=== PATIENT | male | born 1930 | race Asian ===

== ENCOUNTER 2016-10-05 06:51 | Inpatient (IN) | payer MEDICARE, MEDICAID ==
[2016-10-05] VITALS (14 sets, daily range): BP systolic 90–141; BP diastolic 59–75
[~2016-10-05] VITALS: Ht 170.2 cm; Wt 62.9 kg
[~2016-10-05 06:51] MED LIST: ARICEPT5 MG ORAL; DEXILANT60 MG ORAL; DIOVAN160 MG ORAL; FLOMAX0.4 MG ORAL; METFORMIN HCL1000 M1 ORAL; NORVASC5 MG ORAL; VICODIN 5-5001 EACH ORAL; [UNRECOGNIZED DRUG - OTHER]
[2016-10-05] MEDS ORDERED: Piperacillin/Tazobactam 4.5 GM in NS 110 ML IV SCH (07:15)
[2016-10-05] MEDS ORDERED: NS 1000ml 2,200 ML IVLG ONE (07:15)
[2016-10-05] MEDS ORDERED: Vancomycin 1.5gm/D5W 250ml 250 ML IVPB ONE (07:15)
[2016-10-05] MEDS ORDERED: Zosyn 4.5gm inj ONE (07:40)
[2016-10-05] MEDS ORDERED: Acetaminophen 650 MG SUPP RECTAL ONE (08:00)
--- NOTE | 2016-10-05 08:05 | Emergency Room Report ---
History of Present Illness General Chief Complaint: Dyspnea/Respdistress Source: Medical Record Present Illness HPI 85-year-old M bedbound, dementia, BPH, NPH with shunt, hx of pna coming from [facility] for [facility]. Per EMS report patient at baseline is nonverbal however [facility] staff states that patient is more altered and less responsive than normal. EMS arrived and patient was in respiratory distress with satting about 80% on room air up to 90 with BVM. Patient is full code. Patient had recent admission for pneumonia in August at outside hospital. Allergies: Coded Allergies: No Known Allergies (Unverified , 07/19/12) Patient History Past Medical History: see triage record Past Surgical History: unable to obtain Pertinent Family History: unable to obtain Nursing Documentation-[facility] Past Medical History: No History, Except For Hx Cardiac Problems: Yes Hx Hypertension: Yes Hx COPD: Yes Hx Diabetes: Yes Hx Cancer: No Hx Gastrointestinal Problems: No Hx Neurological Problems: Yes - vp software engineering shunt, hydrocecephalus Hx Dizziness: Yes Hx Syncope: Yes Hx Headaches: Yes Hx Numbness: Yes Hx Weakness: Yes Hx Fatigue: Yes Hx Brain Shunt: Yes - vp software engineering 2012 Review of Systems All Other Systems: limited - PT NONVERBAL Physical Exam Vital Signs Date Time Temp Pulse Resp B/P Pulse Ox O2 Delivery O2 Flow Rate FiO2 10/05/16 06:50 97.7 108 30 117/68 91 Ambu-Bag 15.0 10/05/16 07:23 100 Sp02 EP Interpretation: abnormal General Appearance: severe distress, other - Chronically ill-appearing male in respiratory distress agonal breathing, Chronically Ill Head: normocephalic, atraumatic Eyes: bilateral eye EOMI, bilateral eye PERRL, bilateral eye normal inspection ENT: normal ENT inspection, normal pharynx Neck: normal inspection, supple Respiratory: respiratory distress, other - Satting 80 on room air up to 95% with bagging. Tachypneic. Course breath sounds bilaterally. Cardiovascular #1: JVD, normal capillary refill, tachycardia Gastrointestinal: normal inspection, soft, non-distended, no guarding, other - no grimace to deep palpation Musculoskeletal: normal inspection, other - no signs of trauma Neurologic: normal inspection, other - gag reflex intact / moaning incomprehensible sounds, not ff commands Skin: normal color, no rash Procedures Critical Care Time Critical Care Time 45 minutes of CC time 85 YO M with resp distress VS: tachycardia, febrile Sepsis criteria met intubated for hypoxic resp dailure BP improved here with IVF, AL tylenol PLAN: IV access, labs, lactate, Blood/Urine Cx, Abx ICU admission CC time also includes review of labs, review of EMR and paperwork from SNF, d/w hospitalist CC could include dosing of pressors, additional Abx CC time does not include procedures Intubation Intubation : Consent: Emergent Intubation Method: orotracheal Tube Size (cm): 7.5 Medications: Etomidate, Rocuronium Breath Sounds after Intubation: equal Intubation Complications: no complications Post Intubation Xray: Yes Attempts: One Patient Tolerated: Well Complications: None Medical Decision Making Diagnostic Impression: Primary Impression: Acute respiratory failure with hypoxia Additional Impressions: Pneumonia Sepsis ER Course 85 yo M with resp distress, ams, coming from [place] ddx: suspect sepsis 2/2 to PNA/UTI, ACS, dehydration, electrolyte disturbance/ hyponatremia PLAN: came in being bagged by EMS, intubated upon arrival IV access - obtains labs EKG, CXR fluids, abx, tylenol ER course: intubated upon arrival Labs: +leukocytosis, elevated lactate, negative trop, hypercarbic on blood gas vent settings accordingly CXR: +infiltrate b/l EKG: TWI ant leads IV fluids given to patient 30 cc/kg, antibiotics administered Disposition: Patient is to be admitted to ICU sepsis criteria met D/w hospitalist Dr Nolen EKG Diagnostic Results Rate: tachycardiac Rhythm: NSR ST Segments: other - TWI v2 v3 ASA given to the pt in ED: No Rhythm Strip Diag. Results EP Interpretation: yes Rate: 120 Rhythm: NSR Chest X-Ray Diagnostic Results Chest X-Ray Diagnostic Results : # of Views/Limited/Complete: 1 View Indication: Shortness of Breath EP Interpretation: Yes Interpretation: other - b/l infiltrates/suspected pneumonia ETT above nicolás at appropriate position Impression: Other Interpreting ER Provider: Electronically signed by Cici Larson M.D. Last Vital Signs Date Time Temp Pulse Resp B/P Pulse Ox O2 Delivery O2 Flow Rate FiO2 10/05/16 07:23 100 10/05/16 07:00 105 28 Ambu-Bag 15.0 10/05/16 07:00 131/75 95 10/05/16 06:50 97.7 Disposition: ADMITTED INPATIENT Condition: Critical Referrals: NON PHYSICIAN (PCP) Cici Larson M.D. Oct 05, 2016 08:05
[2016-10-05 08:21] LABS: MEAN CORPUSCULAR HEMOGLOBIN 34.6 PG (27.0-31.0); MEAN CORPUSCULAR HGB CONC 34.3 G/DL (32.0-36.0); MEAN CORPUSCULAR VOLUME 101 FL (80-99); MEAN PLATELET VOLUME 6.6 FL (6.5-10.1); PLATELET COUNT 132 K/UL (150-450); RED BLOOD COUNT 3.73 M/UL (4.70-6.10); RED CELL DISTRIBUTION WIDTH 14.4 % (11.6-14.8); WHITE BLOOD COUNT 13.8 K/UL (4.8-10.8)
[2016-10-05 08:38] LABS: APPEARANCE,URINE CLEAR; KETONES,URINE 1+ (NEGATIVE); LEUKOCYTE ESTERASE ,URINE NEGATIVE (NEGATIVE); NITRITE,URINE NEGATIVE (NEGATIVE); PH,URINE 6 (4.5-8.0); PROTEIN,URINE 3+ (NEGATIVE); UROBILINOGEN,URINE NORMAL MG/DL (0.0-1.0)
[2016-10-05 08:42] LABS: ABG ALLEN TEST POSITIVE; ABG BASE EXCESS -9.4; ABG PCO2 62.8 mmHg (35.0-45.0)
[2016-10-05 08:43] LABS: BAND NEUTROPHILS % (MANUAL) 5 % (0-8); BASOPHILS % (MANUAL) 0 % (0-2); EOSINOPHILS % (MANUAL) 0 % (0-3); LYMPHOCYTES % (MANUAL) 14 % (20-45); NEUTROPHILS % (MANUAL) 75 % (45-75); PLATELET ESTIMATE DECREASED; PLATELET MORPHOLOGY NORMAL; TOTAL CELLS COUNTED 100
[2016-10-05 08:44] LABS: ANISOCYTOSIS 1+
[2016-10-05 08:49] LABS: AMORPHOUS SEDIMENT,UR OCCASIONAL /LPF; BACTERIA,URINE FEW /HPF; MUCUS,URINE FEW /LPF (NONE/OCC); SQUAMOUS EPITHELIAL CELL,UR FEW /LPF (NONE/OCC)
[2016-10-05 09:20] LABS: ALANINE AMINOTRANSFERASE 10 U/L (3-41); ALBUMIN/GLOBULIN RATIO 0.8 (1.0-2.7); ANION GAP 15 (5-15); ASPARTATE AMINO TRANSFERASE 16 U/L (5-40); CALCIUM 9.2 mg/dL (8.6-10.2); CARBON DIOXIDE 20 mEQ/L (20-30); CHLORIDE 99 mEQ/L (98-107); HEMOLYSIS 23; POTASSIUM 4.2 mEQ/L (3.4-4.9); SODIUM 134 mEQ/L (135-145); TOTAL PROTEIN 6.4 g/dL (6.6-8.7); TROPONIN I < 0.30 ng/mL (<=0.30)
[2016-10-05 09:25] LABS: REFLEX LACTIC ACID YES OR NO YES
[2016-10-05] MEDS ORDERED: ASPIR 8181 MG ORAL (09:27)
[2016-10-05] MEDS ORDERED: ACETAMINOPHEN325 M1 ORAL (09:27)
[2016-10-05 09:30] LABS: CKMB 2.3 ng/mL (< 6.7)
[2016-10-05] MEDS ORDERED: ATENOLOL25 MG ORAL (09:31)
[2016-10-05] MEDS ORDERED: CALMOSEPTINE O3.5 G1 TP (09:31)
[2016-10-05] MEDS ORDERED: ISOSORBIDE MONO30 M1 PO (09:33)
[2016-10-05] MEDS ORDERED: LOSARTAN POTAS100 MG ORAL (09:33)
[2016-10-05] MEDS ORDERED: OMEPRAZOLE20 M2 ORAL (09:34)
--- NOTE | 2016-10-05 10:16 | Diagnostic Imaging Report ---
Indication: PAIN distress, status post intubation Technique: One view of the chest Comparison: 07/23/2012 Findings: Interim endotracheal intubation, endotracheal tube tip in good position approximately 6 cm above the nicolás. Infiltrates are seen in the right upper lobe, right infrahilar region, left perihilar region left lung base. There is a moderate size left pleural effusion. There may be trace right pleural fluid. Ventriculoperitoneal shunt tubing is again demonstrated Impression: Satisfactory endotracheal intubation Bilateral parenchymal infiltrates versus edema, as described Moderate left, possible trace right pleural effusions
--- NOTE | 2016-10-05 10:27 | Pulmonolgy Critical Care Note ---
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 Respiratory: monitor respiratory rate, adjust FIO2, CXR Cardiac: continue to monitor HR/BP Renal: F/U I&O, keep IV fluid, check electrolytes Infectious Disease: check cultures, continue antibiotics Gastrointestinal: hold feedings, other - nutrition evaluation Endocrine: monitor blood sugar, check HgA1C Hematologic: monitor H/H Neurologic: PRN Ativan, PRN Morphine Affect: PRN ativan Prophylaxis: Protonix, Heparin Disposition: keep in ICU Time Spent (Minutes): 40 Discussed with: nurses, consultants, family member - pt at bed site Critical Care - Objective Last 24 Hour Vital Signs Date Time Temp Pulse Resp B/P Pulse Ox O2 Delivery O2 Flow Rate FiO2 10/05/16 09:24 110 16 100 10/05/16 09:00 98.2 114 16 139/69 100 Mechanical Ventilator 100 10/05/16 08:23 98.2 10/05/16 08:00 119 16 132/75 100 Mechanical Ventilator 100 10/05/16 07:23 100 10/05/16 07:05 137 16 100 10/05/16 07:04 137 16 Mechanical Ventilator 100 10/05/16 07:00 105 28 Ambu-Bag 15.0 10/05/16 07:00 105 28 131/75 95 Ambu-Bag 15.0 10/05/16 06:50 97.7 108 30 117/68 91 Ambu-Bag 15.0 Status: sedated Condition: critical HEENT: atraumatic Neck: full ROM Heart: HR/BP unstable, regular Abdomen: non-tender, active bowel sounds Extremities: no C/C/E, edema Decubiti: stage Critical Care - Subjective ROS Limited/Unobtainable: Yes ICU Day: pt seen inER Intubation Day: 1 EKG Rhythm: Sinus Rhythm FI02: 100 Vent Support Breath Rate: 16 Vent Support Mode: AC Vent Tidal Volume: 400 Sputum Amount: Moderate PEEP: 5.0 PIP: 21 I&O: Intake and Output 10/04/16 10/05/16 19:00 07:00 Intake Total 0 ml Balance 0 ml Intake Oral 0 ml CXR: bilateral infiltrate ET-Tube: 7.5 ET Position: 24 VERITO MONTESINOS Oct 05, 2016 10:27
[2016-10-05] MEDS ORDERED: DuoNeb 0.5-3(2.5)mg/3ml neb HHN PRN (10:30)
[2016-10-05] MEDS ORDERED: Miralax 17gm pkt ORAL PRN (10:30)
[2016-10-05] MEDS ORDERED: LORazepam Inj 2mg/ml 1ml IV PRN (10:30)
--- NOTE | 2016-10-05 14:27 | Wound Care Consultation ---
Wound Assessment Wound Assessment #1: Wound Number: #1 Wound Present on Admission: Yes New Wound: No Status Change of Wound: No Wound Location Body Site Modif: mid Wound Location Body Site: sacral Wound Type: pressure ulcer Sonu Test: Does not Sonu Pressure Ulcer Stage: deep tissue injury Wound Thickness: Full Thickness Wound Length: 6.0 Wound Width: 10.0 - scattered Percent of Wound Purple/Maroon: 100 Wound Drainage Amount: None Wound Drainage Odor: None/Absent Tissue Surrounding Wound: Erythemic Wound General Appearance: Reddened - maroon Wound Assessment #2: Wound Number: #2 Wound Present on Admission: Yes New Wound: No Status Change of Wound: No Wound Location Body Site Modif: right Wound Location Body Site: arm Wound Type: ecchymosis - scattered Sonu Test: Does not Sonu Percent of Wound Yaak/Red: 50 Percent of Wound Purple/Maroon: 50 Wound Drainage Amount: None Wound Drainage Odor: None/Absent Tissue Surrounding Wound: Intact Wound General Appearance: Reddened, Open to air Wound Assessment #3: Wound Number: #3 Wound Present on Admission: Yes New Wound: No Status Change of Wound: No Wound Location Body Site Modif: left Wound Location Body Site: arm Wound Type: ecchymosis - scattered Sonu Test: Does not Sonu Percent of Wound Yaak/Red: 50 Percent of Wound Purple/Maroon: 50 Wound Drainage Amount: None Wound Drainage Odor: None/Absent Tissue Surrounding Wound: Intact Wound General Appearance: Reddened Wound Assessment #4: Wound Number: #4 Wound Present on Admission: Yes New Wound: No Status Change of Wound: No Wound Location Body Site Modif: left, right, upper Wound Location Body Site: arm Wound Type: scab - scattered scabs Sonu Test: Does not Sonu Percent of Wound Yaak/Red: 50 - dry scabs Percent of Wound Black/Brown: 50 - dry scabs Wound Drainage Amount: None Wound Drainage Odor: None/Absent Tissue Surrounding Wound: Erythemic Wound General Appearance: Reddened, Open to air, Clean/Dry Wound Comment #1 Mid Sacral pressure ulcer DEEP TISSUE INJURY. #2 Left upper arm scattered ecchymosis. #3 Right upper arm scattered ecchymosis. #4 Left and Right upper arm scattered scabs. Recommendation. -Local wound care as ordered. -Apply low air loss mattress SPR. -Turn and reposition. -Keep clean and dry. -Optimize nutrition. -Avoid shear and friction. -Apply heel protectors. -Offload pressure sites, offload heels and feet. -Assess and notify MD for any changes of condition noted to skin. KEATON GUZMAN Oct 05, 2016 14:27
[2016-10-05] MEDS ORDERED: Amikacin Rx to dose MISC PRN (15:00)
[2016-10-05 15:19] LABS: ABG ALLEN TEST POSITIVE; ABG BASE EXCESS -6.5
--- NOTE | 2016-10-05 15:34 | Cardiology Report ---
APPROVED REPORT EXAM: Two-dimensional and M-mode echocardiogram with Doppler and color Doppler. INDICATION Left Ventricular Function M-Mode DIMENSIONS IVSd1.3 (0.7-1.1cm)Left Atrium (MM)2.8 (1.6-4.0cm) LVDd3.6 (3.5-5.6cm)Aortic Root3.3 (2.0-3.7cm) PWd1.2 (0.7-1.1cm)Aortic Cusp Exc.1.5 (1.5-2.0cm) LVDs1.9 (2.5-4.0cm) PWs1.8 cm Normal left ventricular chamber size, systolic function and wall motion. Left ventricular ejection fraction estimated to be 55 %. Mild left ventricular hypertrophy. Small pericardial effusion. All other cardiac chamber sizes are within normal limits. Mild focal aortic valve sclerosis with adequate cusp excursion. Mildly thickened mitral valve leaflets with normal excursion. Mild mitral annulus and aortic root calcification. Normal pulmonic valve structure. Normal tricuspid valve structure. IVC dilated at 2.3 cm without physiologic collapse, estimated RAP is 15 mmHg. A color flow and spectral Doppler study was performed and revealed: No aortic regurgitation. Mild mitral regurgitation. Mitral diastolic velocities suggest reduced left ventricular relaxation (Grade I). Moderate tricuspid regurgitation. Tricuspid systolic velocities suggests peak right ventricular systolic pressure of 17 mmHg No pulmonic regurgitation present.
[2016-10-05] MEDS: Amikacin 1,000 MG in NS 110 ML IV SCH (15:47)
[2016-10-05] MEDS ORDERED: Ertapenem 1 GM in NS 55 ML IV SCH (16:00)
[2016-10-05] MEDS ORDERED: Vancomycin 1.5 GM/D5W 250ML IVPB ONE (17:00)
--- NOTE | 2016-10-05 19:28 | Infectious Diseases Prog Note ---
Infectious Disease Consult Infectious Disease Consult Infectious Disease Consult INFECTIOUS DISEASE CONSULTATION DATE OF CONSULTATION: 05Oct2016 CONSULTING PHYSICIAN: Alfonso Mathur M.D., [facility], [facility] Covering for Dr. Aguiar REFERRING PHYSICIAN: Dr. Luis Nolen REASON FOR CONSULTATION: hypoxemic respiratory failure, septic shock HISTORY OF PRESENT ILLNESS: 85-year-old [place] M bedbound, dementia, BPH, NPH with shunt, hx of aspiration pna coming from [facility] for [facility]. Per EMS report patient at baseline is nonverbal however senior care staff states that patient is more altered and less responsive than normal. Per EMS patient was in respiratory distress with satting about 80% on room air up to 90 with BVM. Patient is full code. Patient had recent admission for pneumonia in August 2015 at outside hospital ( [facility] [place] On presentation he was afebrile, briefly required norepinephrine, received dose of IV zosyn and then continued on IV ertapenem, vanc, and amikacin. patient does not have a known h/o ESBL or MDR pathogens. PAST MEDICAL HISTORY: h/o aspiration pneumonia (s/p admission to [facility] [place] ) normal pressure hydrocephalus asthma BPS HTN Dementia, advanced bed-bound senior care resident gastritis Past Surgical History: DITCHING [employer]ACH[employer] shunt 2011 ALLERGIES: No known drug allergies. ANTIBIOTICS: Home and hospitalized medications reviewed. SOCIAL HISTORY: FAMILY HISTORY: Noncontributory REVIEW OF SYSTEMS: 11 point ROS negative except for that mentioned in HPI above. PHYSICAL EXAM: VITAL SIGNS: GEN: intubated on vent full support, currently not on pressors, alert HEENT: Mild pale conjunctiva. oral mucosa dry, pharynx w/o exudate or effusion. No icterus. Head normocephalic, neck supple. NECK: No cervical LAD CHEST: scattered rhonchi, decreased breath sounds on L base. HEART: S1 and S2, no murmurs, no rubs. ABDOMEN: soft, non tender, non distended, normoactive bowel sounds. EXTREMITIES: No cyanosis, no clubbing, no edema. extremities warm with brisk cap refill NEUROLOGIC: Awake, alert, no focal neurologic motor deficits. : enciso in place draining clear yellow urine. LYMPH: no LAD RECTAL: deferred. reviewed wound care report of mid sacral pressure ulcer with deep tissue injury LABORATORY AND DIAGNOSTIC DATA: Labs reviewed, notable for leukocytosis, metabolic lactic acidosis, and initial ABG was hypercarbic. u/a w/o pyuria blood and sputum cx pending LFTs wnl RADIOLOGY: Patient : DACIA THACKER Referring Physician: Cici Larson M.D. ID Number: [id number] Service Date: 10/05/16 : 1930 Report Date: 10/05/16 Gender: M Accession No.: [id number] Location: EMR Procedure: XRAY Chest 1v Indication: PAIN distress, status post intubation Technique: One view of the chest Comparison: 07/23/2012 Findings: Interim endotracheal intubation, endotracheal tube tip in good position approximately 6 cm above the nicolás. Infiltrates are seen in the right upper lobe, right infrahilar region, left perihilar region left lung base. There is a moderate size left pleural effusion. There may be trace right pleural fluid. Ventriculoperitoneal shunt tubing is again demonstrated Impression: Satisfactory endotracheal intubation Bilateral parenchymal infiltrates versus edema, as described Moderate left, possible trace right pleural effusions ASSESSMENT AND PLAN ASSESSMENT: 1) Pneumonia, moderate L effusion 2) septic shock, currently off pressors 3) Hypercarbic Respiratory failure requiring intubation 4) Leukocytosis 5) Afebrile 6) Lactic acidosis 7) hyperglycemia 8) thrombocytopenia, mild 9) Sacral pressure ulcer with deep tissue injury PLAN: --Continue empiric IV vancomycin and amikacin D#1 --d/c IV ertapenem, as he doesn't have h/o ESBL and primary infection appears to be pulmonary in origin, so empiric zosyn preferred --start IV zosyn 4.5gm IV q8hr extended infusion --f/u sputum cx --f/u blood cx --enciso catheter care --sacral wound care --as his CXR does have some component of pulmonary edema, will monitor L pleural effusion for improvement on positive pressure ventilation on daily CXR --f/u MRSA screening Thank you for this consultation. Will continue to follow. Covering for Dr. Aguiar, please call me with questions, Alfonso Mathur M.D. Oct 05, 2016 19:28
[2016-10-05 20:59] LABS: REFLEX LACTIC ACID YES OR NO YES
[2016-10-05] MEDS: Tamsulosin 0.4mg cap ORAL SCH (21:00)
[2016-10-05] MEDS: Heparin 5000 units/ml inj SUBQ SCH (22:00)
[2016-10-05] MEDS: Piperacillin/Tazobactam 4.5 GM in D5W 110 ML IVPB SCH (23:00)
[2016-10-05] MEDS ORDERED: Vancomycin 1 GM in D5W 275 ML IV SCH (23:45)
[2016-10-06] VITALS (34 sets, daily range): BP systolic 74–151; BP diastolic 43–95
[2016-10-06] MEDS ORDERED: Levophed 4mg/4mL Inj IV ONE (00:25)
[2016-10-06 05:51] LABS: MEAN CORPUSCULAR HEMOGLOBIN 34.5 PG (27.0-31.0); MEAN CORPUSCULAR VOLUME 102 FL (80-99); MEAN PLATELET VOLUME 6.4 FL (6.5-10.1); PLATELET COUNT 191 K/UL (150-450); RED BLOOD COUNT 3.12 M/UL (4.70-6.10); RED CELL DISTRIBUTION WIDTH 14.4 % (11.6-14.8)
[2016-10-06] MEDS: Piperacillin/Tazobactam 4.5 GM in D5W 110 ML IVPB SCH ×3 (06:12→21:43)
[2016-10-06 06:28] LABS: ALANINE AMINOTRANSFERASE 11 U/L (3-41); ALBUMIN/GLOBULIN RATIO 0.7 (1.0-2.7); ANION GAP 14 (5-15); ASPARTATE AMINO TRANSFERASE 22 U/L (5-40); CALCIUM 8.1 mg/dL (8.6-10.2); CARBON DIOXIDE 19 mEQ/L (20-30); CHLORIDE 103 mEQ/L (98-107); HEMOLYSIS 75; POTASSIUM 4.4 mEQ/L (3.4-4.9); SODIUM 136 mEQ/L (135-145); TOTAL PROTEIN 6.3 g/dL (6.6-8.7)
[2016-10-06 08:05] LABS: BILIRUBIN,DIRECT 0.2 mg/dL (0.1-0.3)
[2016-10-06 08:12] LABS: ABG ALLEN TEST POSITIVE; ABG BASE EXCESS -4.9; ABG PCO2 28.6 mmHg (35.0-45.0)
[2016-10-06] MEDS: Heparin 5000 units/ml inj SUBQ SCH ×2 (08:32→21:07)
--- NOTE | 2016-10-06 08:49 | Diagnostic Imaging Report ---
Indications: DYSPNEA Technique: Portable AP chest Findings: Comparison: 10/05/16 Patchy airspace opacities in the basal aspect of right upper lobe, both lower lobes unchanged. Background bilateral interstitial prominence unchanged. Blunting of both costophrenic angles persists, perhaps mildly decreased on the left. Lines and tubes remain in place. No new abnormality identified. IMPRESSION: Suggestion of mild decrease in versus shifting of left pleural effusion No other change from one day prior
--- NOTE | 2016-10-06 10:26 | History and Physical ---
History of Present Illness General Date patient seen: Oct 05, 2016 Reason for Hospitalization: Dyspnea/Respdistress Present Illness HPI 85-year-old male with hx of dementia, BPH, NPH, bedbound, care home resident [facility] with CC of fAMS. Apparently patient was more altered and less responsive than normal. EMS arrived and patient was in respiratory distress with saturating about 80% on room. . Patient is full code. Patient had recent admission for pneumonia in August at outside hospital. He was intubated in ER, was started on Levophed and transferring to ICU. Allergies: Coded Allergies: No Known Allergies (Unverified , 07/19/12) Medication History Scheduled Amlodipine Besylate (Norvasc), 5 MG ORAL DAILY, (Reported) Aspirin* (Aspir 81*), 81 MG ORAL DAILY, (Reported) Atenolol* (Tenormin*), 25 MG ORAL DAILY, (Reported) Dexlansoprazole (Dexilant), 60 MG ORAL DAILY, (Reported) Donepezil Hcl* (Aricept*), 10 MG ORAL DAILY, (Reported) Hydrocodone/Acetaminophen 5-500 (Vicodin 5-500), 1 TAB ORAL Q6H, (Reported) Isosorbide Mononitrate (Isosorbide Mononitrate Er), 30 MG PO DAILY, (Reported) Losartan Potassium (Losartan Potassium), 100 MG ORAL DAILY, (Reported) Metformin Hcl* (Metformin Hcl*), 1,000 MG ORAL DAILY, (Reported) Omeprazole (Omeprazole), 20 MG ORAL DAILY, (Reported) Tamsulosin HCl (Flomax), 0.4 MG ORAL BEDTIME, (Reported) Valsartan (Diovan), 160 MG ORAL DAILY, (Reported) Scheduled PRN Acetaminophen* (Acetaminophen 325MG Tablet*), 325 MG ORAL Q4H PRN for For Pain, (Reported) Miscellaneous Medications Menthol/Zinc Oxide (Calmoseptine Ointment), Unknown Dose TP, (Reported) [isorosbide], (Reported) Patient History Healthcare decision maker Resuscitation status Full Code Advanced Directive on File Past Medical/Surgical History Past Medical/Surgical History: (1) Alzheimer's dementia (2) Normal pressure hydrocephalus Review of Systems All Other Systems: negative except mentioned in HPI Physical Exam General Appearance: WD/WN HEENT: normocephalic Neck: non-tender, normal alignment Respiratory/Chest: chest wall non-tender, lungs clear Breasts: no masses Cardiovascular/Chest: normal peripheral pulses, normal rate Abdomen: normal bowel sounds, non tender Genitourinary/Rectal: normal genital exam, normal rectal exam Extremities: normal range of motion, non-tender, non-pitting Skin Exam: cyanotic Last 24 Hour Vital Signs Date Time Temp Pulse Resp B/P Pulse Ox O2 Delivery O2 Flow Rate FiO2 10/06/16 10:00 96 20 120/64 94 Mechanical Ventilator 60 10/06/16 09:38 60 10/06/16 09:20 86 25 50 10/06/16 09:20 100 10/06/16 09:00 101 20 108/70 98 Mechanical Ventilator 80 10/06/16 08:00 105 10/06/16 08:00 98.0 105 19 122/63 98 Mechanical Ventilator 80 10/06/16 07:53 80 10/06/16 07:10 103 25 50 10/06/16 07:00 98.1 80 18 134/70 98 10/06/16 06:15 98 18 110/58 98 Mechanical Ventilator 50 10/06/16 06:00 105/72 10/06/16 06:00 100 19 105/72 98 Mechanical Ventilator 50 10/06/16 05:45 99 19 122/67 97 Mechanical Ventilator 50 10/06/16 05:30 99 20 103/64 95 Mechanical Ventilator 50 10/06/16 05:15 100 21 135/76 96 Mechanical Ventilator 50 10/06/16 05:14 98 20 50 10/06/16 05:00 94 20 135/95 95 Mechanical Ventilator 50 10/06/16 05:00 135/95 10/06/16 04:45 96 20 132/71 95 Mechanical Ventilator 50 10/06/16 04:30 98.3 97 21 125/70 97 Mechanical Ventilator 50 10/06/16 04:15 98 24 136/71 96 Mechanical Ventilator 50 10/06/16 04:00 98 23 131/75 98 Mechanical Ventilator 50 10/06/16 04:00 98 10/06/16 04:00 131/75 10/06/16 03:45 95 22 114/69 99 Mechanical Ventilator 50 10/06/16 03:30 92 20 151/76 97 Mechanical Ventilator 50 10/06/16 03:15 89 18 114/65 96 Mechanical Ventilator 50 10/06/16 03:09 89 19 50 17 03:00 117/69 10/06/16 03:00 98.1 90 18 117/69 89 50 17 02:00 98.1 108/71 10/06/16 02:00 112/52 10/06/16 01:30 141/70 10/06/16 01:15 94/61 10/06/16 01:00 82 16 50 10/06/16 01:00 98.1 84 74/52 10/06/16 01:00 92/58 10/06/16 00:46 88/48 10/06/16 00:00 82 10/06/16 00:00 98.1 86 109/68 10/05/16 23:27 95 16 50 10/05/16 23:00 98.1 88 18 141/70 97 50 10/05/16 22:00 98.1 88 18 99 Mechanical Ventilator 50 10/05/16 21:05 89 17 50 10/05/16 21:00 98.2 84 18 114/62 85 Mechanical Ventilator 50 10/05/16 20:00 98.1 89 18 110/62 99 Mechanical Ventilator 50 16/17 20:00 84 1617 19:01 93 17 50 1617 19:00 89 20 110/62 99 Mechanical Ventilator 50 17 18:01 94 20 90/60 99 Mechanical Ventilator 50 16/17 17:17 91 19 50 16/17 17:00 96 20 90/71 99 Mechanical Ventilator 50 17 16:00 98.1 96 20 123/67 99 Mechanical Ventilator 50 16/17 15:11 93 26 50 16/17 15:00 96 21 124/71 99 Mechanical Ventilator 50 16/17 14:49 50 16/17 14:45 124/71 16/17 14:11 74 16 50 16/17 14:00 98.0 83 18 112/59 100 Mechanical Ventilator 100 16/17 13:30 100 16/17 13:30 95 16/17 13:21 93 19 126/73 100 Mechanical Ventilator 100 16/17 11:36 96 21 118/65 100 Mechanical Ventilator 100 16/17 11:25 101 19 100 10/05/16 10:27 97.5 103 16 131/69 100 Mechanical Ventilator 100 Intake and Output 10/05/16 10/06/16 19:00 07:00 Intake Total 3298 ml 711.32 ml Output Total 750 ml 430 ml Balance 2548 ml 281.32 ml IV Total 3298 ml 711.32 ml Output Urine Total 750 ml 430 ml Laboratory Tests Test 10/05/16 15:04 10/05/16 20:20 10/06/16 04:05 10/06/16 08:02 Arterial Blood pH 7.349 (7.350-7.450) 7.425 (7.350-7.450) Arterial Blood Partial Pressure CO2 34.0 mmHg (35.0-45.0) L 28.6 mmHg (35.0-45.0) L Arterial Blood Partial Pressure O2 71.1 mmHg (75.0-100.0) L 68.8 mmHg (75.0-100.0) L Arterial Blood HCO3 18.3 mmol/L (22.0-26.0) L 18.3 mmol/L (22.0-26.0) L Arterial Blood Oxygen Saturation 93.1 % (92.0-98.0) 99.0 % (92.0-98.0) H Arterial Blood Base Excess -6.5 -4.9 Nicholas Test Positive Positive Lactic Acid Level 2.50 mmol/L (0.66-2.22) H White Blood Count 20.0 K/UL (4.8-10.8) H Red Blood Count 3.12 M/UL (4.70-6.10) L Hemoglobin 10.8 G/DL (14.2-18.0) L Hematocrit 31.6 % (42.0-52.0) L Mean Corpuscular Volume 102 FL (80-99) H Mean Corpuscular Hemoglobin 34.5 PG (27.0-31.0) H Mean Corpuscular Hemoglobin Concent 34.0 G/DL (32.0-36.0) Red Cell Distribution Width 14.4 % (11.6-14.8) Platelet Count 191 K/UL (150-450) Mean Platelet Volume 6.4 FL (6.5-10.1) L Neutrophils (%) (Auto) % (45.0-75.0) Lymphocytes (%) (Auto) % (20.0-45.0) Monocytes (%) (Auto) % (1.0-10.0) Eosinophils (%) (Auto) % (0.0-3.0) Basophils (%) (Auto) % (0.0-2.0) Neutrophils % (Manual) Pending Lymphocytes % (Manual) Pending Platelet Estimate Pending Platelet Morphology Pending Sodium Level 136 mEQ/L (135-145) Potassium Level 4.4 mEQ/L (3.4-4.9) Chloride Level 103 mEQ/L (98-107) Carbon Dioxide Level 19 mEQ/L (20-30) L Anion Gap 14 (5-15) Blood Urea Nitrogen 16 mg/dL (7-23) Creatinine 1.0 mg/dL (0.7-1.2) Estimat Glomerular Filtration Rate mL/min (>60) Glucose Level 136 mg/dL (74-106) H Calcium Level 8.1 mg/dL (8.6-10.2) L Total Bilirubin 0.9 mg/dL (0.0-1.2) Direct Bilirubin 0.2 mg/dL (0.1-0.3) Aspartate Amino Transf (AST/SGOT) 22 U/L (5-40) Alanine Aminotransferase (ALT/SGPT) 11 U/L (3-41) Alkaline Phosphatase 66 U/L (40-129) Total Protein 6.3 g/dL (6.6-8.7) L Albumin 2.7 g/dL (3.5-5.2) L Globulin 3.6 g/dL Albumin/Globulin Ratio 0.7 (1.0-2.7) L Random Amikacin Level 13.4 ug/mL Height (Feet): 5 Height (Inches): 7.00 Weight (Pounds): 160 Medications Current Medications Medications (Trade) Dose Ordered Sig/Bhavna Route PRN Reason Start Time Stop Time Status Last Admin Dose Admin Acetaminophen (Tylenol) 650 mg Q4H PRN ORAL fever 10/05/16 10:30 11/04/16 10:29 Albuterol/ Ipratropium 3 ml 3 ml Q4H PRN HHN Shortness of Breath 10/05/16 10:30 10/10/16 10:29 Amikacin Protocol (Amikacin pharmacy to dose) 1 ea DAILY PRN MISC PER RX PROTOCOL 10/05/16 15:00 11/04/16 14:59 Amikacin Sulfate/ Sodium Chloride (Amikin/Sodium Chloride) 114 ml @ 228 mls/hr Q36H IV 10/05/16 16:00 10/12/16 15:59 10/05/16 15:47 Heparin Sodium (Porcine) (Heparin 5000 units/ml) 5,000 units EVERY 12 HOURS SUBQ 10/05/16 21:00 11/04/16 20:59 10/06/16 08:32 Lorazepam 2 mg 2 mg Q2H PRN IV For Anxiety 10/05/16 10:30 10/12/16 10:29 Morphine Sulfate (Morphine Sulfate) 4 mg Q4H PRN IVP Severe Pain (Pain Scale 7-10) 10/05/16 10:30 10/12/16 10:29 Norepinephrine Bitartrate/ Dextrose (Levophed/D5W) 254 ml @ 0 mls/hr Q24H IV 10/05/16 14:45 11/04/16 14:44 10/06/16 00:46 Ondansetron HCl (Zofran) 4 mg Q6H PRN IVP Nausea & Vomiting 10/05/16 10:30 11/04/16 10:29 Piperacillin Sod/ Tazobactam Sod/ Dextrose (Zosyn/D5W) 110 ml @ 27.5 mls/hr EVERY 8 HOURS IVPB 10/05/16 22:00 10/12/16 21:59 10/06/16 06:12 Sodium Chloride (Sodium Chloride 1000ml bag) 1,000 ml @ 100 mls/hr Q10H IVLG 10/05/16 15:00 11/04/16 14:59 10/06/16 01:28 Tamsulosin HCl 0.4 mg 0.4 mg BEDTIME ORAL 10/05/16 21:00 11/04/16 20:59 Vancomycin HCl 1 ea 1 ea DAILY PRN MISC PER RX PROTOCOL 10/05/16 15:00 11/04/16 14:59 Vancomycin HCl/ Dextrose 250 ml @ 166.667 mls/hr Q24H IVPB 10/06/16 17:00 10/11/16 16:59 Assessment/Plan Problem List: (1) Acute respiratory failure with hypoxia ICD Codes: J96.01 - Acute respiratory failure with hypoxia SNOMED: 72766651, 392074420 (2) Pneumonia ICD Codes: J18.9 - Pneumonia, unspecified organism SNOMED: 700632588, 858945150 (3) Sepsis ICD Codes: A41.9 - Sepsis, unspecified organism SNOMED: 10687979, 854773563 (4) Normal pressure hydrocephalus ICD Codes: G91.2 - (Idiopathic) normal pressure hydrocephalus SNOMED: 40076191 (5) Alzheimer's dementia ICD Codes: G30.9 - Alzheimer's disease, unspecified SNOMED: 19292499 Respiratory: monitor respiratory rate, adjust FIO2, CXR Cardiac: continue pressors, continue to monitor HR/BP Renal: F/U I&O, keep IV fluid, check electrolytes Infectious Disease: check cultures, continue antibiotics, add antibiotics Gastrointestinal: hold feedings Endocrine: monitor blood sugar, check TSH, continue sliding scale insulin Hematologic: monitor H/H, transfuse if hgb<8.5 Neurologic: PRN Ativan, PRN Morphine, keep patient comfortable Notes Reviewed: interactive producer, cardio, renal Discussed with: nurses, consultants, case aide VERITO MONTESINOS Oct 06, 2016 10:26
--- NOTE | 2016-10-06 10:28 | Pulmonolgy Critical Care Note ---
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 Respiratory: monitor respiratory rate, adjust FIO2, CXR, weaning trial Cardiac: continue to monitor HR/BP Renal: F/U I&O, keep IV fluid, check electrolytes Infectious Disease: check cultures Gastrointestinal: continue feedings/current rate Endocrine: monitor blood sugar, check TSH Hematologic: monitor H/H, transfuse if hgb<8.5 Neurologic: PRN Ativan, PRN Morphine, keep patient comfortable Prophylaxis: Heparin Notes Reviewed: cardio, renal Discussed with: nurses, consultants, 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 - Objective Last 24 Hour Vital Signs Date Time Temp Pulse Resp B/P Pulse Ox O2 Delivery O2 Flow Rate FiO2 10/06/16 10:00 96 20 120/64 94 Mechanical Ventilator 60 10/06/16 09:38 60 10/06/16 09:20 86 25 50 10/06/16 09:20 100 10/06/16 09:00 101 20 108/70 98 Mechanical Ventilator 80 10/06/16 08:00 105 10/06/16 08:00 98.0 105 19 122/63 98 Mechanical Ventilator 80 10/06/16 07:53 80 10/06/16 07:10 103 25 50 10/06/16 07:00 98.1 80 18 134/70 98 10/06/16 06:15 98 18 110/58 98 Mechanical Ventilator 50 10/06/16 06:00 105/72 10/06/16 06:00 100 19 105/72 98 Mechanical Ventilator 50 10/06/16 05:45 99 19 122/67 97 Mechanical Ventilator 50 10/06/16 05:30 99 20 103/64 95 Mechanical Ventilator 50 10/06/16 05:15 100 21 135/76 96 Mechanical Ventilator 50 10/06/16 05:14 98 20 50 10/06/16 05:00 94 20 135/95 95 Mechanical Ventilator 50 10/06/16 05:00 135/95 10/06/16 04:45 96 20 132/71 95 Mechanical Ventilator 50 10/06/16 04:30 98.3 97 21 125/70 97 Mechanical Ventilator 50 10/06/16 04:15 98 24 136/71 96 Mechanical Ventilator 50 10/06/16 04:00 98 23 131/75 98 Mechanical Ventilator 50 10/06/16 04:00 98 10/06/16 04:00 131/75 10/06/16 03:45 95 22 114/69 99 Mechanical Ventilator 50 10/06/16 03:30 92 20 151/76 97 Mechanical Ventilator 50 17 03:15 89 18 114/65 96 Mechanical Ventilator 50 10/06/16 03:09 89 19 50 10/06/16 03:00 117/69 10/06/16 03:00 98.1 90 18 117/69 89 50 10/06/16 02:00 98.1 108/71 10/06/16 02:00 112/52 10/06/16 01:30 141/70 10/06/16 01:15 94/61 10/06/16 01:00 82 16 50 10/06/16 01:00 98.1 84 74/52 10/06/16 01:00 92/58 10/06/16 00:46 88/48 10/06/16 00:00 82 10/06/16 00:00 98.1 86 109/68 10/05/16 23:27 95 16 50 17 23:00 98.1 88 18 141/70 97 50 10/05/16 22:00 98.1 88 18 99 Mechanical Ventilator 50 10/05/16 21:05 89 17 50 10/05/16 21:00 98.2 84 18 114/62 85 Mechanical Ventilator 50 10/05/16 20:00 98.1 89 18 110/62 99 Mechanical Ventilator 50 17 20:00 84 17 19:01 93 17 50 17 19:00 89 20 110/62 99 Mechanical Ventilator 50 1617 18:01 94 20 90/60 99 Mechanical Ventilator 50 16/17 17:17 91 19 50 16/17 17:00 96 20 90/71 99 Mechanical Ventilator 50 1617 16:00 98.1 96 20 123/67 99 Mechanical Ventilator 50 16/17 15:11 93 26 50 16/17 15:00 96 21 124/71 99 Mechanical Ventilator 50 16/17 14:49 50 16/17 14:45 124/71 16/17 14:11 74 16 50 16/17 14:00 98.0 83 18 112/59 100 Mechanical Ventilator 100 10/05/16 13:30 100 10/05/16 13:30 95 10/05/16 13:21 93 19 126/73 100 Mechanical Ventilator 100 10/05/16 11:36 96 21 118/65 100 Mechanical Ventilator 100 10/05/16 11:25 101 19 100 Status: sedated Condition: critical HEENT: atraumatic Neck: full ROM Lungs: clear Heart: HR/BP stable, HR/BP unstable Abdomen: soft, non-tender, feeding tube Extremities: edema Decubiti: location, stage Critical Care - Subjective ROS Limited/Unobtainable: Yes ICU Day: 2 Intubation Day: 2 Condition: critical FI02: 60 Vent Support Breath Rate: 10 Vent Support Mode: IMV/SIMV Vent Tidal Volume: 600 Sputum Amount: Small PEEP: 0.0 PIP: 22 Fluids: NS 100 cc.hour Drips: off levophed I&O: Intake and Output 10/05/16 10/06/16 19:00 07:00 Intake Total 3298 ml 711.32 ml Output Total 750 ml 430 ml Balance 2548 ml 281.32 ml IV Total 3298 ml 711.32 ml Output Urine Total 750 ml 430 ml CXR: extensive infiltrate ET-Tube: 7.5 ET Position: 23 Labs: Laboratory Tests Test 10/05/16 15:04 10/05/16 20:20 10/06/16 04:05 10/06/16 08:02 Arterial Blood pH 7.349 (7.350-7.450) 7.425 (7.350-7.450) Arterial Blood Partial Pressure CO2 34.0 mmHg (35.0-45.0) L 28.6 mmHg (35.0-45.0) L Arterial Blood Partial Pressure O2 71.1 mmHg (75.0-100.0) L 68.8 mmHg (75.0-100.0) L Arterial Blood HCO3 18.3 mmol/L (22.0-26.0) L 18.3 mmol/L (22.0-26.0) L Arterial Blood Oxygen Saturation 93.1 % (92.0-98.0) 99.0 % (92.0-98.0) H Arterial Blood Base Excess -6.5 -4.9 Nicholas Test Positive Positive Lactic Acid Level 2.50 mmol/L (0.66-2.22) H White Blood Count 20.0 K/UL (4.8-10.8) H Red Blood Count 3.12 M/UL (4.70-6.10) L Hemoglobin 10.8 G/DL (14.2-18.0) L Hematocrit 31.6 % (42.0-52.0) L Mean Corpuscular Volume 102 FL (80-99) H Mean Corpuscular Hemoglobin 34.5 PG (27.0-31.0) H Mean Corpuscular Hemoglobin Concent 34.0 G/DL (32.0-36.0) Red Cell Distribution Width 14.4 % (11.6-14.8) Platelet Count 191 K/UL (150-450) Mean Platelet Volume 6.4 FL (6.5-10.1) L Neutrophils (%) (Auto) % (45.0-75.0) Lymphocytes (%) (Auto) % (20.0-45.0) Monocytes (%) (Auto) % (1.0-10.0) Eosinophils (%) (Auto) % (0.0-3.0) Basophils (%) (Auto) % (0.0-2.0) Neutrophils % (Manual) Pending Lymphocytes % (Manual) Pending Platelet Estimate Pending Platelet Morphology Pending Sodium Level 136 mEQ/L (135-145) Potassium Level 4.4 mEQ/L (3.4-4.9) Chloride Level 103 mEQ/L (98-107) Carbon Dioxide Level 19 mEQ/L (20-30) L Anion Gap 14 (5-15) Blood Urea Nitrogen 16 mg/dL (7-23) Creatinine 1.0 mg/dL (0.7-1.2) Estimat Glomerular Filtration Rate mL/min (>60) Glucose Level 136 mg/dL (74-106) H Calcium Level 8.1 mg/dL (8.6-10.2) L Total Bilirubin 0.9 mg/dL (0.0-1.2) Direct Bilirubin 0.2 mg/dL (0.1-0.3) Aspartate Amino Transf (AST/SGOT) 22 U/L (5-40) Alanine Aminotransferase (ALT/SGPT) 11 U/L (3-41) Alkaline Phosphatase 66 U/L (40-129) Total Protein 6.3 g/dL (6.6-8.7) L Albumin 2.7 g/dL (3.5-5.2) L Globulin 3.6 g/dL Albumin/Globulin Ratio 0.7 (1.0-2.7) L Random Amikacin Level 13.4 ug/mL VERITO MONTESINOS Oct 06, 2016 10:28
[2016-10-06 11:13] LABS: ANISOCYTOSIS 1+; BAND NEUTROPHILS % (MANUAL) 12 % (0-8); BASOPHILS % (MANUAL) 0 % (0-2); EOSINOPHILS % (MANUAL) 0 % (0-3); LYMPHOCYTES % (MANUAL) 6 % (20-45); NEUTROPHILS % (MANUAL) 79 % (45-75); PLATELET ESTIMATE ADEQUATE; PLATELET MORPHOLOGY NORMAL; TOTAL CELLS COUNTED 100
[2016-10-06] MEDS ORDERED: Zemuron 50mg/5ml Inj IV ONE (12:23)
[2016-10-06] MEDS ORDERED: Etomidate 40mg/20ml Inj IV ONE (12:23)
[2016-10-06] MEDS: Morphine Sulfate 4mg/ml Inj IVP PRN (13:44)
[2016-10-06] MEDS: Metoprolol 5mg/5ml Inj IVP SCH ×2 (14:24→14:39)
--- NOTE | 2016-10-06 16:40 | Cardiology Progress Note ---
Assessment/Plan Assessment/Plan acute afib rvr trachy respiraotory fialur respir acidosis dementia nph s/p shunt s/p 2 iv dose of bb hr improved but still at time up to 130 will statr amio drip wiht 1/2 dose bolus repeat trop adn ekg iv ab vent support [id number] Objective Last 24 Hour Vital Signs Date Time Temp Pulse Resp B/P Pulse Ox O2 Delivery O2 Flow Rate FiO2 10/06/16 16:00 99.0 112 23 102/43 96 Mechanical Ventilator 80 10/06/16 16:00 116 10/06/16 15:23 99.4 10/06/16 15:10 134 22 50 10/06/16 15:00 120 24 124/59 95 Mechanical Ventilator 80 10/06/16 14:39 150 108/60 10/06/16 14:30 80 10/06/16 14:24 160 185/89 10/06/16 14:14 100.0 10/06/16 14:00 135 24 108/60 95 Mechanical Ventilator 80 10/06/16 13:15 99 27 50 10/06/16 13:11 100 27 60 10/06/16 13:00 126 20 138/50 94 Mechanical Ventilator 60 10/06/16 12:00 101 10/06/16 12:00 98.1 101 24 130/59 98 Mechanical Ventilator 60 10/06/16 11:14 60 10/06/16 11:01 98 20 120/50 94 Mechanical Ventilator 60 10/06/16 10:59 102 31 60 10/06/16 10:00 96 20 120/64 94 Mechanical Ventilator 60 10/06/16 09:38 60 10/06/16 09:20 86 25 50 10/06/16 09:20 100 10/06/16 09:00 101 20 108/70 98 Mechanical Ventilator 80 10/06/16 08:00 105 10/06/16 08:00 98.0 105 19 122/63 98 Mechanical Ventilator 80 10/06/16 07:53 80 10/06/16 07:10 103 25 50 10/06/16 07:00 98.1 80 18 134/70 98 10/06/16 06:15 98 18 110/58 98 Mechanical Ventilator 50 10/06/16 06:00 105/72 10/06/16 06:00 100 19 105/72 98 Mechanical Ventilator 50 8/17/17 05:45 99 19 122/67 97 Mechanical Ventilator 50 1717 05:30 99 20 103/64 95 Mechanical Ventilator 50 17 05:15 100 21 135/76 96 Mechanical Ventilator 50 1717 05:14 98 20 50 17 05:00 94 20 135/95 95 Mechanical Ventilator 50 10/06/16 05:00 135/95 10/06/16 04:45 96 20 132/71 95 Mechanical Ventilator 50 10/06/16 04:30 98.3 97 21 125/70 97 Mechanical Ventilator 50 17 04:15 98 24 136/71 96 Mechanical Ventilator 50 10/06/16 04:00 98 23 131/75 98 Mechanical Ventilator 50 10/06/16 04:00 98 10/06/16 04:00 131/75 10/06/16 03:45 95 22 114/69 99 Mechanical Ventilator 50 10/06/16 03:30 92 20 151/76 97 Mechanical Ventilator 50 10/06/16 03:15 89 18 114/65 96 Mechanical Ventilator 50 10/06/16 03:09 89 19 50 17 03:00 117/69 10/06/16 03:00 98.1 90 18 117/69 89 50 17 02:00 98.1 108/71 10/06/16 02:00 112/52 10/06/16 01:30 141/70 10/06/16 01:15 94/61 10/06/16 01:00 82 16 50 10/06/16 01:00 98.1 84 74/52 1717 01:00 92/58 10/06/16 00:46 88/48 1717 00:00 82 10/06/16 00:00 98.1 86 109/68 16/17 23:27 95 16 50 16/17 23:00 98.1 88 18 141/70 97 50 1617 22:00 98.1 88 18 99 Mechanical Ventilator 50 16/17 21:05 89 17 50 16/17 21:00 98.2 84 18 114/62 85 Mechanical Ventilator 50 16/17 20:00 98.1 89 18 110/62 99 Mechanical Ventilator 50 17 20:00 84 8/16/17 19:01 93 17 50 10/05/16 19:00 89 20 110/62 99 Mechanical Ventilator 50 10/05/16 18:01 94 20 90/60 99 Mechanical Ventilator 50 10/05/16 17:17 91 19 50 10/05/16 17:00 96 20 90/71 99 Mechanical Ventilator 50 Intake and Output 10/05/16 10/06/16 19:00 07:00 Intake Total 3298 ml 711.32 ml Output Total 750 ml 430 ml Balance 2548 ml 281.32 ml IV Total 3298 ml 711.32 ml Output Urine Total 750 ml 430 ml Laboratory Tests Test 10/05/16 20:20 10/06/16 04:05 10/06/16 08:02 10/06/16 10:15 Lactic Acid Level 2.50 mmol/L (0.66-2.22) H 1.40 mmol/L (0.66-2.22) White Blood Count 20.0 K/UL (4.8-10.8) H Red Blood Count 3.12 M/UL (4.70-6.10) L Hemoglobin 10.8 G/DL (14.2-18.0) L Hematocrit 31.6 % (42.0-52.0) L Mean Corpuscular Volume 102 FL (80-99) H Mean Corpuscular Hemoglobin 34.5 PG (27.0-31.0) H Mean Corpuscular Hemoglobin Concent 34.0 G/DL (32.0-36.0) Red Cell Distribution Width 14.4 % (11.6-14.8) Platelet Count 191 K/UL (150-450) Mean Platelet Volume 6.4 FL (6.5-10.1) L Neutrophils (%) (Auto) % (45.0-75.0) Lymphocytes (%) (Auto) % (20.0-45.0) Monocytes (%) (Auto) % (1.0-10.0) Eosinophils (%) (Auto) % (0.0-3.0) Basophils (%) (Auto) % (0.0-2.0) Differential Total Cells Counted 100 Neutrophils % (Manual) 79 % (45-75) H Lymphocytes % (Manual) 6 % (20-45) L Monocytes % (Manual) 3 % (1-10) Eosinophils % (Manual) 0 % (0-3) Basophils % (Manual) 0 % (0-2) Band Neutrophils 12 % (0-8) H Platelet Estimate Adequate Platelet Morphology Normal Anisocytosis 1+ Sodium Level 136 mEQ/L (135-145) Potassium Level 4.4 mEQ/L (3.4-4.9) Chloride Level 103 mEQ/L (98-107) Carbon Dioxide Level 19 mEQ/L (20-30) L Anion Gap 14 (5-15) Blood Urea Nitrogen 16 mg/dL (7-23) Creatinine 1.0 mg/dL (0.7-1.2) Estimat Glomerular Filtration Rate mL/min (>60) Glucose Level 136 mg/dL (74-106) H Calcium Level 8.1 mg/dL (8.6-10.2) L Total Bilirubin 0.9 mg/dL (0.0-1.2) Direct Bilirubin 0.2 mg/dL (0.1-0.3) Aspartate Amino Transf (AST/SGOT) 22 U/L (5-40) Alanine Aminotransferase (ALT/SGPT) 11 U/L (3-41) Alkaline Phosphatase 66 U/L (40-129) Total Protein 6.3 g/dL (6.6-8.7) L Albumin 2.7 g/dL (3.5-5.2) L Globulin 3.6 g/dL Albumin/Globulin Ratio 0.7 (1.0-2.7) L Random Amikacin Level 13.4 ug/mL Arterial Blood pH 7.425 (7.350-7.450) Arterial Blood Partial Pressure CO2 28.6 mmHg (35.0-45.0) L Arterial Blood Partial Pressure O2 68.8 mmHg (75.0-100.0) L Arterial Blood HCO3 18.3 mmol/L (22.0-26.0) L Arterial Blood Oxygen Saturation 99.0 % (92.0-98.0) H Arterial Blood Base Excess -4.9 Nicholas Test Positive ISACC GUEVARA Oct 06, 2016 16:40
[2016-10-06] MEDS: Vancomycin 1250mg/D5W 250ml IVPB SCH (16:41)
[2016-10-06] MEDS ORDERED: Amiodarone 900 MG in D5W 500ml 482 ML IV SCH (17:01)
--- NOTE | 2016-10-06 17:03 | Infectious Diseases Prog Note ---
Assessment/Plan Assessment/Plan Assessment: 1) Multifocal Pneumonia, moderate L effusion 2) septic shock, currently off pressors 3) Hypercarbic Respiratory failure requiring intubation; initial chem panel and ABG showed anion gap (lactic acidosis) metabolic acidosis with secondary respiratory acidosis. 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 looks slightly improved today. --f/u MRSA screening Subjective ROS Limited/Unobtainable: Yes Allergies: Coded Allergies: No Known Allergies (Unverified , 07/19/12) Subjective low grade temps overnight. Objective Vital Signs Last 24 Hour Vital Signs Date Time Temp Pulse Resp B/P Pulse Ox O2 Delivery O2 Flow Rate FiO2 10/06/16 16:00 99.0 112 23 102/43 96 Mechanical Ventilator 80 10/06/16 16:00 116 10/06/16 15:23 99.4 10/06/16 15:10 134 22 50 10/06/16 15:00 120 24 124/59 95 Mechanical Ventilator 80 10/06/16 14:39 150 108/60 10/06/16 14:30 80 10/06/16 14:24 160 185/89 10/06/16 14:14 100.0 10/06/16 14:00 135 24 108/60 95 Mechanical Ventilator 80 10/06/16 13:15 99 27 50 10/06/16 13:11 100 27 60 10/06/16 13:00 126 20 138/50 94 Mechanical Ventilator 60 10/06/16 12:00 101 10/06/16 12:00 98.1 101 24 130/59 98 Mechanical Ventilator 60 10/06/16 11:14 60 10/06/16 11:01 98 20 120/50 94 Mechanical Ventilator 60 10/06/16 10:59 102 31 60 10/06/16 10:00 96 20 120/64 94 Mechanical Ventilator 60 10/06/16 09:38 60 10/06/16 09:20 86 25 50 17 09:20 100 10/06/16 09:00 101 20 108/70 98 Mechanical Ventilator 80 10/06/16 08:00 105 10/06/16 08:00 98.0 105 19 122/63 98 Mechanical Ventilator 80 10/06/16 07:53 80 10/06/16 07:10 103 25 50 10/06/16 07:00 98.1 80 18 134/70 98 10/06/16 06:15 98 18 110/58 98 Mechanical Ventilator 50 10/06/16 06:00 105/72 10/06/16 06:00 100 19 105/72 98 Mechanical Ventilator 50 10/06/16 05:45 99 19 122/67 97 Mechanical Ventilator 50 10/06/16 05:30 99 20 103/64 95 Mechanical Ventilator 50 10/06/16 05:15 100 21 135/76 96 Mechanical Ventilator 50 10/06/16 05:14 98 20 50 10/06/16 05:00 94 20 135/95 95 Mechanical Ventilator 50 10/06/16 05:00 135/95 10/06/16 04:45 96 20 132/71 95 Mechanical Ventilator 50 10/06/16 04:30 98.3 97 21 125/70 97 Mechanical Ventilator 50 10/06/16 04:15 98 24 136/71 96 Mechanical Ventilator 50 10/06/16 04:00 98 23 131/75 98 Mechanical Ventilator 50 10/06/16 04:00 98 10/06/16 04:00 131/75 10/06/16 03:45 95 22 114/69 99 Mechanical Ventilator 50 10/06/16 03:30 92 20 151/76 97 Mechanical Ventilator 50 10/06/16 03:15 89 18 114/65 96 Mechanical Ventilator 50 10/06/16 03:09 89 19 50 10/06/16 03:00 117/69 10/06/16 03:00 98.1 90 18 117/69 89 50 10/06/16 02:00 98.1 108/71 10/06/16 02:00 112/52 10/06/16 01:30 141/70 10/06/16 01:15 94/61 10/06/16 01:00 82 16 50 10/06/16 01:00 98.1 84 74/52 10/06/16 01:00 92/58 10/06/16 00:46 88/48 10/06/16 00:00 82 10/06/16 00:00 98.1 86 109/68 10/05/16 23:27 95 16 50 10/05/16 23:00 98.1 88 18 141/70 97 50 10/05/16 22:00 98.1 88 18 99 Mechanical Ventilator 50 10/05/16 21:05 89 17 50 10/05/16 21:00 98.2 84 18 114/62 85 Mechanical Ventilator 50 10/05/16 20:00 98.1 89 18 110/62 99 Mechanical Ventilator 50 10/05/16 20:00 84 10/05/16 19:01 93 17 50 10/05/16 19:00 89 20 110/62 99 Mechanical Ventilator 50 10/05/16 18:01 94 20 90/60 99 Mechanical Ventilator 50 10/05/16 17:17 91 19 50 10/05/16 17:00 96 20 90/71 99 Mechanical Ventilator 50 Height (Feet): 5 Height (Inches): 7.00 Weight (Pounds): 160 Objective GEN: intubated on vent full support, currently not on pressors, alert HEENT: Mild pale conjunctiva. oral mucosa dry, pharynx w/o exudate or effusion. No icterus. Head normocephalic, neck supple. NECK: No cervical LAD CHEST: scattered rhonchi, decreased breath sounds on L base. copious thick secretions. HEART: S1 and S2, no murmurs, no rubs. ABDOMEN: soft, non tender, non distended, normoactive bowel sounds. EXTREMITIES: No cyanosis, no clubbing, no edema. extremities warm with brisk cap refill NEUROLOGIC: Awake, alert, no focal neurologic motor deficits. : enciso in place draining clear yellow urine. LYMPH: no LAD RECTAL: deferred. reviewed wound care report of mid sacral pressure ulcer with deep tissue injury blood cx pending. sputum cx shows uncollected. Radiology Technique: Portable AP chest Findings: Comparison: 10/05/16 Patchy airspace opacities in the basal aspect of right upper lobe, both lower lobes unchanged. Background bilateral interstitial prominence unchanged. Blunting of both costophrenic angles persists, perhaps mildly decreased on the left. Lines and tubes remain in place. No new abnormality identified. IMPRESSION: Suggestion of mild decrease in versus shifting of left pleural effusion No other change from one day prior Laboratory Tests Test 10/05/16 20:20 10/06/16 04:05 10/06/16 08:02 10/06/16 10:15 Lactic Acid Level 2.50 mmol/L (0.66-2.22) H 1.40 mmol/L (0.66-2.22) White Blood Count 20.0 K/UL (4.8-10.8) H Red Blood Count 3.12 M/UL (4.70-6.10) L Hemoglobin 10.8 G/DL (14.2-18.0) L Hematocrit 31.6 % (42.0-52.0) L Mean Corpuscular Volume 102 FL (80-99) H Mean Corpuscular Hemoglobin 34.5 PG (27.0-31.0) H Mean Corpuscular Hemoglobin Concent 34.0 G/DL (32.0-36.0) Red Cell Distribution Width 14.4 % (11.6-14.8) Platelet Count 191 K/UL (150-450) Mean Platelet Volume 6.4 FL (6.5-10.1) L Neutrophils (%) (Auto) % (45.0-75.0) Lymphocytes (%) (Auto) % (20.0-45.0) Monocytes (%) (Auto) % (1.0-10.0) Eosinophils (%) (Auto) % (0.0-3.0) Basophils (%) (Auto) % (0.0-2.0) Differential Total Cells Counted 100 Neutrophils % (Manual) 79 % (45-75) H Lymphocytes % (Manual) 6 % (20-45) L Monocytes % (Manual) 3 % (1-10) Eosinophils % (Manual) 0 % (0-3) Basophils % (Manual) 0 % (0-2) Band Neutrophils 12 % (0-8) H Platelet Estimate Adequate Platelet Morphology Normal Anisocytosis 1+ Sodium Level 136 mEQ/L (135-145) Potassium Level 4.4 mEQ/L (3.4-4.9) Chloride Level 103 mEQ/L (98-107) Carbon Dioxide Level 19 mEQ/L (20-30) L Anion Gap 14 (5-15) Blood Urea Nitrogen 16 mg/dL (7-23) Creatinine 1.0 mg/dL (0.7-1.2) Estimat Glomerular Filtration Rate mL/min (>60) Glucose Level 136 mg/dL (74-106) H Calcium Level 8.1 mg/dL (8.6-10.2) L Total Bilirubin 0.9 mg/dL (0.0-1.2) Direct Bilirubin 0.2 mg/dL (0.1-0.3) Aspartate Amino Transf (AST/SGOT) 22 U/L (5-40) Alanine Aminotransferase (ALT/SGPT) 11 U/L (3-41) Alkaline Phosphatase 66 U/L (40-129) Total Protein 6.3 g/dL (6.6-8.7) L Albumin 2.7 g/dL (3.5-5.2) L Globulin 3.6 g/dL Albumin/Globulin Ratio 0.7 (1.0-2.7) L Random Amikacin Level 13.4 ug/mL Arterial Blood pH 7.425 (7.350-7.450) Arterial Blood Partial Pressure CO2 28.6 mmHg (35.0-45.0) L Arterial Blood Partial Pressure O2 68.8 mmHg (75.0-100.0) L Arterial Blood HCO3 18.3 mmol/L (22.0-26.0) L Arterial Blood Oxygen Saturation 99.0 % (92.0-98.0) H Arterial Blood Base Excess -4.9 Nicholas Test Positive Current Medications Medications (Trade) Dose Ordered Sig/Bhavna Route PRN Reason Start Time Stop Time Status Last Admin Dose Admin Acetaminophen (Tylenol) 650 mg Q4H PRN ORAL fever 10/05/16 10:30 11/04/16 10:29 10/06/16 14:24 Albuterol/ Ipratropium 3 ml 3 ml Q4H PRN HHN Shortness of Breath 10/05/16 10:30 10/10/16 10:29 Amikacin Protocol (Amikacin pharmacy to dose) 1 ea DAILY PRN MISC PER RX PROTOCOL 10/05/16 15:00 11/04/16 14:59 Amikacin Sulfate/ Sodium Chloride (Amikin/Sodium Chloride) 114 ml @ 228 mls/hr Q36H IV 10/05/16 16:00 10/12/16 15:59 10/05/16 15:47 Amiodarone HCl 100 ml @ 200 mls/hr ONCE IV 10/06/16 16:45 10/06/16 17:01 10/06/16 16:41 Amiodarone HCl/ Dextrose (Cordarone/D5W 500ml) 500 ml @ 0 mls/hr Q24H IV 10/06/16 17:01 10/07/16 17:00 Famotidine 20 mg 20 mg Q12HR IVP 10/06/16 21:00 11/05/16 20:59 Heparin Sodium (Porcine) (Heparin 5000 units/ml) 5,000 units EVERY 12 HOURS SUBQ 10/05/16 21:00 11/04/16 20:59 10/06/16 08:32 Lorazepam 2 mg 2 mg Q2H PRN IV For Anxiety 10/05/16 10:30 10/12/16 10:29 Metoprolol Tartrate (Lopressor) 5 mg Q5MIN X 3 IVP 10/06/16 14:30 11/05/16 14:29 10/06/16 14:39 Morphine Sulfate (Morphine Sulfate) 4 mg Q4H PRN IVP Severe Pain (Pain Scale 7-10) 10/05/16 10:30 10/12/16 10:29 10/06/16 13:44 Norepinephrine Bitartrate/ Dextrose (Levophed/D5W) 254 ml @ 0 mls/hr Q24H IV 10/05/16 14:45 11/04/16 14:44 10/06/16 00:46 Ondansetron HCl (Zofran) 4 mg Q6H PRN IVP Nausea & Vomiting 10/05/16 10:30 11/04/16 10:29 Piperacillin Sod/ Tazobactam Sod/ Dextrose (Zosyn/D5W) 110 ml @ 27.5 mls/hr EVERY 8 HOURS IVPB 10/05/16 22:00 10/12/16 21:59 10/06/16 14:39 Sodium Chloride (Sodium Chloride 1000ml bag) 1,000 ml @ 100 mls/hr Q10H IVLG 10/05/16 15:00 11/04/16 14:59 10/06/16 10:33 Tamsulosin HCl 0.4 mg 0.4 mg BEDTIME ORAL 10/05/16 21:00 11/04/16 20:59 Vancomycin HCl 1 ea 1 ea DAILY PRN MISC PER RX PROTOCOL 10/05/16 15:00 11/04/16 14:59 Vancomycin HCl/ Dextrose 250 ml @ 166.667 mls/hr Q24H IVPB 10/06/16 17:00 10/11/16 16:59 10/06/16 16:41 Alfonso Mathur M.D. Oct 06, 2016 17:03
[2016-10-06 18:27] LABS: TROPONIN I < 0.30 ng/mL (<=0.30)
[2016-10-06] MEDS: Famotidine 20 MG/ 2ML VIAL IVP SCH (21:06)
[2016-10-06] MEDS: Tamsulosin 0.4mg cap ORAL SCH (21:06)
[2016-10-06] MEDS: Amiodarone 200mg tab ORAL SCH (21:44)
[2016-10-07] VITALS (24 sets, daily range): BP systolic 119–158; BP diastolic 54–80
--- NOTE | 2016-10-07 00:47 | Consultation ---
DATE OF CONSULTATION: 10/06/2016 CRITICAL CARE CARDIOLOGY CONSULTATION REFERRING PHYSICIAN: 1. Luis Nolen M.D. 2. Dat Hernandez M.D. REASON FOR EVALUATION: Tachycardia. HISTORY OF PRESENT ILLNESS: I was urgently called for this patient's condition who was in the intensive care on a mechanical ventilator with heart rate in excess of 170 to 180. On review of the patient's vital signs status, recommended dose of metoprolol 5 mg to be given the patient's heart rate improved a bit, but still remained tachycardic. The patient was given another dose of metoprolol, heart rate does improve, but now it is about 130s or so and varies in that range. The patient is unable to provide any meaningful history whatsoever so information was obtained from the patient's chart and from my discussion with the patient's family that are at bedside. The studio engineer run sheet indicate they were called because the patient complained of shortness of breath, respiration was shallow, the patient was saturating 75% on nonrebreathing mask, was not able to verbalize any complaints of chest pain or discomfort. Bag valve ventilation was used. Oxygen saturation improved. The patient was brought to the emergency room where he was noted to be in severe respiratory acidosis, was urgently intubated in the emergency room. Initial EKG shows the patient was in sinus rhythm. Subsequently, the patient was admitted to the intensive care unit, had been on pressors the last night because of blood pressure and once that improved the patient subsequently noted to be with heart rate in the 170 as noted above. The patient at this time is on ventilator. 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 The patient's family is at bedside. ALLERGIES: The patient does not have any allergies to medications. SOCIAL HISTORY: He has never smoked and never drank alcoholic beverages. He resides in a convalescent facility. REVIEW OF SYSTEMS: Unable to obtain at present time. PHYSICAL EXAMINATION: GENERAL: The patient is an elderly gentleman, on a mechanical ventilator. VITAL SIGNS: Heart rate is 131 with blood pressure of 102/42 with saturation 98%. NECK: Supple. LUNGS: Breath sounds are noted bilaterally . The patient had crackles on the left side more so anteriorly and posteriorly and these are fine crackles, decreased breath sounds on the right base is noted. CARDIAC: Irregularly irregular. Tachycardic. ABDOMEN: Soft and nontender. Positive bowel sounds. EXTREMITIES: There is no edema. NEUROLOGIC: Not communicating and not responsive. LABORATORY AND DIAGNOSTIC DATA: Chest x-ray performed here in the intensive care unit, white count 20, hemoglobin 10.8, and platelet count 191,000. Blood gas, pH is 7.126, pCO2 of 63, pO2 98% that is on admission yesterday and today pH 7.42, pCO2 28, pO2 of 68. Sodium is 136, potassium 4.4, chloride 103, bicarbonate 19, BUN of 16, creatinine 1.0, and glucose of 176. Lactic acid was elevated at 4.1 and now subsequently 1.4. Calcium is 8.1. Albumin of 2.7. First set of cardiac enzyme was negative and repeat one had not been performed yet. Imaging, chest x-ray was interpreted by the radiologist as showing decrease in shifting of the pleural effusion on the left side, air space patchy opacities, basal aspect of the right upper lobe, both lower lobes are unchanged. The patient's electrocardiogram from today shows atrial fibrillation with rapid ventricular response in the 166 range, Normal QRS and axis. No really significant ST or T-wave abnormalities, but EKG from yesterday shows sinus rhythm, rate of 134 with some nonspecific T-wave changes. ASSESSMENT AND PLAN: 1. Severe tachycardia. 2. Atrial fibrillation, acute in onset with rapid ventricular response. 3. Respiratory failure. 4. Pneumonia. 5. Dementia. 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 7. Hypotension earlier. 8. Leukocytosis. 9. Respiratory acidosis. Dr. Nolen and Dr. Hernandez, this patient was seen in cardiac consultation. The patient was in sinus rhythm at time of admission, subsequently converted to atrial fibrillation with rapid ventricular response. His blood pressures initially were low, but subsequently have been elevated, dose of metoprolol was administered with some improvement, although the patient remains tachycardic. I will start him on some amiodarone in hopes that he will convert to sinus with that since atrial fibrillation was acute and short duration and possibly even controlled his heart rate better. His beta-blockers will be discontinued for the time being in light of the patient's the heart rate. I will not bolus him with full dose of amiodarone, however, half dose will be provided depending on his response to that and further recommendation will be provided. He is already being treated for possibility of infectious process with empiric antibiotics and he was on pressors last night. He is off of them at the present time. An echocardiogram has shown adequate left ventricular systolic function, serial enzymes will be checked, and further recommendations depending on the response to above therapy. Of note, I have discussed with the patient's family members to make sure that they wished the patient to go through everything that he is about to go through including the possible need for anticoagulation and atrial fibrillation period of time. The patient's is wanting to have aggressive level of care. Gama Salinas M.D. DR: ALFONZO JOB#: [id number] CC:
[2016-10-07] MEDS: NovoLOG Insulin Flexpen SUBQ SCH ×5 (00:50→23:42)
[2016-10-07] MEDS: Amikacin 1,000 MG in NS 110 ML IV SCH (03:33)
[2016-10-07 05:35] LABS: MEAN CORPUSCULAR HEMOGLOBIN 35.2 PG (27.0-31.0); MEAN CORPUSCULAR HGB CONC 34.9 G/DL (32.0-36.0); MEAN CORPUSCULAR VOLUME 101 FL (80-99); PLATELET COUNT 115 K/UL (150-450); RED BLOOD COUNT 2.49 M/UL (4.70-6.10); RED CELL DISTRIBUTION WIDTH 14.6 % (11.6-14.8); WHITE BLOOD COUNT 9.9 K/UL (4.8-10.8)
[2016-10-07 05:43] LABS: INR 1.1 (0.9-1.1); PROTHROMBIN TIME 11.4 SEC (9.30-11.50)
[2016-10-07] MEDS: Piperacillin/Tazobactam 4.5 GM in D5W 110 ML IVPB SCH ×3 (05:50→21:32)
[2016-10-07] MEDS: Amiodarone 200mg tab ORAL SCH ×3 (05:56→21:32)
[2016-10-07 06:04] LABS: LACTATE DEHYDROGENASE 155 U/L (135-230)
[2016-10-07 06:06] LABS: HEMOLYSIS 10; IRON 11 ug/dL (59-158); TOTAL IRON BINDING CAPACITY 97 ug/dL (250-400)
[2016-10-07 06:07] LABS: TROPONIN I < 0.30 ng/mL (<=0.30)
[2016-10-07 06:09] LABS: ALANINE AMINOTRANSFERASE 28 U/L (3-41); ALBUMIN/GLOBULIN RATIO 0.5 (1.0-2.7); ANION GAP 13 (5-15); ASPARTATE AMINO TRANSFERASE 33 U/L (5-40); CALCIUM 7.4 mg/dL (8.6-10.2); CARBON DIOXIDE 17 mEQ/L (20-30); CHLORIDE 105 mEQ/L (98-107); CREATININE 0.9 mg/dL (0.7-1.2); HEMOLYSIS 5; MAGNESIUM 1.4 mg/dL (1.7-2.5); PHOSPHORUS 1.7 mg/dL (2.5-4.8); POTASSIUM 3.5 mEQ/L (3.4-4.9); SODIUM 135 mEQ/L (135-145); TOTAL PROTEIN 5.3 g/dL (6.6-8.7)
[2016-10-07 06:34] LABS: PATH BLOOD SMEAR/OMC SENT TO PATHOLOGIST
[2016-10-07 07:30] LABS: ERYTHROCYTE SEDIMENTATION RATE 81 MM/HR (0-30)
[2016-10-07 08:16] LABS: RETICULOCYTE COUNT 0.9 % (0.0-2.0)
[2016-10-07 08:28] LABS: ABG PCO2 30.7 mmHg (35.0-45.0)
[2016-10-07 08:29] LABS: ABG ALLEN TEST POSITIVE; ABG BASE EXCESS -4.5
[2016-10-07] MEDS: Famotidine 20 MG/ 2ML VIAL IVP SCH ×2 (08:55→21:31)
[2016-10-07] MEDS: Heparin 5000 units/ml inj SUBQ SCH ×2 (08:56→21:32)
[2016-10-07 09:23] LABS: BAND NEUTROPHILS % (MANUAL) 7 % (0-8); BASOPHILS % (MANUAL) 0 % (0-2); EOSINOPHILS % (MANUAL) 1 % (0-3); LYMPHOCYTES % (MANUAL) 13 % (20-45); NEUTROPHILS % (MANUAL) 77 % (45-75); PLATELET CLUMPS 1+; PLATELET ESTIMATE ADEQUATE; TOTAL CELLS COUNTED 100
[2016-10-07 09:25] LABS: ANISOCYTOSIS 1+
[2016-10-07 09:26] LABS: ACANTHOCYTES 1+; HYPOCHROMASIA 1+
--- NOTE | 2016-10-07 11:30 | Diagnostic Imaging Report ---
Indication: DYSPNEA Technique: One view of the chest Comparison: 10/06/2016 Findings: There is increasing consolidation in the inferior right upper lobe. Consolidation in the right lower lobe and left lung persists. There is suggestion of increasing pleural fluid bilaterally, particularly on the left the heart size is normal. Interim nasogastric tube placement, tip in good position at the level gastric body. Endotracheal tube, ventriculoperitoneal shunt tubing is again demonstrated. Impression: Increasing right upper lobe infiltrates. Other stable infiltrates as described Suspect increasing bilateral pleural effusion, left greater than right Satisfactory nasogastric intubation Other tube and line positions as described
--- NOTE | 2016-10-07 11:37 | Pulmonolgy Critical Care Note ---
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 Respiratory: monitor respiratory rate, adjust FIO2, ABG Cardiac: continue to monitor HR/BP Renal: F/U I&O, keep IV fluid Infectious Disease: check cultures Gastrointestinal: continue feedings/current rate Endocrine: monitor blood sugar, check TSH, continue sliding scale insulin Hematologic: monitor H/H, transfuse if hgb<8.5 Neurologic: PRN Ativan, keep patient comfortable Prophylaxis: Protonix, Heparin Notes Reviewed: lead carpenter, renal Discussed with: nurses, consultants, 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 - Objective Last 24 Hour Vital Signs Date Time Temp Pulse Resp B/P Pulse Ox O2 Delivery O2 Flow Rate FiO2 10/07/16 11:15 90 20 50 10/07/16 11:00 90 19 146/62 98 Mechanical Ventilator 50 10/07/16 10:00 84 19 144/60 98 Mechanical Ventilator 50 10/07/16 09:00 91 21 50 10/07/16 09:00 90 20 142/59 98 Mechanical Ventilator 50 10/07/16 08:00 98.9 94 19 150/80 100 Mechanical Ventilator 50 10/07/16 08:00 95 10/07/16 08:00 50 10/07/16 07:15 94 21 50 10/07/16 07:00 94 20 145/63 98 Mechanical Ventilator 60 10/07/16 06:00 82 19 131/56 98 Mechanical Ventilator 60 10/07/16 05:00 80 19 140/63 100 Mechanical Ventilator 60 10/07/16 04:50 83 22 60 10/07/16 04:00 77 10/07/16 04:00 98.5 77 16 135/57 100 Mechanical Ventilator 60 10/07/16 04:00 60 10/07/16 03:22 81 19 60 10/07/16 03:00 76 17 121/54 100 Mechanical Ventilator 60 10/07/16 02:00 80 19 127/55 100 Mechanical Ventilator 60 10/07/16 01:00 78 19 119/60 100 Mechanical Ventilator 60 10/07/16 00:57 69 20 60 10/07/16 00:00 98.4 72 16 131/63 100 Mechanical Ventilator 60 10/07/16 00:00 60 10/07/16 00:00 72 10/06/16 23:25 73 16 60 10/06/16 23:00 73 19 107/49 100 Mechanical Ventilator 60 10/06/16 22:00 74 16 106/54 99 Mechanical Ventilator 60 10/06/16 21:00 73 16 120/65 100 Mechanical Ventilator 60 10/06/16 20:58 72 16 65 10/06/16 20:00 73 10/06/16 20:00 98.3 74 16 102/54 100 Mechanical Ventilator 70 10/06/16 20:00 65 10/06/16 19:25 73 16 65 10/06/16 19:00 74 20 91/47 97 Mechanical Ventilator 70 10/06/16 18:00 78 19 114/57 97 Mechanical Ventilator 70 10/06/16 17:09 111 20 70 10/06/16 17:00 113 18 121/63 97 Mechanical Ventilator 70 10/06/16 16:00 99.0 112 23 102/43 96 Mechanical Ventilator 80 10/06/16 16:00 116 10/06/16 16:00 70 10/06/16 15:23 99.4 10/06/16 15:10 134 22 50 10/06/16 15:00 120 24 124/59 95 Mechanical Ventilator 80 10/06/16 14:39 150 108/60 10/06/16 14:30 80 10/06/16 14:24 160 185/89 10/06/16 14:14 100.0 10/06/16 14:00 135 24 108/60 95 Mechanical Ventilator 80 10/06/16 13:15 99 27 50 10/06/16 13:11 100 27 60 10/06/16 13:00 126 20 138/50 94 Mechanical Ventilator 60 10/06/16 12:00 101 10/06/16 12:00 98.1 101 24 130/59 98 Mechanical Ventilator 60 Status: sedated Condition: critical HEENT: atraumatic Neck: full ROM Lungs: clear Heart: HR/BP stable, HR/BP unstable Abdomen: non-tender, feeding tube Extremities: edema Decubiti: stage Micro: Microbiology Date/Time Source Procedure Growth Status 10/05/16 07:30 Blood Blood Culture - Preliminary NO GROWTH AFTER 24 HOURS Resulted 10/05/16 07:15 Blood Blood Culture - Preliminary NO GROWTH AFTER 24 HOURS Resulted 10/06/16 18:00 Sputum Gram Stain - Final Resulted 10/06/16 18:00 Sputum Sputum Culture - Preliminary NO GROWTH AFTER 24 HOURS Resulted 10/05/16 07:50 Nasal Nares MRSA Culture - Final NO METHICILLIN RESISTANT STAPH AUREUS... Complete 10/05/16 07:50 Rectum VRE Culture - Final NO VANCOMYCIN RESISTANT ENTEROCOCCUS ... Complete Accucheck: 115 Critical Care - Subjective ROS Limited/Unobtainable: No ICU Day: 3 Intubation Day: 3 Condition: critical EKG Rhythm: Sinus Rhythm FI02: 50 Vent Support Breath Rate: 16 Vent Support Mode: AC Vent Tidal Volume: 600 Sputum Amount: Small PEEP: 5.0 PIP: 19 Tube Feeding Amount: 30 I&O: Intake and Output 10/06/16 10/07/16 19:00 07:00 Intake Total 1632.5 ml 1871.5 ml Output Total 690 ml 595 ml Balance 942.5 ml 1276.5 ml Free Water 60 ml IV Total 1492.5 ml 1451.5 ml Tube Feeding 140 ml 360 ml Output Urine Total 690 ml 595 ml # Bowel Movements 2 CXR: extensive infiltrate ET-Tube: 7.5 ET Position: 24 Labs: Laboratory Tests Test 10/06/16 17:50 10/07/16 04:35 10/07/16 08:20 Troponin I < 0.30 ng/mL (<=0.30) < 0.30 ng/mL (<=0.30) White Blood Count 9.9 K/UL (4.8-10.8) # Red Blood Count 2.49 M/UL (4.70-6.10) L Hemoglobin 8.8 G/DL (14.2-18.0) L Hematocrit 25.1 % (42.0-52.0) L Mean Corpuscular Volume 101 FL (80-99) H Mean Corpuscular Hemoglobin 35.2 PG (27.0-31.0) H Mean Corpuscular Hemoglobin Concent 34.9 G/DL (32.0-36.0) Red Cell Distribution Width 14.6 % (11.6-14.8) Platelet Count 115 K/UL (150-450) L Mean Platelet Volume 7.0 FL (6.5-10.1) Neutrophils (%) (Auto) % (45.0-75.0) Lymphocytes (%) (Auto) % (20.0-45.0) Monocytes (%) (Auto) % (1.0-10.0) Eosinophils (%) (Auto) % (0.0-3.0) Basophils (%) (Auto) % (0.0-2.0) Differential Total Cells Counted 100 Neutrophils % (Manual) 77 % (45-75) H Lymphocytes % (Manual) 13 % (20-45) L Monocytes % (Manual) 2 % (1-10) Eosinophils % (Manual) 1 % (0-3) Basophils % (Manual) 0 % (0-2) Band Neutrophils 7 % (0-8) Platelet Estimate Adequate Platelet Morphology Clumped Platelets 1+ Hypochromasia 1+ Anisocytosis 1+ Acanthocytes 1+ Erythrocyte Sedimentation Rate 81 MM/HR (0-30) H Reticulocyte Count 0.9 % (0.0-2.0) Prothrombin Time 11.4 SEC (9.30-11.50) Prothromb Time International Ratio 1.1 (0.9-1.1) Activated Partial Thromboplast Time 50 SEC (23-33) H Sodium Level 135 mEQ/L (135-145) Potassium Level 3.5 mEQ/L (3.4-4.9) Chloride Level 105 mEQ/L (98-107) Carbon Dioxide Level 17 mEQ/L (20-30) L Anion Gap 13 (5-15) Blood Urea Nitrogen 17 mg/dL (7-23) Creatinine 0.9 mg/dL (0.7-1.2) Estimat Glomerular Filtration Rate mL/min (>60) Glucose Level 143 mg/dL (74-106) H Calcium Level 7.4 mg/dL (8.6-10.2) L Phosphorus Level 1.7 mg/dL (2.5-4.8) L Magnesium Level 1.4 mg/dL (1.7-2.5) L Iron Level 11 ug/dL (59-158) L Total Iron Binding Capacity 97 ug/dL (250-400) L Percent Iron Saturation 11 % (15-50) L Unsaturated Iron Binding 86 ug/dL (112-346) L Total Bilirubin 0.6 mg/dL (0.0-1.2) Aspartate Amino Transf (AST/SGOT) 33 U/L (5-40) Alanine Aminotransferase (ALT/SGPT) 28 U/L (3-41) Alkaline Phosphatase 77 U/L (40-129) Lactate Dehydrogenase 155 U/L (135-230) Total Protein 5.3 g/dL (6.6-8.7) L Albumin 1.9 g/dL (3.5-5.2) L Globulin 3.4 g/dL Albumin/Globulin Ratio 0.5 (1.0-2.7) L Carcinoembryonic Antigen 3.6 ng/mL H Vitamin B12 Level 810 pg/mL (211-946) Folate Pending Arterial Blood pH 7.416 (7.350-7.450) Arterial Blood Partial Pressure CO2 30.7 mmHg (35.0-45.0) L Arterial Blood Partial Pressure O2 77.1 mmHg (75.0-100.0) Arterial Blood HCO3 19.3 mmol/L (22.0-26.0) L Arterial Blood Oxygen Saturation 95.2 % (92.0-98.0) Arterial Blood Base Excess -4.5 Nicholas Test Positive VERITO MONTESINOS Oct 07, 2016 11:37
--- NOTE | 2016-10-07 13:33 | Infectious Diseases Prog Note ---
Assessment/Plan Assessment/Plan Assessment: Acute respiratory failure, multifocal pneumonia, c/b afib with RVR now on rate control, off pressors for >24hrs with normalization of leukocytosis on D#3 empiric IV vancomycin, amikacin, and zosyn with cultures of blood neg to date. Mildly elevated ferritin c/w acute phase reactant in acute illness. 1) Multifocal Pneumonia, small L effusion 10/05 blood cx ngtd 10/06 sputum cx ngtd (obtained on abx) 2) septic shock, currently off pressors 3) Hypercarbic Respiratory failure requiring intubation; initial chem panel and ABG showed an acute respiratory acidosis with concomitant lactic acidosis metabolic acidosis. TTE with dilated IVC not suggestive of hypovolemic shock. 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 Objective Vital Signs Last 24 Hour Vital Signs Date Time Temp Pulse Resp B/P Pulse Ox O2 Delivery O2 Flow Rate FiO2 10/07/16 13:13 91 22 50 10/07/16 13:00 89 19 157/66 98 Mechanical Ventilator 50 10/07/16 12:00 50 10/07/16 12:00 98.4 94 19 158/69 100 Mechanical Ventilator 50 10/07/16 12:00 88 10/07/16 11:15 90 20 50 10/07/16 11:00 90 19 146/62 98 Mechanical Ventilator 50 10/07/16 10:00 84 19 144/60 98 Mechanical Ventilator 50 18/17 09:00 91 21 50 818/17 09:00 90 20 142/59 98 Mechanical Ventilator 50 18/17 08:00 98.9 94 19 150/80 100 Mechanical Ventilator 50 18/17 08:00 95 18/17 08:00 50 18/17 07:15 94 21 50 18/17 07:00 94 20 145/63 98 Mechanical Ventilator 60 18/17 06:00 82 19 131/56 98 Mechanical Ventilator 60 18/17 05:00 80 19 140/63 100 Mechanical Ventilator 60 18/17 04:50 83 22 60 18/17 04:00 77 18 04:00 98.5 77 16 135/57 100 Mechanical Ventilator 60 18/17 04:00 60 18/17 03:22 81 19 60 18/17 03:00 76 17 121/54 100 Mechanical Ventilator 60 10/07/16 02:00 80 19 127/55 100 Mechanical Ventilator 60 18 01:00 78 19 119/60 100 Mechanical Ventilator 60 18/ 00:57 69 20 60 18/ 00:00 98.4 72 16 131/63 100 Mechanical Ventilator 60 18 00:00 60 10/07/16 00:00 72 10/06/16 23:25 73 16 60 10/06/16 23:00 73 19 107/49 100 Mechanical Ventilator 60 10/06/16 22:00 74 16 106/54 99 Mechanical Ventilator 60 10/06/16 21:00 73 16 120/65 100 Mechanical Ventilator 60 10/06/16 20:58 72 16 65 10/06/16 20:00 73 10/06/16 20:00 98.3 74 16 102/54 100 Mechanical Ventilator 70 10/06/16 20:00 65 10/06/16 19:25 73 16 65 10/06/16 19:00 74 20 91/47 97 Mechanical Ventilator 70 10/06/ 18:00 78 19 114/57 97 Mechanical Ventilator 70 10/06/ 17:09 111 20 70 10/06/16 17:00 113 18 121/63 97 Mechanical Ventilator 70 10/06/16 16:00 99.0 112 23 102/43 96 Mechanical Ventilator 80 10/06/16 16:00 116 10/06/16 16:00 70 10/06/16 15:23 99.4 10/06/16 15:10 134 22 50 10/06/16 15:00 120 24 124/59 95 Mechanical Ventilator 80 10/06/16 14:39 150 108/60 10/06/16 14:30 80 10/06/16 14:24 160 185/89 10/06/16 14:14 100.0 10/06/16 14:00 135 24 108/60 95 Mechanical Ventilator 80 Height (Feet): 5 Height (Inches): 7.00 Weight (Pounds): 141 Objective GEN: intubated on vent full support, currently not on pressors, alert HEENT: Mild pale conjunctiva. oral mucosa dry, pharynx w/o exudate or effusion. No icterus. Head normocephalic, neck supple. NECK: No cervical LAD CHEST: scattered rhonchi, decreased breath sounds on L base. copious thick secretions. HEART: S1 and S2, no murmurs, no rubs. ABDOMEN: soft, non tender, non distended, normoactive bowel sounds. EXTREMITIES: No cyanosis, no clubbing, no edema. extremities warm with brisk cap refill NEUROLOGIC: Awake, alert, no focal neurologic motor deficits. : enciso in place draining clear yellow urine. LYMPH: no LAD RECTAL: deferred. reviewed wound care report of mid sacral pressure ulcer with deep tissue injury Microbiology Date/Time Source Procedure Growth Status 10/05/16 07:30 Blood Blood Culture - Preliminary NO GROWTH AFTER 24 HOURS Resulted 10/05/16 07:15 Blood Blood Culture - Preliminary NO GROWTH AFTER 24 HOURS Resulted 10/06/16 18:00 Sputum Gram Stain - Final Resulted 10/06/16 18:00 Sputum Sputum Culture - Preliminary NO GROWTH AFTER 24 HOURS Resulted 10/05/16 07:50 Nasal Nares MRSA Culture - Final NO METHICILLIN RESISTANT STAPH AUREUS... Complete 10/05/16 07:50 Rectum VRE Culture - Final NO VANCOMYCIN RESISTANT ENTEROCOCCUS ... Complete Laboratory Tests Test 10/06/16 17:50 10/07/16 04:35 10/07/16 08:20 Troponin I < 0.30 ng/mL (<=0.30) < 0.30 ng/mL (<=0.30) White Blood Count 9.9 K/UL (4.8-10.8) # Red Blood Count 2.49 M/UL (4.70-6.10) L Hemoglobin 8.8 G/DL (14.2-18.0) L Hematocrit 25.1 % (42.0-52.0) L Mean Corpuscular Volume 101 FL (80-99) H Mean Corpuscular Hemoglobin 35.2 PG (27.0-31.0) H Mean Corpuscular Hemoglobin Concent 34.9 G/DL (32.0-36.0) Red Cell Distribution Width 14.6 % (11.6-14.8) Platelet Count 115 K/UL (150-450) L Mean Platelet Volume 7.0 FL (6.5-10.1) Neutrophils (%) (Auto) % (45.0-75.0) Lymphocytes (%) (Auto) % (20.0-45.0) Monocytes (%) (Auto) % (1.0-10.0) Eosinophils (%) (Auto) % (0.0-3.0) Basophils (%) (Auto) % (0.0-2.0) Differential Total Cells Counted 100 Neutrophils % (Manual) 77 % (45-75) H Lymphocytes % (Manual) 13 % (20-45) L Monocytes % (Manual) 2 % (1-10) Eosinophils % (Manual) 1 % (0-3) Basophils % (Manual) 0 % (0-2) Band Neutrophils 7 % (0-8) Platelet Estimate Adequate Platelet Morphology Clumped Platelets 1+ Hypochromasia 1+ Anisocytosis 1+ Acanthocytes 1+ Erythrocyte Sedimentation Rate 81 MM/HR (0-30) H Reticulocyte Count 0.9 % (0.0-2.0) Prothrombin Time 11.4 SEC (9.30-11.50) Prothromb Time International Ratio 1.1 (0.9-1.1) Activated Partial Thromboplast Time 50 SEC (23-33) H Sodium Level 135 mEQ/L (135-145) Potassium Level 3.5 mEQ/L (3.4-4.9) Chloride Level 105 mEQ/L (98-107) Carbon Dioxide Level 17 mEQ/L (20-30) L Anion Gap 13 (5-15) Blood Urea Nitrogen 17 mg/dL (7-23) Creatinine 0.9 mg/dL (0.7-1.2) Estimat Glomerular Filtration Rate mL/min (>60) Glucose Level 143 mg/dL (74-106) H Calcium Level 7.4 mg/dL (8.6-10.2) L Phosphorus Level 1.7 mg/dL (2.5-4.8) L Magnesium Level 1.4 mg/dL (1.7-2.5) L Iron Level 11 ug/dL (59-158) L Total Iron Binding Capacity 97 ug/dL (250-400) L Percent Iron Saturation 11 % (15-50) L Unsaturated Iron Binding 86 ug/dL (112-346) L Ferritin 437 ng/mL (10-230) H Total Bilirubin 0.6 mg/dL (0.0-1.2) Aspartate Amino Transf (AST/SGOT) 33 U/L (5-40) Alanine Aminotransferase (ALT/SGPT) 28 U/L (3-41) Alkaline Phosphatase 77 U/L (40-129) Lactate Dehydrogenase 155 U/L (135-230) Total Protein 5.3 g/dL (6.6-8.7) L Albumin 1.9 g/dL (3.5-5.2) L Globulin 3.4 g/dL Albumin/Globulin Ratio 0.5 (1.0-2.7) L Carcinoembryonic Antigen 3.6 ng/mL H Vitamin B12 Level 810 pg/mL (211-946) Folate Pending Arterial Blood pH 7.416 (7.350-7.450) Arterial Blood Partial Pressure CO2 30.7 mmHg (35.0-45.0) L Arterial Blood Partial Pressure O2 77.1 mmHg (75.0-100.0) Arterial Blood HCO3 19.3 mmol/L (22.0-26.0) L Arterial Blood Oxygen Saturation 95.2 % (92.0-98.0) Arterial Blood Base Excess -4.5 Nicholas Test Positive Current Medications Medications (Trade) Dose Ordered Sig/Bhavna Route PRN Reason Start Time Stop Time Status Last Admin Dose Admin Acetaminophen (Tylenol) 650 mg Q4H PRN ORAL fever 10/05/16 10:30 11/04/16 10:29 10/06/16 14:24 Albuterol/ Ipratropium 3 ml 3 ml Q4H PRN HHN Shortness of Breath 10/05/16 10:30 10/10/16 10:29 Amikacin Protocol (Amikacin pharmacy to dose) 1 ea DAILY PRN MISC PER RX PROTOCOL 10/05/16 15:00 11/04/16 14:59 Amikacin Sulfate/ Sodium Chloride (Amikin/Sodium Chloride) 114 ml @ 228 mls/hr Q36H IV 10/05/16 16:00 10/12/16 15:59 10/07/16 03:33 Amiodarone HCl (Cordarone) 400 mg EVERY 8 HOURS ORAL 10/06/16 22:00 11/05/16 21:59 10/07/16 05:56 Dextrose (Dextrose 50%) STAT PRN IV Hypoglycemia 10/06/16 18:30 11/05/16 18:29 Famotidine (Pepcid I.v.) 20 mg Q12HR IVP 10/06/16 21:00 11/05/16 20:59 10/07/16 08:55 Heparin Sodium (Porcine) (Heparin 5000 units/ml) 5,000 units EVERY 12 HOURS SUBQ 10/05/16 21:00 11/04/16 20:59 10/07/16 08:56 Insulin Aspart Q6HR SUBQ 10/07/16 00:00 11/06/16 00:00 10/07/16 12:15 Iron Sucrose/ Sodium Chloride (Venofer/Sodium Chloride) 60 ml @ 240 mls/hr BEDTIME IV 10/07/16 21:00 10/11/16 21:14 Lorazepam 2 mg 2 mg Q2H PRN IV For Anxiety 10/05/16 10:30 10/12/16 10:29 Metoprolol Tartrate (Lopressor) 5 mg Q5MIN X 3 IVP 10/06/16 14:30 11/05/16 14:29 10/06/16 14:39 Morphine Sulfate (Morphine Sulfate) 4 mg Q4H PRN IVP Severe Pain (Pain Scale 7-10) 10/05/16 10:30 10/12/16 10:29 10/06/16 13:44 Norepinephrine Bitartrate/ Dextrose (Levophed/D5W) 254 ml @ 0 mls/hr Q24H IV 10/05/16 14:45 11/04/16 14:44 10/06/16 00:46 Ondansetron HCl (Zofran) 4 mg Q6H PRN IVP Nausea & Vomiting 10/05/16 10:30 11/04/16 10:29 Piperacillin Sod/ Tazobactam Sod/ Dextrose (Zosyn/D5W) 110 ml @ 27.5 mls/hr EVERY 8 HOURS IVPB 10/05/16 22:00 10/12/16 21:59 10/07/16 05:50 Sodium Chloride (Sodium Chloride 1000ml bag) 1,000 ml @ 100 mls/hr Q10H IVLG 10/05/16 15:00 11/04/16 14:59 10/07/16 12:14 Tamsulosin HCl 0.4 mg 0.4 mg BEDTIME ORAL 10/05/16 21:00 11/04/16 20:59 10/06/16 21:06 Vancomycin HCl 1 ea 1 ea DAILY PRN MISC PER RX PROTOCOL 10/05/16 15:00 11/04/16 14:59 Vancomycin HCl/ Dextrose 250 ml @ 166.667 mls/hr Q24H IVPB 10/06/16 17:00 10/11/16 16:59 10/06/16 16:41 Alfonso Mathur M.D. Oct 07, 2016 13:33
[2016-10-07] MEDS ORDERED: D5W 275ml ONE (15:43)
[2016-10-07] MEDS ORDERED: Tubing IV Secondary IV ONE (15:43)
[2016-10-07] MEDS: Vancomycin 1250mg/D5W 250ml IVPB SCH (17:34)
--- NOTE | 2016-10-07 18:33 | Cardiology Progress Note ---
Assessment/Plan Assessment/Plan 1. Severe tachycardia. 2. Atrial fibrillation, acute in onset with rapid ventricular response. 3. Respiratory failure. 4. Pneumonia. 5. Dementia. 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 7. Hypotension earlier. 8. Leukocytosis. 9. Respiratory acidosis. converted with iv amiod now on po or ng amiod bp is fien hr i jon vent support abx pulm rxn Subjective ROS Limited/Unobtainable: Yes Objective Last 24 Hour Vital Signs Date Time Temp Pulse Resp B/P Pulse Ox O2 Delivery O2 Flow Rate FiO2 10/07/16 18:00 86 20 136/58 98 Mechanical Ventilator 50 10/07/16 17:07 83 18 50 10/07/16 17:00 79 20 144/65 98 Mechanical Ventilator 50 10/07/16 16:00 50 10/07/16 16:00 84 10/07/16 16:00 98.1 84 19 133/57 100 Mechanical Ventilator 50 10/07/16 15:00 85 20 143/72 98 Mechanical Ventilator 50 10/07/16 15:00 86 20 50 10/07/16 14:00 87 20 143/78 98 Mechanical Ventilator 50 10/07/16 13:13 91 22 50 10/07/16 13:00 89 19 157/66 98 Mechanical Ventilator 50 10/07/16 12:00 50 10/07/16 12:00 98.4 94 19 158/69 100 Mechanical Ventilator 50 10/07/16 12:00 88 10/07/16 11:15 90 20 50 10/07/16 11:00 90 19 146/62 98 Mechanical Ventilator 50 10/07/16 10:00 84 19 144/60 98 Mechanical Ventilator 50 10/07/16 09:00 91 21 50 10/07/16 09:00 90 20 142/59 98 Mechanical Ventilator 50 10/07/16 08:00 98.9 94 19 150/80 100 Mechanical Ventilator 50 10/07/16 08:00 95 10/07/16 08:00 50 10/07/16 07:15 94 21 50 10/07/16 07:00 94 20 145/63 98 Mechanical Ventilator 60 10/07/16 06:00 82 19 131/56 98 Mechanical Ventilator 60 10/07/16 05:00 80 19 140/63 100 Mechanical Ventilator 60 10/07/16 04:50 83 22 60 10/07/16 04:00 77 10/07/16 04:00 98.5 77 16 135/57 100 Mechanical Ventilator 60 10/07/16 04:00 60 10/07/16 03:22 81 19 60 10/07/16 03:00 76 17 121/54 100 Mechanical Ventilator 60 10/07/16 02:00 80 19 127/55 100 Mechanical Ventilator 60 10/07/16 01:00 78 19 119/60 100 Mechanical Ventilator 60 10/07/16 00:57 69 20 60 10/07/16 00:00 98.4 72 16 131/63 100 Mechanical Ventilator 60 10/07/16 00:00 60 10/07/16 00:00 72 10/06/16 23:25 73 16 60 10/06/16 23:00 73 19 107/49 100 Mechanical Ventilator 60 10/06/16 22:00 74 16 106/54 99 Mechanical Ventilator 60 10/06/16 21:00 73 16 120/65 100 Mechanical Ventilator 60 10/06/16 20:58 72 16 65 10/06/16 20:00 73 10/06/16 20:00 98.3 74 16 102/54 100 Mechanical Ventilator 70 10/06/16 20:00 65 10/06/16 19:25 73 16 65 10/06/16 19:00 74 20 91/47 97 Mechanical Ventilator 70 General Appearance: no apparent distress, on vent Neck: supple Cardiovascular: normal rate Respiratory/Chest: rhonchi - bilaterally Abdomen: normal bowel sounds, non tender, soft Extremities: no swelling Intake and Output 10/06/16 10/07/16 19:00 07:00 Intake Total 1632.5 ml 1871.5 ml Output Total 690 ml 595 ml Balance 942.5 ml 1276.5 ml Free Water 60 ml IV Total 1492.5 ml 1451.5 ml Tube Feeding 140 ml 360 ml Output Urine Total 690 ml 595 ml # Bowel Movements 2 Laboratory Tests Test 10/07/16 04:35 10/07/16 08:20 White Blood Count 9.9 K/UL (4.8-10.8) # Red Blood Count 2.49 M/UL (4.70-6.10) L Hemoglobin 8.8 G/DL (14.2-18.0) L Hematocrit 25.1 % (42.0-52.0) L Mean Corpuscular Volume 101 FL (80-99) H Mean Corpuscular Hemoglobin 35.2 PG (27.0-31.0) H Mean Corpuscular Hemoglobin Concent 34.9 G/DL (32.0-36.0) Red Cell Distribution Width 14.6 % (11.6-14.8) Platelet Count 115 K/UL (150-450) L Mean Platelet Volume 7.0 FL (6.5-10.1) Neutrophils (%) (Auto) % (45.0-75.0) Lymphocytes (%) (Auto) % (20.0-45.0) Monocytes (%) (Auto) % (1.0-10.0) Eosinophils (%) (Auto) % (0.0-3.0) Basophils (%) (Auto) % (0.0-2.0) Differential Total Cells Counted 100 Neutrophils % (Manual) 77 % (45-75) H Lymphocytes % (Manual) 13 % (20-45) L Monocytes % (Manual) 2 % (1-10) Eosinophils % (Manual) 1 % (0-3) Basophils % (Manual) 0 % (0-2) Band Neutrophils 7 % (0-8) Platelet Estimate Adequate Platelet Morphology Clumped Platelets 1+ Hypochromasia 1+ Anisocytosis 1+ Acanthocytes 1+ Erythrocyte Sedimentation Rate 81 MM/HR (0-30) H Reticulocyte Count 0.9 % (0.0-2.0) Prothrombin Time 11.4 SEC (9.30-11.50) Prothromb Time International Ratio 1.1 (0.9-1.1) Activated Partial Thromboplast Time 50 SEC (23-33) H Sodium Level 135 mEQ/L (135-145) Potassium Level 3.5 mEQ/L (3.4-4.9) Chloride Level 105 mEQ/L (98-107) Carbon Dioxide Level 17 mEQ/L (20-30) L Anion Gap 13 (5-15) Blood Urea Nitrogen 17 mg/dL (7-23) Creatinine 0.9 mg/dL (0.7-1.2) Estimat Glomerular Filtration Rate mL/min (>60) Glucose Level 143 mg/dL (74-106) H Calcium Level 7.4 mg/dL (8.6-10.2) L Phosphorus Level 1.7 mg/dL (2.5-4.8) L Magnesium Level 1.4 mg/dL (1.7-2.5) L Iron Level 11 ug/dL (59-158) L Total Iron Binding Capacity 97 ug/dL (250-400) L Percent Iron Saturation 11 % (15-50) L Unsaturated Iron Binding 86 ug/dL (112-346) L Ferritin 437 ng/mL (10-230) H Total Bilirubin 0.6 mg/dL (0.0-1.2) Aspartate Amino Transf (AST/SGOT) 33 U/L (5-40) Alanine Aminotransferase (ALT/SGPT) 28 U/L (3-41) Alkaline Phosphatase 77 U/L (40-129) Lactate Dehydrogenase 155 U/L (135-230) Troponin I < 0.30 ng/mL (<=0.30) Total Protein 5.3 g/dL (6.6-8.7) L Albumin 1.9 g/dL (3.5-5.2) L Globulin 3.4 g/dL Albumin/Globulin Ratio 0.5 (1.0-2.7) L Carcinoembryonic Antigen 3.6 ng/mL H Vitamin B12 Level 810 pg/mL (211-946) Folate Pending Arterial Blood pH 7.416 (7.350-7.450) Arterial Blood Partial Pressure CO2 30.7 mmHg (35.0-45.0) L Arterial Blood Partial Pressure O2 77.1 mmHg (75.0-100.0) Arterial Blood HCO3 19.3 mmol/L (22.0-26.0) L Arterial Blood Oxygen Saturation 95.2 % (92.0-98.0) Arterial Blood Base Excess -4.5 Nicholas Test Positive Microbiology Date/Time Source Procedure Growth Status 10/05/16 07:30 Blood Blood Culture - Preliminary NO GROWTH AFTER 24 HOURS Resulted 10/05/16 07:15 Blood Blood Culture - Preliminary NO GROWTH AFTER 24 HOURS Resulted 10/06/16 18:00 Sputum Gram Stain - Final Resulted 10/06/16 18:00 Sputum Sputum Culture - Preliminary NO GROWTH AFTER 24 HOURS Resulted 10/05/16 07:50 Nasal Nares MRSA Culture - Final NO METHICILLIN RESISTANT STAPH AUREUS... Complete 10/05/16 07:50 Rectum VRE Culture - Final NO VANCOMYCIN RESISTANT ENTEROCOCCUS ... Complete ISACC GUEVARA Oct 07, 2016 18:33
[2016-10-07] MEDS ORDERED: NovoLOG Insulin Flexpen SUBQ SCH (19:30)
[2016-10-07] MEDS: Iron Sucrose 100 MG in NS 55 ML IV SCH (21:30)
[2016-10-07] MEDS: Tamsulosin 0.4mg cap ORAL SCH (21:31)
[2016-10-08] VITALS (24 sets, daily range): BP systolic 70–160; BP diastolic 55–74
[2016-10-08 05:06] LABS: BASOPHILS % (AUTO) 0.4 % (0.0-2.0); EOSINOPHILS % (AUTO) 1.3 % (0.0-3.0); LYMPHOCYTES % (AUTO) 10.4 % (20.0-45.0); MEAN CORPUSCULAR HEMOGLOBIN 36.2 PG (27.0-31.0); MEAN CORPUSCULAR VOLUME 101 FL (80-99); MEAN PLATELET VOLUME 6.8 FL (6.5-10.1); MONOCYTES % (AUTO) 3.9 % (1.0-10.0); PLATELET COUNT 117 K/UL (150-450); RED BLOOD COUNT 2.36 M/UL (4.70-6.10); RED CELL DISTRIBUTION WIDTH 13.8 % (11.6-14.8); WHITE BLOOD COUNT 7.3 K/UL (4.8-10.8)
[2016-10-08 05:24] LABS: ALANINE AMINOTRANSFERASE 39 U/L (3-41); ALBUMIN/GLOBULIN RATIO 0.4 (1.0-2.7); ASPARTATE AMINO TRANSFERASE 38 U/L (5-40); CALCIUM 7.5 mg/dL (8.6-10.2); CARBON DIOXIDE 18 mEQ/L (20-30); CHLORIDE 107 mEQ/L (98-107); CREATININE 0.8 mg/dL (0.7-1.2); HEMOLYSIS 13; MAGNESIUM 1.5 mg/dL (1.7-2.5); PHOSPHORUS 1.6 mg/dL (2.5-4.8); SODIUM 135 mEQ/L (135-145); TOTAL PROTEIN 5.3 g/dL (6.6-8.7)
[2016-10-08] MEDS: Amiodarone 200mg tab ORAL SCH ×3 (05:29→21:48)
[2016-10-08] MEDS: Piperacillin/Tazobactam 4.5 GM in D5W 110 ML IVPB SCH ×3 (05:29→21:48)
[2016-10-08] MEDS: NovoLOG Insulin Flexpen SUBQ SCH ×3 (05:32→17:39)
[2016-10-08 05:52] LABS: ANION GAP 10 (5-15); POTASSIUM 3.3 mEQ/L (3.4-4.9)
--- NOTE | 2016-10-08 08:17 | Pulmonolgy Critical Care Note ---
Critical Care - Asmt/Plan Assessment/Plan: ASSESSMENT Septic shock Acute hypercapnic respiratory failure requiring intubation Sepsis Multifocal PNA COPD lactic acidosis-resolved DM with hyperglycemia-improved AF with RVR-resolved anemia of chronic disease thrombocytopenia NPH , s/p ROCK SPLITTER shunt dementia Sacral ulcer DTI, POA e/lyte imbalance (hypo Mg, hypo P, hypo K) PLAN OF CARE ICU care off pressors off Amiodarone gtt HR controlled BP better- hemodynamically stable Vent support Pulmonary toilet daily CXR and ABG titrate settings as needed weaning protocol Abx ID follows sputum cx negative blood cx preliminary negative Cardio follows Amiodarone via NGT ECHO with pEF 55% and RVSP of 17, moderate TR BS management with SS of insulin, better wound care as per wound nurse recommendations DVT GI prophylaxis monitor HH, anemia w/up c/w anemia of chronic disease Replace lytes today, cehck in am DVT, GI prophayxlis case discussed and evaluated by supervising physician Critical Care - Objective Last 24 Hour Vital Signs Date Time Temp Pulse Resp B/P Pulse Ox O2 Delivery O2 Flow Rate FiO2 10/08/16 07:15 84 21 40 10/08/16 07:00 84 20 154/67 94 Mechanical Ventilator 50 10/08/16 06:00 79 20 147/71 99 Mechanical Ventilator 50 10/08/16 05:15 83 20 50 10/08/16 05:00 91 21 159/74 100 Mechanical Ventilator 50 10/08/16 04:00 70 10/08/16 04:00 50 10/08/16 04:00 98.4 70 16 147/70 100 Mechanical Ventilator 50 10/08/16 03:18 69 16 50 10/08/16 03:00 67 16 135/62 100 Mechanical Ventilator 50 10/08/16 02:00 76 19 141/65 99 Mechanical Ventilator 50 10/08/16 01:12 76 17 50 10/08/16 01:00 75 17 136/55 100 Mechanical Ventilator 50 10/08/16 00:00 99.2 71 16 126/60 100 Mechanical Ventilator 50 10/08/16 00:00 71 10/08/16 00:00 50 10/07/16 23:10 77 19 50 10/07/16 23:00 73 16 123/57 100 Mechanical Ventilator 50 10/07/16 22:00 80 17 142/59 100 Mechanical Ventilator 50 10/07/16 21:08 76 16 50 8/18/17 21:00 80 16 130/57 100 Mechanical Ventilator 50 10/07/16 20:00 50 10/07/16 20:00 80 10/07/16 20:00 99.0 83 18 140/60 100 Mechanical Ventilator 50 10/07/16 19:05 82 22 50 10/07/16 19:00 79 19 131/57 98 Mechanical Ventilator 50 10/07/16 18:00 86 20 136/58 98 Mechanical Ventilator 50 10/07/16 17:07 83 18 50 10/07/16 17:00 79 20 144/65 98 Mechanical Ventilator 50 10/07/16 16:00 50 10/07/16 16:00 84 10/07/16 16:00 98.1 84 19 133/57 100 Mechanical Ventilator 50 10/07/16 15:00 85 20 143/72 98 Mechanical Ventilator 50 10/07/16 15:00 86 20 50 10/07/16 14:00 87 20 143/78 98 Mechanical Ventilator 50 10/07/16 13:13 91 22 50 10/07/16 13:00 89 19 157/66 98 Mechanical Ventilator 50 10/07/16 12:00 50 10/07/16 12:00 98.4 94 19 158/69 100 Mechanical Ventilator 50 10/07/16 12:00 88 10/07/16 11:15 90 20 50 10/07/16 11:00 90 19 146/62 98 Mechanical Ventilator 50 10/07/16 10:00 84 19 144/60 98 Mechanical Ventilator 50 10/07/16 09:00 91 21 50 10/07/16 09:00 90 20 142/59 98 Mechanical Ventilator 50 Status: sedated, other - intubated Condition: critical HEENT: atraumatic, normocephalic, other - OP with ET in place, intact, NGT with TF Heart: HR/BP stable - SR on tele , regular Abdomen: soft, non-tender, active bowel sounds, other - rectal tube, Meza cath Extremities: no C/C/E Micro: Microbiology Date/Time Source Procedure Growth Status 10/06/16 18:00 Sputum Gram Stain - Final Complete 10/06/16 18:00 Sputum Culture - Final Charissa Albicans Complete Accucheck: 152 Critical Care - Subjective ROS Limited/Unobtainable: Yes Interval Events: leukocytosis resolved , low grade fever this am no signs of respiratory distress on current settings ( SIMV) off pressors, hemodynamically stable on weaning protocol Condition: critical IV Access: peripheral EKG Rhythm: Sinus Rhythm FI02: 40 Vent Support Breath Rate: 10 Vent Support Mode: IMV/SIMV Vent Tidal Volume: 600 Sputum Amount: Moderate PEEP: 5.0 PIP: 22 Fluids: NS at 100 Tube Feeding Amount: 30 I&O: Intake and Output 10/07/16 10/08/16 18:59 06:59 Intake Total 1990.0 ml 1817.5 ml Output Total 680 ml 390 ml Balance 1310.0 ml 1427.5 ml Free Water 60 ml IV Total 1570.0 ml 1397.5 ml Tube Feeding 360 ml 360 ml Other 60 ml Output Urine Total 680 ml 390 ml # Bowel Movements 4 8 CXR: Increasing right upper lobe infiltrates. ET-Tube: 7.5 ET Position: 24 Barb Thao NP (Vanchte[facility]) Oct 08, 2016 08:17
[2016-10-08] MEDS: Famotidine 20 MG/ 2ML VIAL IVP SCH ×2 (08:36→20:43)
[2016-10-08] MEDS: Heparin 5000 units/ml inj SUBQ SCH ×2 (08:37→20:46)
[2016-10-08 08:44] LABS: ABG ALLEN TEST POSITIVE; ABG BASE EXCESS -4.5; ABG PCO2 28.4 mmHg (35.0-45.0)
--- NOTE | 2016-10-08 09:10 | Cardiology Progress Note ---
Assessment/Plan Assessment/Plan 1. Severe tachycardia. 2. Atrial fibrillation, acute in onset with rapid ventricular response. 3. Respiratory failure. 4. Pneumonia. 5. Dementia. 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 7. Hypotension earlier. 8. Leukocytosis. 9. Respiratory acidosis. converted with iv amiod now on po or ng amiod bp is fien hr i s ok tele sinus no afib vent support abx pulm rxn Subjective ROS Limited/Unobtainable: Yes Objective Last 24 Hour Vital Signs Date Time Temp Pulse Resp B/P Pulse Ox O2 Delivery O2 Flow Rate FiO2 10/08/16 08:00 85 10/08/16 08:00 40 10/08/16 08:00 99.3 70 25 149/72 100 Mechanical Ventilator 40 10/08/16 07:30 40 10/08/16 07:15 84 21 40 10/08/16 07:00 84 20 154/67 94 Mechanical Ventilator 50 10/08/16 06:00 79 20 147/71 99 Mechanical Ventilator 50 10/08/16 05:15 83 20 50 10/08/16 05:00 91 21 159/74 100 Mechanical Ventilator 50 10/08/16 04:00 70 10/08/16 04:00 50 10/08/16 04:00 98.4 70 16 147/70 100 Mechanical Ventilator 50 10/08/16 03:18 69 16 50 10/08/16 03:00 67 16 135/62 100 Mechanical Ventilator 50 10/08/16 02:00 76 19 141/65 99 Mechanical Ventilator 50 10/08/16 01:12 76 17 50 10/08/16 01:00 75 17 136/55 100 Mechanical Ventilator 50 10/08/16 00:00 99.2 71 16 126/60 100 Mechanical Ventilator 50 10/08/16 00:00 71 10/08/16 00:00 50 10/07/16 23:10 77 19 50 10/07/16 23:00 73 16 123/57 100 Mechanical Ventilator 50 10/07/16 22:00 80 17 142/59 100 Mechanical Ventilator 50 10/07/16 21:08 76 16 50 10/07/16 21:00 80 16 130/57 100 Mechanical Ventilator 50 10/07/16 20:00 50 10/07/16 20:00 80 10/07/16 20:00 99.0 83 18 140/60 100 Mechanical Ventilator 50 10/07/16 19:05 82 22 50 10/07/16 19:00 79 19 131/57 98 Mechanical Ventilator 50 10/07/16 18:00 86 20 136/58 98 Mechanical Ventilator 50 10/07/16 17:07 83 18 50 10/07/16 17:00 79 20 144/65 98 Mechanical Ventilator 50 10/07/16 16:00 50 10/07/16 16:00 84 10/07/16 16:00 98.1 84 19 133/57 100 Mechanical Ventilator 50 10/07/16 15:00 85 20 143/72 98 Mechanical Ventilator 50 10/07/16 15:00 86 20 50 10/07/16 14:00 87 20 143/78 98 Mechanical Ventilator 50 10/07/16 13:13 91 22 50 10/07/16 13:00 89 19 157/66 98 Mechanical Ventilator 50 10/07/16 12:00 50 10/07/16 12:00 98.4 94 19 158/69 100 Mechanical Ventilator 50 10/07/16 12:00 88 10/07/16 11:15 90 20 50 10/07/16 11:00 90 19 146/62 98 Mechanical Ventilator 50 10/07/16 10:00 84 19 144/60 98 Mechanical Ventilator 50 General Appearance: alert, on vent Neck: supple Cardiovascular: normal rate, regular rhythm Respiratory/Chest: lungs clear Abdomen: normal bowel sounds, non tender, soft Extremities: no swelling Intake and Output 10/07/16 10/08/16 19:00 07:00 Intake Total 1962.5 ml 1717.5 ml Output Total 700 ml 340 ml Balance 1262.5 ml 1377.5 ml Free Water 60 ml IV Total 1542.5 ml 1297.5 ml Tube Feeding 360 ml 360 ml Other 60 ml Output Urine Total 700 ml 340 ml # Bowel Movements 4 8 Laboratory Tests Test 10/08/16 04:21 10/08/16 08:36 White Blood Count 7.3 K/UL (4.8-10.8) Red Blood Count 2.36 M/UL (4.70-6.10) L Hemoglobin 8.5 G/DL (14.2-18.0) L Hematocrit 23.7 % (42.0-52.0) L Mean Corpuscular Volume 101 FL (80-99) H Mean Corpuscular Hemoglobin 36.2 PG (27.0-31.0) H Mean Corpuscular Hemoglobin Concent 36.0 G/DL (32.0-36.0) Red Cell Distribution Width 13.8 % (11.6-14.8) Platelet Count 117 K/UL (150-450) L Mean Platelet Volume 6.8 FL (6.5-10.1) Neutrophils (%) (Auto) 84.0 % (45.0-75.0) H Lymphocytes (%) (Auto) 10.4 % (20.0-45.0) L Monocytes (%) (Auto) 3.9 % (1.0-10.0) Eosinophils (%) (Auto) 1.3 % (0.0-3.0) Basophils (%) (Auto) 0.4 % (0.0-2.0) Sodium Level 135 mEQ/L (135-145) Potassium Level 3.3 mEQ/L (3.4-4.9) L Chloride Level 107 mEQ/L (98-107) Carbon Dioxide Level 18 mEQ/L (20-30) L Anion Gap 10 (5-15) Blood Urea Nitrogen 11 mg/dL (7-23) Creatinine 0.8 mg/dL (0.7-1.2) Estimat Glomerular Filtration Rate mL/min (>60) Glucose Level 147 mg/dL (74-106) H Calcium Level 7.5 mg/dL (8.6-10.2) L Phosphorus Level 1.6 mg/dL (2.5-4.8) L Magnesium Level 1.5 mg/dL (1.7-2.5) L Total Bilirubin 0.6 mg/dL (0.0-1.2) Aspartate Amino Transf (AST/SGOT) 38 U/L (5-40) Alanine Aminotransferase (ALT/SGPT) 39 U/L (3-41) Alkaline Phosphatase 119 U/L (40-129) Total Protein 5.3 g/dL (6.6-8.7) L Albumin 1.7 g/dL (3.5-5.2) L Globulin 3.6 g/dL Albumin/Globulin Ratio 0.4 (1.0-2.7) L Arterial Blood pH 7.440 (7.350-7.450) Arterial Blood Partial Pressure CO2 28.4 mmHg (35.0-45.0) L Arterial Blood Partial Pressure O2 77.2 mmHg (75.0-100.0) Arterial Blood HCO3 18.9 mmol/L (22.0-26.0) L Arterial Blood Oxygen Saturation 94.7 % (92.0-98.0) Arterial Blood Base Excess -4.5 Nicholas Test Positive Microbiology Date/Time Source Procedure Growth Status 10/06/16 18:00 Sputum Gram Stain - Final Complete 10/06/16 18:00 Sputum Culture - Final Charissa Albicans Complete ISACC GUEVARA Oct 08, 2016 09:10
[2016-10-08] MEDS ORDERED: Potassium Phosphate 30 MM in NS 275 ML IV ONE (10:00)
[2016-10-08] MEDS ORDERED: Potassium Phosphate 30 MM in Sodium Chloride 550 ML IV ONE (10:00)
--- NOTE | 2016-10-08 13:33 | Infectious Diseases Prog Note ---
Assessment/Plan Assessment/Plan Assessment: Acute respiratory failure, multifocal pneumonia, c/b afib with RVR now on rate control, off pressors for >48hrs with normalization of leukocytosis on D#4 empiric IV vancomycin and zosyn with cultures of blood from 10/05 neg to date. Mildly elevated ferritin c/w acute phase reactant in acute illness. sputum cx obtained on 10/06 after 24 hrs of broad spectum abx growing only scant [place] albicans which should be considered a commensal/colonizer here. 1) Multifocal Pneumonia, small L effusion 10/05 blood cx ngtd 10/06 sputum cx: scant carroll (obtained on abx) 2) septic shock, currently off pressors since 10/06 3) Hypercarbic Respiratory failure requiring intubation; initial chem panel and ABG showed an acute respiratory acidosis with concomitant lactic acidosis metabolic acidosis. TTE with dilated IVC not suggestive of hypovolemic shock. 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 Objective Vital Signs Last 24 Hour Vital Signs Date Time Temp Pulse Resp B/P Pulse Ox O2 Delivery O2 Flow Rate FiO2 10/08/16 13:00 84 24 148/59 99 Mechanical Ventilator 40 10/08/16 12:00 89 10/08/16 12:00 40 10/08/16 12:00 99.0 95 25 153/60 99 Mechanical Ventilator 40 10/08/16 11:00 84 23 154/59 99 Mechanical Ventilator 40 10/08/16 10:00 85 24 148/70 99 Mechanical Ventilator 40 10/08/16 10:00 40 10/08/16 09:15 83 23 40 10/08/16 09:15 99 10/08/16 09:00 92 20 158/72 99 Mechanical Ventilator 40 10/08/16 08:00 85 10/08/16 08:00 40 10/08/16 08:00 99.3 70 25 149/72 100 Mechanical Ventilator 40 10/08/16 07:30 40 10/08/16 07:15 84 21 40 10/08/16 07:00 84 20 154/67 94 Mechanical Ventilator 50 10/08/16 06:00 79 20 147/71 99 Mechanical Ventilator 50 10/08/16 05:15 83 20 50 10/08/16 05:00 91 21 159/74 100 Mechanical Ventilator 50 10/08/16 04:00 70 10/08/16 04:00 50 10/08/16 04:00 98.4 70 16 147/70 100 Mechanical Ventilator 50 10/08/16 03:18 69 16 50 10/08/16 03:00 67 16 135/62 100 Mechanical Ventilator 50 10/08/16 02:00 76 19 141/65 99 Mechanical Ventilator 50 10/08/16 01:12 76 17 50 10/08/16 01:00 75 17 136/55 100 Mechanical Ventilator 50 10/08/16 00:00 99.2 71 16 126/60 100 Mechanical Ventilator 50 10/08/16 00:00 71 10/08/16 00:00 50 10/07/16 23:10 77 19 50 10/07/16 23:00 73 16 123/57 100 Mechanical Ventilator 50 10/07/16 22:00 80 17 142/59 100 Mechanical Ventilator 50 17 21:08 76 16 50 18/17 21:00 80 16 130/57 100 Mechanical Ventilator 50 17 20:00 50 18/17 20:00 80 18/17 20:00 99.0 83 18 140/60 100 Mechanical Ventilator 50 18/17 19:05 82 22 50 18/17 19:00 79 19 131/57 98 Mechanical Ventilator 50 10/07/16 18:00 86 20 136/58 98 Mechanical Ventilator 50 10/07/16 17:07 83 18 50 10/07/16 17:00 79 20 144/65 98 Mechanical Ventilator 50 10/07/16 16:00 50 10/07/16 16:00 84 10/07/16 16:00 98.1 84 19 133/57 100 Mechanical Ventilator 50 10/07/16 15:00 85 20 143/72 98 Mechanical Ventilator 50 10/07/16 15:00 86 20 50 10/07/16 14:00 87 20 143/78 98 Mechanical Ventilator 50 Height (Feet): 5 Height (Inches): 7.00 Weight (Pounds): 144 Objective GEN: intubated on vent full support, currently not on pressors, alert HEENT: Mild pale conjunctiva. oral mucosa dry, pharynx w/o exudate or effusion. No icterus. Head normocephalic, neck supple. NECK: No cervical LAD CHEST: scattered rhonchi, decreased breath sounds on L base. copious thick secretions. HEART: S1 and S2, no murmurs, no rubs. ABDOMEN: soft, non tender, non distended, normoactive bowel sounds. EXTREMITIES: No cyanosis, no clubbing, no edema. extremities warm with brisk cap refill. scattered ecchymosis on hands/arms NEUROLOGIC: intubated. moves all 4 extremities spontaneously : condom cath in place draining clear yellow urine. LYMPH: no LAD RECTAL: deferred. reviewed wound care report of mid sacral pressure ulcer with deep tissue injury rectal tube in place draining liquid brown stool Microbiology Date/Time Source Procedure Growth Status 10/06/16 18:00 Sputum Gram Stain - Final Complete 10/06/16 18:00 Sputum Culture - Final Carroll Albicans Complete Laboratory Tests Test 10/08/16 04:21 10/08/16 08:36 White Blood Count 7.3 K/UL (4.8-10.8) Red Blood Count 2.36 M/UL (4.70-6.10) L Hemoglobin 8.5 G/DL (14.2-18.0) L Hematocrit 23.7 % (42.0-52.0) L Mean Corpuscular Volume 101 FL (80-99) H Mean Corpuscular Hemoglobin 36.2 PG (27.0-31.0) H Mean Corpuscular Hemoglobin Concent 36.0 G/DL (32.0-36.0) Red Cell Distribution Width 13.8 % (11.6-14.8) Platelet Count 117 K/UL (150-450) L Mean Platelet Volume 6.8 FL (6.5-10.1) Neutrophils (%) (Auto) 84.0 % (45.0-75.0) H Lymphocytes (%) (Auto) 10.4 % (20.0-45.0) L Monocytes (%) (Auto) 3.9 % (1.0-10.0) Eosinophils (%) (Auto) 1.3 % (0.0-3.0) Basophils (%) (Auto) 0.4 % (0.0-2.0) Sodium Level 135 mEQ/L (135-145) Potassium Level 3.3 mEQ/L (3.4-4.9) L Chloride Level 107 mEQ/L (98-107) Carbon Dioxide Level 18 mEQ/L (20-30) L Anion Gap 10 (5-15) Blood Urea Nitrogen 11 mg/dL (7-23) Creatinine 0.8 mg/dL (0.7-1.2) Estimat Glomerular Filtration Rate mL/min (>60) Glucose Level 147 mg/dL (74-106) H Calcium Level 7.5 mg/dL (8.6-10.2) L Phosphorus Level 1.6 mg/dL (2.5-4.8) L Magnesium Level 1.5 mg/dL (1.7-2.5) L Total Bilirubin 0.6 mg/dL (0.0-1.2) Aspartate Amino Transf (AST/SGOT) 38 U/L (5-40) Alanine Aminotransferase (ALT/SGPT) 39 U/L (3-41) Alkaline Phosphatase 119 U/L (40-129) Total Protein 5.3 g/dL (6.6-8.7) L Albumin 1.7 g/dL (3.5-5.2) L Globulin 3.6 g/dL Albumin/Globulin Ratio 0.4 (1.0-2.7) L Arterial Blood pH 7.440 (7.350-7.450) Arterial Blood Partial Pressure CO2 28.4 mmHg (35.0-45.0) L Arterial Blood Partial Pressure O2 77.2 mmHg (75.0-100.0) Arterial Blood HCO3 18.9 mmol/L (22.0-26.0) L Arterial Blood Oxygen Saturation 94.7 % (92.0-98.0) Arterial Blood Base Excess -4.5 Nicholas Test Positive Current Medications Medications (Trade) Dose Ordered Sig/Bhavna Route PRN Reason Start Time Stop Time Status Last Admin Dose Admin Acetaminophen (Tylenol) 650 mg Q4H PRN ORAL fever 10/05/16 10:30 11/04/16 10:29 10/06/16 14:24 Albuterol/ Ipratropium (DuoNeb 0.5-3(2.5)mg/3ml) 3 ml Q4H PRN HHN Shortness of Breath 10/05/16 10:30 10/10/16 10:29 Amiodarone HCl (Cordarone) 400 mg EVERY 8 HOURS ORAL 10/06/16 22:00 11/05/16 21:59 10/08/16 05:29 Dextrose (Dextrose 50%) STAT PRN IV Hypoglycemia 10/06/16 18:30 11/05/16 18:29 Famotidine (Pepcid I.v.) 20 mg Q12HR IVP 10/06/16 21:00 11/05/16 20:59 10/08/16 08:36 Heparin Sodium (Porcine) (Heparin 5000 units/ml) 5,000 units EVERY 12 HOURS SUBQ 10/05/16 21:00 11/04/16 20:59 10/08/16 08:37 Insulin Aspart Q6HR SUBQ 10/07/16 00:00 11/06/16 00:00 10/08/16 11:49 Iron Sucrose 100 mg/Sodium Chloride 60 ml @ 240 mls/hr BEDTIME IV 10/07/16 21:00 10/11/16 21:14 10/07/16 21:30 Lorazepam 2 mg 2 mg Q2H PRN IV For Anxiety 10/05/16 10:30 10/12/16 10:29 Metoprolol Tartrate (Lopressor) 5 mg Q5MIN X 3 IVP 10/06/16 14:30 11/05/16 14:29 10/06/16 14:39 Morphine Sulfate (Morphine Sulfate) 4 mg Q4H PRN IVP Severe Pain (Pain Scale 7-10) 10/05/16 10:30 10/12/16 10:29 10/06/16 13:44 Norepinephrine Bitartrate/ Dextrose (Levophed/D5W) 254 ml @ 0 mls/hr Q24H IV 10/05/16 14:45 11/04/16 14:44 10/06/16 00:46 Ondansetron HCl (Zofran) 4 mg Q6H PRN IVP Nausea & Vomiting 10/05/16 10:30 11/04/16 10:29 Piperacillin Sod/ Tazobactam Sod/ Dextrose (Zosyn/D5W) 110 ml @ 27.5 mls/hr EVERY 8 HOURS IVPB 10/05/16 22:00 10/12/16 21:59 10/08/16 05:29 Potassium Phosphate/Sodium Chloride (Potassium Phosphate/NS) 560 ml @ 93.333 mls/ hr ONCE ONCE IV 10/08/16 10:00 10/08/16 15:59 10/08/16 10:13 Sodium Chloride (Sodium Chloride 1000ml bag) 1,000 ml @ 100 mls/hr Q10H IVLG 10/05/16 15:00 11/04/16 14:59 10/08/16 11:49 Tamsulosin HCl 0.4 mg 0.4 mg BEDTIME ORAL 10/05/16 21:00 11/04/16 20:59 10/07/16 21:31 Vancomycin HCl 1 ea 1 ea DAILY PRN MISC PER RX PROTOCOL 10/05/16 15:00 11/04/16 14:59 Vancomycin HCl/ Dextrose 250 ml @ 166.667 mls/hr Q24H IVPB 10/06/16 17:00 10/11/16 16:59 10/07/16 17:34 Alfonso Mathur M.D. Oct 08, 2016 13:33
[2016-10-08] MEDS: Vancomycin 1250mg/D5W 250ml IVPB SCH (17:38)
[2016-10-08] MEDS ORDERED: NS 275ml ONE (17:59)
[2016-10-08] MEDS: Iron Sucrose 100 MG in NS 55 ML IV SCH (20:43)
[2016-10-08] MEDS: Tamsulosin 0.4mg cap ORAL SCH (20:43)
[2016-10-09] VITALS (24 sets, daily range): BP systolic 136–205; BP diastolic 58–78
[2016-10-09] MEDS: NovoLOG Insulin Flexpen SUBQ SCH ×5 (00:21→23:35)
[2016-10-09] MEDS: Amiodarone 200mg tab ORAL SCH ×3 (05:39→22:38)
[2016-10-09] MEDS: Piperacillin/Tazobactam 4.5 GM in D5W 110 ML IVPB SCH ×3 (05:39→22:36)
[2016-10-09 06:09] LABS: MEAN CORPUSCULAR HEMOGLOBIN 34.7 PG (27.0-31.0); MEAN CORPUSCULAR HGB CONC 34.3 G/DL (32.0-36.0); MEAN CORPUSCULAR VOLUME 101 FL (80-99); MEAN PLATELET VOLUME 6.6 FL (6.5-10.1); PLATELET COUNT 99 K/UL (150-450); RED BLOOD COUNT 2.09 M/UL (4.70-6.10); RED CELL DISTRIBUTION WIDTH 14.2 % (11.6-14.8); WHITE BLOOD COUNT 6.2 K/UL (4.8-10.8)
[2016-10-09 06:17] LABS: CALCIUM 6.4 mg/dL (8.6-10.2); CARBON DIOXIDE 17 mEQ/L (20-30); CHLORIDE 113 mEQ/L (98-107); CREATININE 0.6 mg/dL (0.7-1.2); HEMOLYSIS 2; MAGNESIUM 1.5 mg/dL (1.7-2.5); PHOSPHORUS 1.9 mg/dL (2.5-4.8); SODIUM 140 mEQ/L (135-145)
[2016-10-09 06:23] LABS: ANION GAP 10 (5-15); POTASSIUM 2.8 mEQ/L (3.4-4.9)
--- NOTE | 2016-10-09 07:38 | Pulmonolgy Critical Care Note ---
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 dementia Sacral ulcer DTI, POA e/lyte imbalance (hypo Mg, hypo P, hypo K) PLAN OF CARE ICU care off pressors off Amiodarone gtt HR controlled BP stabilized Hydralazine prn Vent support Pulmonary toilet daily CXR and ABG titrate settings as needed weaning protocol Abx ID follows sputum cx negative , blood cx preliminary negative Cardio follows Amiodarone via NGT ECHO with pEF 55% and RVSP of 17, moderate TR BS management with SS of insulin, better wound care as per wound nurse recommendations DVT GI prophylaxis monitor HH, anemia w/up c/w anemia of chronic disease transfuse 1 u PRBC today replace K phosphate and Mg , check lytes in am DVT, GI prophayxlis case discussed and evaluated by supervising physician Critical Care - Objective Last 24 Hour Vital Signs Date Time Temp Pulse Resp B/P Pulse Ox O2 Delivery O2 Flow Rate FiO2 10/09/16 06:41 73 16 40 10/09/16 06:00 93 22 166/64 94 Mechanical Ventilator 40 10/09/16 05:00 101 24 205/64 94 Mechanical Ventilator 40 10/09/16 04:56 78 18 40 10/09/16 04:00 78 10/09/16 04:00 40 10/09/16 04:00 99.2 78 17 136/64 98 Mechanical Ventilator 40 10/09/16 03:34 72 16 40 10/09/16 03:00 73 16 148/61 99 Mechanical Ventilator 40 10/09/16 02:00 85 21 157/64 98 Mechanical Ventilator 40 10/09/16 01:03 75 16 40 10/09/16 01:00 76 16 146/60 97 Mechanical Ventilator 40 10/09/16 00:00 40 10/09/16 00:00 99.5 79 16 141/58 97 Mechanical Ventilator 40 10/09/16 00:00 79 10/08/16 23:15 78 16 40 10/08/16 23:00 79 22 149/67 95 Mechanical Ventilator 40 10/08/16 22:00 79 17 141/64 97 Mechanical Ventilator 40 10/08/16 21:04 80 20 40 10/08/16 21:00 77 18 147/63 99 Mechanical Ventilator 40 10/08/16 20:00 40 10/08/16 20:00 99.0 75 17 155/69 96 Mechanical Ventilator 40 10/08/16 20:00 75 10/08/16 19:21 83 24 40 10/08/16 19:08 90 35 40 10/08/16 19:00 95 29 158/68 99 Mechanical Ventilator 40 10/08/16 18:00 74 26 144/63 99 Mechanical Ventilator 40 10/08/16 17:00 78 27 154/69 99 Mechanical Ventilator 40 10/08/16 17:00 80 25 40 10/08/16 16:00 99.0 84 23 159/73 98 Mechanical Ventilator 40 10/08/16 16:00 40 10/08/16 16:00 84 10/08/16 15:10 84 24 40 10/08/16 15:00 82 25 125/61 99 Mechanical Ventilator 40 10/08/16 14:01 150/66 10/08/16 14:00 85 28 160/59 100 Mechanical Ventilator 40 10/08/16 13:10 87 29 40 10/08/16 13:00 84 24 148/59 99 Mechanical Ventilator 40 10/08/16 12:00 89 10/08/16 12:00 40 10/08/16 12:00 99.0 95 25 153/60 99 Mechanical Ventilator 40 10/08/16 11:15 86 28 40 10/08/16 11:00 84 23 154/59 99 Mechanical Ventilator 40 10/08/16 10:00 85 24 148/70 99 Mechanical Ventilator 40 10/08/16 10:00 40 10/08/16 09:15 83 23 40 10/08/16 09:15 99 10/08/16 09:00 92 20 158/72 99 Mechanical Ventilator 40 10/08/16 08:00 85 10/08/16 08:00 40 10/08/16 08:00 99.3 70 25 149/72 100 Mechanical Ventilator 40 Objective: Status: sedated, intubated on vent AC 600-16-40 Condition: critical HEENT: atraumatic, normocephalic, OP with ET in place, intact, NGT with TF Heart: HR/BP stable, SR on tele , regular Abdomen: soft, non-tender, active bowel sounds, rectal tube, Meza cath Extremities: no C/C/E Micro: Microbiology Date/Time Source Procedure Growth Status 10/06/16 18:00 Sputum Gram Stain - Final Complete 10/06/16 18:00 Sputum Culture - Final Charissa Albicans Complete Accucheck: 124 Critical Care - Subjective ROS Limited/Unobtainable: Yes Interval Events: afebrile, no leukocytosis no signs of respiratory distress HH dropped to 7.3/21.1 BP elevated still low K, P, Mg Condition: critical IV Access: peripheral EKG Rhythm: Sinus Rhythm FI02: 40 Vent Support Breath Rate: 16 Vent Support Mode: AC Vent Tidal Volume: 600 Sputum Amount: Small PEEP: 5.0 PIP: 28 Tube Feeding Amount: 30 I&O: Intake and Output 10/08/16 10/09/16 19:00 07:00 Intake Total 2324.76 ml 1747.5 ml Output Total 700 ml 630 ml Balance 1624.76 ml 1117.5 ml Free Water 120 ml IV Total 1964.76 ml 1297.5 ml Tube Feeding 360 ml 330 ml Output Urine Total 700 ml 430 ml Stool Total 200 ml CXR: Increasing right upper lobe infiltrates. ET-Tube: 7.5 ET Position: 24 [facility] Oct 09, 2016 07:38
[2016-10-09] MEDS: Heparin 5000 units/ml inj SUBQ SCH ×2 (08:27→20:53)
[2016-10-09] MEDS: Famotidine 20 MG/ 2ML VIAL IVP SCH ×2 (08:34→20:53)
[2016-10-09 08:46] LABS: BAND NEUTROPHILS % (MANUAL) 3 % (0-8); EOSINOPHILS % (MANUAL) 2 % (0-3); LYMPHOCYTES % (MANUAL) 9 % (20-45); NEUTROPHILS % (MANUAL) 85 % (45-75); TOTAL CELLS COUNTED 100
[2016-10-09 08:47] LABS: BASOPHILS % (MANUAL) 0 % (0-2); PLATELET ESTIMATE DECREASED; PLATELET MORPHOLOGY NORMAL
[2016-10-09 08:49] LABS: BURR CELLS 1+; SCHISTOCYTES 1+
--- NOTE | 2016-10-09 08:54 | Cardiology Progress Note ---
Assessment/Plan Assessment/Plan 1. Severe tachycardia resolved 2. Atrial fibrillation, acute in onset with rapid ventricular response converted to sinus 3. Respiratory failure. 4. Pneumonia. 5. Dementia. 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 7. Hypotension earlier. 8. Leukocytosis. 9. Respiratory acidosis. converted with iv amiod now on po or ng amiod bp is elevated stop ivf hr i s ok tele sinus no afib vent support abx pulm rxn k and mg and phosp supplement per renal resume norvasc Subjective ROS Limited/Unobtainable: Yes Objective Last 24 Hour Vital Signs Date Time Temp Pulse Resp B/P Pulse Ox O2 Delivery O2 Flow Rate FiO2 10/09/16 08:00 99.0 83 26 183/72 100 Mechanical Ventilator 40 10/09/16 08:00 40 10/09/16 08:00 83 10/09/16 07:00 80 17 164/69 99 Mechanical Ventilator 40 10/09/16 06:41 73 16 40 10/09/16 06:00 93 22 166/64 94 Mechanical Ventilator 40 10/09/16 05:00 101 24 205/64 94 Mechanical Ventilator 40 10/09/16 04:56 78 18 40 10/09/16 04:00 78 10/09/16 04:00 40 10/09/16 04:00 99.2 78 17 136/64 98 Mechanical Ventilator 40 10/09/16 03:34 72 16 40 10/09/16 03:00 73 16 148/61 99 Mechanical Ventilator 40 10/09/16 02:00 85 21 157/64 98 Mechanical Ventilator 40 10/09/16 01:03 75 16 40 10/09/16 01:00 76 16 146/60 97 Mechanical Ventilator 40 10/09/16 00:00 40 10/09/16 00:00 99.5 79 16 141/58 97 Mechanical Ventilator 40 10/09/16 00:00 79 10/08/16 23:15 78 16 40 10/08/16 23:00 79 22 149/67 95 Mechanical Ventilator 40 10/08/16 22:00 79 17 141/64 97 Mechanical Ventilator 40 10/08/16 21:04 80 20 40 10/08/16 21:00 77 18 147/63 99 Mechanical Ventilator 40 10/08/16 20:00 40 10/08/16 20:00 99.0 75 17 155/69 96 Mechanical Ventilator 40 10/08/16 20:00 75 10/08/16 19:21 83 24 40 10/08/16 19:08 90 35 40 10/08/16 19:00 95 29 158/68 99 Mechanical Ventilator 40 10/08/16 18:00 74 26 144/63 99 Mechanical Ventilator 40 10/08/16 17:00 78 27 154/69 99 Mechanical Ventilator 40 10/08/16 17:00 80 25 40 10/08/16 16:00 99.0 84 23 159/73 98 Mechanical Ventilator 40 10/08/16 16:00 40 10/08/16 16:00 84 10/08/16 15:10 84 24 40 10/08/16 15:00 82 25 125/61 99 Mechanical Ventilator 40 10/08/16 14:01 150/66 10/08/16 14:00 85 28 160/59 100 Mechanical Ventilator 40 10/08/16 13:10 87 29 40 10/08/16 13:00 84 24 148/59 99 Mechanical Ventilator 40 10/08/16 12:00 89 10/08/16 12:00 40 10/08/16 12:00 99.0 95 25 153/60 99 Mechanical Ventilator 40 10/08/16 11:15 86 28 40 10/08/16 11:00 84 23 154/59 99 Mechanical Ventilator 40 10/08/16 10:00 85 24 148/70 99 Mechanical Ventilator 40 10/08/16 10:00 40 10/08/16 09:15 83 23 40 10/08/16 09:15 99 10/08/16 09:00 92 20 158/72 99 Mechanical Ventilator 40 General Appearance: on vent Neck: supple Cardiovascular: normal rate Respiratory/Chest: rhonchi - bilaterally Abdomen: normal bowel sounds, non tender, soft Extremities: trace edema Intake and Output 10/08/16 10/09/16 19:00 07:00 Intake Total 2324.76 ml 1905.0 ml Output Total 700 ml 635 ml Balance 1624.76 ml 1270.0 ml Free Water 120 ml IV Total 1964.76 ml 1425.0 ml Tube Feeding 360 ml 360 ml Output Urine Total 700 ml 435 ml Stool Total 200 ml Laboratory Tests Test 10/09/16 03:55 White Blood Count 6.2 K/UL (4.8-10.8) Red Blood Count 2.09 M/UL (4.70-6.10) L Hemoglobin 7.3 G/DL (14.2-18.0) L Hematocrit 21.1 % (42.0-52.0) L Mean Corpuscular Volume 101 FL (80-99) H Mean Corpuscular Hemoglobin 34.7 PG (27.0-31.0) H Mean Corpuscular Hemoglobin Concent 34.3 G/DL (32.0-36.0) Red Cell Distribution Width 14.2 % (11.6-14.8) Platelet Count 99 K/UL (150-450) L Mean Platelet Volume 6.6 FL (6.5-10.1) Neutrophils (%) (Auto) % (45.0-75.0) Lymphocytes (%) (Auto) % (20.0-45.0) Monocytes (%) (Auto) % (1.0-10.0) Eosinophils (%) (Auto) % (0.0-3.0) Basophils (%) (Auto) % (0.0-2.0) Differential Total Cells Counted 100 Neutrophils % (Manual) 85 % (45-75) H Lymphocytes % (Manual) 9 % (20-45) L Monocytes % (Manual) 1 % (1-10) Eosinophils % (Manual) 2 % (0-3) Basophils % (Manual) 0 % (0-2) Band Neutrophils 3 % (0-8) Platelet Estimate Decreased L Platelet Morphology Normal Anisocytosis [place] Cells 1+ Schistocytes 1+ Sodium Level 140 mEQ/L (135-145) Potassium Level 2.8 mEQ/L (3.4-4.9) L Chloride Level 113 mEQ/L (98-107) H Carbon Dioxide Level 17 mEQ/L (20-30) L Anion Gap 10 (5-15) Blood Urea Nitrogen 7 mg/dL (7-23) Creatinine 0.6 mg/dL (0.7-1.2) L Estimat Glomerular Filtration Rate mL/min (>60) Glucose Level 110 mg/dL (74-106) H Calcium Level 6.4 mg/dL (8.6-10.2) L Phosphorus Level 1.9 mg/dL (2.5-4.8) L Magnesium Level 1.5 mg/dL (1.7-2.5) L Microbiology Date/Time Source Procedure Growth Status 8/17/17 18:00 Sputum Gram Stain - Final Complete 10/06/16 18:00 Sputum Culture - Final Charissa Albicans Complete ISACC GUEVARA Oct 09, 2016 08:53
[2016-10-09 09:44] LABS: ABG ALLEN TEST POSITIVE; ABG BASE EXCESS -4.5; ABG PCO2 27.8 mmHg (35.0-45.0)
[2016-10-09] MEDS ORDERED: DuoNeb 0.5-3(2.5)mg/3ml neb HHN PRN (10:00)
[2016-10-09] MEDS ORDERED: Potassium Phosphate 30 MM in Sodium Chloride 550 ML IV ONE (11:00)
[2016-10-09 13:46] LABS: OTHERS PATHOLOGIST COMMENT
--- NOTE | 2016-10-09 14:20 | Infectious Diseases Prog Note ---
Assessment/Plan Assessment/Plan Assessment: Acute respiratory failure, multifocal pneumonia, c/b afib with RVR now on rate control, off pressors for >48hrs with normalization of leukocytosis on D#4 empiric IV vancomycin and zosyn with cultures of blood from 10/05 neg to date. Mildly elevated ferritin c/w acute phase reactant in acute illness. sputum cx obtained on 10/06 after 24 hrs of broad spectum abx growing only scant Carroll albicans which should be considered a commensal/colonizer here. 1) Multifocal Pneumonia, small L effusion 10/05 blood cx ngtd 10/06 sputum cx: scant carroll (obtained on abx) 2) septic shock, currently off pressors since 10/06 3) Hypercarbic Respiratory failure requiring intubation; initial chem panel and ABG showed an acute respiratory acidosis with concomitant lactic acidosis metabolic acidosis. TTE with dilated IVC not suggestive of hypovolemic shock. 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 10) Afib with RVR, rate controlled s/p amio gtt now on oral 11) nl LFTs 12) hypoalbuminemia 13) MRSA and VRE screening negative 14) liquid stools, C diff pcr negative 10/08 15) pulmonary edema PLAN: --Continue empiric IV vancomycin and zosyn D#5 of 7 (10/07 s/p amikacin IV D#3) --f/u blood cx --condom catheter care --sacral wound care --monitor pleural effusion, stable with pos pressure ventilation Subjective ROS Limited/Unobtainable: Yes Allergies: Coded Allergies: No Known Allergies (Unverified , 07/19/12) Subjective low grade temp to 100.0F midday 10/06 but since no fevers, remains intubated, not on pressors for >72 hrs. Objective Vital Signs Last 24 Hour Vital Signs Date Time Temp Pulse Resp B/P Pulse Ox O2 Delivery O2 Flow Rate FiO2 10/09/16 13:00 80 24 160/72 100 Mechanical Ventilator 40 10/09/16 12:51 80 32 40 10/09/16 12:00 82 10/09/16 12:00 97.3 84 22 160/70 100 Mechanical Ventilator 40 10/09/16 12:00 40 10/09/16 11:00 76 25 149/63 100 Mechanical Ventilator 40 10/09/16 10:30 80 27 40 10/09/16 10:00 80 28 164/64 97 Mechanical Ventilator 40 10/09/16 09:31 93 178/71 10/09/16 09:00 91 28 178/71 97 Mechanical Ventilator 40 10/09/16 08:56 99 10/09/16 08:50 89 30 40 10/09/16 08:00 99.0 83 26 183/72 100 Mechanical Ventilator 40 10/09/16 08:00 40 10/09/16 08:00 83 10/09/16 07:00 80 17 164/69 99 Mechanical Ventilator 40 10/09/16 06:41 73 16 40 10/09/16 06:00 93 22 166/64 94 Mechanical Ventilator 40 10/09/16 05:00 101 24 205/64 94 Mechanical Ventilator 40 10/09/16 04:56 78 18 40 10/09/16 04:00 78 10/09/16 04:00 40 10/09/16 04:00 99.2 78 17 136/64 98 Mechanical Ventilator 40 10/09/16 03:34 72 16 40 10/09/16 03:00 73 16 148/61 99 Mechanical Ventilator 40 10/09/16 02:00 85 21 157/64 98 Mechanical Ventilator 40 10/09/16 01:03 75 16 40 10/09/16 01:00 76 16 146/60 97 Mechanical Ventilator 40 10/09/16 00:00 40 10/09/16 00:00 99.5 79 16 141/58 97 Mechanical Ventilator 40 10/09/16 00:00 79 10/08/16 23:15 78 16 40 10/08/16 23:00 79 22 149/67 95 Mechanical Ventilator 40 10/08/16 22:00 79 17 141/64 97 Mechanical Ventilator 40 10/08/16 21:04 80 20 40 10/08/16 21:00 77 18 147/63 99 Mechanical Ventilator 40 10/08/16 20:00 40 10/08/16 20:00 99.0 75 17 155/69 96 Mechanical Ventilator 40 10/08/16 20:00 75 8/19/17 19:21 83 24 40 10/08/16 19:08 90 35 40 10/08/16 19:00 95 29 158/68 99 Mechanical Ventilator 40 10/08/16 18:00 74 26 144/63 99 Mechanical Ventilator 40 10/08/16 17:00 78 27 154/69 99 Mechanical Ventilator 40 10/08/16 17:00 80 25 40 10/08/16 16:00 99.0 84 23 159/73 98 Mechanical Ventilator 40 10/08/16 16:00 40 10/08/16 16:00 84 10/08/16 15:10 84 24 40 10/08/16 15:00 82 25 125/61 99 Mechanical Ventilator 40 Height (Feet): 5 Height (Inches): 7.00 Weight (Pounds): 147 Objective GEN: intubated on vent full support, currently not on pressors, alert HEENT: Mild pale conjunctiva. oral mucosa dry, pharynx w/o exudate or effusion. No icterus. Head normocephalic, neck supple. NECK: No cervical LAD CHEST: scattered rhonchi, decreased breath sounds on L base. copious thick secretions. HEART: S1 and S2, no murmurs, no rubs. ABDOMEN: soft, non tender, non distended, normoactive bowel sounds. EXTREMITIES: No cyanosis, no clubbing, no edema. extremities warm with brisk cap refill. scattered ecchymosis on hands/arms NEUROLOGIC: intubated. moves all 4 extremities spontaneously : condom cath in place draining clear yellow urine. LYMPH: no LAD RECTAL: deferred. reviewed wound care report of mid sacral pressure ulcer with deep tissue injury rectal tube in place draining liquid brown stool Microbiology Date/Time Source Procedure Growth Status 10/06/16 18:00 Sputum Gram Stain - Final Complete 10/06/16 18:00 Sputum Culture - Final Carroll Albicans Complete 10/08/16 05:00 Stool Clostridium difficile Toxin Assay - Final Complete Laboratory Tests Test 10/09/16 03:55 10/09/16 04:00 White Blood Count 6.2 K/UL (4.8-10.8) Red Blood Count 2.09 M/UL (4.70-6.10) L Hemoglobin 7.3 G/DL (14.2-18.0) L Hematocrit 21.1 % (42.0-52.0) L Mean Corpuscular Volume 101 FL (80-99) H Mean Corpuscular Hemoglobin 34.7 PG (27.0-31.0) H Mean Corpuscular Hemoglobin Concent 34.3 G/DL (32.0-36.0) Red Cell Distribution Width 14.2 % (11.6-14.8) Platelet Count 99 K/UL (150-450) L Mean Platelet Volume 6.6 FL (6.5-10.1) Neutrophils (%) (Auto) % (45.0-75.0) Lymphocytes (%) (Auto) % (20.0-45.0) Monocytes (%) (Auto) % (1.0-10.0) Eosinophils (%) (Auto) % (0.0-3.0) Basophils (%) (Auto) % (0.0-2.0) Differential Total Cells Counted 100 Neutrophils % (Manual) 85 % (45-75) H Lymphocytes % (Manual) 9 % (20-45) L Monocytes % (Manual) 1 % (1-10) Eosinophils % (Manual) 2 % (0-3) Basophils % (Manual) 0 % (0-2) Band Neutrophils 3 % (0-8) Platelet Estimate Decreased L Platelet Morphology Normal Anisocytosis True Cells 1+ Schistocytes 1+ Sodium Level 140 mEQ/L (135-145) Potassium Level 2.8 mEQ/L (3.4-4.9) L Chloride Level 113 mEQ/L (98-107) H Carbon Dioxide Level 17 mEQ/L (20-30) L Anion Gap 10 (5-15) Blood Urea Nitrogen 7 mg/dL (7-23) Creatinine 0.6 mg/dL (0.7-1.2) L Estimat Glomerular Filtration Rate mL/min (>60) Glucose Level 110 mg/dL (74-106) H Calcium Level 6.4 mg/dL (8.6-10.2) L Phosphorus Level 1.9 mg/dL (2.5-4.8) L Magnesium Level 1.5 mg/dL (1.7-2.5) L Arterial Blood pH 7.447 (7.350-7.450) Arterial Blood Partial Pressure CO2 27.8 mmHg (35.0-45.0) L Arterial Blood Partial Pressure O2 79.7 mmHg (75.0-100.0) Arterial Blood HCO3 18.8 mmol/L (22.0-26.0) L Arterial Blood Oxygen Saturation 95.1 % (92.0-98.0) Arterial Blood Base Excess -4.5 Nicholas Test Positive Current Medications Medications (Trade) Dose Ordered Sig/Bhavna Route PRN Reason Start Time Stop Time Status Last Admin Dose Admin Acetaminophen (Tylenol) 650 mg Q4H PRN ORAL fever 10/05/16 10:30 11/04/16 10:29 10/06/16 14:24 Albuterol/ Ipratropium (DuoNeb 0.5-3(2.5)mg/3ml) 3 ml Q4H PRN HHN Shortness of Breath 10/09/16 10:00 10/14/16 09:59 Amiodarone HCl (Cordarone) 400 mg EVERY 8 HOURS ORAL 10/06/16 22:00 11/05/16 21:59 10/09/16 14:03 Amlodipine Besylate (Norvasc) 5 mg DAILY ORAL 10/09/16 10:00 11/08/16 09:59 10/09/16 09:31 Dextrose (Dextrose 50%) STAT PRN IV Hypoglycemia 10/06/16 18:30 11/05/16 18:29 Famotidine (Pepcid I.v.) 20 mg Q12HR IVP 10/06/16 21:00 11/05/16 20:59 10/09/16 08:34 Heparin Sodium (Porcine) (Heparin 5000 units/ml) 5,000 units EVERY 12 HOURS SUBQ 10/05/16 21:00 11/04/16 20:59 10/09/16 08:27 Hydralazine HCl 10 mg 10 mg Q6H PRN IV sbp above 160 10/09/16 09:30 11/08/16 09:29 Insulin Aspart Q6HR SUBQ 10/07/16 00:00 11/06/16 00:00 10/09/16 11:31 Iron Sucrose/ Sodium Chloride (Venofer/Sodium Chloride) 60 ml @ 240 mls/hr BEDTIME IV 10/07/16 21:00 10/11/16 21:14 10/08/16 20:43 Lorazepam 2 mg 2 mg Q2H PRN IV For Anxiety 10/05/16 10:30 10/12/16 10:29 Metoprolol Tartrate (Lopressor) 5 mg Q5MIN X 3 IVP 10/06/16 14:30 11/05/16 14:29 10/06/16 14:39 Morphine Sulfate (Morphine Sulfate) 4 mg Q4H PRN IVP Severe Pain (Pain Scale 7-10) 10/05/16 10:30 10/12/16 10:29 10/06/16 13:44 Norepinephrine Bitartrate/ Dextrose (Levophed/D5W) 254 ml @ 0 mls/hr Q24H IV 10/05/16 14:45 11/04/16 14:44 10/06/16 00:46 Ondansetron HCl (Zofran) 4 mg Q6H PRN IVP Nausea & Vomiting 10/05/16 10:30 11/04/16 10:29 Piperacillin Sod/ Tazobactam Sod/ Dextrose (Zosyn/D5W) 110 ml @ 27.5 mls/hr EVERY 8 HOURS IVPB 10/05/16 22:00 10/12/16 21:59 10/09/16 14:03 Potassium Phosphate/Sodium Chloride (Potassium Phosphate/NS) 560 ml @ 93.3 mls/hr ONCE ONCE IV 10/09/16 11:00 10/09/16 17:00 10/09/16 11:18 Tamsulosin HCl (Flomax) 0.4 mg BEDTIME ORAL 10/05/16 21:00 11/04/16 20:59 10/08/16 20:43 Vancomycin HCl 1 ea 1 ea DAILY PRN MISC PER RX PROTOCOL 10/05/16 15:00 11/04/16 14:59 Vancomycin HCl/ Dextrose 250 ml @ 166.667 mls/hr Q24H IVPB 10/06/16 17:00 10/11/16 16:59 10/08/16 17:38 Alfonso Mathur M.D. Oct 09, 2016 14:20
[2016-10-09] MEDS ORDERED: NS 275ml ONE ×2 (15:15→15:41)
[2016-10-09] MEDS ORDERED: Tubing IV Secondary IV ONE (15:41)
--- NOTE | 2016-10-09 17:13 | Cardiology Report ---
APPROVED REPORT EKG Measurement Heart [id number] Normal sinus rhythm Incomplete right bundle branch block Prolonged QT Abnormal ECG
--- NOTE | 2016-10-09 17:20 | Cardiology Report ---
APPROVED REPORT EKG Measurement Heart [id number] Atrial fibrillation with rapid ventricular response Nonspecific ST abnormality Abnormal ECG
[2016-10-09] MEDS: Tamsulosin 0.4mg cap ORAL SCH (20:53)
[2016-10-09] MEDS: Iron Sucrose 100 MG in NS 55 ML IV SCH (22:35)
[2016-10-10] VITALS (24 sets, daily range): BP systolic 139–169; BP diastolic 53–66
[2016-10-10 05:41] LABS: BASOPHILS % (AUTO) 0.3 % (0.0-2.0); EOSINOPHILS % (AUTO) 1.8 % (0.0-3.0); LYMPHOCYTES % (AUTO) 9.1 % (20.0-45.0); MEAN CORPUSCULAR HEMOGLOBIN 34.6 PG (27.0-31.0); MEAN CORPUSCULAR HGB CONC 35.4 G/DL (32.0-36.0); MEAN CORPUSCULAR VOLUME 98 FL (80-99); MONOCYTES % (AUTO) 6.1 % (1.0-10.0); NEUTROPHILS % (AUTO) 82.7 % (45.0-75.0); PLATELET COUNT 104 K/UL (150-450); RED BLOOD COUNT 2.79 M/UL (4.70-6.10); RED CELL DISTRIBUTION WIDTH 14.8 % (11.6-14.8); WHITE BLOOD COUNT 8.8 K/UL (4.8-10.8)
[2016-10-10 06:10] LABS: ANION GAP 11 (5-15); CALCIUM 7.7 mg/dL (8.6-10.2); CARBON DIOXIDE 20 mEQ/L (20-30); CHLORIDE 106 mEQ/L (98-107); CREATININE 0.6 mg/dL (0.7-1.2); HEMOLYSIS 17; POTASSIUM 3.3 mEQ/L (3.4-4.9); SODIUM 137 mEQ/L (135-145)
[2016-10-10 06:12] LABS: MAGNESIUM 1.9 mg/dL (1.7-2.5); PHOSPHORUS 2.4 mg/dL (2.5-4.8)
[2016-10-10] MEDS: Piperacillin/Tazobactam 4.5 GM in D5W 110 ML IVPB SCH ×3 (06:24→22:45)
[2016-10-10] MEDS: Amiodarone 200mg tab ORAL SCH ×3 (06:24→22:45)
[2016-10-10] MEDS: NovoLOG Insulin Flexpen SUBQ SCH ×4 (06:26→23:39)
--- NOTE | 2016-10-10 08:18 | Diagnostic Imaging Report ---
Indication: Shortness of breath Technique: XRAY CHEST 1 V Comparison: 10/08/16 Findings: Endotracheal tube, nasogastric tube and right chest shunt catheter are again noted. The cardiomediastinal silhouette is stable. Bilateral airspace edema/infiltrates are again noted. Small bilateral pleural effusions are suggested. Osseous structures are stable. Impression: No significant change from 10/08/16.
[2016-10-10] MEDS: Famotidine 20 MG/ 2ML VIAL IVP SCH (09:00)
[2016-10-10] MEDS: Heparin 5000 units/ml inj SUBQ SCH ×2 (09:00→21:00)
[2016-10-10] MEDS: Vancomycin 750mg/D5W 275ml IVPB SCH ×2 (09:00)
--- NOTE | 2016-10-10 09:30 | Infectious Diseases Prog Note ---
Assessment/Plan Assessment/Plan A; Sepsis Pneumonia Hypercapnic respiratory failure PAF Dementia P: Continue empiric IV vancomycin and Zosyn D#6 of 7 Subjective ROS Limited/Unobtainable: Yes Allergies: Coded Allergies: No Known Allergies (Unverified , 07/19/12) Objective Vital Signs Last 24 Hour Vital Signs Date Time Temp Pulse Resp B/P Pulse Ox O2 Delivery O2 Flow Rate FiO2 10/10/16 08:59 79 24 40 10/10/16 08:57 99 10/10/16 07:00 76 17 154/57 100 Mechanical Ventilator 40 10/10/16 06:59 80 22 40 10/10/16 06:00 81 18 158/60 100 Mechanical Ventilator 40 10/10/16 05:09 75 17 40 10/10/16 05:00 75 16 146/62 99 Mechanical Ventilator 40 10/10/16 04:00 82 10/10/16 04:00 40 10/10/16 04:00 98.8 84 19 161/60 99 Mechanical Ventilator 40 10/10/16 03:00 75 18 156/57 99 Mechanical Ventilator 40 10/10/16 02:55 79 17 40 10/10/16 02:00 77 18 154/61 98 Mechanical Ventilator 40 10/10/16 01:00 81 24 40 10/10/16 01:00 85 18 157/56 98 Mechanical Ventilator 40 10/10/16 00:00 98.8 81 19 156/53 97 Mechanical Ventilator 40 10/10/16 00:00 80 10/10/16 00:00 40 10/09/16 23:35 175/60 10/09/16 23:25 78 18 40 10/09/16 23:00 81 18 167/72 100 Mechanical Ventilator 40 10/09/16 22:00 73 18 156/67 100 Mechanical Ventilator 40 10/09/16 21:10 78 20 40 10/09/16 21:00 77 18 160/78 100 Mechanical Ventilator 40 10/09/16 20:00 78 10/09/16 20:00 40 10/09/16 20:00 98.9 78 18 160/78 99 Mechanical Ventilator 40 10/09/16 19:15 80 17 40 10/09/16 19:00 76 22 164/75 99 Mechanical Ventilator 40 10/09/16 18:00 75 23 158/69 99 Mechanical Ventilator 40 10/09/16 17:25 40 10/09/16 17:10 90 28 40 10/09/16 17:00 79 35 168/72 99 Mechanical Ventilator 40 10/09/16 16:00 40 10/09/16 16:00 78 10/09/16 16:00 98.0 78 26 165/73 100 Mechanical Ventilator 40 10/09/16 15:02 73 21 40 10/09/16 15:00 80 27 157/65 99 Mechanical Ventilator 40 10/09/16 14:00 84 21 152/66 99 Mechanical Ventilator 40 10/09/16 13:00 80 24 160/72 100 Mechanical Ventilator 40 10/09/16 12:51 80 32 40 10/09/16 12:00 82 10/09/16 12:00 97.3 84 22 160/70 100 Mechanical Ventilator 40 10/09/16 12:00 40 10/09/16 11:00 76 25 149/63 100 Mechanical Ventilator 40 10/09/16 10:30 80 27 40 10/09/16 10:00 80 28 164/64 97 Mechanical Ventilator 40 10/09/16 09:31 93 178/71 Height (Feet): 5 Height (Inches): 7.00 Weight (Pounds): 142 HEENT: other - orally intubated Respiratory/Chest: rhonchi - bilaterally, other - on ventilator Abdomen: soft, non tender, other - NG tube feeding Extremities: no edema Neurologic/Psychiatric: unresponsiveness Microbiology Date/Time Source Procedure Growth Status 10/08/16 05:00 Stool Clostridium difficile Toxin Assay - Final Complete Laboratory Tests Test 10/09/16 16:10 10/10/16 04:30 Vancomycin Level Trough 28.6 ug/mL (5.0-12.0) H White Blood Count 8.8 K/UL (4.8-10.8) Red Blood Count 2.79 M/UL (4.70-6.10) L Hemoglobin 9.6 G/DL (14.2-18.0) #L Hematocrit 27.3 % (42.0-52.0) L Mean Corpuscular Volume 98 FL (80-99) Mean Corpuscular Hemoglobin 34.6 PG (27.0-31.0) H Mean Corpuscular Hemoglobin Concent 35.4 G/DL (32.0-36.0) Red Cell Distribution Width 14.8 % (11.6-14.8) Platelet Count 104 K/UL (150-450) L Mean Platelet Volume 7.0 FL (6.5-10.1) Neutrophils (%) (Auto) 82.7 % (45.0-75.0) H Lymphocytes (%) (Auto) 9.1 % (20.0-45.0) L Monocytes (%) (Auto) 6.1 % (1.0-10.0) Eosinophils (%) (Auto) 1.8 % (0.0-3.0) Basophils (%) (Auto) 0.3 % (0.0-2.0) Sodium Level 137 mEQ/L (135-145) Potassium Level 3.3 mEQ/L (3.4-4.9) L Chloride Level 106 mEQ/L (98-107) Carbon Dioxide Level 20 mEQ/L (20-30) Anion Gap 11 (5-15) Blood Urea Nitrogen 6 mg/dL (7-23) L Creatinine 0.6 mg/dL (0.7-1.2) L Estimat Glomerular Filtration Rate mL/min (>60) Glucose Level 147 mg/dL (74-106) H Calcium Level 7.7 mg/dL (8.6-10.2) #L Phosphorus Level 2.4 mg/dL (2.5-4.8) L Magnesium Level 1.9 mg/dL (1.7-2.5) Random Vancomycin Level 11.5 ug/mL Current Medications Medications (Trade) Dose Ordered Sig/Bhavna Route PRN Reason Start Time Stop Time Status Last Admin Dose Admin Acetaminophen (Tylenol) 650 mg Q4H PRN ORAL fever 10/05/16 10:30 11/04/16 10:29 10/06/16 14:24 Albuterol/ Ipratropium (DuoNeb 0.5-3(2.5)mg/3ml) 3 ml Q4H PRN HHN Shortness of Breath 10/09/16 10:00 10/14/16 09:59 Amiodarone HCl (Cordarone) 400 mg EVERY 8 HOURS ORAL 10/06/16 22:00 11/05/16 21:59 10/10/16 06:24 Amlodipine Besylate (Norvasc) 5 mg DAILY ORAL 10/09/16 10:00 11/08/16 09:59 10/09/16 09:31 Dextrose (Dextrose 50%) STAT PRN IV Hypoglycemia 10/06/16 18:30 11/05/16 18:29 Famotidine (Pepcid I.v.) 20 mg Q12HR IVP 10/06/16 21:00 11/05/16 20:59 10/09/16 20:53 Heparin Sodium (Porcine) (Heparin 5000 units/ml) 5,000 units EVERY 12 HOURS SUBQ 10/05/16 21:00 11/04/16 20:59 10/09/16 08:27 Hydralazine HCl 10 mg 10 mg Q6H PRN IV sbp above 160 10/09/16 09:30 11/08/16 09:29 10/09/16 23:35 Insulin Aspart Q6HR SUBQ 10/07/16 00:00 11/06/16 00:00 10/10/16 06:26 Iron Sucrose/ Sodium Chloride (Venofer/Sodium Chloride) 60 ml @ 240 mls/hr BEDTIME IV 10/07/16 21:00 10/11/16 21:14 10/09/16 22:35 Lorazepam 2 mg 2 mg Q2H PRN IV For Anxiety 10/05/16 10:30 10/12/16 10:29 Metoprolol Tartrate (Lopressor) 5 mg Q5MIN X 3 IVP 10/06/16 14:30 11/05/16 14:29 10/06/16 14:39 Morphine Sulfate (Morphine Sulfate) 4 mg Q4H PRN IVP Severe Pain (Pain Scale 7-10) 10/05/16 10:30 10/12/16 10:29 10/06/16 13:44 Norepinephrine Bitartrate/ Dextrose (Levophed/D5W) 254 ml @ 0 mls/hr Q24H IV 10/05/16 14:45 11/04/16 14:44 10/06/16 00:46 Ondansetron HCl (Zofran) 4 mg Q6H PRN IVP Nausea & Vomiting 10/05/16 10:30 11/04/16 10:29 Piperacillin Sod/ Tazobactam Sod/ Dextrose (Zosyn/D5W) 110 ml @ 27.5 mls/hr EVERY 8 HOURS IVPB 10/05/16 22:00 10/12/16 21:59 10/10/16 06:24 Tamsulosin HCl (Flomax) 0.4 mg BEDTIME ORAL 10/05/16 21:00 11/04/16 20:59 10/09/16 20:53 Vancomycin HCl 1 ea 1 ea DAILY PRN MISC PER RX PROTOCOL 10/05/16 15:00 11/04/16 14:59 Vancomycin HCl/ Dextrose (Vancomycin/D5W) 275 ml @ 183.708 mls/hr Q24H IVPB 10/10/16 09:00 10/15/16 08:59 EDWAR MONTALVO Oct 10, 2016 09:30
[2016-10-10 09:35] LABS: ABG ALLEN TEST POSITIVE; ABG BASE EXCESS -2.5; ABG PCO2 29.2 mmHg (35.0-45.0)
[2016-10-10] MEDS: Morphine Sulfate 4mg/ml Inj IVP PRN (09:54)
[2016-10-10] MEDS ORDERED: Tubing Blood Filter IV ONE (10:13)
[2016-10-10] MEDS ORDERED: NS 275ml ONE (10:13)
--- NOTE | 2016-10-10 11:40 | Pulmonolgy Critical Care Note ---
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 Respiratory: monitor respiratory rate, adjust FIO2 Cardiac: continue to monitor HR/BP Renal: F/U I&O, keep IV fluid Infectious Disease: check cultures Gastrointestinal: continue feedings/current rate, hold feedings Endocrine: check TSH, continue sliding scale insulin Hematologic: monitor H/H, transfuse if hgb<8.5 Neurologic: PRN Morphine, keep patient comfortable Prophylaxis: Protonix, Heparin Notes Reviewed: cardio, renal Discussed with: nurses, consultants, manager of 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 crisis - Objective Last 24 Hour Vital Signs Date Time Temp Pulse Resp B/P Pulse Ox O2 Delivery O2 Flow Rate FiO2 10/10/16 11:11 83 26 40 10/10/16 11:02 76 21 154/57 99 Mechanical Ventilator 40 10/10/16 10:00 74 21 140/61 100 Mechanical Ventilator 40 10/10/16 09:00 76 19 169/66 100 Mechanical Ventilator 40 10/10/16 09:00 79 169/87 10/10/16 08:59 79 24 40 10/10/16 08:57 99 10/10/16 08:00 80 10/10/16 08:00 98.7 79 18 159/60 100 Mechanical Ventilator 40 10/10/16 08:00 40 10/10/16 07:00 76 17 154/57 100 Mechanical Ventilator 40 10/10/16 06:59 80 22 40 10/10/16 06:00 81 18 158/60 100 Mechanical Ventilator 40 10/10/16 05:09 75 17 40 10/10/16 05:00 75 16 146/62 99 Mechanical Ventilator 40 10/10/16 04:00 82 10/10/16 04:00 40 10/10/16 04:00 98.8 84 19 161/60 99 Mechanical Ventilator 40 10/10/16 03:00 75 18 156/57 99 Mechanical Ventilator 40 10/10/16 02:55 79 17 40 10/10/16 02:00 77 18 154/61 98 Mechanical Ventilator 40 10/10/16 01:00 81 24 40 10/10/16 01:00 85 18 157/56 98 Mechanical Ventilator 40 10/10/16 00:00 98.8 81 19 156/53 97 Mechanical Ventilator 40 10/10/16 00:00 80 10/10/16 00:00 40 10/09/16 23:35 175/60 10/09/16 23:25 78 18 40 10/09/16 23:00 81 18 167/72 100 Mechanical Ventilator 40 10/09/16 22:00 73 18 156/67 100 Mechanical Ventilator 40 10/09/16 21:10 78 20 40 10/09/16 21:00 77 18 160/78 100 Mechanical Ventilator 40 10/09/16 20:00 78 10/09/16 20:00 40 10/09/16 20:00 98.9 78 18 160/78 99 Mechanical Ventilator 40 10/09/16 19:15 80 17 40 10/09/16 19:00 76 22 164/75 99 Mechanical Ventilator 40 10/09/16 18:00 75 23 158/69 99 Mechanical Ventilator 40 10/09/16 17:25 40 10/09/16 17:10 90 28 40 10/09/16 17:00 79 35 168/72 99 Mechanical Ventilator 40 10/09/16 16:00 40 10/09/16 16:00 78 10/09/16 16:00 98.0 78 26 165/73 100 Mechanical Ventilator 40 10/09/16 15:02 73 21 40 10/09/16 15:00 80 27 157/65 99 Mechanical Ventilator 40 10/09/16 14:00 84 21 152/66 99 Mechanical Ventilator 40 10/09/16 13:00 80 24 160/72 100 Mechanical Ventilator 40 10/09/16 12:51 80 32 40 10/09/16 12:00 82 10/09/16 12:00 97.3 84 22 160/70 100 Mechanical Ventilator 40 10/09/16 12:00 40 Status: sedated Condition: critical HEENT: atraumatic Lungs: clear, chest wall tender Heart: HR/BP unstable Abdomen: soft, non-tender, feeding tube Extremities: edema Decubiti: location, stage Micro: Microbiology Date/Time Source Procedure Growth Status 10/08/16 05:00 Stool Clostridium difficile Toxin Assay - Final Complete Accucheck: 133 Critical Care - Subjective ROS Limited/Unobtainable: Yes ICU Day: 5 Intubation Day: 5 Condition: critical EKG Rhythm: Sinus Rhythm FI02: 40 Vent Support Breath Rate: 8 Vent Support Mode: IMV/SIMV Vent Tidal Volume: 600 Sputum Amount: Small PEEP: 5.0 PIP: 20 Tube Feeding Amount: 30 I&O: Intake and Output 10/09/16 10/10/16 19:00 07:00 Intake Total 1344.8 ml 944.0 ml Output Total 575 ml 875 ml Balance 769.8 ml 69.0 ml Free Water 100 ml IV Total 914.8 ml 170.0 ml Tube Feeding 330 ml 390 ml Blood Product 284 ml Other 100 ml Output Urine Total 475 ml 875 ml Stool Total 100 ml CXR: ET in good position, bilateral infitlrate ET-Tube: 7.5 ET Position: 24 Labs: Laboratory Tests Test 10/09/16 16:10 10/10/16 04:30 10/10/16 09:10 Vancomycin Level Trough 28.6 ug/mL (5.0-12.0) H White Blood Count 8.8 K/UL (4.8-10.8) Red Blood Count 2.79 M/UL (4.70-6.10) L Hemoglobin 9.6 G/DL (14.2-18.0) #L Hematocrit 27.3 % (42.0-52.0) L Mean Corpuscular Volume 98 FL (80-99) Mean Corpuscular Hemoglobin 34.6 PG (27.0-31.0) H Mean Corpuscular Hemoglobin Concent 35.4 G/DL (32.0-36.0) Red Cell Distribution Width 14.8 % (11.6-14.8) Platelet Count 104 K/UL (150-450) L Mean Platelet Volume 7.0 FL (6.5-10.1) Neutrophils (%) (Auto) 82.7 % (45.0-75.0) H Lymphocytes (%) (Auto) 9.1 % (20.0-45.0) L Monocytes (%) (Auto) 6.1 % (1.0-10.0) Eosinophils (%) (Auto) 1.8 % (0.0-3.0) Basophils (%) (Auto) 0.3 % (0.0-2.0) Sodium Level 137 mEQ/L (135-145) Potassium Level 3.3 mEQ/L (3.4-4.9) L Chloride Level 106 mEQ/L (98-107) Carbon Dioxide Level 20 mEQ/L (20-30) Anion Gap 11 (5-15) Blood Urea Nitrogen 6 mg/dL (7-23) L Creatinine 0.6 mg/dL (0.7-1.2) L Estimat Glomerular Filtration Rate mL/min (>60) Glucose Level 147 mg/dL (74-106) H Calcium Level 7.7 mg/dL (8.6-10.2) #L Phosphorus Level 2.4 mg/dL (2.5-4.8) L Magnesium Level 1.9 mg/dL (1.7-2.5) Random Vancomycin Level 11.5 ug/mL Arterial Blood pH 7.460 (7.350-7.450) Arterial Blood Partial Pressure CO2 29.2 mmHg (35.0-45.0) L Arterial Blood Partial Pressure O2 96.7 mmHg (75.0-100.0) Arterial Blood HCO3 20.3 mmol/L (22.0-26.0) L Arterial Blood Oxygen Saturation 97.2 % (92.0-98.0) Arterial Blood Base Excess -2.5 Nicholas Test Positive VERITO MONTESINOS Oct 10, 2016 11:40
--- NOTE | 2016-10-10 12:22 | Diagnostic Imaging Report ---
Indication: Dyspnea Comparison: 10/09/16 A single view chest radiograph was obtained. Findings: Tubes and lines are stable. Patchy infiltrates present bilaterally. Bilateral pleural effusion suspected. Heart size is stable. Impression: No change of the last day
--- NOTE | 2016-10-10 19:43 | Cardiology Progress Note ---
Assessment/Plan Assessment/Plan 1. Severe tachycardia resolved 2. Atrial fibrillation, acute in onset with rapid ventricular response converted to sinus 3. Respiratory failure. 4. Pneumonia. 5. Dementia. 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 7. Hypotension earlier. 8. Leukocytosis. 9. Respiratory acidosis. on amiod loading bp is elevated add meds hr i s ok tele sinus no afib vent support abx pulm rxn increase norvasc Subjective ROS Limited/Unobtainable: Yes Objective Last 24 Hour Vital Signs Date Time Temp Pulse Resp B/P Pulse Ox O2 Delivery O2 Flow Rate FiO2 10/10/16 18:00 89 20 159/54 97 Mechanical Ventilator 40 10/10/16 17:32 168/69 10/10/16 17:09 76 22 40 10/10/16 17:00 75 21 169/62 97 Mechanical Ventilator 40 10/10/16 16:00 98.4 79 17 160/54 100 Mechanical Ventilator 40 10/10/16 16:00 76 10/10/16 16:00 40 10/10/16 15:28 83 24 40 10/10/16 15:00 77 21 153/57 98 Mechanical Ventilator 40 10/10/16 14:45 156/69 10/10/16 14:00 74 21 151/61 100 Mechanical Ventilator 40 10/10/16 13:00 71 21 139/57 99 Mechanical Ventilator 40 10/10/16 12:52 71 17 40 10/10/16 12:00 40 10/10/16 12:00 85 10/10/16 12:00 98.0 80 21 149/57 99 Mechanical Ventilator 40 10/10/16 11:11 83 26 40 10/10/16 11:02 76 21 154/57 99 Mechanical Ventilator 40 10/10/16 10:00 74 21 140/61 100 Mechanical Ventilator 40 10/10/16 09:00 76 19 169/66 100 Mechanical Ventilator 40 10/10/16 09:00 79 169/87 10/10/16 08:59 79 24 40 10/10/16 08:57 99 10/10/16 08:00 80 10/10/16 08:00 98.7 79 18 159/60 100 Mechanical Ventilator 40 10/10/16 08:00 40 10/10/16 07:00 76 17 154/57 100 Mechanical Ventilator 40 10/10/16 06:59 80 22 40 10/10/16 06:00 81 18 158/60 100 Mechanical Ventilator 40 10/10/16 05:09 75 17 40 10/10/16 05:00 75 16 146/62 99 Mechanical Ventilator 40 10/10/16 04:00 82 10/10/16 04:00 40 10/10/16 04:00 98.8 84 19 161/60 99 Mechanical Ventilator 40 10/10/16 03:00 75 18 156/57 99 Mechanical Ventilator 40 10/10/16 02:55 79 17 40 10/10/16 02:00 77 18 154/61 98 Mechanical Ventilator 40 10/10/16 01:00 81 24 40 10/10/16 01:00 85 18 157/56 98 Mechanical Ventilator 40 10/10/16 00:00 98.8 81 19 156/53 97 Mechanical Ventilator 40 10/10/16 00:00 80 10/10/16 00:00 40 10/09/16 23:35 175/60 10/09/16 23:25 78 18 40 10/09/16 23:00 81 18 167/72 100 Mechanical Ventilator 40 10/09/16 22:00 73 18 156/67 100 Mechanical Ventilator 40 10/09/16 21:10 78 20 40 10/09/16 21:00 77 18 160/78 100 Mechanical Ventilator 40 10/09/16 20:00 78 10/09/16 20:00 40 10/09/16 20:00 98.9 78 18 160/78 99 Mechanical Ventilator 40 General Appearance: on vent Neck: supple Cardiovascular: normal rate Respiratory/Chest: rhonchi - bilaterally Abdomen: normal bowel sounds, non tender, soft Extremities: no swelling Intake and Output 10/09/16 10/10/16 19:00 07:00 Intake Total 1344.8 ml 944.0 ml Output Total 575 ml 875 ml Balance 769.8 ml 69.0 ml Free Water 100 ml IV Total 914.8 ml 170.0 ml Tube Feeding 330 ml 390 ml Blood Product 284 ml Other 100 ml Output Urine Total 475 ml 875 ml Stool Total 100 ml Laboratory Tests Test 10/10/16 04:30 10/10/16 09:10 White Blood Count 8.8 K/UL (4.8-10.8) Red Blood Count 2.79 M/UL (4.70-6.10) L Hemoglobin 9.6 G/DL (14.2-18.0) #L Hematocrit 27.3 % (42.0-52.0) L Mean Corpuscular Volume 98 FL (80-99) Mean Corpuscular Hemoglobin 34.6 PG (27.0-31.0) H Mean Corpuscular Hemoglobin Concent 35.4 G/DL (32.0-36.0) Red Cell Distribution Width 14.8 % (11.6-14.8) Platelet Count 104 K/UL (150-450) L Mean Platelet Volume 7.0 FL (6.5-10.1) Neutrophils (%) (Auto) 82.7 % (45.0-75.0) H Lymphocytes (%) (Auto) 9.1 % (20.0-45.0) L Monocytes (%) (Auto) 6.1 % (1.0-10.0) Eosinophils (%) (Auto) 1.8 % (0.0-3.0) Basophils (%) (Auto) 0.3 % (0.0-2.0) Sodium Level 137 mEQ/L (135-145) Potassium Level 3.3 mEQ/L (3.4-4.9) L Chloride Level 106 mEQ/L (98-107) Carbon Dioxide Level 20 mEQ/L (20-30) Anion Gap 11 (5-15) Blood Urea Nitrogen 6 mg/dL (7-23) L Creatinine 0.6 mg/dL (0.7-1.2) L Estimat Glomerular Filtration Rate mL/min (>60) Glucose Level 147 mg/dL (74-106) H Calcium Level 7.7 mg/dL (8.6-10.2) #L Phosphorus Level 2.4 mg/dL (2.5-4.8) L Magnesium Level 1.9 mg/dL (1.7-2.5) Random Vancomycin Level 11.5 ug/mL Arterial Blood pH 7.460 (7.350-7.450) Arterial Blood Partial Pressure CO2 29.2 mmHg (35.0-45.0) L Arterial Blood Partial Pressure O2 96.7 mmHg (75.0-100.0) Arterial Blood HCO3 20.3 mmol/L (22.0-26.0) L Arterial Blood Oxygen Saturation 97.2 % (92.0-98.0) Arterial Blood Base Excess -2.5 Nicholas Test Positive Microbiology Date/Time Source Procedure Growth Status 10/08/16 05:00 Stool Clostridium difficile Toxin Assay - Final Complete ISACC GUEVARA Oct 10, 2016 19:43
[2016-10-10] MEDS: Tamsulosin 0.4mg cap ORAL SCH (21:00)
[2016-10-10] MEDS: Iron Sucrose 100 MG in NS 55 ML IV SCH (21:00)
[2016-10-11] VITALS (24 sets, daily range): BP systolic 112–169; BP diastolic 35–89
[2016-10-11 05:34] LABS: BASOPHILS % (AUTO) 0.5 % (0.0-2.0); EOSINOPHILS % (AUTO) 3.3 % (0.0-3.0); LYMPHOCYTES % (AUTO) 8.4 % (20.0-45.0); MEAN CORPUSCULAR HEMOGLOBIN 34.2 PG (27.0-31.0); MEAN CORPUSCULAR HGB CONC 34.5 G/DL (32.0-36.0); MEAN CORPUSCULAR VOLUME 99 FL (80-99); MONOCYTES % (AUTO) 4.4 % (1.0-10.0); NEUTROPHILS % (AUTO) 83.4 % (45.0-75.0); PLATELET COUNT 116 K/UL (150-450); RED CELL DISTRIBUTION WIDTH 15.1 % (11.6-14.8)
[2016-10-11] MEDS: Amiodarone 200mg tab ORAL SCH ×3 (05:40→21:46)
[2016-10-11] MEDS: Piperacillin/Tazobactam 4.5 GM in D5W 110 ML IVPB SCH ×3 (05:40→21:46)
[2016-10-11] MEDS: NovoLOG Insulin Flexpen SUBQ SCH ×4 (05:40→23:37)
[2016-10-11 05:54] LABS: ALANINE AMINOTRANSFERASE 23 U/L (3-41); ALBUMIN/GLOBULIN RATIO 0.6 (1.0-2.7); ANION GAP 10 (5-15); ASPARTATE AMINO TRANSFERASE 10 U/L (5-40); CALCIUM 7.8 mg/dL (8.6-10.2); CARBON DIOXIDE 22 mEQ/L (20-30); CHLORIDE 103 mEQ/L (98-107); CREATININE 0.8 mg/dL (0.7-1.2); HEMOLYSIS 5; PHOSPHORUS 2.5 mg/dL (2.5-4.8); POTASSIUM 3.2 mEQ/L (3.4-4.9); SODIUM 135 mEQ/L (135-145); TOTAL PROTEIN 5.5 g/dL (6.6-8.7)
[2016-10-11] MEDS: Heparin 5000 units/ml inj SUBQ SCH ×2 (08:26→21:00)
[2016-10-11] MEDS: Vancomycin 750mg/D5W 275ml IVPB SCH ×2 (09:18)
--- NOTE | 2016-10-11 09:18 | Infectious Diseases Prog Note ---
Assessment/Plan Assessment/Plan A; Sepsis Pneumonia Hypercapnic respiratory failure PAF Dementia P: Continue empiric IV vancomycin and Zosyn D#7 of 7 will stop antibiotics in am Subjective ROS Limited/Unobtainable: Yes Allergies: Coded Allergies: No Known Allergies (Unverified , 07/19/12) Objective Vital Signs Last 24 Hour Vital Signs Date Time Temp Pulse Resp B/P Pulse Ox O2 Delivery O2 Flow Rate FiO2 10/11/16 09:00 98.2 82 18 146/79 99 Mechanical Ventilator 40 10/11/16 08:54 83 24 40 10/11/16 08:53 99 10/11/16 08:24 80 159/56 10/11/16 08:00 74 10/11/16 08:00 40 10/11/16 08:00 98.2 73 17 159/86 99 Mechanical Ventilator 40 10/11/16 07:00 81 18 169/55 99 Mechanical Ventilator 40 10/11/16 07:00 40 10/11/16 06:55 91 27 40 10/11/16 06:31 170/58 10/11/16 06:00 77 18 168/58 99 Mechanical Ventilator 40 10/11/16 05:00 75 18 165/56 100 Mechanical Ventilator 40 10/11/16 04:57 79 16 40 10/11/16 04:00 40 10/11/16 04:00 70 10/11/16 04:00 98.3 73 17 150/59 99 Mechanical Ventilator 40 10/11/16 03:30 80 19 40 10/11/16 03:00 71 18 149/61 100 Mechanical Ventilator 40 10/11/16 02:00 80 17 140/54 100 Mechanical Ventilator 40 10/11/16 01:30 70 20 40 10/11/16 01:00 71 17 141/54 98 Mechanical Ventilator 40 10/11/16 00:00 40 10/11/16 00:00 98.6 80 17 157/69 100 Mechanical Ventilator 40 10/11/16 00:00 80 10/10/16 23:30 78 17 40 10/10/16 23:00 80 17 145/53 99 Mechanical Ventilator 40 10/10/16 22:00 72 18 150/56 99 Mechanical Ventilator 40 10/10/16 21:01 77 146/53 10/10/16 21:00 77 18 155/54 99 Mechanical Ventilator 40 10/10/16 20:55 81 17 40 10/10/16 20:00 40 10/10/16 20:00 80 10/10/16 20:00 98.7 80 17 158/55 96 Mechanical Ventilator 40 10/10/16 19:30 76 17 40 10/10/16 19:00 85 18 158/55 97 Mechanical Ventilator 40 10/10/16 18:00 89 20 159/54 97 Mechanical Ventilator 40 10/10/16 17:32 168/69 10/10/16 17:09 76 22 40 10/10/16 17:00 75 21 169/62 97 Mechanical Ventilator 40 10/10/16 16:00 98.4 79 17 160/54 100 Mechanical Ventilator 40 10/10/16 16:00 76 10/10/16 16:00 40 10/10/16 15:28 83 24 40 10/10/16 15:00 77 21 153/57 98 Mechanical Ventilator 40 10/10/16 14:45 156/69 10/10/16 14:00 74 21 151/61 100 Mechanical Ventilator 40 10/10/16 13:00 71 21 139/57 99 Mechanical Ventilator 40 10/10/16 12:52 71 17 40 10/10/16 12:00 40 10/10/16 12:00 85 10/10/16 12:00 98.0 80 21 149/57 99 Mechanical Ventilator 40 10/10/16 11:11 83 26 40 10/10/16 11:02 76 21 154/57 99 Mechanical Ventilator 40 10/10/16 10:00 74 21 140/61 100 Mechanical Ventilator 40 Height (Feet): 5 Height (Inches): 7.00 Weight (Pounds): 140 HEENT: other - orally intubated Respiratory/Chest: rhonchi - bilaterally, other - on ventilator Cardiovascular: normal rate Abdomen: soft, non tender, other - NG tube, rectal tube Extremities: no edema Neurologic/Psychiatric: other - opens eyes Laboratory Tests Test 10/11/16 05:05 White Blood Count 9.0 K/UL (4.8-10.8) Red Blood Count 2.90 M/UL (4.70-6.10) L Hemoglobin 9.9 G/DL (14.2-18.0) L Hematocrit 28.8 % (42.0-52.0) L Mean Corpuscular Volume 99 FL (80-99) Mean Corpuscular Hemoglobin 34.2 PG (27.0-31.0) H Mean Corpuscular Hemoglobin Concent 34.5 G/DL (32.0-36.0) Red Cell Distribution Width 15.1 % (11.6-14.8) H Platelet Count 116 K/UL (150-450) L Mean Platelet Volume 8.0 FL (6.5-10.1) Neutrophils (%) (Auto) 83.4 % (45.0-75.0) H Lymphocytes (%) (Auto) 8.4 % (20.0-45.0) L Monocytes (%) (Auto) 4.4 % (1.0-10.0) Eosinophils (%) (Auto) 3.3 % (0.0-3.0) H Basophils (%) (Auto) 0.5 % (0.0-2.0) Sodium Level 135 mEQ/L (135-145) Potassium Level 3.2 mEQ/L (3.4-4.9) L Chloride Level 103 mEQ/L (98-107) Carbon Dioxide Level 22 mEQ/L (20-30) Anion Gap 10 (5-15) Blood Urea Nitrogen 6 mg/dL (7-23) L Creatinine 0.8 mg/dL (0.7-1.2) Estimat Glomerular Filtration Rate mL/min (>60) Glucose Level 133 mg/dL (74-106) H Calcium Level 7.8 mg/dL (8.6-10.2) L Phosphorus Level 2.5 mg/dL (2.5-4.8) Magnesium Level 2.0 mg/dL (1.7-2.5) Total Bilirubin 0.6 mg/dL (0.0-1.2) Aspartate Amino Transf (AST/SGOT) 10 U/L (5-40) Alanine Aminotransferase (ALT/SGPT) 23 U/L (3-41) Alkaline Phosphatase 95 U/L (40-129) Total Protein 5.5 g/dL (6.6-8.7) L Albumin 2.1 g/dL (3.5-5.2) L Globulin 3.4 g/dL Albumin/Globulin Ratio 0.6 (1.0-2.7) L Current Medications Medications (Trade) Dose Ordered Sig/Bhavna Route PRN Reason Start Time Stop Time Status Last Admin Dose Admin Acetaminophen (Tylenol) 650 mg Q4H PRN ORAL fever 10/05/16 10:30 11/04/16 10:29 10/06/16 14:24 Albuterol/ Ipratropium (DuoNeb 0.5-3(2.5)mg/3ml) 3 ml Q4H PRN HHN Shortness of Breath 10/09/16 10:00 10/14/16 09:59 Amiodarone HCl (Cordarone) 400 mg EVERY 8 HOURS ORAL 10/06/16 22:00 11/05/16 21:59 10/11/16 05:40 Amlodipine Besylate (Norvasc) 5 mg BID ORAL 10/10/16 21:00 11/09/16 20:59 10/11/16 08:24 Dextrose (Dextrose 50%) STAT PRN IV Hypoglycemia 10/06/16 18:30 11/05/16 18:29 Heparin Sodium (Porcine) (Heparin 5000 units/ml) 5,000 units EVERY 12 HOURS SUBQ 10/05/16 21:00 11/04/16 20:59 10/11/16 08:26 Hydralazine HCl 10 mg 10 mg Q6H PRN IV sbp above 160 10/09/16 09:30 11/08/16 09:29 10/11/16 06:31 Insulin Aspart Q6HR SUBQ 10/07/16 00:00 11/06/16 00:00 10/11/16 05:40 Iron Sucrose/ Sodium Chloride (Venofer/Sodium Chloride) 60 ml @ 240 mls/hr BEDTIME IV 10/07/16 21:00 10/11/16 21:14 10/10/16 21:00 Lorazepam 2 mg 2 mg Q2H PRN IV For Anxiety 10/05/16 10:30 10/12/16 10:29 Metoprolol Tartrate (Lopressor) 5 mg Q5MIN X 3 IVP 10/06/16 14:30 11/05/16 14:29 10/06/16 14:39 Morphine Sulfate (Morphine Sulfate) 4 mg Q4H PRN IVP Severe Pain (Pain Scale 7-10) 10/05/16 10:30 10/12/16 10:29 10/10/16 09:54 Norepinephrine Bitartrate/ Dextrose (Levophed/D5W) 254 ml @ 0 mls/hr Q24H IV 10/05/16 14:45 11/04/16 14:44 10/06/16 00:46 Ondansetron HCl (Zofran) 4 mg Q6H PRN IVP Nausea & Vomiting 10/05/16 10:30 11/04/16 10:29 10/10/16 09:54 Piperacillin Sod/ Tazobactam Sod/ Dextrose (Zosyn/D5W) 110 ml @ 27.5 mls/hr EVERY 8 HOURS IVPB 10/05/16 22:00 10/12/16 21:59 10/11/16 05:40 Potassium Chloride (K-Dur) 40 meq Q4H ORAL 10/11/16 07:30 10/11/16 11:31 10/11/16 07:37 Ranitidine HCl (Zantac) 150 mg Q12HR NG 10/10/16 21:00 11/09/16 20:59 10/11/16 08:28 Tamsulosin HCl (Flomax) 0.4 mg BEDTIME ORAL 10/05/16 21:00 11/04/16 20:59 10/10/16 21:00 Vancomycin HCl 1 ea 1 ea DAILY PRN MISC PER RX PROTOCOL 10/05/16 15:00 11/04/16 14:59 Vancomycin HCl/ Dextrose (Vancomycin/D5W) 275 ml @ 183.708 mls/hr Q24H IVPB 10/10/16 09:00 10/15/16 08:59 10/10/16 09:00 EDWAR MONTALVO Oct 11, 2016 09:18
[2016-10-11 09:24] LABS: ABG ALLEN TEST POSITIVE; ABG BASE EXCESS 1.6; ABG PCO2 37.2 mmHg (35.0-45.0)
--- NOTE | 2016-10-11 09:35 | Pulmonolgy Critical Care Note ---
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 Respiratory: monitor respiratory rate, adjust FIO2, CXR Cardiac: continue to monitor HR/BP Renal: F/U I&O, keep IV fluid, check electrolytes Infectious Disease: check cultures, continue antibiotics Gastrointestinal: continue feedings/current rate Endocrine: monitor blood sugar, continue sliding scale insulin Hematologic: monitor H/H, transfuse if hgb<8.5 Neurologic: PRN Ativan, keep patient comfortable Affect: PRN ativan Prophylaxis: Protonix Time Spent (Minutes): 40 Notes Reviewed: product development chemist, cardio Discussed with: nurses, consultants, case operatorstudio manager - Objective Last 24 Hour Vital Signs Date Time Temp Pulse Resp B/P Pulse Ox O2 Delivery O2 Flow Rate FiO2 10/11/16 09:00 98.2 82 18 146/79 99 Mechanical Ventilator 40 10/11/16 08:54 83 24 40 10/11/16 08:53 99 10/11/16 08:24 80 159/56 10/11/16 08:00 74 10/11/16 08:00 40 10/11/16 08:00 98.2 73 17 159/86 99 Mechanical Ventilator 40 10/11/16 07:00 81 18 169/55 99 Mechanical Ventilator 40 10/11/16 07:00 40 10/11/16 06:55 91 27 40 10/11/16 06:31 170/58 10/11/16 06:00 77 18 168/58 99 Mechanical Ventilator 40 10/11/16 05:00 75 18 165/56 100 Mechanical Ventilator 40 10/11/16 04:57 79 16 40 10/11/16 04:00 40 10/11/16 04:00 70 10/11/16 04:00 98.3 73 17 150/59 99 Mechanical Ventilator 40 10/11/16 03:30 80 19 40 10/11/16 03:00 71 18 149/61 100 Mechanical Ventilator 40 10/11/16 02:00 80 17 140/54 100 Mechanical Ventilator 40 10/11/16 01:30 70 20 40 10/11/16 01:00 71 17 141/54 98 Mechanical Ventilator 40 10/11/16 00:00 40 10/11/16 00:00 98.6 80 17 157/69 100 Mechanical Ventilator 40 10/11/16 00:00 80 10/10/16 23:30 78 17 40 10/10/16 23:00 80 17 145/53 99 Mechanical Ventilator 40 10/10/16 22:00 72 18 150/56 99 Mechanical Ventilator 40 10/10/16 21:01 77 146/53 10/10/16 21:00 77 18 155/54 99 Mechanical Ventilator 40 10/10/16 20:55 81 17 40 10/10/16 20:00 40 10/10/16 20:00 80 10/10/16 20:00 98.7 80 17 158/55 96 Mechanical Ventilator 40 10/10/16 19:30 76 17 40 10/10/16 19:00 85 18 158/55 97 Mechanical Ventilator 40 10/10/16 18:00 89 20 159/54 97 Mechanical Ventilator 40 10/10/16 17:32 168/69 10/10/16 17:09 76 22 40 10/10/16 17:00 75 21 169/62 97 Mechanical Ventilator 40 10/10/16 16:00 98.4 79 17 160/54 100 Mechanical Ventilator 40 10/10/16 16:00 76 10/10/16 16:00 40 10/10/16 15:28 83 24 40 10/10/16 15:00 77 21 153/57 98 Mechanical Ventilator 40 10/10/16 14:45 156/69 10/10/16 14:00 74 21 151/61 100 Mechanical Ventilator 40 10/10/16 13:00 71 21 139/57 99 Mechanical Ventilator 40 10/10/16 12:52 71 17 40 10/10/16 12:00 40 10/10/16 12:00 85 10/10/16 12:00 98.0 80 21 149/57 99 Mechanical Ventilator 40 10/10/16 11:11 83 26 40 10/10/16 11:02 76 21 154/57 99 Mechanical Ventilator 40 10/10/16 10:00 74 21 140/61 100 Mechanical Ventilator 40 Status: sedated Condition: critical HEENT: atraumatic Neck: full ROM Heart: HR/BP stable, HR/BP unstable, regular Abdomen: non-tender, feeding tube Extremities: no C/C/E Decubiti: location, stage Accucheck: 127 Critical Care - Subjective ROS Limited/Unobtainable: No ICU Day: 6 Intubation Day: 6 Condition: critical EKG Rhythm: Sinus Rhythm FI02: 40 Vent Support Breath Rate: 8 Vent Support Mode: IMV/SIMV Vent Tidal Volume: 600 Sputum Amount: Moderate PEEP: 5.0 PIP: 30 Secretions: small Drips: none Tube Feeding Amount: 30 I&O: Intake and Output 10/10/16 10/11/16 19:00 07:00 Intake Total 1067.500 ml 705.0 ml Output Total 705 ml 485 ml Balance 362.500 ml 220.0 ml Free Water 240 ml IV Total 467.500 ml 225.0 ml Tube Feeding 360 ml 360 ml Other 120 ml Output Urine Total 705 ml 485 ml CXR: no change ET-Tube: 7.5 ET Position: 24 Labs: Laboratory Tests Test 10/11/16 05:05 10/11/16 09:00 White Blood Count 9.0 K/UL (4.8-10.8) Red Blood Count 2.90 M/UL (4.70-6.10) L Hemoglobin 9.9 G/DL (14.2-18.0) L Hematocrit 28.8 % (42.0-52.0) L Mean Corpuscular Volume 99 FL (80-99) Mean Corpuscular Hemoglobin 34.2 PG (27.0-31.0) H Mean Corpuscular Hemoglobin Concent 34.5 G/DL (32.0-36.0) Red Cell Distribution Width 15.1 % (11.6-14.8) H Platelet Count 116 K/UL (150-450) L Mean Platelet Volume 8.0 FL (6.5-10.1) Neutrophils (%) (Auto) 83.4 % (45.0-75.0) H Lymphocytes (%) (Auto) 8.4 % (20.0-45.0) L Monocytes (%) (Auto) 4.4 % (1.0-10.0) Eosinophils (%) (Auto) 3.3 % (0.0-3.0) H Basophils (%) (Auto) 0.5 % (0.0-2.0) Sodium Level 135 mEQ/L (135-145) Potassium Level 3.2 mEQ/L (3.4-4.9) L Chloride Level 103 mEQ/L (98-107) Carbon Dioxide Level 22 mEQ/L (20-30) Anion Gap 10 (5-15) Blood Urea Nitrogen 6 mg/dL (7-23) L Creatinine 0.8 mg/dL (0.7-1.2) Estimat Glomerular Filtration Rate mL/min (>60) Glucose Level 133 mg/dL (74-106) H Calcium Level 7.8 mg/dL (8.6-10.2) L Phosphorus Level 2.5 mg/dL (2.5-4.8) Magnesium Level 2.0 mg/dL (1.7-2.5) Total Bilirubin 0.6 mg/dL (0.0-1.2) Aspartate Amino Transf (AST/SGOT) 10 U/L (5-40) Alanine Aminotransferase (ALT/SGPT) 23 U/L (3-41) Alkaline Phosphatase 95 U/L (40-129) Total Protein 5.5 g/dL (6.6-8.7) L Albumin 2.1 g/dL (3.5-5.2) L Globulin 3.4 g/dL Albumin/Globulin Ratio 0.6 (1.0-2.7) L Arterial Blood pH 7.453 (7.350-7.450) Arterial Blood Partial Pressure CO2 37.2 mmHg (35.0-45.0) Arterial Blood Partial Pressure O2 84.7 mmHg (75.0-100.0) Arterial Blood HCO3 25.4 mmol/L (22.0-26.0) Arterial Blood Oxygen Saturation 95.8 % (92.0-98.0) Arterial Blood Base Excess 1.6 Nicholas Test Positive VERITO MONTESINOS Oct 11, 2016 09:35
--- NOTE | 2016-10-11 09:59 | Cardiology Progress Note ---
Assessment/Plan Assessment/Plan 1. Severe tachycardia resolved 2. Atrial fibrillation, acute in onset with rapid ventricular response converted to sinus 3. Respiratory failure. 4. Pneumonia. 5. Dementia. 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 7. Hypotension earlier. 8. Leukocytosis. 9. Respiratory acidosis. on amiod loading bp is elevated add meds hr i s ok tele sinus no afib vent support abx pulm rxn increase norvasc add acei /arb Subjective ROS Limited/Unobtainable: Yes Objective Last 24 Hour Vital Signs Date Time Temp Pulse Resp B/P Pulse Ox O2 Delivery O2 Flow Rate FiO2 10/11/16 09:41 40 10/11/16 09:00 98.2 82 18 146/79 99 Mechanical Ventilator 40 10/11/16 08:54 83 24 40 10/11/16 08:53 99 10/11/16 08:24 80 159/56 10/11/16 08:00 74 10/11/16 08:00 40 10/11/16 08:00 98.2 73 17 159/86 99 Mechanical Ventilator 40 10/11/16 07:00 81 18 169/55 99 Mechanical Ventilator 40 10/11/16 07:00 40 10/11/16 06:55 91 27 40 10/11/16 06:31 170/58 10/11/16 06:00 77 18 168/58 99 Mechanical Ventilator 40 10/11/16 05:00 75 18 165/56 100 Mechanical Ventilator 40 10/11/16 04:57 79 16 40 10/11/16 04:00 40 10/11/16 04:00 70 10/11/16 04:00 98.3 73 17 150/59 99 Mechanical Ventilator 40 10/11/16 03:30 80 19 40 10/11/16 03:00 71 18 149/61 100 Mechanical Ventilator 40 10/11/16 02:00 80 17 140/54 100 Mechanical Ventilator 40 10/11/16 01:30 70 20 40 10/11/16 01:00 71 17 141/54 98 Mechanical Ventilator 40 10/11/16 00:00 40 10/11/16 00:00 98.6 80 17 157/69 100 Mechanical Ventilator 40 10/11/16 00:00 80 10/10/16 23:30 78 17 40 10/10/16 23:00 80 17 145/53 99 Mechanical Ventilator 40 10/10/16 22:00 72 18 150/56 99 Mechanical Ventilator 40 10/10/16 21:01 77 146/53 10/10/16 21:00 77 18 155/54 99 Mechanical Ventilator 40 10/10/16 20:55 81 17 40 10/10/16 20:00 40 10/10/16 20:00 80 10/10/16 20:00 98.7 80 17 158/55 96 Mechanical Ventilator 40 10/10/16 19:30 76 17 40 10/10/16 19:00 85 18 158/55 97 Mechanical Ventilator 40 10/10/16 18:00 89 20 159/54 97 Mechanical Ventilator 40 10/10/16 17:32 168/69 10/10/16 17:09 76 22 40 10/10/16 17:00 75 21 169/62 97 Mechanical Ventilator 40 10/10/16 16:00 98.4 79 17 160/54 100 Mechanical Ventilator 40 10/10/16 16:00 76 10/10/16 16:00 40 10/10/16 15:28 83 24 40 10/10/16 15:00 77 21 153/57 98 Mechanical Ventilator 40 10/10/16 14:45 156/69 10/10/16 14:00 74 21 151/61 100 Mechanical Ventilator 40 10/10/16 13:00 71 21 139/57 99 Mechanical Ventilator 40 10/10/16 12:52 71 17 40 10/10/16 12:00 40 10/10/16 12:00 85 10/10/16 12:00 98.0 80 21 149/57 99 Mechanical Ventilator 40 10/10/16 11:11 83 26 40 10/10/16 11:02 76 21 154/57 99 Mechanical Ventilator 40 10/10/16 10:00 74 21 140/61 100 Mechanical Ventilator 40 General Appearance: on vent Neck: no JVD Cardiovascular: regular rhythm Respiratory/Chest: rhonchi - bilaterally Abdomen: normal bowel sounds, non tender, soft Extremities: no swelling Intake and Output 10/10/16 10/11/16 19:00 07:00 Intake Total 1067.500 ml 705.0 ml Output Total 705 ml 485 ml Balance 362.500 ml 220.0 ml Free Water 240 ml IV Total 467.500 ml 225.0 ml Tube Feeding 360 ml 360 ml Other 120 ml Output Urine Total 705 ml 485 ml Laboratory Tests Test 8/22/17 05:05 10/11/16 09:00 White Blood Count 9.0 K/UL (4.8-10.8) Red Blood Count 2.90 M/UL (4.70-6.10) L Hemoglobin 9.9 G/DL (14.2-18.0) L Hematocrit 28.8 % (42.0-52.0) L Mean Corpuscular Volume 99 FL (80-99) Mean Corpuscular Hemoglobin 34.2 PG (27.0-31.0) H Mean Corpuscular Hemoglobin Concent 34.5 G/DL (32.0-36.0) Red Cell Distribution Width 15.1 % (11.6-14.8) H Platelet Count 116 K/UL (150-450) L Mean Platelet Volume 8.0 FL (6.5-10.1) Neutrophils (%) (Auto) 83.4 % (45.0-75.0) H Lymphocytes (%) (Auto) 8.4 % (20.0-45.0) L Monocytes (%) (Auto) 4.4 % (1.0-10.0) Eosinophils (%) (Auto) 3.3 % (0.0-3.0) H Basophils (%) (Auto) 0.5 % (0.0-2.0) Sodium Level 135 mEQ/L (135-145) Potassium Level 3.2 mEQ/L (3.4-4.9) L Chloride Level 103 mEQ/L (98-107) Carbon Dioxide Level 22 mEQ/L (20-30) Anion Gap 10 (5-15) Blood Urea Nitrogen 6 mg/dL (7-23) L Creatinine 0.8 mg/dL (0.7-1.2) Estimat Glomerular Filtration Rate mL/min (>60) Glucose Level 133 mg/dL (74-106) H Calcium Level 7.8 mg/dL (8.6-10.2) L Phosphorus Level 2.5 mg/dL (2.5-4.8) Magnesium Level 2.0 mg/dL (1.7-2.5) Total Bilirubin 0.6 mg/dL (0.0-1.2) Aspartate Amino Transf (AST/SGOT) 10 U/L (5-40) Alanine Aminotransferase (ALT/SGPT) 23 U/L (3-41) Alkaline Phosphatase 95 U/L (40-129) Total Protein 5.5 g/dL (6.6-8.7) L Albumin 2.1 g/dL (3.5-5.2) L Globulin 3.4 g/dL Albumin/Globulin Ratio 0.6 (1.0-2.7) L Arterial Blood pH 7.453 (7.350-7.450) Arterial Blood Partial Pressure CO2 37.2 mmHg (35.0-45.0) Arterial Blood Partial Pressure O2 84.7 mmHg (75.0-100.0) Arterial Blood HCO3 25.4 mmol/L (22.0-26.0) Arterial Blood Oxygen Saturation 95.8 % (92.0-98.0) Arterial Blood Base Excess 1.6 Nicholas Test Positive ISACC GUEVARA Oct 11, 2016 09:59
[2016-10-11] MEDS ORDERED: 1/2 NS 1000ml IV ONE (10:25)
[2016-10-11] MEDS ORDERED: Tubing IV Secondary IV ONE (10:25)
[2016-10-11] MEDS ORDERED: NS 275ml ONE (10:25)
[2016-10-11] MEDS: Lisinopril 10mg tab ORAL SCH ×2 (11:25→17:48)
--- NOTE | 2016-10-11 11:45 | Diagnostic Imaging Report ---
Indications: DYSPNEA Technique: Portable AP chest Findings: Comparison: 10/10/16 Diffuse bilateral mixed interstitial and alveolar lung opacities, bibasal pleural effusions persist, unchanged. Cardiac silhouette remains partially obscured. Unobscured portions of cardiac mediastinal silhouette stable. Lines and tubes remain in place. IMPRESSION: Stable bilateral pulmonary infiltrates, pleural effusions
--- NOTE | 2016-10-11 14:48 | Diagnostic Imaging Report ---
Indications: Dyspnea, suggestion of bilateral pleural effusions on chest radiograph Technique: Transthoracic real-time grayscale imaging bilateral pleural spaces Findings: Comparison: Chest radiograph performed earlier today Moderate amount of fluid is present in the basal aspect of the right pleural space. Underlying right lower lobe is collapsed and consolidated. Only a trace amount of fluid is demonstrated within the basal aspect of the left pleural space. IMPRESSION: Moderate right pleural effusion Trace left pleural effusion
[2016-10-11] MEDS: Tamsulosin 0.4mg cap ORAL SCH (21:13)
[2016-10-11] MEDS: Iron Sucrose 100 MG in NS 55 ML IV SCH (21:13)
[2016-10-12] VITALS (24 sets, daily range): BP systolic 133–177; BP diastolic 44–74
[2016-10-12] MEDS: Amiodarone 200mg tab ORAL SCH ×3 (05:41→21:46)
[2016-10-12] MEDS: NovoLOG Insulin Flexpen SUBQ SCH ×4 (05:41→23:57)
[2016-10-12 06:00] LABS: BASOPHILS % (AUTO) 0.5 % (0.0-2.0); EOSINOPHILS % (AUTO) 2.7 % (0.0-3.0); LYMPHOCYTES % (AUTO) 8.8 % (20.0-45.0); MEAN CORPUSCULAR HEMOGLOBIN 33.3 PG (27.0-31.0); MEAN CORPUSCULAR HGB CONC 33.4 G/DL (32.0-36.0); MEAN CORPUSCULAR VOLUME 100 FL (80-99); MEAN PLATELET VOLUME 8.2 FL (6.5-10.1); PLATELET COUNT 102 K/UL (150-450); RED CELL DISTRIBUTION WIDTH 14.6 % (11.6-14.8); WHITE BLOOD COUNT 8.1 K/UL (4.8-10.8)
[2016-10-12 06:16] LABS: ALANINE AMINOTRANSFERASE 17 U/L (3-41); ALBUMIN/GLOBULIN RATIO 0.6 (1.0-2.7); ANION GAP 9 (5-15); ASPARTATE AMINO TRANSFERASE 12 U/L (5-40); CALCIUM 7.8 mg/dL (8.6-10.2); CARBON DIOXIDE 23 mEQ/L (20-30); CHLORIDE 104 mEQ/L (98-107); CREATININE 0.8 mg/dL (0.7-1.2); HEMOLYSIS 22; MAGNESIUM 1.8 mg/dL (1.7-2.5); PHOSPHORUS 2.2 mg/dL (2.5-4.8); POTASSIUM 3.7 mEQ/L (3.4-4.9); SODIUM 136 mEQ/L (135-145); TOTAL PROTEIN 5.2 g/dL (6.6-8.7)
[2016-10-12 08:13] LABS: ABG ALLEN TEST POSITIVE; ABG BASE EXCESS 3.1; ABG PCO2 33.2 mmHg (35.0-45.0)
[2016-10-12] MEDS: Lisinopril 10mg tab ORAL SCH ×2 (08:32→17:36)
[2016-10-12] MEDS: Heparin 5000 units/ml inj SUBQ SCH ×2 (08:32→20:55)
[2016-10-12] MEDS: Vancomycin 750mg/D5W 275ml IVPB SCH ×2 (08:33)
[2016-10-12] MEDS ORDERED: Tubing IV Secondary IV ONE (08:49)
[2016-10-12] MEDS ORDERED: NS 275ml ONE (08:49)
--- NOTE | 2016-10-12 10:04 | Diagnostic Imaging Report ---
Indications: DYSPNEA Technique: Portable AP chest Findings: Comparison: 10/11/16 Diffuse bilateral mixed interstitial and alveolar lung opacities, bibasal pleural effusions unchanged. Unobscured portions of cardio mediastinal silhouette stable. Lines and tubes remain in place. No new abnormality identified. IMPRESSION: No change from one day prior
--- NOTE | 2016-10-12 10:12 | Pulmonolgy Critical Care Note ---
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 Respiratory: monitor respiratory rate, adjust FIO2, CXR, ABG, other - not able to wean, will need trach or comfort care Cardiac: continue to monitor HR/BP Renal: F/U I&O, keep IV fluid Infectious Disease: check cultures, continue antibiotics Gastrointestinal: continue feedings/current rate, hold feedings Endocrine: monitor blood sugar, check HgA1C, continue sliding scale insulin Hematologic: monitor H/H, transfuse if hgb<8.5 Neurologic: PRN Ativan, PRN Morphine, keep patient comfortable Affect: PRN ativan Prophylaxis: Protonix, Heparin Disposition: transfer to Notes Reviewed: surgical oncologist, cardio, renal Discussed with: nurses, consultants, case investigatormanager of clinical - Objective Last 24 Hour Vital Signs Date Time Temp Pulse Resp B/P (MAP) Pulse Ox O2 Delivery O2 Flow Rate FiO2 10/12/16 10:00 86 20 162/56 97 Mechanical Ventilator 40 10/12/16 09:00 79 19 155/51 97 Mechanical Ventilator 40 10/12/16 08:48 87 19 40 10/12/16 08:32 153/49 10/12/16 08:32 99 153/49 10/12/16 08:00 85 10/12/16 08:00 40 10/12/16 08:00 98.0 86 17 156/49 96 Mechanical Ventilator 40 10/12/16 07:02 91 22 40 10/12/16 07:00 90 19 155/54 97 Mechanical Ventilator 40 10/12/16 06:00 91 19 157/52 97 Mechanical Ventilator 40 10/12/16 05:20 181/64 10/12/16 05:00 92 22 177/58 95 Mechanical Ventilator 40 10/12/16 04:53 78 24 40 10/12/16 04:00 77 10/12/16 04:00 40 10/12/16 04:00 98.2 77 16 160/55 96 Mechanical Ventilator 40 10/12/16 03:00 73 16 155/57 96 Mechanical Ventilator 40 10/12/16 02:33 73 21 40 10/12/16 02:00 69 21 156/60 96 Mechanical Ventilator 40 10/12/16 01:30 79 18 40 10/12/16 01:00 72 18 137/49 96 Mechanical Ventilator 40 10/12/16 00:00 40 10/12/16 00:00 80 10/12/16 00:00 98.3 75 17 160/55 97 Mechanical Ventilator 40 10/11/16 23:30 85 24 40 10/11/16 23:00 74 18 122/68 98 Mechanical Ventilator 40 10/11/16 22:00 83 18 112/35 99 Mechanical Ventilator 40 10/11/16 21:30 72 18 40 10/11/16 21:00 71 18 126/53 97 Mechanical Ventilator 40 10/11/16 20:00 40 10/11/16 20:00 73 10/11/16 20:00 98.5 77 18 116/59 95 Mechanical Ventilator 40 10/11/16 19:30 69 16 40 10/11/16 19:00 68 18 116/59 97 Mechanical Ventilator 40 10/11/16 18:00 76 17 144/67 97 Mechanical Ventilator 40 10/11/16 17:48 146/59 10/11/16 17:48 74 146/59 10/11/16 17:12 88 25 40 10/11/16 17:00 74 16 146/59 97 Mechanical Ventilator 40 10/11/16 16:00 40 10/11/16 16:00 98.2 72 18 143/53 99 Mechanical Ventilator 40 10/11/16 16:00 89 10/11/16 15:29 79 16 40 10/11/16 15:00 69 17 148/53 98 Mechanical Ventilator 40 10/11/16 14:00 72 16 160/60 98 Mechanical Ventilator 40 10/11/16 13:00 71 17 124/45 100 Mechanical Ventilator 40 10/11/16 12:43 90 27 40 10/11/16 12:00 76 10/11/16 12:00 98.0 74 18 156/89 99 Mechanical Ventilator 40 10/11/16 11:25 152/57 10/11/16 11:09 80 19 40 10/11/16 11:00 72 16 152/57 100 Mechanical Ventilator 40 10/11/16 10:30 40 Status: sedated Condition: critical, grave Lungs: clear Heart: HR/BP unstable Abdomen: soft, non-tender, active bowel sounds Extremities: no C/C/E Decubiti: stage Accucheck: 150 Critical Care - Subjective ROS Limited/Unobtainable: Yes ICU Day: 7 Intubation Day: 7 Condition: critical EKG Rhythm: Sinus Rhythm FI02: 40 Vent Support Breath Rate: 16 Vent Support Mode: AC Vent Tidal Volume: 600 Sputum Amount: Small PEEP: 5.0 PIP: 34 Tube Feeding Amount: 30 I&O: Intake and Output 10/12/16 10/13/16 19:00 07:00 Intake Total 323.708 ml Balance 323.708 ml IV Total 183.708 ml Tube Feeding 90 ml Other 50 ml CXR: no chagne ET-Tube: 7.5 ET Position: 24 Labs: Laboratory Tests Test 10/11/16 16:30 10/12/16 04:25 10/12/16 08:00 Haptoglobin 205 mg/dL (30-200) H PTT Mixing Study Pending APTT Patient/Control Mix Pending Mix PTT Incubation Time Pending Mix PTT Normal/Saline 1:1 Immediate Pending Thrombin Time Normal Plasma Pending Fibrinogen 411 mg/dL (200-400) H Hepatitis A IgM Antibody Pending Hepatitis B Surface Antigen Pending Hepatitis B Core IgM Antibody Pending Hepatitis C Antibody Pending HIV (1&2) Antibody Rapid Negative (NEGATIVE) White Blood Count 8.1 K/UL (4.8-10.8) Red Blood Count 2.70 M/UL (4.70-6.10) L Hemoglobin 9.0 G/DL (14.2-18.0) L Hematocrit 26.9 % (42.0-52.0) L Mean Corpuscular Volume 100 FL (80-99) H Mean Corpuscular Hemoglobin 33.3 PG (27.0-31.0) H Mean Corpuscular Hemoglobin Concent 33.4 G/DL (32.0-36.0) Red Cell Distribution Width 14.6 % (11.6-14.8) Platelet Count 102 K/UL (150-450) L Mean Platelet Volume 8.2 FL (6.5-10.1) Neutrophils (%) (Auto) 83.0 % (45.0-75.0) H Lymphocytes (%) (Auto) 8.8 % (20.0-45.0) L Monocytes (%) (Auto) 5.0 % (1.0-10.0) Eosinophils (%) (Auto) 2.7 % (0.0-3.0) Basophils (%) (Auto) 0.5 % (0.0-2.0) Sodium Level 136 mEQ/L (135-145) Potassium Level 3.7 mEQ/L (3.4-4.9) Chloride Level 104 mEQ/L (98-107) Carbon Dioxide Level 23 mEQ/L (20-30) Anion Gap 9 (5-15) Blood Urea Nitrogen 6 mg/dL (7-23) L Creatinine 0.8 mg/dL (0.7-1.2) Estimat Glomerular Filtration Rate mL/min (>60) Glucose Level 130 mg/dL (74-106) H Calcium Level 7.8 mg/dL (8.6-10.2) L Phosphorus Level 2.2 mg/dL (2.5-4.8) L Magnesium Level 1.8 mg/dL (1.7-2.5) Total Bilirubin 0.5 mg/dL (0.0-1.2) Aspartate Amino Transf (AST/SGOT) 12 U/L (5-40) Alanine Aminotransferase (ALT/SGPT) 17 U/L (3-41) Alkaline Phosphatase 79 U/L (40-129) Total Protein 5.2 g/dL (6.6-8.7) L Albumin 2.0 g/dL (3.5-5.2) L Globulin 3.2 g/dL Albumin/Globulin Ratio 0.6 (1.0-2.7) L Arterial Blood pH 7.511 (7.350-7.450) Arterial Blood Partial Pressure CO2 33.2 mmHg (35.0-45.0) L Arterial Blood Partial Pressure O2 69.1 mmHg (75.0-100.0) L Arterial Blood HCO3 26.0 mmol/L (22.0-26.0) Arterial Blood Oxygen Saturation 93.5 % (92.0-98.0) Arterial Blood Base Excess 3.1 Nicholas Test Positive VERITO MONTESINOS Oct 12, 2016 10:12
--- NOTE | 2016-10-12 10:45 | Wound Care Consultation ---
Wound Assessment Wound Assessment #1: Wound Number: 1 Wound Present on Admission: Yes New Wound: No Status Change of Wound: No Wound Location Body Site Modif: left, right, upper Wound Location Body Site: arm Wound Type: scab - scattered scabs Sonu Test: Does not Sonu Percent of Wound Beemer/Red: 50 - dry scabs Percent of Wound Black/Brown: 50 - dry scabs Wound Drainage Amount: None Wound Drainage Odor: None/Absent Tissue Surrounding Wound: Intact Wound General Appearance: Reddened, Open to air, Clean/Dry Wound Assessment #2: Wound Number: 2 Wound Present on Admission: Yes New Wound: No Status Change of Wound: No Wound Location Body Site Modif: mid Wound Location Body Site: sacral Wound Type: pressure ulcer Sonu Test: Does not Sonu Pressure Ulcer Stage: deep tissue injury Wound Thickness: Full Thickness Wound Length: 5.0 Wound Width: 5.0 Wound Depth: utd Percent of Wound Purple/Maroon: 100 - noted sole edge inker machine in color. Wound Drainage Amount: None Wound Drainage Odor: None/Absent Tissue Surrounding Wound: Erythemic - skin remains intact. Wound General Appearance: Reddened Wound Comment #1 Mid Sacral pressure ulcer DEEP TISSUE INJURY.- upon reassessment noted good progress skin remains intact, no further deterioration present noted decrease in size. current wound care is effective. #2 Left upper arm scattered ecchymosis.- no change #3 Right upper arm scattered ecchymosis.- no change #4 Left and Right upper arm scattered scabs.- no change remains dry. Recommendation. -Local wound care as ordered. -Apply low air loss mattress SPR. -Turn and reposition. -Keep clean and dry. -Optimize nutrition. -Avoid shear and friction. -Apply heel protectors. -Offload pressure sites, offload heels and feet. -Assess and notify MD for any changes of condition noted to skin. KEATON GUZMAN Oct 12, 2016 10:45
--- NOTE | 2016-10-12 12:16 | Consultation ---
DATE OF CONSULTATION: 10/11/2016 HEMATOLOGY/ONCOLOGY CONSULTATION CONSULTING PHYSICIAN: Bret Dunham M.D. REQUESTING PHYSICIAN: Lusi Nolen M.D. REASON FOR CONSULTATION: Evaluation of anemia and thrombocytopenia. IDENTIFICATION DATA: Dear Dr. Nolen, The patient is a pleasant 85-year-old male. He has a past medical history, which is significant for dementia, BPH, NPH, bed bound, [place] [facility] resident, was brought in by ambulance with altered mental status. The patient is apparently more altered and less responsive. He notes cough and respiratory distress with saturating 80% on room air. The patient had been admitted for pneumonia in August of this year to outside facility. He was intubated in the ER. He is on pressors. Today, he has been seen by Infectious Diseases, Cardiology, and Pulmonary team. The tachycardia has resolved. He is on amiodarone and ventilator dependant respiratory distress and he was noted to have leukocytosis as well as anemia and thrombocytopenia. Therefore, Hematology service was consulted. PAST MEDICAL HISTORY: BPH, NPH, bed bound status, [place] [facility] resident, and altered mental status. MEDICATIONS: Aspirin, atenolol, donepezil, Warba, Imdur, losartan, metformin, and omeprazole. ALLERGIES: No known drug allergies. REVIEW OF SYSTEMS: Difficult to obtain given the patient is intubated. PHYSICAL EXAMINATION: VITAL SIGNS: Reviewed. GENERAL: The patient is in no acute distress. PULMONARY: Decreased breath sounds. Some crackles noted and intubated. ETT was in place. ABDOMEN: Soft, nontender, and nondistended. EXTREMITIES: No cyanosis, clubbing, or edema. LABORATORY DATA: WBC of 20,000, hemoglobin 10.8, hematocrit 32, and platelet count 191,000. ASSESSMENT AND PLAN: 1. Anemia secondary to chronic disease. Anemia workup has been reviewed. within normal limits as his B12. TSH is within normal limits. Ferritin is 137, sufficient. No known iron deficiency. Transfuse if hemoglobin is less than 7. 2. Coagulopathy. PTT is 50. We will order a PTT and mixing study at this time. If the PTT corrects, the patient has likely . 3. Thrombocytopenia in a patient secondary to underlying sepsis. 4. History of hypercapnic respiratory failure, is intubated. 5. Paroxysmal atrial fibrillation. Being seen by Cardiology service. He is on amiodarone. 6. Pneumonia and sepsis. I appreciate the consultation. Bret Dunham M.D. DR: TENNILLE JOB#: [id number] CC:
--- NOTE | 2016-10-12 14:19 | Infectious Diseases Prog Note ---
Assessment/Plan Assessment/Plan Assessment: Acute respiratory failure, multifocal pneumonia, c/b afib with RVR now on rate control, off pressors for >48hrs with normalization of leukocytosis on D#4 empiric IV vancomycin and zosyn with cultures of blood from 10/05 neg to date. Mildly elevated ferritin c/w acute phase reactant in acute illness. sputum cx obtained on 10/06 after 24 hrs of broad spectum abx growing only scant Carroll albicans which should be considered a commensal/colonizer here. 1) Multifocal Pneumonia, L effusion 10/05 blood cx ngtd 10/06 sputum cx: scant carroll (obtained on abx) 2) septic shock, currently off pressors since 10/06 3) Hypercarbic Respiratory failure requiring intubation; initial chem panel and ABG showed an acute respiratory acidosis with concomitant lactic acidosis metabolic acidosis. TTE with dilated IVC not suggestive of hypovolemic shock. 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 10) Afib with RVR, rate controlled s/p amio gtt now on oral 11) nl LFTs 12) hypoalbuminemia 13) MRSA and VRE screening negative 14) liquid stools, C diff pcr negative 10/08 15) pulmonary edema PLAN: --Monitor off abx, completed earlier today. (10/12 s/pIV vancomycin and zosyn D#7) (10/07 s/p amikacin IV D#3) --condom catheter care --sacral wound care --monitor pleural effusion, stable with pos pressure ventilation Subjective ROS Limited/Unobtainable: Yes Allergies: Coded Allergies: No Known Allergies (Unverified , 07/19/12) Objective Vital Signs Last 24 Hour Vital Signs Date Time Temp Pulse Resp B/P (MAP) Pulse Ox O2 Delivery O2 Flow Rate FiO2 10/12/16 14:00 78 21 155/55 100 Mechanical Ventilator 40 10/12/16 13:00 85 21 154/50 97 Mechanical Ventilator 40 10/12/16 12:41 85 22 40 10/12/16 12:00 94 10/12/16 12:00 40 10/12/16 12:00 98.1 93 17 136/49 96 Mechanical Ventilator 40 10/12/16 11:26 165/57 10/12/16 11:00 86 21 165/57 97 Mechanical Ventilator 40 10/12/16 10:46 86 16 40 10/12/16 10:00 86 20 162/56 97 Mechanical Ventilator 40 10/12/16 09:00 79 19 155/51 97 Mechanical Ventilator 40 10/12/16 08:48 87 19 40 10/12/16 08:32 153/49 10/12/16 08:32 99 153/49 10/12/16 08:00 85 10/12/16 08:00 40 10/12/16 08:00 98.0 86 17 156/49 96 Mechanical Ventilator 40 10/12/16 07:02 91 22 40 10/12/16 07:00 90 19 155/54 97 Mechanical Ventilator 40 10/12/16 06:00 91 19 157/52 97 Mechanical Ventilator 40 10/12/16 05:20 181/64 10/12/16 05:00 92 22 177/58 95 Mechanical Ventilator 40 10/12/16 04:53 78 24 40 10/12/16 04:00 77 10/12/16 04:00 40 10/12/16 04:00 98.2 77 16 160/55 96 Mechanical Ventilator 40 10/12/16 03:00 73 16 155/57 96 Mechanical Ventilator 40 10/12/16 02:33 73 21 40 10/12/16 02:00 69 21 156/60 96 Mechanical Ventilator 40 10/12/16 01:30 79 18 40 10/12/16 01:00 72 18 137/49 96 Mechanical Ventilator 40 10/12/16 00:00 40 10/12/16 00:00 80 10/12/16 00:00 98.3 75 17 160/55 97 Mechanical Ventilator 40 10/11/16 23:30 85 24 40 10/11/16 23:00 74 18 122/68 98 Mechanical Ventilator 40 10/11/16 22:00 83 18 112/35 99 Mechanical Ventilator 40 10/11/16 21:30 72 18 40 10/11/16 21:00 71 18 126/53 97 Mechanical Ventilator 40 10/11/16 20:00 40 10/11/16 20:00 73 10/11/16 20:00 98.5 77 18 116/59 95 Mechanical Ventilator 40 10/11/16 19:30 69 16 40 10/11/16 19:00 68 18 116/59 97 Mechanical Ventilator 40 10/11/16 18:00 76 17 144/67 97 Mechanical Ventilator 40 10/11/16 17:48 146/59 10/11/16 17:48 74 146/59 10/11/16 17:12 88 25 40 10/11/16 17:00 74 16 146/59 97 Mechanical Ventilator 40 10/11/16 16:00 40 10/11/16 16:00 98.2 72 18 143/53 99 Mechanical Ventilator 40 10/11/16 16:00 89 10/11/16 15:29 79 16 40 10/11/16 15:00 69 17 148/53 98 Mechanical Ventilator 40 Height (Feet): 5 Height (Inches): 7.00 Weight (Pounds): 142 Objective GEN: intubated on vent full support, not on pressors, alert HEENT: Mild pale conjunctiva. oral mucosa dry, pharynx w/o exudate or effusion. No icterus. Head normocephalic, neck supple. NECK: No cervical LAD CHEST: scattered rhonchi, coarse breath sounds throughout, decreased breath sounds on L base. copious thick secretions. HEART: S1 and S2, no murmurs, no rubs. ABDOMEN: soft, non tender, non distended, normoactive bowel sounds. EXTREMITIES: No cyanosis, no clubbing, no edema. extremities warm with brisk cap refill. scattered ecchymosis on hands/arms. no CVC. NEUROLOGIC: intubated. moves all 4 extremities spontaneously : condom cath in place draining clear yellow urine. LYMPH: no LAD RECTAL: deferred. reviewed wound care report of mid sacral pressure ulcer with deep tissue injury rectal tube in place draining liquid brown stool Laboratory Tests Test 10/11/16 16:30 10/12/16 04:25 10/12/16 08:00 Haptoglobin 205 mg/dL (30-200) H PTT Mixing Study Pending APTT Patient/Control Mix Pending Mix PTT Incubation Time Pending Mix PTT Normal/Saline 1:1 Immediate Pending Thrombin Time Normal Plasma Pending Fibrinogen 411 mg/dL (200-400) H Hepatitis A IgM Antibody Negative (Negative) Hepatitis B Surface Antigen Negative (Negative) Hepatitis B Core IgM Antibody Negative (Negative) Hepatitis C Antibody 0.1 s/co ratio (0.0-0.9) HIV (1&2) Antibody Rapid Negative (NEGATIVE) White Blood Count 8.1 K/UL (4.8-10.8) Red Blood Count 2.70 M/UL (4.70-6.10) L Hemoglobin 9.0 G/DL (14.2-18.0) L Hematocrit 26.9 % (42.0-52.0) L Mean Corpuscular Volume 100 FL (80-99) H Mean Corpuscular Hemoglobin 33.3 PG (27.0-31.0) H Mean Corpuscular Hemoglobin Concent 33.4 G/DL (32.0-36.0) Red Cell Distribution Width 14.6 % (11.6-14.8) Platelet Count 102 K/UL (150-450) L Mean Platelet Volume 8.2 FL (6.5-10.1) Neutrophils (%) (Auto) 83.0 % (45.0-75.0) H Lymphocytes (%) (Auto) 8.8 % (20.0-45.0) L Monocytes (%) (Auto) 5.0 % (1.0-10.0) Eosinophils (%) (Auto) 2.7 % (0.0-3.0) Basophils (%) (Auto) 0.5 % (0.0-2.0) Sodium Level 136 mEQ/L (135-145) Potassium Level 3.7 mEQ/L (3.4-4.9) Chloride Level 104 mEQ/L (98-107) Carbon Dioxide Level 23 mEQ/L (20-30) Anion Gap 9 (5-15) Blood Urea Nitrogen 6 mg/dL (7-23) L Creatinine 0.8 mg/dL (0.7-1.2) Estimat Glomerular Filtration Rate mL/min (>60) Glucose Level 130 mg/dL (74-106) H Calcium Level 7.8 mg/dL (8.6-10.2) L Phosphorus Level 2.2 mg/dL (2.5-4.8) L Magnesium Level 1.8 mg/dL (1.7-2.5) Total Bilirubin 0.5 mg/dL (0.0-1.2) Aspartate Amino Transf (AST/SGOT) 12 U/L (5-40) Alanine Aminotransferase (ALT/SGPT) 17 U/L (3-41) Alkaline Phosphatase 79 U/L (40-129) Total Protein 5.2 g/dL (6.6-8.7) L Albumin 2.0 g/dL (3.5-5.2) L Globulin 3.2 g/dL Albumin/Globulin Ratio 0.6 (1.0-2.7) L Arterial Blood pH 7.511 (7.350-7.450) Arterial Blood Partial Pressure CO2 33.2 mmHg (35.0-45.0) L Arterial Blood Partial Pressure O2 69.1 mmHg (75.0-100.0) L Arterial Blood HCO3 26.0 mmol/L (22.0-26.0) Arterial Blood Oxygen Saturation 93.5 % (92.0-98.0) Arterial Blood Base Excess 3.1 Nicholas Test Positive Current Medications Medications (Trade) Dose Ordered Sig/Bhavna Route PRN Reason Start Time Stop Time Status Last Admin Dose Admin Acetaminophen (Tylenol) 650 mg Q4H PRN ORAL fever 10/05/16 10:30 11/04/16 10:29 10/06/16 14:24 Albuterol/ Ipratropium (DuoNeb 0.5-3(2.5)mg/3ml) 3 ml Q4H PRN HHN Shortness of Breath 10/09/16 10:00 10/14/16 09:59 Amiodarone HCl (Cordarone) 400 mg EVERY 8 HOURS ORAL 10/06/16 22:00 11/05/16 21:59 10/12/16 05:41 Amlodipine Besylate (Norvasc) 5 mg BID ORAL 10/10/16 21:00 11/09/16 20:59 10/12/16 08:32 Dextrose (Dextrose 50%) STAT PRN IV Hypoglycemia 10/06/16 18:30 11/05/16 18:29 Heparin Sodium (Porcine) (Heparin 5000 units/ml) 5,000 units EVERY 12 HOURS SUBQ 10/05/16 21:00 11/04/16 20:59 10/11/16 08:26 Hydralazine HCl (Apresoline) 10 mg Q6H PRN IV sbp above 160 10/09/16 09:30 11/08/16 09:29 10/12/16 11:26 Insulin Aspart (NovoLOG) Q6HR SUBQ 10/07/16 00:00 11/06/16 00:00 10/12/16 11:28 Lisinopril (Zestril) 10 mg BID ORAL 10/11/16 11:00 11/10/16 10:59 10/12/16 08:32 Metoprolol Tartrate (Lopressor) 5 mg Q5MIN X 3 IVP 10/06/16 14:30 11/05/16 14:29 10/06/16 14:39 Norepinephrine Bitartrate 4 mg/ Dextrose 254 ml @ 0 mls/hr Q24H IV 10/05/16 14:45 11/04/16 14:44 10/06/16 00:46 Ondansetron HCl (Zofran) 4 mg Q6H PRN IVP Nausea & Vomiting 10/05/16 10:30 11/04/16 10:29 10/10/16 09:54 Ranitidine HCl (Zantac) 150 mg Q12HR NG 10/10/16 21:00 11/09/16 20:59 10/12/16 08:32 Tamsulosin HCl (Flomax) 0.4 mg BEDTIME ORAL 10/05/16 21:00 11/04/16 20:59 10/11/16 21:13 Alfonso Mathur M.D. Oct 12, 2016 14:19
--- NOTE | 2016-10-12 18:23 | General Progress Note ---
Assessment/Plan Assessment/Plan 1. Anemia secondary to chronic disease. Anemia workup has been reviewed. Folate within normal limits as his B12. TSH is within normal limits. Ferritin is 137, sufficient. No evidence of iron deficiency --> Transfuse if hemoglobin is less than 7. 2. Coagulopathy. PTT is 50. We will order a PTT and mixing study at this time. --> pending 3. Thrombocytopenia in a patient secondary to underlying sepsis. 4. History of hypercapnic respiratory failure, is intubated. 5. Paroxysmal atrial fibrillation. Being seen by Cardiology service. He is on amiodarone. 6. Pneumonia and sepsis. --> s/p abx per id service Subjective Constitutional: Reports: no symptoms HEENT: Reports: no symptoms Cardiovascular: Reports: no symptoms Respiratory: Reports: no symptoms Gastrointestinal/Abdominal: Reports: no symptoms Genitourinary: Reports: no symptoms Neurologic/Psychiatric: Reports: no symptoms Endocrine: Reports: no symptoms Hematologic/Lymphatic: Reports: anemia Allergies: Coded Allergies: No Known Allergies (Unverified , 07/19/12) Subjective intubated, nad Objective Last 24 Hour Vital Signs Date Time Temp Pulse Resp B/P (MAP) Pulse Ox O2 Delivery O2 Flow Rate FiO2 10/12/16 17:36 153/62 10/12/16 17:36 77 153/62 10/12/16 17:00 82 19 153/62 100 Mechanical Ventilator 40 10/12/16 16:56 87 18 40 10/12/16 16:00 98.0 77 17 145/74 96 Mechanical Ventilator 40 10/12/16 16:00 40 10/12/16 16:00 80 10/12/16 15:00 87 20 159/55 100 Mechanical Ventilator 40 10/12/16 14:45 85 17 40 10/12/16 14:00 78 21 155/55 100 Mechanical Ventilator 40 10/12/16 13:00 85 21 154/50 97 Mechanical Ventilator 40 10/12/16 12:41 85 22 40 10/12/16 12:00 94 10/12/16 12:00 40 10/12/16 12:00 98.1 93 17 136/49 96 Mechanical Ventilator 40 10/12/16 11:26 165/57 10/12/16 11:00 86 21 165/57 97 Mechanical Ventilator 40 10/12/16 10:46 86 16 40 10/12/16 10:00 86 20 162/56 97 Mechanical Ventilator 40 10/12/16 09:00 79 19 155/51 97 Mechanical Ventilator 40 10/12/16 08:48 87 19 40 10/12/16 08:32 153/49 10/12/16 08:32 99 153/49 10/12/16 08:00 85 10/12/16 08:00 40 10/12/16 08:00 98.0 86 17 156/49 96 Mechanical Ventilator 40 10/12/16 07:02 91 22 40 10/12/16 07:00 90 19 155/54 97 Mechanical Ventilator 40 10/12/16 06:00 91 19 157/52 97 Mechanical Ventilator 40 10/12/16 05:20 181/64 10/12/16 05:00 92 22 177/58 95 Mechanical Ventilator 40 10/12/16 04:53 78 24 40 10/12/16 04:00 77 10/12/16 04:00 40 10/12/16 04:00 98.2 77 16 160/55 96 Mechanical Ventilator 40 10/12/16 03:00 73 16 155/57 96 Mechanical Ventilator 40 10/12/16 02:33 73 21 40 10/12/16 02:00 69 21 156/60 96 Mechanical Ventilator 40 10/12/16 01:30 79 18 40 10/12/16 01:00 72 18 137/49 96 Mechanical Ventilator 40 10/12/16 00:00 40 10/12/16 00:00 80 10/12/16 00:00 98.3 75 17 160/55 97 Mechanical Ventilator 40 10/11/16 23:30 85 24 40 10/11/16 23:00 74 18 122/68 98 Mechanical Ventilator 40 10/11/16 22:00 83 18 112/35 99 Mechanical Ventilator 40 10/11/16 21:30 72 18 40 10/11/16 21:00 71 18 126/53 97 Mechanical Ventilator 40 10/11/16 20:00 40 10/11/16 20:00 73 10/11/16 20:00 98.5 77 18 116/59 95 Mechanical Ventilator 40 10/11/16 19:30 69 16 40 10/11/16 19:00 68 18 116/59 97 Mechanical Ventilator 40 Intake and Output 10/12/16 10/13/16 19:00 07:00 Intake Total 633.708 ml Output Total 180 ml Balance 453.708 ml IV Total 183.708 ml Tube Feeding 300 ml Other 150 ml Output Urine Total 180 ml Laboratory Tests 10/12/16 04:25: White Blood Count 8.1, Red Blood Count 2.70L, Hemoglobin 9.0L, Hematocrit 26.9L , Mean Corpuscular Volume 100H, Mean Corpuscular Hemoglobin 33.3H, Mean Corpuscular Hemoglobin Concent 33.4, Red Cell Distribution Width 14.6, Platelet Count 102L, Mean Platelet Volume 8.2, Neutrophils (%) (Auto) 83.0H, Lymphocytes (%) (Auto) 8.8L, Monocytes (%) (Auto) 5.0, Eosinophils (%) (Auto) 2.7, Basophils (%) (Auto) 0.5, Sodium Level 136, Potassium Level 3.7, Chloride Level 104, Carbon Dioxide Level 23, Anion Gap 9, Blood Urea Nitrogen 6L, Creatinine 0.8, Estimat Glomerular Filtration Rate , Glucose Level 130H, Calcium Level 7.8L , Phosphorus Level 2.2L, Magnesium Level 1.8, Total Bilirubin 0.5, Aspartate Amino Transf (AST/SGOT) 12, Alanine Aminotransferase (ALT/SGPT) 17, Alkaline Phosphatase 79, Total Protein 5.2L, Albumin 2.0L, Globulin 3.2, Albumin/ Globulin Ratio 0.6L 10/12/16 08:00: Arterial Blood pH 7.511H, Arterial Blood Partial Pressure CO2 33.2L, Arterial Blood Partial Pressure O2 69.1L, Arterial Blood HCO3 26.0, Arterial Blood Oxygen Saturation 93.5, Arterial Blood Base Excess 3.1, Nicholas Test Positive Height (Feet): 5 Height (Inches): 7.00 Weight (Pounds): 142 General Appearance: no apparent distress Abdomen: no organomegaly Extremities: non-tender 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
[2016-10-12] MEDS: Tamsulosin 0.4mg cap ORAL SCH (20:54)
[2016-10-13] VITALS (25 sets, daily range): BP systolic 125–195; BP diastolic 40–63
[2016-10-13 05:30] LABS: BASOPHILS % (AUTO) 0.5 % (0.0-2.0); EOSINOPHILS % (AUTO) 2.7 % (0.0-3.0); MEAN CORPUSCULAR HGB CONC 33.8 G/DL (32.0-36.0); MEAN CORPUSCULAR VOLUME 98 FL (80-99); MEAN PLATELET VOLUME 7.7 FL (6.5-10.1); MONOCYTES % (AUTO) 6.5 % (1.0-10.0); NEUTROPHILS % (AUTO) 77.3 % (45.0-75.0); PLATELET COUNT 132 K/UL (150-450); RED BLOOD COUNT 2.87 M/UL (4.70-6.10); RED CELL DISTRIBUTION WIDTH 15.4 % (11.6-14.8); WHITE BLOOD COUNT 7.7 K/UL (4.8-10.8)
[2016-10-13] MEDS: Amiodarone 200mg tab ORAL SCH ×3 (05:43→22:23)
[2016-10-13] MEDS: NovoLOG Insulin Flexpen SUBQ SCH ×4 (05:44→23:38)
[2016-10-13 05:59] LABS: ALANINE AMINOTRANSFERASE 13 U/L (3-41); ALBUMIN/GLOBULIN RATIO 0.4 (1.0-2.7); ANION GAP 10 (5-15); ASPARTATE AMINO TRANSFERASE 9 U/L (5-40); CALCIUM 8.2 mg/dL (8.6-10.2); CARBON DIOXIDE 24 mEQ/L (20-30); CHLORIDE 103 mEQ/L (98-107); CREATININE 0.7 mg/dL (0.7-1.2); HEMOLYSIS 3; MAGNESIUM 1.7 mg/dL (1.7-2.5); PHOSPHORUS 2.3 mg/dL (2.5-4.8); POTASSIUM 3.6 mEQ/L (3.4-4.9); SODIUM 137 mEQ/L (135-145); TOTAL PROTEIN 5.7 g/dL (6.6-8.7)
[2016-10-13 07:47] LABS: ABG ALLEN TEST POSITIVE; ABG BASE EXCESS 3.2
[2016-10-13] MEDS: Lisinopril 10mg tab ORAL SCH ×2 (09:23→18:02)
[2016-10-13] MEDS: Heparin 5000 units/ml inj SUBQ SCH ×2 (09:25→20:51)
--- NOTE | 2016-10-13 11:24 | Pulmonolgy Critical Care Note ---
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 Respiratory: monitor respiratory rate, adjust FIO2, CXR Cardiac: d/c cafeteria monitor Renal: F/U I&O, keep IV fluid, check electrolytes Infectious Disease: check cultures, continue antibiotics Gastrointestinal: continue feedings/current rate Endocrine: monitor blood sugar, continue sliding scale insulin Hematologic: monitor H/H, transfuse if hgb<8.5 Neurologic: PRN Ativan, keep patient comfortable Affect: PRN ativan Time Spent (Minutes): 40 Notes Reviewed: cardio, renal Discussed with: nurses, consultants, casey saw operatormanager apple - Objective Last 24 Hour Vital Signs Date Time Temp Pulse Resp B/P (MAP) Pulse Ox O2 Delivery O2 Flow Rate FiO2 10/13/16 10:00 77 16 135/46 97 Mechanical Ventilator 40 10/13/16 09:25 74 15 40 10/13/16 09:23 152/52 10/13/16 09:23 88 153/56 10/13/16 09:00 80 16 142/47 97 Mechanical Ventilator 40 10/13/16 08:00 99.2 80 16 132/45 98 Mechanical Ventilator 40 10/13/16 08:00 40 10/13/16 08:00 77 10/13/16 07:11 88 16 40 10/13/16 07:00 91 17 162/51 98 Mechanical Ventilator 40 10/13/16 06:00 91 16 153/56 97 Mechanical Ventilator 40 10/13/16 05:47 171/52 10/13/16 05:22 96 26 40 10/13/16 05:00 89 18 171/52 96 Mechanical Ventilator 40 10/13/16 04:00 97.4 82 16 145/46 98 Mechanical Ventilator 40 10/13/16 04:00 40 10/13/16 04:00 80 10/13/16 03:12 67 16 40 10/13/16 03:00 66 16 136/46 99 Mechanical Ventilator 40 10/13/16 02:00 73 18 127/45 99 Mechanical Ventilator 40 10/13/16 01:00 78 16 125/40 99 Mechanical Ventilator 40 10/13/16 00:42 74 16 40 10/13/16 00:00 86 10/13/16 00:00 98.5 86 16 136/45 98 Mechanical Ventilator 40 10/13/16 00:00 40 10/12/16 23:06 84 16 40 10/12/16 23:00 84 16 133/44 99 Mechanical Ventilator 40 10/12/16 22:00 85 17 152/47 98 Mechanical Ventilator 40 10/12/16 21:52 162/66 10/12/16 21:10 78 16 40 10/12/16 21:00 86 16 162/66 98 Mechanical Ventilator 40 10/12/16 20:00 40 10/12/16 20:00 98.0 77 16 161/58 97 Mechanical Ventilator 40 10/12/16 20:00 76 10/12/16 19:24 75 16 40 10/12/16 19:00 81 19 140/56 97 Mechanical Ventilator 40 10/12/16 18:00 97.8 77 18 147/53 96 Mechanical Ventilator 40 10/12/16 17:36 153/62 10/12/16 17:36 77 153/62 10/12/16 17:00 82 19 153/62 100 Mechanical Ventilator 40 10/12/16 16:56 87 18 40 10/12/16 16:00 98.0 77 17 145/74 96 Mechanical Ventilator 40 10/12/16 16:00 40 10/12/16 16:00 80 10/12/16 15:00 87 20 159/55 100 Mechanical Ventilator 40 10/12/16 14:45 85 17 40 10/12/16 14:00 78 21 155/55 100 Mechanical Ventilator 40 10/12/16 13:00 85 21 154/50 97 Mechanical Ventilator 40 10/12/16 12:41 85 22 40 10/12/16 12:00 94 10/12/16 12:00 40 10/12/16 12:00 98.1 93 17 136/49 96 Mechanical Ventilator 40 10/12/16 11:26 165/57 Status: awake Condition: critical HEENT: atraumatic Neck: full ROM Lungs: rales, rhonchi Heart: HR/BP stable Abdomen: soft, non-tender, active bowel sounds, feeding tube Extremities: edema Decubiti: location, stage Accucheck: 134 Critical Care - Subjective ROS Limited/Unobtainable: Yes ICU Day: 8 Intubation Day: 8 Condition: critical FI02: 40 Vent Support Breath Rate: 10 Vent Support Mode: IMV/SIMV Vent Tidal Volume: 600 Sputum Amount: Scant PEEP: 5.0 PIP: 41 Tube Feeding Amount: 30 I&O: Intake and Output 10/13/16 10/14/16 19:00 07:00 Intake Total 140 ml Output Total 170 ml Balance -30 ml Tube Feeding 90 ml Other 50 ml Output Urine Total 170 ml Stool Total 0 ml CXR: pulmonary edema, ET in right position ET-Tube: 7.5 ET Position: 24 Labs: Laboratory Tests Test 10/13/16 04:30 10/13/16 07:36 White Blood Count 7.7 K/UL (4.8-10.8) Red Blood Count 2.87 M/UL (4.70-6.10) L Hemoglobin 9.5 G/DL (14.2-18.0) L Hematocrit 28.1 % (42.0-52.0) L Mean Corpuscular Volume 98 FL (80-99) Mean Corpuscular Hemoglobin 33.0 PG (27.0-31.0) H Mean Corpuscular Hemoglobin Concent 33.8 G/DL (32.0-36.0) Red Cell Distribution Width 15.4 % (11.6-14.8) H Platelet Count 132 K/UL (150-450) L Mean Platelet Volume 7.7 FL (6.5-10.1) Neutrophils (%) (Auto) 77.3 % (45.0-75.0) H Lymphocytes (%) (Auto) 13.0 % (20.0-45.0) L Monocytes (%) (Auto) 6.5 % (1.0-10.0) Eosinophils (%) (Auto) 2.7 % (0.0-3.0) Basophils (%) (Auto) 0.5 % (0.0-2.0) Sodium Level 137 mEQ/L (135-145) Potassium Level 3.6 mEQ/L (3.4-4.9) Chloride Level 103 mEQ/L (98-107) Carbon Dioxide Level 24 mEQ/L (20-30) Anion Gap 10 (5-15) Blood Urea Nitrogen 6 mg/dL (7-23) L Creatinine 0.7 mg/dL (0.7-1.2) Estimat Glomerular Filtration Rate mL/min (>60) Glucose Level 122 mg/dL (74-106) H Calcium Level 8.2 mg/dL (8.6-10.2) L Phosphorus Level 2.3 mg/dL (2.5-4.8) L Magnesium Level 1.7 mg/dL (1.7-2.5) Total Bilirubin 0.6 mg/dL (0.0-1.2) Aspartate Amino Transf (AST/SGOT) 9 U/L (5-40) Alanine Aminotransferase (ALT/SGPT) 13 U/L (3-41) Alkaline Phosphatase 79 U/L (40-129) Total Protein 5.7 g/dL (6.6-8.7) L Albumin 1.8 g/dL (3.5-5.2) L Globulin 3.9 g/dL Albumin/Globulin Ratio 0.4 (1.0-2.7) L Arterial Blood pH 7.500 (7.350-7.450) Arterial Blood Partial Pressure CO2 34.0 mmHg (35.0-45.0) L Arterial Blood Partial Pressure O2 67.7 mmHg (75.0-100.0) L Arterial Blood HCO3 26.3 mmol/L (22.0-26.0) H Arterial Blood Oxygen Saturation 94.0 % (92.0-98.0) Arterial Blood Base Excess 3.2 Nicholas Test Positive VERITO MONTESINOS Oct 13, 2016 11:24
--- NOTE | 2016-10-13 12:18 | Diagnostic Imaging Report ---
Indication: Dyspnea Comparison: None A single view chest radiograph was obtained. Findings: Patchy airspace opacities again demonstrated throughout the lungs bilaterally. Findings are relatively unchanged. Bilateral pleural effusions are suspected. Heart size is stable. Tubes and lines are stable. Impression: No significant change coordinator the last day
[2016-10-13] MEDS ORDERED: KCl 10% 40mEq/30ml liquid NG ONE (12:30)
[2016-10-13] MEDS ORDERED: Tubing IV Secondary IV ONE (13:48)
--- NOTE | 2016-10-13 16:00 | Infectious Diseases Prog Note ---
Assessment/Plan Assessment/Plan Assessment: Acute respiratory failure, multifocal pneumonia, c/b afib with RVR now on rate control, off pressors for >72hrs with normalization of leukocytosis now s/p course of IV vancomycin and zosyn with cultures of blood from 10/05 neg to date. Mildly elevated ferritin c/w acute phase reactant in acute illness. sputum cx obtained on 10/06 after 24 hrs of broad spectum abx growing only scant Carroll albicans which should be considered a commensal/ colonizer here. 1) Multifocal Pneumonia, L effusion, s/p treatment completed 10/12/1610/05 blood cx ngtd 10/06 sputum cx: scant carroll (obtained on abx) 2) septic shock, currently off pressors since 10/06 3) Hypercarbic Respiratory failure requiring intubation; initial chem panel and ABG showed an acute respiratory acidosis with concomitant lactic acidosis metabolic acidosis. TTE with dilated IVC not suggestive of hypovolemic shock. 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 10) Afib with RVR, rate controlled s/p amio gtt now on oral 11) nl LFTs 12) hypoalbuminemia 13) MRSA and VRE screening negative 14) liquid stools, C diff pcr negative 10/08 15) pulmonary edema 16) perianal tinea PLAN: --Monitor off abx (10/12 s/p IV vancomycin and zosyn D#7) (10/07 s/p amikacin IV D#3) --condom catheter care --sacral wound care --monitor pleural effusion, stable with pos pressure ventilation --continue topical clotrimazole to perineal area Subjective ROS Limited/Unobtainable: Yes Allergies: Coded Allergies: No Known Allergies (Unverified , 07/19/12) Objective Vital Signs Last 24 Hour Vital Signs Date Time Temp Pulse Resp B/P (MAP) Pulse Ox O2 Delivery O2 Flow Rate FiO2 10/13/16 15:05 103 30 40 10/13/16 15:00 101 29 139/47 97 Mechanical Ventilator 40 10/13/16 14:45 146/50 10/13/16 14:30 108 33 151/47 95 Mechanical Ventilator 40 10/13/16 14:00 110 33 195/43 95 Mechanical Ventilator 40 10/13/16 13:09 85 16 40 10/13/16 13:00 96 29 167/52 97 Mechanical Ventilator 40 10/13/16 12:55 172/56 10/13/16 12:00 99.4 87 26 168/52 97 Mechanical Ventilator 40 10/13/16 12:00 40 10/13/16 12:00 88 10/13/16 11:21 98 10/13/16 11:15 70 18 40 10/13/16 11:00 85 24 135/50 97 Mechanical Ventilator 40 10/13/16 10:00 77 16 135/46 97 Mechanical Ventilator 40 10/13/16 09:25 74 15 40 10/13/16 09:23 152/52 10/13/16 09:23 88 153/56 10/13/16 09:00 80 16 142/47 97 Mechanical Ventilator 40 10/13/16 08:00 99.2 80 16 132/45 98 Mechanical Ventilator 40 10/13/16 08:00 40 10/13/16 08:00 77 10/13/16 07:11 88 16 40 10/13/16 07:00 91 17 162/51 98 Mechanical Ventilator 40 10/13/16 06:00 91 16 153/56 97 Mechanical Ventilator 40 10/13/16 05:47 171/52 10/13/16 05:22 96 26 40 10/13/16 05:00 89 18 171/52 96 Mechanical Ventilator 40 10/13/16 04:00 97.4 82 16 145/46 98 Mechanical Ventilator 40 10/13/16 04:00 40 10/13/16 04:00 80 10/13/16 03:12 67 16 40 10/13/16 03:00 66 16 136/46 99 Mechanical Ventilator 40 10/13/16 02:00 73 18 127/45 99 Mechanical Ventilator 40 10/13/16 01:00 78 16 125/40 99 Mechanical Ventilator 40 10/13/16 00:42 74 16 40 10/13/16 00:00 86 10/13/16 00:00 98.5 86 16 136/45 98 Mechanical Ventilator 40 10/13/16 00:00 40 10/12/16 23:06 84 16 40 10/12/16 23:00 84 16 133/44 99 Mechanical Ventilator 40 10/12/16 22:00 85 17 152/47 98 Mechanical Ventilator 40 10/12/16 21:52 162/66 10/12/16 21:10 78 16 40 10/12/16 21:00 86 16 162/66 98 Mechanical Ventilator 40 10/12/16 20:00 40 10/12/16 20:00 98.0 77 16 161/58 97 Mechanical Ventilator 40 10/12/16 20:00 76 10/12/16 19:24 75 16 40 10/12/16 19:00 81 19 140/56 97 Mechanical Ventilator 40 10/12/16 18:00 97.8 77 18 147/53 96 Mechanical Ventilator 40 10/12/16 17:36 153/62 10/12/16 17:36 77 153/62 10/12/16 17:00 82 19 153/62 100 Mechanical Ventilator 40 10/12/16 16:56 87 18 40 10/12/16 16:00 98.0 77 17 145/74 96 Mechanical Ventilator 40 10/12/16 16:00 40 10/12/16 16:00 80 Height (Feet): 5 Height (Inches): 7.00 Weight (Pounds): 144 Objective GEN: intubated on vent full support, not on pressors, alert HEENT: Mild pale conjunctiva. oral mucosa dry, pharynx w/o exudate or effusion. No icterus. Head normocephalic, neck supple. NECK: No cervical LAD CHEST: scattered rhonchi, coarse breath sounds throughout, decreased breath sounds on L base. copious thick secretions. HEART: S1 and S2, no murmurs, no rubs. ABDOMEN: soft, non tender, non distended, normoactive bowel sounds. EXTREMITIES: No cyanosis, no clubbing, no edema. extremities warm with brisk cap refill. scattered ecchymosis on hands/arms. no CVC. NEUROLOGIC: intubated. moves all 4 extremities spontaneously : condom cath in place draining clear yellow urine. mild scrotal edema w/o erythema. mild perianal erythema c/w tinea cruris. LYMPH: no LAD RECTAL: deferred. reviewed wound care report of mid sacral pressure ulcer with deep tissue injury rectal tube in place draining liquid brown stool Laboratory Tests Test 10/13/16 04:30 10/13/16 07:36 White Blood Count 7.7 K/UL (4.8-10.8) Red Blood Count 2.87 M/UL (4.70-6.10) L Hemoglobin 9.5 G/DL (14.2-18.0) L Hematocrit 28.1 % (42.0-52.0) L Mean Corpuscular Volume 98 FL (80-99) Mean Corpuscular Hemoglobin 33.0 PG (27.0-31.0) H Mean Corpuscular Hemoglobin Concent 33.8 G/DL (32.0-36.0) Red Cell Distribution Width 15.4 % (11.6-14.8) H Platelet Count 132 K/UL (150-450) L Mean Platelet Volume 7.7 FL (6.5-10.1) Neutrophils (%) (Auto) 77.3 % (45.0-75.0) H Lymphocytes (%) (Auto) 13.0 % (20.0-45.0) L Monocytes (%) (Auto) 6.5 % (1.0-10.0) Eosinophils (%) (Auto) 2.7 % (0.0-3.0) Basophils (%) (Auto) 0.5 % (0.0-2.0) Sodium Level 137 mEQ/L (135-145) Potassium Level 3.6 mEQ/L (3.4-4.9) Chloride Level 103 mEQ/L (98-107) Carbon Dioxide Level 24 mEQ/L (20-30) Anion Gap 10 (5-15) Blood Urea Nitrogen 6 mg/dL (7-23) L Creatinine 0.7 mg/dL (0.7-1.2) Estimat Glomerular Filtration Rate mL/min (>60) Glucose Level 122 mg/dL (74-106) H Calcium Level 8.2 mg/dL (8.6-10.2) L Phosphorus Level 2.3 mg/dL (2.5-4.8) L Magnesium Level 1.7 mg/dL (1.7-2.5) Total Bilirubin 0.6 mg/dL (0.0-1.2) Aspartate Amino Transf (AST/SGOT) 9 U/L (5-40) Alanine Aminotransferase (ALT/SGPT) 13 U/L (3-41) Alkaline Phosphatase 79 U/L (40-129) Total Protein 5.7 g/dL (6.6-8.7) L Albumin 1.8 g/dL (3.5-5.2) L Globulin 3.9 g/dL Albumin/Globulin Ratio 0.4 (1.0-2.7) L Arterial Blood pH 7.500 (7.350-7.450) Arterial Blood Partial Pressure CO2 34.0 mmHg (35.0-45.0) L Arterial Blood Partial Pressure O2 67.7 mmHg (75.0-100.0) L Arterial Blood HCO3 26.3 mmol/L (22.0-26.0) H Arterial Blood Oxygen Saturation 94.0 % (92.0-98.0) Arterial Blood Base Excess 3.2 Nicholas Test Positive Current Medications Medications (Trade) Dose Ordered Sig/Bhavna Route PRN Reason Start Time Stop Time Status Last Admin Dose Admin Acetaminophen (Tylenol) 650 mg Q4H PRN ORAL fever 10/05/16 10:30 11/04/16 10:29 10/06/16 14:24 Albuterol/ Ipratropium (DuoNeb 0.5-3(2.5)mg/3ml) 3 ml Q4H PRN HHN Shortness of Breath 10/09/16 10:00 10/14/16 09:59 Amiodarone HCl (Cordarone) 400 mg EVERY 8 HOURS ORAL 10/06/16 22:00 11/05/16 21:59 10/13/16 14:19 Amlodipine Besylate (Norvasc) 5 mg BID ORAL 10/10/16 21:00 11/09/16 20:59 10/13/16 09:23 Clotrimazole (Lotrimin) 1 applic THREE TIMES A DAY TOPIC 10/13/16 13:00 11/12/16 12:59 10/13/16 12:56 Dextrose (Dextrose 50%) STAT PRN IV Hypoglycemia 10/06/16 18:30 11/05/16 18:29 Furosemide (Lasix) 20 mg EVERY 12 HOURS IV 10/13/16 12:00 11/12/16 11:59 10/13/16 12:39 Heparin Sodium (Porcine) (Heparin 5000 units/ml) 5,000 units EVERY 12 HOURS SUBQ 10/05/16 21:00 11/04/16 20:59 10/13/16 09:25 Hydralazine HCl (Apresoline) 10 mg Q6H PRN IV sbp above 160 10/09/16 09:30 11/08/16 09:29 10/13/16 12:55 Insulin Aspart (NovoLOG) Q6HR SUBQ 10/07/16 00:00 11/06/16 00:00 10/13/16 12:40 Lisinopril (Zestril) 10 mg BID ORAL 10/11/16 11:00 11/10/16 10:59 10/13/16 09:23 Metoprolol Tartrate (Lopressor) 5 mg Q5MIN X 3 IVP 10/06/16 14:30 11/05/16 14:29 10/06/16 14:39 Norepinephrine Bitartrate 4 mg/ Dextrose 254 ml @ 0 mls/hr Q24H IV 10/05/16 14:45 11/04/16 14:44 10/06/16 00:46 Ondansetron HCl (Zofran) 4 mg Q6H PRN IVP Nausea & Vomiting 10/05/16 10:30 11/04/16 10:29 10/10/16 09:54 Ranitidine HCl (Zantac) 150 mg Q12HR NG 10/10/16 21:00 11/09/16 20:59 10/13/16 09:24 Tamsulosin HCl (Flomax) 0.4 mg BEDTIME ORAL 10/05/16 21:00 11/04/16 20:59 10/12/16 20:54 Alfonso Mathur M.D. Oct 13, 2016 16:00
--- NOTE | 2016-10-13 16:52 | General Progress Note ---
Assessment/Plan Assessment/Plan 1. Anemia secondary to chronic disease. Anemia workup has been reviewed. Folate within normal limits as his B12. TSH is within normal limits. Ferritin is 137, sufficient. No evidence of iron deficiency --> Transfuse if hemoglobin is less than 7. 2. Coagulopathy. PTT is 50. We will order a PTT and mixing study at this time. --> pending 3. Thrombocytopenia in a patient secondary to underlying sepsis. --> plt count improving 4. History of hypercapnic respiratory failure, is intubated. 5. Paroxysmal atrial fibrillation. Being seen by Cardiology service. He is on amiodarone. 6. Pneumonia and sepsis. --> s/p abx per id service Subjective Hematologic/Lymphatic: Reports: anemia Allergies: Coded Allergies: No Known Allergies (Unverified , 07/19/12) All Systems: reviewed and negative except above Subjective no major changes Objective Last 24 Hour Vital Signs Date Time Temp Pulse Resp B/P (MAP) Pulse Ox O2 Delivery O2 Flow Rate FiO2 10/13/16 15:05 103 30 40 10/13/16 15:00 101 29 139/47 97 Mechanical Ventilator 40 10/13/16 14:45 146/50 10/13/16 14:30 108 33 151/47 95 Mechanical Ventilator 40 10/13/16 14:00 110 33 195/43 95 Mechanical Ventilator 40 10/13/16 13:09 85 16 40 10/13/16 13:00 96 29 167/52 97 Mechanical Ventilator 40 10/13/16 12:55 172/56 10/13/16 12:00 99.4 87 26 168/52 97 Mechanical Ventilator 40 10/13/16 12:00 40 10/13/16 12:00 88 10/13/16 11:21 98 10/13/16 11:15 70 18 40 10/13/16 11:00 85 24 135/50 97 Mechanical Ventilator 40 10/13/16 10:00 77 16 135/46 97 Mechanical Ventilator 40 10/13/16 09:25 74 15 40 10/13/16 09:23 152/52 10/13/16 09:23 88 153/56 10/13/16 09:00 80 16 142/47 97 Mechanical Ventilator 40 10/13/16 08:00 99.2 80 16 132/45 98 Mechanical Ventilator 40 10/13/16 08:00 40 10/13/16 08:00 77 8/24/17 07:11 88 16 40 10/13/16 07:00 91 17 162/51 98 Mechanical Ventilator 40 10/13/16 06:00 91 16 153/56 97 Mechanical Ventilator 40 10/13/16 05:47 171/52 10/13/16 05:22 96 26 40 10/13/16 05:00 89 18 171/52 96 Mechanical Ventilator 40 10/13/16 04:00 97.4 82 16 145/46 98 Mechanical Ventilator 40 10/13/16 04:00 40 10/13/16 04:00 80 10/13/16 03:12 67 16 40 10/13/16 03:00 66 16 136/46 99 Mechanical Ventilator 40 10/13/16 02:00 73 18 127/45 99 Mechanical Ventilator 40 10/13/16 01:00 78 16 125/40 99 Mechanical Ventilator 40 10/13/16 00:42 74 16 40 10/13/16 00:00 86 10/13/16 00:00 98.5 86 16 136/45 98 Mechanical Ventilator 40 10/13/16 00:00 40 10/12/16 23:06 84 16 40 10/12/16 23:00 84 16 133/44 99 Mechanical Ventilator 40 10/12/16 22:00 85 17 152/47 98 Mechanical Ventilator 40 10/12/16 21:52 162/66 10/12/16 21:10 78 16 40 10/12/16 21:00 86 16 162/66 98 Mechanical Ventilator 40 10/12/16 20:00 40 10/12/16 20:00 98.0 77 16 161/58 97 Mechanical Ventilator 40 10/12/16 20:00 76 10/12/16 19:24 75 16 40 10/12/16 19:00 81 19 140/56 97 Mechanical Ventilator 40 10/12/16 18:00 97.8 77 18 147/53 96 Mechanical Ventilator 40 10/12/16 17:36 153/62 10/12/16 17:36 77 153/62 10/12/16 17:00 82 19 153/62 100 Mechanical Ventilator 40 10/12/16 16:56 87 18 40 Intake and Output 10/13/16 10/14/16 19:00 07:00 Intake Total 290 ml Output Total 1000 ml Balance -710 ml Tube Feeding 240 ml Other 50 ml Output Urine Total 1000 ml Stool Total 0 ml Laboratory Tests 10/13/16 04:30: White Blood Count 7.7, Red Blood Count 2.87L, Hemoglobin 9.5L, Hematocrit 28.1L , Mean Corpuscular Volume 98, Mean Corpuscular Hemoglobin 33.0H, Mean Corpuscular Hemoglobin Concent 33.8, Red Cell Distribution Width 15.4H, Platelet Count 132L, Mean Platelet Volume 7.7, Neutrophils (%) (Auto) 77.3H, Lymphocytes (%) (Auto) 13.0L, Monocytes (%) (Auto) 6.5, Eosinophils (%) (Auto) 2.7, Basophils (%) (Auto) 0.5, Sodium Level 137, Potassium Level 3.6, Chloride Level 103, Carbon Dioxide Level 24, Anion Gap 10, Blood Urea Nitrogen 6L, Creatinine 0.7, Estimat Glomerular Filtration Rate , Glucose Level 122H, Calcium Level 8.2L, Phosphorus Level 2.3L, Magnesium Level 1.7, Total Bilirubin 0.6, Aspartate Amino Transf (AST/SGOT) 9, Alanine Aminotransferase (ALT/SGPT) 13 , Alkaline Phosphatase 79, Total Protein 5.7L, Albumin 1.8L, Globulin 3.9, Albumin/Globulin Ratio 0.4L 10/13/16 07:36: Arterial Blood pH 7.500H, Arterial Blood Partial Pressure CO2 34.0L, Arterial Blood Partial Pressure O2 67.7L, Arterial Blood HCO3 26.3H, Arterial Blood Oxygen Saturation 94.0, Arterial Blood Base Excess 3.2, Nicholas Test Positive Height (Feet): 5 Height (Inches): 7.00 Weight (Pounds): 144 General Appearance: no apparent distress EENT: normal ENT inspection Cardiovascular: normal peripheral pulses Extremities: normal range of motion Neurologic: no motor/sensory deficits Skin: warm/dry Bret Dunham Oct 13, 2016 16:52
--- NOTE | 2016-10-13 19:30 | Cardiology Progress Note ---
Assessment/Plan Assessment/Plan 1. Severe tachycardia resolved 2. Atrial fibrillation, acute in onset with rapid ventricular response converted to sinus 3. Respiratory failure. 4. Pneumonia. 5. Dementia. 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 7. Hypotension earlier. 8. Leukocytosis. 9. Respiratory acidosis. on amiod loading bp is elevated add meds hr i s ok tele sinus no afib vent support abx pulm rxn bp seem ok Subjective ROS Limited/Unobtainable: Yes Objective Last 24 Hour Vital Signs Date Time Temp Pulse Resp B/P (MAP) Pulse Ox O2 Delivery O2 Flow Rate FiO2 10/13/16 19:01 87 18 40 10/13/16 19:00 82 16 138/63 98 Mechanical Ventilator 40 10/13/16 18:02 144/47 10/13/16 18:02 92 144/47 10/13/16 18:00 80 18 145/48 98 Mechanical Ventilator 40 10/13/16 17:00 95 18 143/45 100 Mechanical Ventilator 40 10/13/16 17:00 95 24 40 10/13/16 16:00 98.0 98 29 142/47 94 Mechanical Ventilator 40 10/13/16 16:00 101 10/13/16 16:00 40 10/13/16 15:05 103 30 40 10/13/16 15:00 101 29 139/47 97 Mechanical Ventilator 40 10/13/16 14:45 146/50 10/13/16 14:30 108 33 151/47 95 Mechanical Ventilator 40 10/13/16 14:00 110 33 195/43 95 Mechanical Ventilator 40 10/13/16 13:09 85 16 40 10/13/16 13:00 96 29 167/52 97 Mechanical Ventilator 40 10/13/16 12:55 172/56 10/13/16 12:00 99.4 87 26 168/52 97 Mechanical Ventilator 40 10/13/16 12:00 40 10/13/16 12:00 88 10/13/16 11:21 98 10/13/16 11:15 70 18 40 10/13/16 11:00 85 24 135/50 97 Mechanical Ventilator 40 10/13/16 10:00 77 16 135/46 97 Mechanical Ventilator 40 10/13/16 09:25 74 15 40 10/13/16 09:23 152/52 10/13/16 09:23 88 153/56 10/13/16 09:00 80 16 142/47 97 Mechanical Ventilator 40 10/13/16 08:00 99.2 80 16 132/45 98 Mechanical Ventilator 40 10/13/16 08:00 40 10/13/16 08:00 77 10/13/16 07:11 88 16 40 10/13/16 07:00 91 17 162/51 98 Mechanical Ventilator 40 10/13/16 06:00 91 16 153/56 97 Mechanical Ventilator 40 10/13/16 05:47 171/52 10/13/16 05:22 96 26 40 10/13/16 05:00 89 18 171/52 96 Mechanical Ventilator 40 10/13/16 04:00 97.4 82 16 145/46 98 Mechanical Ventilator 40 10/13/16 04:00 40 10/13/16 04:00 80 10/13/16 03:12 67 16 40 10/13/16 03:00 66 16 136/46 99 Mechanical Ventilator 40 10/13/16 02:00 73 18 127/45 99 Mechanical Ventilator 40 10/13/16 01:00 78 16 125/40 99 Mechanical Ventilator 40 10/13/16 00:42 74 16 40 10/13/16 00:00 86 10/13/16 00:00 98.5 86 16 136/45 98 Mechanical Ventilator 40 10/13/16 00:00 40 10/12/16 23:06 84 16 40 10/12/16 23:00 84 16 133/44 99 Mechanical Ventilator 40 10/12/16 22:00 85 17 152/47 98 Mechanical Ventilator 40 10/12/16 21:52 162/66 10/12/16 21:10 78 16 40 10/12/16 21:00 86 16 162/66 98 Mechanical Ventilator 40 10/12/16 20:00 40 10/12/16 20:00 98.0 77 16 161/58 97 Mechanical Ventilator 40 10/12/16 20:00 76 General Appearance: on vent Neck: supple Cardiovascular: normal rate, regular rhythm Respiratory/Chest: rhonchi - bilaterally Abdomen: normal bowel sounds, non tender, soft Extremities: no swelling Intake and Output 10/13/16 10/14/16 19:00 07:00 Intake Total 410 ml Output Total 1565 ml Balance -1155 ml Tube Feeding 360 ml Other 50 ml Output Urine Total 1465 ml Stool Total 100 ml Laboratory Tests Test 10/13/16 04:30 10/13/16 07:36 White Blood Count 7.7 K/UL (4.8-10.8) Red Blood Count 2.87 M/UL (4.70-6.10) L Hemoglobin 9.5 G/DL (14.2-18.0) L Hematocrit 28.1 % (42.0-52.0) L Mean Corpuscular Volume 98 FL (80-99) Mean Corpuscular Hemoglobin 33.0 PG (27.0-31.0) H Mean Corpuscular Hemoglobin Concent 33.8 G/DL (32.0-36.0) Red Cell Distribution Width 15.4 % (11.6-14.8) H Platelet Count 132 K/UL (150-450) L Mean Platelet Volume 7.7 FL (6.5-10.1) Neutrophils (%) (Auto) 77.3 % (45.0-75.0) H Lymphocytes (%) (Auto) 13.0 % (20.0-45.0) L Monocytes (%) (Auto) 6.5 % (1.0-10.0) Eosinophils (%) (Auto) 2.7 % (0.0-3.0) Basophils (%) (Auto) 0.5 % (0.0-2.0) Sodium Level 137 mEQ/L (135-145) Potassium Level 3.6 mEQ/L (3.4-4.9) Chloride Level 103 mEQ/L (98-107) Carbon Dioxide Level 24 mEQ/L (20-30) Anion Gap 10 (5-15) Blood Urea Nitrogen 6 mg/dL (7-23) L Creatinine 0.7 mg/dL (0.7-1.2) Estimat Glomerular Filtration Rate mL/min (>60) Glucose Level 122 mg/dL (74-106) H Calcium Level 8.2 mg/dL (8.6-10.2) L Phosphorus Level 2.3 mg/dL (2.5-4.8) L Magnesium Level 1.7 mg/dL (1.7-2.5) Total Bilirubin 0.6 mg/dL (0.0-1.2) Aspartate Amino Transf (AST/SGOT) 9 U/L (5-40) Alanine Aminotransferase (ALT/SGPT) 13 U/L (3-41) Alkaline Phosphatase 79 U/L (40-129) Total Protein 5.7 g/dL (6.6-8.7) L Albumin 1.8 g/dL (3.5-5.2) L Globulin 3.9 g/dL Albumin/Globulin Ratio 0.4 (1.0-2.7) L Arterial Blood pH 7.500 (7.350-7.450) Arterial Blood Partial Pressure CO2 34.0 mmHg (35.0-45.0) L Arterial Blood Partial Pressure O2 67.7 mmHg (75.0-100.0) L Arterial Blood HCO3 26.3 mmol/L (22.0-26.0) H Arterial Blood Oxygen Saturation 94.0 % (92.0-98.0) Arterial Blood Base Excess 3.2 Nicholas Test Positive ISACC GUEVARA Oct 13, 2016 19:30
[2016-10-13] MEDS: Tamsulosin 0.4mg cap ORAL SCH (20:49)
[2016-10-14] VITALS (25 sets, daily range): BP systolic 131–184; BP diastolic 41–62
[2016-10-14 05:39] LABS: BASOPHILS % (AUTO) 0.2 % (0.0-2.0); EOSINOPHILS % (AUTO) 0.7 % (0.0-3.0); LYMPHOCYTES % (AUTO) 9.4 % (20.0-45.0); MEAN CORPUSCULAR HEMOGLOBIN 33.9 PG (27.0-31.0); MEAN CORPUSCULAR HGB CONC 33.8 G/DL (32.0-36.0); MEAN CORPUSCULAR VOLUME 100 FL (80-99); MEAN PLATELET VOLUME 7.4 FL (6.5-10.1); MONOCYTES % (AUTO) 5.1 % (1.0-10.0); NEUTROPHILS % (AUTO) 84.6 % (45.0-75.0); PLATELET COUNT 152 K/UL (150-450); RED BLOOD COUNT 2.81 M/UL (4.70-6.10); WHITE BLOOD COUNT 11.1 K/UL (4.8-10.8)
[2016-10-14] MEDS: Amiodarone 200mg tab ORAL SCH ×2 (05:58→13:52)
[2016-10-14] MEDS: NovoLOG Insulin Flexpen SUBQ SCH ×4 (05:59→23:33)
[2016-10-14 06:23] LABS: ALANINE AMINOTRANSFERASE 12 U/L (3-41); ALBUMIN/GLOBULIN RATIO 0.5 (1.0-2.7); ANION GAP 9 (5-15); ASPARTATE AMINO TRANSFERASE 10 U/L (5-40); CALCIUM 8.2 mg/dL (8.6-10.2); CARBON DIOXIDE 27 mEQ/L (20-30); CHLORIDE 102 mEQ/L (98-107); CREATININE 0.9 mg/dL (0.7-1.2); HEMOLYSIS 5; PHOSPHORUS 2.9 mg/dL (2.5-4.8); POTASSIUM 3.8 mEQ/L (3.4-4.9); SODIUM 138 mEQ/L (135-145); TOTAL PROTEIN 6.1 g/dL (6.6-8.7)
[2016-10-14 08:07] LABS: ABG PCO2 40.2 mmHg (35.0-45.0)
[2016-10-14 08:08] LABS: ABG ALLEN TEST POSITIVE; ABG BASE EXCESS 5.1
[2016-10-14] MEDS: Heparin 5000 units/ml inj SUBQ SCH ×2 (09:38→21:09)
[2016-10-14] MEDS: Lisinopril 10mg tab ORAL SCH ×2 (09:39→18:46)
--- NOTE | 2016-10-14 10:25 | Pulmonolgy Critical Care Note ---
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 Respiratory: monitor respiratory rate, adjust FIO2, CXR Cardiac: continue to monitor HR/BP Renal: F/U I&O, keep IV fluid Infectious Disease: check cultures Gastrointestinal: continue feedings/current rate, hold feedings Endocrine: check TSH, continue sliding scale insulin Hematologic: monitor H/H, transfuse if hgb<8.5 Neurologic: PRN Morphine, keep patient comfortable Affect: PRN ativan Prophylaxis: Heparin Notes Reviewed: [place], cardio, renal Discussed with: nurses, clinical case managermanager analysis - Objective Last 24 Hour Vital Signs Date Time Temp Pulse Resp B/P (MAP) Pulse Ox O2 Delivery O2 Flow Rate FiO2 10/14/16 09:39 161/50 10/14/16 09:38 101 161/50 10/14/16 08:50 94 Venturi Mask 8.0 40 10/14/16 08:50 Venturi Mask 8.0 40 10/14/16 08:19 195/55 10/14/16 07:00 98 15 40 10/14/16 06:00 74 20 161/45 100 Mechanical Ventilator 40 10/14/16 05:00 98.7 66 16 147/43 100 Mechanical Ventilator 40 10/14/16 05:00 66 16 40 10/14/16 04:00 71 16 133/44 100 Mechanical Ventilator 40 10/14/16 04:00 71 10/14/16 04:00 40 10/14/16 03:28 76 23 40 10/14/16 03:00 84 19 155/54 99 Mechanical Ventilator 40 10/14/16 02:00 80 16 155/55 98 Mechanical Ventilator 40 10/14/16 01:25 81 16 40 10/14/16 01:00 87 17 131/45 97 Mechanical Ventilator 40 10/14/16 00:00 40 10/14/16 00:00 98.8 80 16 145/51 98 Mechanical Ventilator 40 10/14/16 00:00 80 10/13/16 23:28 76 16 40 10/13/16 23:00 74 16 133/49 98 Mechanical Ventilator 40 10/13/16 22:00 73 16 132/45 98 Mechanical Ventilator 40 10/13/16 21:21 70 16 40 10/13/16 21:00 75 16 147/47 99 Mechanical Ventilator 40 10/13/16 20:00 40 10/13/16 20:00 75 10/13/16 20:00 99.2 75 16 140/47 98 Mechanical Ventilator 40 10/13/16 19:01 87 18 40 10/13/16 19:00 82 16 138/63 98 Mechanical Ventilator 40 10/13/16 18:02 144/47 10/13/16 18:02 92 144/47 10/13/16 18:00 80 18 145/48 98 Mechanical Ventilator 40 10/13/16 17:00 95 18 143/45 100 Mechanical Ventilator 40 10/13/16 17:00 95 24 40 10/13/16 16:00 98.0 98 29 142/47 94 Mechanical Ventilator 40 10/13/16 16:00 101 10/13/16 16:00 40 10/13/16 15:05 103 30 40 10/13/16 15:00 101 29 139/47 97 Mechanical Ventilator 40 10/13/16 14:45 146/50 10/13/16 14:30 108 33 151/47 95 Mechanical Ventilator 40 10/13/16 14:00 110 33 195/43 95 Mechanical Ventilator 40 10/13/16 13:09 85 16 40 10/13/16 13:00 96 29 167/52 97 Mechanical Ventilator 40 10/13/16 12:55 172/56 10/13/16 12:00 99.4 87 26 168/52 97 Mechanical Ventilator 40 10/13/16 12:00 40 10/13/16 12:00 88 10/13/16 11:21 98 10/13/16 11:15 70 18 40 10/13/16 11:00 85 24 135/50 97 Mechanical Ventilator 40 Status: awake Condition: critical Neck: full ROM Lungs: clear Heart: HR/BP stable, HR/BP unstable Abdomen: soft, non-tender Extremities: no C/C/E Decubiti: location, stage Accucheck: 118 Critical Care - Subjective ICU Day: 9 Intubation Day: 9 Interval Events: ET tube balloon was ruptured, Et was removed. so far pt is tolerating face mask well FI02: 40 Vent Support Breath Rate: 16 Vent Support Mode: CPAP Vent Tidal Volume: 600 Sputum Amount: Moderate PEEP: 5.0 PIP: 25 Tube Feeding Amount: 30 CXR: pulmonary edema/ infiltrate unchanged. ET-Tube: 7.5 ET Position: 24 VERITO MONTESINOS Oct 14, 2016 10:25
--- NOTE | 2016-10-14 12:00 | Diagnostic Imaging Report ---
Indication: Dyspnea Comparison: 10/13/16 A single view chest radiograph was obtained. Findings: Jean Pierre consolidative opacities demonstrated at the lungs bilaterally unchanged. Heart size is stable. Tubes and lines are stable. Impression: No change control specialist the last day
--- NOTE | 2016-10-14 15:31 | Infectious Diseases Prog Note ---
Assessment/Plan Assessment/Plan Assessment: Acute respiratory failure, multifocal pneumonia, c/b afib with RVR now on rate control, off pressors for >72hrs with normalization of leukocytosis now s/p course of IV vancomycin and zosyn with cultures of blood from 10/05 neg to date. Mildly elevated ferritin c/w acute phase reactant in acute illness. sputum cx obtained on 10/06 after 24 hrs of broad spectum abx growing only scant Carroll albicans which should be considered a commensal/ colonizer here. 1) Multifocal Pneumonia, L effusion, s/p treatment completed 10/12/1610/05 blood cx ngtd 10/06 sputum cx: scant carroll (obtained on abx) 2) septic shock, currently off pressors since 10/06 3) Hypercarbic Respiratory failure requiring intubation; initial chem panel and ABG showed an acute respiratory acidosis with concomitant lactic acidosis metabolic acidosis. TTE with dilated IVC not suggestive of hypovolemic shock. 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 10) Afib with RVR, rate controlled s/p amio gtt now on oral 11) nl LFTs 12) hypoalbuminemia 13) MRSA and VRE screening negative 14) liquid stools, C diff pcr negative 10/08 15) pulmonary edema 16) perianal tinea PLAN: --Monitor off abx (10/12 s/p IV vancomycin and zosyn D#7) (10/07 s/p amikacin IV D#3) --condom catheter care --monitor CBC --sacral wound care --monitor pleural effusion, stable with pos pressure ventilation --continue topical clotrimazole to perineal area Subjective ROS Limited/Unobtainable: Yes Allergies: Coded Allergies: No Known Allergies (Unverified , 07/19/12) Objective Vital Signs Last 24 Hour Vital Signs Date Time Temp Pulse Resp B/P (MAP) Pulse Ox O2 Delivery O2 Flow Rate FiO2 10/14/16 14:00 96 30 142/41 100 Non-Rebreather 15.0 10/14/16 13:52 171/59 10/14/16 13:00 101 30 155/51 92 Venturi Mask 10.0 10/14/16 12:00 102 10/14/16 12:00 98.1 102 29 171/59 90 Venturi Mask 8.0 10/14/16 11:00 101 27 165/50 96 Venturi Mask 8.0 10/14/16 10:00 101 27 169/46 91 Venturi Mask 40 10/14/16 09:39 161/50 10/14/16 09:38 101 161/50 10/14/16 09:00 40 10/14/16 09:00 99 26 161/50 93 Venturi Mask 40 10/14/16 08:50 94 Venturi Mask 8.0 40 10/14/16 08:50 Venturi Mask 8.0 40 10/14/16 08:19 195/55 10/14/16 08:00 92 10/14/16 08:00 40 10/14/16 08:00 98.7 91 21 184/55 97 Mechanical Ventilator 40 10/14/16 07:00 90 21 179/51 96 Mechanical Ventilator 40 10/14/16 07:00 98 15 40 10/14/16 06:00 74 20 161/45 100 Mechanical Ventilator 40 10/14/16 05:00 98.7 66 16 147/43 100 Mechanical Ventilator 40 10/14/16 05:00 66 16 40 10/14/16 04:00 71 16 133/44 100 Mechanical Ventilator 40 10/14/16 04:00 71 10/14/16 04:00 40 10/14/16 03:28 76 23 40 10/14/16 03:00 84 19 155/54 99 Mechanical Ventilator 40 10/14/16 02:00 80 16 155/55 98 Mechanical Ventilator 40 10/14/16 01:25 81 16 40 10/14/16 01:00 87 17 131/45 97 Mechanical Ventilator 40 10/14/16 00:00 40 10/14/16 00:00 98.8 80 16 145/51 98 Mechanical Ventilator 40 10/14/16 00:00 80 10/13/16 23:28 76 16 40 10/13/16 23:00 74 16 133/49 98 Mechanical Ventilator 40 10/13/16 22:00 73 16 132/45 98 Mechanical Ventilator 40 10/13/16 21:21 70 16 40 10/13/16 21:00 75 16 147/47 99 Mechanical Ventilator 40 10/13/16 20:00 40 10/13/16 20:00 75 10/13/16 20:00 99.2 75 16 140/47 98 Mechanical Ventilator 40 10/13/16 19:01 87 18 40 10/13/16 19:00 82 16 138/63 98 Mechanical Ventilator 40 10/13/16 18:02 144/47 10/13/16 18:02 92 144/47 10/13/16 18:00 80 18 145/48 98 Mechanical Ventilator 40 10/13/16 17:00 95 18 143/45 100 Mechanical Ventilator 40 10/13/16 17:00 95 24 40 10/13/16 16:00 98.0 98 29 142/47 94 Mechanical Ventilator 40 10/13/16 16:00 101 10/13/16 16:00 40 Height (Feet): 5 Height (Inches): 7.00 Weight (Pounds): 143 Objective GEN: intubated on vent full support, not on pressors, opens eyes to voice HEENT: Mild pale conjunctiva. oral mucosa dry, pharynx w/o exudate or effusion. No icterus. Head normocephalic, neck supple. NECK: No cervical LAD CHEST: scattered rhonchi, coarse breath sounds throughout, decreased breath sounds on L base. copious thick secretions. HEART: S1 and S2, no murmurs, no rubs. ABDOMEN: soft, non tender, non distended, normoactive bowel sounds. EXTREMITIES: No cyanosis, no clubbing, no edema. extremities warm with brisk cap refill. scattered ecchymosis on hands/arms. no CVC. NEUROLOGIC: intubated. moves all 4 extremities spontaneously : condom cath in place draining clear yellow urine. mild scrotal edema w/o erythema. mild perianal erythema c/w tinea cruris. LYMPH: no LAD RECTAL: deferred. reviewed wound care report of mid sacral pressure ulcer with deep tissue injury rectal tube in place draining liquid brown stool Laboratory Tests Test 10/14/16 05:00 10/14/16 08:00 White Blood Count 11.1 K/UL (4.8-10.8) H Red Blood Count 2.81 M/UL (4.70-6.10) L Hemoglobin 9.5 G/DL (14.2-18.0) L Hematocrit 28.2 % (42.0-52.0) L Mean Corpuscular Volume 100 FL (80-99) H Mean Corpuscular Hemoglobin 33.9 PG (27.0-31.0) H Mean Corpuscular Hemoglobin Concent 33.8 G/DL (32.0-36.0) Red Cell Distribution Width 15.0 % (11.6-14.8) H Platelet Count 152 K/UL (150-450) Mean Platelet Volume 7.4 FL (6.5-10.1) Neutrophils (%) (Auto) 84.6 % (45.0-75.0) H Lymphocytes (%) (Auto) 9.4 % (20.0-45.0) L Monocytes (%) (Auto) 5.1 % (1.0-10.0) Eosinophils (%) (Auto) 0.7 % (0.0-3.0) Basophils (%) (Auto) 0.2 % (0.0-2.0) Sodium Level 138 mEQ/L (135-145) Potassium Level 3.8 mEQ/L (3.4-4.9) Chloride Level 102 mEQ/L (98-107) Carbon Dioxide Level 27 mEQ/L (20-30) Anion Gap 9 (5-15) Blood Urea Nitrogen 8 mg/dL (7-23) Creatinine 0.9 mg/dL (0.7-1.2) Estimat Glomerular Filtration Rate mL/min (>60) Glucose Level 121 mg/dL (74-106) H Calcium Level 8.2 mg/dL (8.6-10.2) L Phosphorus Level 2.9 mg/dL (2.5-4.8) Magnesium Level 2.0 mg/dL (1.7-2.5) Total Bilirubin 0.6 mg/dL (0.0-1.2) Aspartate Amino Transf (AST/SGOT) 10 U/L (5-40) Alanine Aminotransferase (ALT/SGPT) 12 U/L (3-41) Alkaline Phosphatase 70 U/L (40-129) Total Protein 6.1 g/dL (6.6-8.7) L Albumin 2.1 g/dL (3.5-5.2) L Globulin 4.0 g/dL Albumin/Globulin Ratio 0.5 (1.0-2.7) L Arterial Blood pH 7.477 (7.350-7.450) Arterial Blood Partial Pressure CO2 40.2 mmHg (35.0-45.0) Arterial Blood Partial Pressure O2 69.7 mmHg (75.0-100.0) L Arterial Blood HCO3 29.1 mmol/L (22.0-26.0) H Arterial Blood Oxygen Saturation 93.8 % (92.0-98.0) Arterial Blood Base Excess 5.1 Nicholas Test Positive Current Medications Medications (Trade) Dose Ordered Sig/Bhavna Route PRN Reason Start Time Stop Time Status Last Admin Dose Admin Acetaminophen (Tylenol) 650 mg Q4H PRN ORAL fever 10/05/16 10:30 11/04/16 10:29 10/06/16 14:24 Amiodarone HCl (Cordarone) 400 mg EVERY 8 HOURS ORAL 10/06/16 22:00 11/05/16 21:59 10/14/16 13:52 Amlodipine Besylate (Norvasc) 5 mg BID ORAL 10/10/16 21:00 11/09/16 20:59 10/14/16 09:38 Clotrimazole (Lotrimin) 1 applic THREE TIMES A DAY TOPIC 10/13/16 13:00 11/12/16 12:59 10/14/16 12:42 Dextrose (Dextrose 50%) STAT PRN IV Hypoglycemia 10/06/16 18:30 11/05/16 18:29 Furosemide (Lasix) 20 mg EVERY 12 HOURS IV 10/13/16 12:00 11/12/16 11:59 10/14/16 09:37 Heparin Sodium (Porcine) (Heparin 5000 units/ml) 5,000 units EVERY 12 HOURS SUBQ 10/05/16 21:00 11/04/16 20:59 10/14/16 09:38 Hydralazine HCl (Apresoline) 10 mg Q6H PRN IV sbp above 160 10/09/16 09:30 11/08/16 09:29 10/14/16 13:52 Insulin Aspart (NovoLOG) Q6HR SUBQ 10/07/16 00:00 11/06/16 00:00 10/14/16 12:43 Lisinopril (Zestril) 10 mg BID ORAL 10/11/16 11:00 11/10/16 10:59 10/14/16 09:39 Metoprolol Tartrate (Lopressor) 5 mg Q5MIN X 3 IVP 10/06/16 14:30 11/05/16 14:29 10/06/16 14:39 Norepinephrine Bitartrate 4 mg/ Dextrose 254 ml @ 0 mls/hr Q24H IV 10/05/16 14:45 11/04/16 14:44 10/06/16 00:46 Ondansetron HCl (Zofran) 4 mg Q6H PRN IVP Nausea & Vomiting 10/05/16 10:30 11/04/16 10:29 10/10/16 09:54 Ranitidine HCl (Zantac) 150 mg Q12HR NG 10/10/16 21:00 11/09/16 20:59 10/14/16 09:39 Tamsulosin HCl (Flomax) 0.4 mg BEDTIME ORAL 10/05/16 21:00 11/04/16 20:59 10/13/16 20:49 Alfonso Mathur M.D. Oct 14, 2016 15:31
[2016-10-14] MEDS: Metoprolol 5mg/5ml Inj IVP SCH (16:41)
--- NOTE | 2016-10-14 16:43 | General Progress Note ---
Assessment/Plan Assessment/Plan 1. Anemia secondary to chronic disease. Anemia workup has been reviewed. Folate within normal limits as his B12. TSH is within normal limits. Ferritin is 137, sufficient. No evidence of iron deficiency --> Transfuse if hemoglobin is less than 7. --> monitor HH 2. Coagulopathy. PTT is 50. We will order a PTT and mixing study at this time. --> PTT corrects, likely factor deficiency due to malnutrition 3. Thrombocytopenia in a patient secondary to underlying sepsis. --> plt count improving 4. Respiratory failure, is intubated. 5. Paroxysmal atrial fibrillation. Being seen by Cardiology service. He is on amiodarone. 6. Pneumonia and sepsis. --> abx per id service Subjective Allergies: Coded Allergies: No Known Allergies (Unverified , 07/19/12) Subjective no major changes Objective Last 24 Hour Vital Signs Date Time Temp Pulse Resp B/P (MAP) Pulse Ox O2 Delivery O2 Flow Rate FiO2 10/14/16 15:00 92 25 163/47 100 Non-Rebreather 15.0 10/14/16 14:45 169/47 10/14/16 14:00 96 30 142/41 100 Non-Rebreather 15.0 10/14/16 13:52 171/59 10/14/16 13:00 101 30 155/51 92 Venturi Mask 10.0 10/14/16 12:00 102 10/14/16 12:00 98.1 102 29 171/59 90 Venturi Mask 8.0 10/14/16 11:00 101 27 165/50 96 Venturi Mask 8.0 10/14/16 10:00 101 27 169/46 91 Venturi Mask 40 10/14/16 09:39 161/50 10/14/16 09:38 101 161/50 10/14/16 09:00 40 10/14/16 09:00 99 26 161/50 93 Venturi Mask 40 10/14/16 08:50 94 Venturi Mask 8.0 40 10/14/16 08:50 Venturi Mask 8.0 40 10/14/16 08:19 195/55 10/14/16 08:00 92 10/14/16 08:00 40 10/14/16 08:00 98.7 91 21 184/55 97 Mechanical Ventilator 40 10/14/16 07:00 90 21 179/51 96 Mechanical Ventilator 40 10/14/16 07:00 98 15 40 10/14/16 06:00 74 20 161/45 100 Mechanical Ventilator 40 10/14/16 05:00 98.7 66 16 147/43 100 Mechanical Ventilator 40 10/14/16 05:00 66 16 40 10/14/16 04:00 71 16 133/44 100 Mechanical Ventilator 40 10/14/16 04:00 71 10/14/16 04:00 40 10/14/16 03:28 76 23 40 10/14/16 03:00 84 19 155/54 99 Mechanical Ventilator 40 10/14/16 02:00 80 16 155/55 98 Mechanical Ventilator 40 10/14/16 01:25 81 16 40 10/14/16 01:00 87 17 131/45 97 Mechanical Ventilator 40 10/14/16 00:00 40 10/14/16 00:00 98.8 80 16 145/51 98 Mechanical Ventilator 40 10/14/16 00:00 80 10/13/16 23:28 76 16 40 10/13/16 23:00 74 16 133/49 98 Mechanical Ventilator 40 10/13/16 22:00 73 16 132/45 98 Mechanical Ventilator 40 10/13/16 21:21 70 16 40 10/13/16 21:00 75 16 147/47 99 Mechanical Ventilator 40 10/13/16 20:00 40 10/13/16 20:00 75 10/13/16 20:00 99.2 75 16 140/47 98 Mechanical Ventilator 40 10/13/16 19:01 87 18 40 10/13/16 19:00 82 16 138/63 98 Mechanical Ventilator 40 10/13/16 18:02 144/47 10/13/16 18:02 92 144/47 10/13/16 18:00 80 18 145/48 98 Mechanical Ventilator 40 10/13/16 17:00 95 18 143/45 100 Mechanical Ventilator 40 10/13/16 17:00 95 24 40 Intake and Output 10/14/16 10/15/16 19:00 07:00 Intake Total 180 ml Output Total 620 ml Balance -440 ml Tube Feeding 180 ml Output Urine Total 620 ml Laboratory Tests 10/14/16 05:00: White Blood Count 11.1H, Red Blood Count 2.81L, Hemoglobin 9.5L, Hematocrit 28.2L, Mean Corpuscular Volume 100H, Mean Corpuscular Hemoglobin 33.9H, Mean Corpuscular Hemoglobin Concent 33.8, Red Cell Distribution Width 15.0H, Platelet Count 152, Mean Platelet Volume 7.4, Neutrophils (%) (Auto) 84.6H, Lymphocytes (%) (Auto) 9.4L, Monocytes (%) (Auto) 5.1, Eosinophils (%) (Auto) 0.7, Basophils (%) (Auto) 0.2, Sodium Level 138, Potassium Level 3.8, Chloride Level 102, Carbon Dioxide Level 27, Anion Gap 9, Blood Urea Nitrogen 8, Creatinine 0.9, Estimat Glomerular Filtration Rate , Glucose Level 121H, Calcium Level 8.2L, Phosphorus Level 2.9, Magnesium Level 2.0, Total Bilirubin 0.6, Aspartate Amino Transf (AST/SGOT) 10, Alanine Aminotransferase (ALT/SGPT) 12, Alkaline Phosphatase 70, Total Protein 6.1L, Albumin 2.1L, Globulin 4.0, Albumin/Globulin Ratio 0.5L 10/14/16 08:00: Arterial Blood pH 7.477H, Arterial Blood Partial Pressure CO2 40.2, Arterial Blood Partial Pressure O2 69.7L, Arterial Blood HCO3 29.1H, Arterial Blood Oxygen Saturation 93.8, Arterial Blood Base Excess 5.1, Nicholas Test Positive Height (Feet): 5 Height (Inches): 7.00 Weight (Pounds): 143 General Appearance: no apparent distress EENT: TMs normal Neck: normal inspection Cardiovascular: tachycardia Respiratory/Chest: no accessory muscle use Skin: normal pigmentation, warm/dry Bret Dunham Oct 14, 2016 16:43
[2016-10-14] MEDS ORDERED: Sterile Water Irrig 1000ml IRRIG ONE (17:19)
--- NOTE | 2016-10-14 19:08 | Cardiology Progress Note ---
Assessment/Plan Assessment/Plan 1. Severe tachycardia resolved 2. Atrial fibrillation, acute in onset with rapid ventricular response converted to sinus 3. Respiratory failure. 4. Pneumonia. 5. Dementia. 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 7. Hypotension earlier. 8. Leukocytosis. 9. Respiratory acidosis. on amiod loading bp is elevated add meds hr i s ok tele sinus no afib vent support abx pulm rxn bp seem ok decrease amiod to 200 mg dialy is on lasix will increase acei Subjective ROS Limited/Unobtainable: Yes Objective Last 24 Hour Vital Signs Date Time Temp Pulse Resp B/P (MAP) Pulse Ox O2 Delivery O2 Flow Rate FiO2 10/14/16 18:46 150/62 10/14/16 18:46 81 150/62 10/14/16 17:00 80 28 151/55 100 Non-Rebreather 15.0 10/14/16 16:41 94 169/47 10/14/16 16:00 95 10/14/16 16:00 98.6 93 28 149/56 99 Non-Rebreather 15.0 10/14/16 15:00 92 25 163/47 100 Non-Rebreather 15.0 10/14/16 14:45 169/47 10/14/16 14:00 96 30 142/41 100 Non-Rebreather 15.0 10/14/16 13:52 171/59 10/14/16 13:00 101 30 155/51 92 Venturi Mask 10.0 10/14/16 12:00 102 10/14/16 12:00 98.1 102 29 171/59 90 Venturi Mask 8.0 10/14/16 11:00 101 27 165/50 96 Venturi Mask 8.0 10/14/16 10:00 101 27 169/46 91 Venturi Mask 40 10/14/16 09:39 161/50 10/14/16 09:38 101 161/50 10/14/16 09:00 40 10/14/16 09:00 99 26 161/50 93 Venturi Mask 40 10/14/16 08:50 94 Venturi Mask 8.0 40 10/14/16 08:50 Venturi Mask 8.0 40 10/14/16 08:19 195/55 10/14/16 08:00 92 10/14/16 08:00 40 10/14/16 08:00 98.7 91 21 184/55 97 Mechanical Ventilator 40 10/14/16 07:00 90 21 179/51 96 Mechanical Ventilator 40 10/14/16 07:00 98 15 40 10/14/16 06:00 74 20 161/45 100 Mechanical Ventilator 40 10/14/16 05:00 98.7 66 16 147/43 100 Mechanical Ventilator 40 10/14/16 05:00 66 16 40 10/14/16 04:00 71 16 133/44 100 Mechanical Ventilator 40 10/14/16 04:00 71 10/14/16 04:00 40 10/14/16 03:28 76 23 40 10/14/16 03:00 84 19 155/54 99 Mechanical Ventilator 40 10/14/16 02:00 80 16 155/55 98 Mechanical Ventilator 40 10/14/16 01:25 81 16 40 10/14/16 01:00 87 17 131/45 97 Mechanical Ventilator 40 10/14/16 00:00 40 10/14/16 00:00 98.8 80 16 145/51 98 Mechanical Ventilator 40 10/14/16 00:00 80 10/13/16 23:28 76 16 40 10/13/16 23:00 74 16 133/49 98 Mechanical Ventilator 40 10/13/16 22:00 73 16 132/45 98 Mechanical Ventilator 40 10/13/16 21:21 70 16 40 10/13/16 21:00 75 16 147/47 99 Mechanical Ventilator 40 10/13/16 20:00 40 10/13/16 20:00 75 10/13/16 20:00 99.2 75 16 140/47 98 Mechanical Ventilator 40 General Appearance: other - responsive off rick vent Neck: no JVD Cardiovascular: normal rate Respiratory/Chest: rhonchi - bilaterally Abdomen: normal bowel sounds, non tender, soft Extremities: no swelling Intake and Output 10/14/16 10/15/16 19:00 07:00 Intake Total 270 ml Output Total 620 ml Balance -350 ml Tube Feeding 270 ml Output Urine Total 620 ml Laboratory Tests Test 10/14/16 05:00 10/14/16 08:00 White Blood Count 11.1 K/UL (4.8-10.8) H Red Blood Count 2.81 M/UL (4.70-6.10) L Hemoglobin 9.5 G/DL (14.2-18.0) L Hematocrit 28.2 % (42.0-52.0) L Mean Corpuscular Volume 100 FL (80-99) H Mean Corpuscular Hemoglobin 33.9 PG (27.0-31.0) H Mean Corpuscular Hemoglobin Concent 33.8 G/DL (32.0-36.0) Red Cell Distribution Width 15.0 % (11.6-14.8) H Platelet Count 152 K/UL (150-450) Mean Platelet Volume 7.4 FL (6.5-10.1) Neutrophils (%) (Auto) 84.6 % (45.0-75.0) H Lymphocytes (%) (Auto) 9.4 % (20.0-45.0) L Monocytes (%) (Auto) 5.1 % (1.0-10.0) Eosinophils (%) (Auto) 0.7 % (0.0-3.0) Basophils (%) (Auto) 0.2 % (0.0-2.0) Sodium Level 138 mEQ/L (135-145) Potassium Level 3.8 mEQ/L (3.4-4.9) Chloride Level 102 mEQ/L (98-107) Carbon Dioxide Level 27 mEQ/L (20-30) Anion Gap 9 (5-15) Blood Urea Nitrogen 8 mg/dL (7-23) Creatinine 0.9 mg/dL (0.7-1.2) Estimat Glomerular Filtration Rate mL/min (>60) Glucose Level 121 mg/dL (74-106) H Calcium Level 8.2 mg/dL (8.6-10.2) L Phosphorus Level 2.9 mg/dL (2.5-4.8) Magnesium Level 2.0 mg/dL (1.7-2.5) Total Bilirubin 0.6 mg/dL (0.0-1.2) Aspartate Amino Transf (AST/SGOT) 10 U/L (5-40) Alanine Aminotransferase (ALT/SGPT) 12 U/L (3-41) Alkaline Phosphatase 70 U/L (40-129) Total Protein 6.1 g/dL (6.6-8.7) L Albumin 2.1 g/dL (3.5-5.2) L Globulin 4.0 g/dL Albumin/Globulin Ratio 0.5 (1.0-2.7) L Arterial Blood pH 7.477 (7.350-7.450) Arterial Blood Partial Pressure CO2 40.2 mmHg (35.0-45.0) Arterial Blood Partial Pressure O2 69.7 mmHg (75.0-100.0) L Arterial Blood HCO3 29.1 mmol/L (22.0-26.0) H Arterial Blood Oxygen Saturation 93.8 % (92.0-98.0) Arterial Blood Base Excess 5.1 Nicholas Test Positive ISACC GUEVARA Oct 14, 2016 19:08
[2016-10-14] MEDS: Tamsulosin 0.4mg cap ORAL SCH (21:07)
[2016-10-15] VITALS (24 sets, daily range): BP systolic 121–183; BP diastolic 43–67
[2016-10-15 05:44] LABS: MEAN CORPUSCULAR HEMOGLOBIN 34.3 PG (27.0-31.0); MEAN CORPUSCULAR HGB CONC 34.1 G/DL (32.0-36.0); MEAN CORPUSCULAR VOLUME 101 FL (80-99); MEAN PLATELET VOLUME 7.1 FL (6.5-10.1); PLATELET COUNT 203 K/UL (150-450); RED BLOOD COUNT 3.17 M/UL (4.70-6.10); RED CELL DISTRIBUTION WIDTH 15.8 % (11.6-14.8); WHITE BLOOD COUNT 16.3 K/UL (4.8-10.8)
[2016-10-15 06:11] LABS: ALANINE AMINOTRANSFERASE 12 U/L (3-41); ALBUMIN/GLOBULIN RATIO 0.5 (1.0-2.7); ANION GAP 10 (5-15); ASPARTATE AMINO TRANSFERASE 14 U/L (5-40); CALCIUM 8.8 mg/dL (8.6-10.2); CARBON DIOXIDE 31 mEQ/L (20-30); CHLORIDE 99 mEQ/L (98-107); CREATININE 0.7 mg/dL (0.7-1.2); HEMOLYSIS 6; MAGNESIUM 1.8 mg/dL (1.7-2.5); PHOSPHORUS 2.9 mg/dL (2.5-4.8); POTASSIUM 3.6 mEQ/L (3.4-4.9); SODIUM 140 mEQ/L (135-145); TOTAL PROTEIN 6.9 g/dL (6.6-8.7)
[2016-10-15] MEDS: NovoLOG Insulin Flexpen SUBQ SCH ×3 (06:46→17:32)
[2016-10-15 08:36] LABS: ABG PCO2 40.4 mmHg (35.0-45.0)
[2016-10-15 08:37] LABS: ABG BASE EXCESS 8.4
--- NOTE | 2016-10-15 08:56 | Diagnostic Imaging Report ---
Indication: Dyspnea Comparison: 10/14/2016 A single view chest radiograph was obtained. Findings: Patchy airspace consolidation again demonstrated bilaterally at without change. Heart size is stable. Patient has been extubated. Impression: Post extubation. No change otherwise
[2016-10-15 09:19] LABS: ANISOCYTOSIS 1+; BAND NEUTROPHILS % (MANUAL) 0 % (0-8); BASOPHILS % (MANUAL) 0 % (0-2); EOSINOPHILS % (MANUAL) 0 % (0-3); HYPOCHROMASIA 1+; LYMPHOCYTES % (MANUAL) 3 % (20-45); NEUTROPHILS % (MANUAL) 93 % (45-75); PLATELET ESTIMATE ADEQUATE; PLATELET MORPHOLOGY NORMAL; TOTAL CELLS COUNTED 100
[2016-10-15 09:20] LABS: MACROCYTES 1+
[2016-10-15] MEDS: Lisinopril 10mg tab ORAL SCH ×2 (09:25→20:31)
[2016-10-15] MEDS: Amiodarone 200mg tab ORAL SCH (09:26)
[2016-10-15] MEDS: Heparin 5000 units/ml inj SUBQ SCH ×2 (09:28→20:18)
--- NOTE | 2016-10-15 13:23 | Infectious Diseases Prog Note ---
Assessment/Plan Assessment/Plan Assessment: Acute respiratory failure, multifocal pneumonia, c/b afib with RVR now on rate control, off pressors for >96hrs s/p course of IV vancomycin and zosyn with cultures of blood from 10/05 neg to date. Mildly elevated ferritin c/w acute phase reactant in acute illness. sputum cx obtained on 10/06 after 24 hrs of broad spectum abx growing only scant Carroll albicans which should be considered a commensal/colonizer here. on topical therapy for tinea cruris. has been off abx since 10/12, now with leukocytosis w/o localizing signs , is hemodynamically stable, has no indwelling CVC, PIV sites look healthy, and overall condition improved as he's been able to be extubated. source of leukocytosis w/o fevers could be C diff (10/08 negative) or sacral wound for which he's received wound care. 1) Multifocal Pneumonia, L effusion, s/p treatment completed 10/12/1610/05 blood cx ngtd 10/06 sputum cx: scant carroll (obtained on abx) 2) septic shock, currently off pressors since 10/06 3) Hypercarbic Respiratory failure requiring intubation; initial chem panel and ABG showed an acute respiratory acidosis with concomitant lactic acidosis metabolic acidosis. TTE with dilated IVC not suggestive of hypovolemic shock. 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 Aguiar. ph [phone] Subjective ROS Limited/Unobtainable: Yes Allergies: Coded Allergies: No Known Allergies (Unverified , 07/19/12) Objective Vital Signs Last 24 Hour Vital Signs Date Time Temp Pulse Resp B/P (MAP) Pulse Ox O2 Delivery O2 Flow Rate FiO2 10/15/16 12:00 98.3 93 28 131/58 100 Non-Rebreather 15.0 10/15/16 12:00 87 10/15/16 11:00 15.0 10/15/16 11:00 93 29 121/54 94 Non-Rebreather 15.0 10/15/16 10:00 10/15/16 10:00 93 31 127/61 100 Non-Rebreather 15.0 10/15/16 09:25 130/58 10/15/16 09:25 94 130/58 10/15/16 09:00 10/15/16 09:00 94 29 125/55 98 Non-Rebreather 15.0 10/15/16 08:00 10/15/16 08:00 96 10/15/16 08:00 98.2 107 34 131/53 98 Non-Rebreather 15.0 10/15/16 07:00 99 28 133/56 99 Non-Rebreather 15.0 10/15/16 07:00 10/15/16 07:00 99 Non-Rebreather 15.0 100 10/15/16 07:00 Non-Rebreather 15.0 100 10/15/16 06:00 102 26 131/56 99 Non-Rebreather 15.0 10/15/16 05:00 103 26 131/51 99 Non-Rebreather 15.0 10/15/16 04:00 106 10/15/16 04:00 98.9 10 27 138/50 97 Non-Rebreather 15.0 10/15/16 03:00 96 27 179/43 98 Non-Rebreather 15.0 10/15/16 02:24 191/54 10/15/16 02:00 88 25 183/53 100 Non-Rebreather 15.0 10/15/16 01:00 85 25 183/52 100 Non-Rebreather 15.0 10/15/16 00:00 89 10/15/16 00:00 98.8 86 27 164/45 100 Non-Rebreather 15.0 10/14/16 23:00 85 29 181/50 100 Non-Rebreather 15.0 10/14/16 22:00 89 30 181/44 99 Non-Rebreather 15.0 10/14/16 21:00 98.7 82 26 167/47 99 Non-Rebreather 15.0 10/14/16 20:00 81 26 155/47 99 Non-Rebreather 15.0 10/14/16 20:00 81 10/14/16 19:38 Venturi Mask 10.0 60 10/14/16 19:00 83 20 158/45 98 Non-Rebreather 15.0 10/14/16 18:46 150/62 10/14/16 18:46 81 150/62 10/14/16 18:00 82 28 150/62 100 Non-Rebreather 15.0 10/14/16 17:00 80 28 151/55 100 Non-Rebreather 15.0 10/14/16 16:41 94 169/47 10/14/16 16:00 95 10/14/16 16:00 98.6 93 28 149/56 99 Non-Rebreather 15.0 10/14/16 15:00 92 25 163/47 100 Non-Rebreather 15.0 10/14/16 14:45 169/47 10/14/16 14:00 96 30 142/41 100 Non-Rebreather 15.0 10/14/16 13:52 171/59 Height (Feet): 5 Height (Inches): 7.00 Weight (Pounds): 144 Objective GEN: extubated, on face mask, a bit hypertensive, not on pressors, opens eyes to voice HEENT: Mild pale conjunctiva. oral mucosa dry, pharynx w/o exudate or effusion. No icterus. Head normocephalic, neck supple. NECK: No cervical LAD CHEST: scattered rhonchi, coarse breath sounds throughout, decreased breath sounds on L base. HEART: S1 and S2, no murmurs, no rubs. ABDOMEN: soft, non tender, non distended, normoactive bowel sounds. EXTREMITIES: No cyanosis, no clubbing, no edema. extremities warm with brisk cap refill. scattered ecchymosis on hands/arms. no CVC. NEUROLOGIC: intubated. moves all 4 extremities spontaneously : condom cath in place draining clear yellow urine. mild scrotal edema w/o erythema. mild perianal and b/l inguinal erythema c/w tinea cruris. LYMPH: no LAD RECTAL: deferred. reviewed wound care report of mid sacral pressure ulcer with deep tissue injury rectal tube in place draining liquid brown stool CXR reviewed, stable from yesterday, scattered airspace disease including superior segment of RLL Laboratory Tests Test 10/15/16 05:00 10/15/16 08:17 White Blood Count 16.3 K/UL (4.8-10.8) H Red Blood Count 3.17 M/UL (4.70-6.10) L Hemoglobin 10.9 G/DL (14.2-18.0) L Hematocrit 31.9 % (42.0-52.0) L Mean Corpuscular Volume 101 FL (80-99) H Mean Corpuscular Hemoglobin 34.3 PG (27.0-31.0) H Mean Corpuscular Hemoglobin Concent 34.1 G/DL (32.0-36.0) Red Cell Distribution Width 15.8 % (11.6-14.8) H Platelet Count 203 K/UL (150-450) Mean Platelet Volume 7.1 FL (6.5-10.1) Neutrophils (%) (Auto) % (45.0-75.0) Lymphocytes (%) (Auto) % (20.0-45.0) Monocytes (%) (Auto) % (1.0-10.0) Eosinophils (%) (Auto) % (0.0-3.0) Basophils (%) (Auto) % (0.0-2.0) Differential Total Cells Counted 100 Neutrophils % (Manual) 93 % (45-75) H Lymphocytes % (Manual) 3 % (20-45) L Monocytes % (Manual) 4 % (1-10) Eosinophils % (Manual) 0 % (0-3) Basophils % (Manual) 0 % (0-2) Band Neutrophils 0 % (0-8) Platelet Estimate Adequate Platelet Morphology Normal Hypochromasia 1+ Anisocytosis 1+ Macrocytosis 1+ Sodium Level 140 mEQ/L (135-145) Potassium Level 3.6 mEQ/L (3.4-4.9) Chloride Level 99 mEQ/L (98-107) Carbon Dioxide Level 31 mEQ/L (20-30) H Anion Gap 10 (5-15) Blood Urea Nitrogen 9 mg/dL (7-23) Creatinine 0.7 mg/dL (0.7-1.2) Estimat Glomerular Filtration Rate mL/min (>60) Glucose Level 126 mg/dL (74-106) H Calcium Level 8.8 mg/dL (8.6-10.2) Phosphorus Level 2.9 mg/dL (2.5-4.8) Magnesium Level 1.8 mg/dL (1.7-2.5) Total Bilirubin 0.7 mg/dL (0.0-1.2) Aspartate Amino Transf (AST/SGOT) 14 U/L (5-40) Alanine Aminotransferase (ALT/SGPT) 12 U/L (3-41) Alkaline Phosphatase 80 U/L (40-129) Total Protein 6.9 g/dL (6.6-8.7) Albumin 2.3 g/dL (3.5-5.2) L Globulin 4.6 g/dL Albumin/Globulin Ratio 0.5 (1.0-2.7) L Arterial Blood pH 7.517 (7.350-7.450) Arterial Blood Partial Pressure CO2 40.4 mmHg (35.0-45.0) Arterial Blood Partial Pressure O2 76.3 mmHg (75.0-100.0) Arterial Blood HCO3 32.0 mmol/L (22.0-26.0) H Arterial Blood Oxygen Saturation 94.6 % (92.0-98.0) Arterial Blood Base Excess 8.4 Nicholas Test N/a Current Medications Medications (Trade) Dose Ordered Sig/Bhavna Route PRN Reason Start Time Stop Time Status Last Admin Dose Admin Acetaminophen (Tylenol) 650 mg Q4H PRN ORAL fever 10/05/16 10:30 11/04/16 10:29 10/06/16 14:24 Amiodarone HCl (Cordarone) 200 mg DAILY ORAL 10/15/16 09:00 11/05/16 21:59 10/15/16 09:26 Amlodipine Besylate (Norvasc) 5 mg BID ORAL 10/10/16 21:00 11/09/16 20:59 10/15/16 09:25 Clotrimazole (Lotrimin) 1 applic THREE TIMES A DAY TOPIC 10/13/16 13:00 11/12/16 12:59 10/15/16 12:24 Dextrose (Dextrose 50%) STAT PRN IV Hypoglycemia 10/06/16 18:30 11/05/16 18:29 Furosemide (Lasix) 20 mg EVERY 12 HOURS IV 10/13/16 12:00 11/12/16 11:59 10/15/16 09:26 Heparin Sodium (Porcine) (Heparin 5000 units/ml) 5,000 units EVERY 12 HOURS SUBQ 10/05/16 21:00 11/04/16 20:59 10/15/16 09:28 Hydralazine HCl (Apresoline) 10 mg Q6H PRN IV sbp above 160 10/09/16 09:30 11/08/16 09:29 10/15/16 02:24 Insulin Aspart (NovoLOG) Q6HR SUBQ 10/07/16 00:00 11/06/16 00:00 10/15/16 12:23 Lisinopril (Zestril) 20 mg Q12HR ORAL 10/15/16 09:00 11/14/16 08:59 10/15/16 09:25 Norepinephrine Bitartrate 4 mg/ Dextrose 254 ml @ 0 mls/hr Q24H IV 10/05/16 14:45 11/04/16 14:44 10/06/16 00:46 Ondansetron HCl (Zofran) 4 mg Q6H PRN IVP Nausea & Vomiting 10/05/16 10:30 11/04/16 10:29 10/10/16 09:54 Ranitidine HCl (Zantac) 150 mg Q12HR NG 10/10/16 21:00 11/09/16 20:59 10/15/16 09:25 Tamsulosin HCl (Flomax) 0.4 mg BEDTIME ORAL 10/05/16 21:00 11/04/16 20:59 10/14/16 21:07 Alfonso Mathur M.D. Oct 15, 2016 13:23
--- NOTE | 2016-10-15 15:04 | Pulmonolgy Critical Care Note ---
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 restart -per ID discretion sputum cx negative , blood cx preliminary negative Cardio follows Amiodarone via NGT ECHO with pEF 55% and RVSP of 17, moderate TR BS management with SS of insulin, better wound care as per wound nurse recommendations DVT GI prophylaxis monitor HH, anemia w/up c/w anemia of chronic disease s/p blood transfusion, HH at baseline, monitor counts replace e/lytes as needed DVT, GI prophayxlis case discussed and evaluated by supervising physician Critical Care - Objective Last 24 Hour Vital Signs Date Time Temp Pulse Resp B/P (MAP) Pulse Ox O2 Delivery O2 Flow Rate FiO2 10/15/16 14:00 87 27 125/64 100 Non-Rebreather 15.0 10/15/16 13:00 90 29 127/55 100 Non-Rebreather 15.0 10/15/16 12:00 98.3 93 28 131/58 100 Non-Rebreather 15.0 10/15/16 12:00 87 10/15/16 11:00 15.0 10/15/16 11:00 93 29 121/54 94 Non-Rebreather 15.0 10/15/16 10:00 10/15/16 10:00 93 31 127/61 100 Non-Rebreather 15.0 10/15/16 09:25 130/58 10/15/16 09:25 94 130/58 10/15/16 09:00 10/15/16 09:00 94 29 125/55 98 Non-Rebreather 15.0 10/15/16 08:00 10/15/16 08:00 96 10/15/16 08:00 98.2 107 34 131/53 98 Non-Rebreather 15.0 10/15/16 07:00 99 28 133/56 99 Non-Rebreather 15.0 10/15/16 07:00 10/15/16 07:00 99 Non-Rebreather 15.0 100 10/15/16 07:00 Non-Rebreather 15.0 100 10/15/16 06:00 102 26 131/56 99 Non-Rebreather 15.0 10/15/16 05:00 103 26 131/51 99 Non-Rebreather 15.0 10/15/16 04:00 106 10/15/16 04:00 98.9 10 27 138/50 97 Non-Rebreather 15.0 10/15/16 03:00 96 27 179/43 98 Non-Rebreather 15.0 10/15/16 02:24 191/54 10/15/16 02:00 88 25 183/53 100 Non-Rebreather 15.0 10/15/16 01:00 85 25 183/52 100 Non-Rebreather 15.0 10/15/16 00:00 89 10/15/16 00:00 98.8 86 27 164/45 100 Non-Rebreather 15.0 10/14/16 23:00 85 29 181/50 100 Non-Rebreather 15.0 10/14/16 22:00 89 30 181/44 99 Non-Rebreather 15.0 10/14/16 21:00 98.7 82 26 167/47 99 Non-Rebreather 15.0 10/14/16 20:00 81 26 155/47 99 Non-Rebreather 15.0 10/14/16 20:00 81 10/14/16 19:38 Venturi Mask 10.0 60 10/14/16 19:00 83 20 158/45 98 Non-Rebreather 15.0 10/14/16 18:46 150/62 10/14/16 18:46 81 150/62 10/14/16 18:00 82 28 150/62 100 Non-Rebreather 15.0 10/14/16 17:00 80 28 151/55 100 Non-Rebreather 15.0 10/14/16 16:41 94 169/47 10/14/16 16:00 95 10/14/16 16:00 98.6 93 28 149/56 99 Non-Rebreather 15.0 10/14/16 15:00 92 25 163/47 100 Non-Rebreather 15.0 Objective: Status: NAD, bedridden, chronically ill looking male HEENT: atraumatic, normocephalic, NGT with TF, 100% NRM Pulmonary: scattered rhonchi bilaterally Heart: HR/BP stable, SR on tele , regular Abdomen: soft, non-tender, active bowel sounds, rectal tube, condom cath Extremities: no C/C/E Accucheck: 149 Critical Care - Subjective ROS Limited/Unobtainable: Yes Interval Events: s/p extubation remains guarded and critical on 100% NRM, unable to down titrate CXR no change leukocytosis this am-16, afebrile ABG stable on 100%NRM Condition: critical IV Access: peripheral EKG Rhythm: Sinus Rhythm FI02: 100 Sputum Amount: Moderate Tube Feeding Amount: 30 I&O: Intake and Output 10/15/16 10/16/16 19:00 07:00 Intake Total 270 ml Output Total 995 ml Balance -725 ml Free Water 50 ml Tube Feeding 180 ml Other 40 ml Output Urine Total 995 ml CXR: 10/15 Patchy airspace consolidation again demonstrated bilaterally at without change. Heart size is stable. Patient has been extubated. Barb Thao NP ([facility]) Oct 15, 2016 15:04
--- NOTE | 2016-10-15 15:17 | Cardiology Progress Note ---
Assessment/Plan Problem List: (1) Pneumonia (2) Sepsis (3) Acute respiratory failure with hypoxia (4) Normal pressure hydrocephalus (5) Alzheimer's dementia (6) Tachyarrhythmia Status: stable, progressing Status Narrative Respiratory failure - extubated, but remains w/ tenuous resp status. Hemodynamically stable. PAF - now in SR. HTN Assessment/Plan Continue bronchodilators, o2, frequent suctioning. Continue low dose amiodarone for maintenance of SR. Lisinopril for BP control Subjective ROS Limited/Unobtainable: Yes Subjective Events noted. Pt extubated yesterday. + congested cough Objective Last 24 Hour Vital Signs Date Time Temp Pulse Resp B/P (MAP) Pulse Ox O2 Delivery O2 Flow Rate FiO2 10/15/16 14:00 87 27 125/64 100 Non-Rebreather 15.0 10/15/16 13:00 90 29 127/55 100 Non-Rebreather 15.0 10/15/16 12:00 98.3 93 28 131/58 100 Non-Rebreather 15.0 10/15/16 12:00 87 10/15/16 11:00 15.0 10/15/16 11:00 93 29 121/54 94 Non-Rebreather 15.0 10/15/16 10:00 10/15/16 10:00 93 31 127/61 100 Non-Rebreather 15.0 10/15/16 09:25 130/58 10/15/16 09:25 94 130/58 10/15/16 09:00 10/15/16 09:00 94 29 125/55 98 Non-Rebreather 15.0 10/15/16 08:00 10/15/16 08:00 96 10/15/16 08:00 98.2 107 34 131/53 98 Non-Rebreather 15.0 10/15/16 07:00 99 28 133/56 99 Non-Rebreather 15.0 10/15/16 07:00 10/15/16 07:00 99 Non-Rebreather 15.0 100 10/15/16 07:00 Non-Rebreather 15.0 100 10/15/16 06:00 102 26 131/56 99 Non-Rebreather 15.0 10/15/16 05:00 103 26 131/51 99 Non-Rebreather 15.0 10/15/16 04:00 106 10/15/16 04:00 98.9 10 27 138/50 97 Non-Rebreather 15.0 10/15/16 03:00 96 27 179/43 98 Non-Rebreather 15.0 10/15/16 02:24 191/54 10/15/16 02:00 88 25 183/53 100 Non-Rebreather 15.0 10/15/16 01:00 85 25 183/52 100 Non-Rebreather 15.0 10/15/16 00:00 89 10/15/16 00:00 98.8 86 27 164/45 100 Non-Rebreather 15.0 10/14/16 23:00 85 29 181/50 100 Non-Rebreather 15.0 10/14/16 22:00 89 30 181/44 99 Non-Rebreather 15.0 10/14/16 21:00 98.7 82 26 167/47 99 Non-Rebreather 15.0 10/14/16 20:00 81 26 155/47 99 Non-Rebreather 15.0 10/14/16 20:00 81 10/14/16 19:38 Venturi Mask 10.0 60 10/14/16 19:00 83 20 158/45 98 Non-Rebreather 15.0 10/14/16 18:46 150/62 10/14/16 18:46 81 150/62 10/14/16 18:00 82 28 150/62 100 Non-Rebreather 15.0 10/14/16 17:00 80 28 151/55 100 Non-Rebreather 15.0 10/14/16 16:41 94 169/47 10/14/16 16:00 95 10/14/16 16:00 98.6 93 28 149/56 99 Non-Rebreather 15.0 General Appearance: WD/WN, mild distress EENT: PERRL/EOMI Neck: supple, no JVD Rhythm: NSR Cardiovascular: normal rate, regular rhythm, no gallop/murmur Respiratory/Chest: rhonchi - bilaterally Abdomen: non tender, soft Extremities: no swelling, other - bilat SCDs Intake and Output 10/15/16 10/16/16 19:00 07:00 Intake Total 270 ml Output Total 995 ml Balance -725 ml Free Water 50 ml Tube Feeding 180 ml Other 40 ml Output Urine Total 995 ml Laboratory Tests Test 10/15/16 05:00 10/15/16 08:17 White Blood Count 16.3 K/UL (4.8-10.8) H Red Blood Count 3.17 M/UL (4.70-6.10) L Hemoglobin 10.9 G/DL (14.2-18.0) L Hematocrit 31.9 % (42.0-52.0) L Mean Corpuscular Volume 101 FL (80-99) H Mean Corpuscular Hemoglobin 34.3 PG (27.0-31.0) H Mean Corpuscular Hemoglobin Concent 34.1 G/DL (32.0-36.0) Red Cell Distribution Width 15.8 % (11.6-14.8) H Platelet Count 203 K/UL (150-450) Mean Platelet Volume 7.1 FL (6.5-10.1) Neutrophils (%) (Auto) % (45.0-75.0) Lymphocytes (%) (Auto) % (20.0-45.0) Monocytes (%) (Auto) % (1.0-10.0) Eosinophils (%) (Auto) % (0.0-3.0) Basophils (%) (Auto) % (0.0-2.0) Differential Total Cells Counted 100 Neutrophils % (Manual) 93 % (45-75) H Lymphocytes % (Manual) 3 % (20-45) L Monocytes % (Manual) 4 % (1-10) Eosinophils % (Manual) 0 % (0-3) Basophils % (Manual) 0 % (0-2) Band Neutrophils 0 % (0-8) Platelet Estimate Adequate Platelet Morphology Normal Hypochromasia 1+ Anisocytosis 1+ Macrocytosis 1+ Sodium Level 140 mEQ/L (135-145) Potassium Level 3.6 mEQ/L (3.4-4.9) Chloride Level 99 mEQ/L (98-107) Carbon Dioxide Level 31 mEQ/L (20-30) H Anion Gap 10 (5-15) Blood Urea Nitrogen 9 mg/dL (7-23) Creatinine 0.7 mg/dL (0.7-1.2) Estimat Glomerular Filtration Rate mL/min (>60) Glucose Level 126 mg/dL (74-106) H Calcium Level 8.8 mg/dL (8.6-10.2) Phosphorus Level 2.9 mg/dL (2.5-4.8) Magnesium Level 1.8 mg/dL (1.7-2.5) Total Bilirubin 0.7 mg/dL (0.0-1.2) Aspartate Amino Transf (AST/SGOT) 14 U/L (5-40) Alanine Aminotransferase (ALT/SGPT) 12 U/L (3-41) Alkaline Phosphatase 80 U/L (40-129) Total Protein 6.9 g/dL (6.6-8.7) Albumin 2.3 g/dL (3.5-5.2) L Globulin 4.6 g/dL Albumin/Globulin Ratio 0.5 (1.0-2.7) L Arterial Blood pH 7.517 (7.350-7.450) Arterial Blood Partial Pressure CO2 40.4 mmHg (35.0-45.0) Arterial Blood Partial Pressure O2 76.3 mmHg (75.0-100.0) Arterial Blood HCO3 32.0 mmol/L (22.0-26.0) H Arterial Blood Oxygen Saturation 94.6 % (92.0-98.0) Arterial Blood Base Excess 8.4 Nicholas Test N/a POWER GÓMEZ Oct 15, 2016 15:17
[2016-10-15] MEDS ORDERED: Sterile Water Irrig 1000ml IRRIG ONE (15:27)
[2016-10-15] MEDS ORDERED: NS 275ml ONE (15:27)
[2016-10-15] MEDS ORDERED: DuoNeb 0.5-3(2.5)mg/3ml neb HHN PRN (16:00)
[2016-10-15] MEDS: Tamsulosin 0.4mg cap ORAL SCH (20:31)
[2016-10-16] VITALS (20 sets, daily range): BP systolic 102–162; BP diastolic 55–80
[2016-10-16] MEDS: NovoLOG Insulin Flexpen SUBQ SCH ×5 (00:16→23:34)
[2016-10-16 05:07] LABS: MEAN CORPUSCULAR HEMOGLOBIN 33.8 PG (27.0-31.0); MEAN CORPUSCULAR HGB CONC 33.5 G/DL (32.0-36.0); MEAN CORPUSCULAR VOLUME 101 FL (80-99); MEAN PLATELET VOLUME 7.2 FL (6.5-10.1); PLATELET COUNT 224 K/UL (150-450); RED BLOOD COUNT 3.06 M/UL (4.70-6.10); RED CELL DISTRIBUTION WIDTH 15.4 % (11.6-14.8); WHITE BLOOD COUNT 21.7 K/UL (4.8-10.8)
[2016-10-16 05:40] LABS: ANION GAP 9 (5-15); CALCIUM 8.7 mg/dL (8.6-10.2); CARBON DIOXIDE 33 mEQ/L (20-30); CHLORIDE 100 mEQ/L (98-107); CREATININE 0.8 mg/dL (0.7-1.2); HEMOLYSIS 3; POTASSIUM 3.6 mEQ/L (3.4-4.9); SODIUM 142 mEQ/L (135-145)
--- NOTE | 2016-10-16 08:07 | Pulmonolgy Critical Care Note ---
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 restart -per ID discretion sputum cx negative , blood cx preliminary negative, stool C dif negative Cardio follows Amiodarone via NGT PEACE for BP management ECHO with pEF 55% and RVSP of 17, moderate TR BS management with SS of insulin, better wound care as per wound nurse recommendations DVT GI prophylaxis monitor HH, anemia w/up c/w anemia of chronic disease s/p blood transfusion, HH at baseline, monitor counts replace e/lytes as needed DVT, GI prophayxlis case discussed and evaluated by supervising physician Critical Care - Objective Last 24 Hour Vital Signs Date Time Temp Pulse Resp B/P (MAP) Pulse Ox O2 Delivery O2 Flow Rate FiO2 10/16/16 07:05 98 20 Non-Rebreather 15.0 100 10/16/16 07:03 100 Non-Rebreather 15.0 100 10/16/16 07:03 Non-Rebreather 15.0 100 10/16/16 07:00 100 34 140/75 100 Non-Rebreather 15.0 10/16/16 06:00 100 34 152/67 100 Non-Rebreather 15.0 10/16/16 05:00 99 34 144/77 100 Non-Rebreather 15.0 10/16/16 04:00 99 10/16/16 04:00 98.2 103 31 144/66 99 Non-Rebreather 15.0 10/16/16 03:00 99 34 149/70 100 Non-Rebreather 15.0 10/16/16 02:00 99 34 157/78 100 Non-Rebreather 15.0 10/16/16 01:00 100 34 146/70 100 Non-Rebreather 15.0 10/16/16 00:00 98.0 93 26 139/68 99 Non-Rebreather 15.0 10/16/16 00:00 100 10/15/16 23:00 103 34 139/62 97 Non-Rebreather 15.0 10/15/16 22:00 100 34 134/63 98 Non-Rebreather 15.0 10/15/16 21:00 88 29 140/67 99 Non-Rebreather 15.0 10/15/16 20:31 127/59 10/15/16 20:09 95 10/15/16 20:00 88 29 127/59 99 Non-Rebreather 15.0 10/15/16 19:15 Non-Rebreather 15.0 100 10/15/16 19:00 98.6 93 30 135/61 99 Non-Rebreather 15.0 10/15/16 18:08 88 30 129/46 99 Non-Rebreather 15.0 10/15/16 17:34 93 131/58 10/15/16 17:00 88 28 131/58 100 Non-Rebreather 15.0 10/15/16 16:00 94 10/15/16 16:00 98.3 88 27 124/56 99 Non-Rebreather 15.0 10/15/16 15:00 95 30 134/54 96 Non-Rebreather 15.0 10/15/16 14:45 134/54 10/15/16 14:00 87 27 125/64 100 Non-Rebreather 15.0 10/15/16 13:00 90 29 127/55 100 Non-Rebreather 15.0 10/15/16 12:00 98.3 93 28 131/58 100 Non-Rebreather 15.0 10/15/16 12:00 87 10/15/16 11:00 15.0 10/15/16 11:00 93 29 121/54 94 Non-Rebreather 15.0 10/15/16 10:00 10/15/16 10:00 93 31 127/61 100 Non-Rebreather 15.0 10/15/16 09:25 130/58 10/15/16 09:25 94 130/58 10/15/16 09:00 10/15/16 09:00 94 29 125/55 98 Non-Rebreather 15.0 10/15/16 08:00 10/15/16 08:00 96 10/15/16 08:00 98.2 107 34 131/53 98 Non-Rebreather 15.0 Objective: Status: NAD, bedridden, chronically ill looking male HEENT: atraumatic, normocephalic, NGT with TF, 100% NRM Pulmonary: scattered rhonchi bilaterally Heart: HR/BP stable, SR on tele , regular Abdomen: soft, non-tender, active bowel sounds, rectal tube, condom cath Extremities: no C/C/E Accucheck: 144 Critical Care - Subjective ROS Limited/Unobtainable: Yes Interval Events: leukocytosis with trend up tachycardic tachypneic afebrile remains on 100% NRM Condition: critical IV Access: peripheral EKG Rhythm: Sinus Rhythm FI02: 100 Sputum Amount: Large Tube Feeding Amount: 30 CXR: 10/15 Patchy airspace consolidation again demonstrated bilaterally at without change. Heart size is stable. Barb Thao NP ([facility]) Oct 16, 2016 08:07
[2016-10-16 08:34] LABS: LYMPHOCYTES % (MANUAL) 4 % (20-45); NEUTROPHILS % (MANUAL) 93 % (45-75); TOTAL CELLS COUNTED 100
[2016-10-16 08:35] LABS: ANISOCYTOSIS 1+; BAND NEUTROPHILS % (MANUAL) 0 % (0-8); BASOPHILS % (MANUAL) 0 % (0-2); EOSINOPHILS % (MANUAL) 0 % (0-3); PLATELET ESTIMATE ADEQUATE; PLATELET MORPHOLOGY NORMAL
[2016-10-16 08:36] LABS: MACROCYTES 1+
[2016-10-16] MEDS: Heparin 5000 units/ml inj SUBQ SCH ×2 (09:00→20:29)
[2016-10-16] MEDS: Lisinopril 10mg tab ORAL SCH ×2 (09:14→20:28)
[2016-10-16] MEDS: Amiodarone 200mg tab ORAL SCH (09:14)
[2016-10-16 10:28] LABS: ABG ALLEN TEST POSITIVE; ABG BASE EXCESS 9.2; ABG PCO2 45.9 mmHg (35.0-45.0)
--- NOTE | 2016-10-16 11:20 | Diagnostic Imaging Report ---
Indication: Dyspnea Comparison: 10/15/2016 A single view chest radiograph was obtained. Findings: Tubes and lines are stable. Patchy consolidative opacities noted bilaterally unchanged. Heart size is stable. Impression: No change from the prior day
--- NOTE | 2016-10-16 13:15 | Cardiology Progress Note ---
Assessment/Plan Problem List: (1) Pneumonia (2) Sepsis (3) Acute respiratory failure with hypoxia (4) Normal pressure hydrocephalus (5) Alzheimer's dementia (6) Tachyarrhythmia Status: stable, unchanged Status Narrative Respiratory failure - extubated, but remains w/ tenuous resp status. CXR w/ bilat infiltrates and WBC increasing Maintaining o2 sats on FM oxygen BP stable, maintaining SR on telemetry. Assessment/Plan Continue bronchodilators, o2, frequent suctioning. ? restart antibiotics in view of increasing WBC - ID ,Dr Mathur , following. Continue low dose amiodarone for maintenance of SR. Lisinopril for BP control ECHO this adm w/ preserved LV systolic function. Subjective ROS Limited/Unobtainable: Yes Subjective Events noted. Pt sedated, on face-mask o2 Objective Last 24 Hour Vital Signs Date Time Temp Pulse Resp B/P (MAP) Pulse Ox O2 Delivery O2 Flow Rate FiO2 10/16/16 12:00 99 10/16/16 12:00 92 27 134/64 100 Non-Rebreather 15.0 10/16/16 11:00 97.5 98 27 138/68 100 Non-Rebreather 15.0 10/16/16 10:00 95 28 138/76 99 Non-Rebreather 15.0 10/16/16 09:15 97 154/68 10/16/16 09:14 154/68 10/16/16 09:00 97 27 141/71 97 Non-Rebreather 15.0 10/16/16 08:00 98.6 97 24 154/68 99 Non-Rebreather 15.0 10/16/16 08:00 95 10/16/16 07:05 98 20 Non-Rebreather 15.0 100 10/16/16 07:03 100 Non-Rebreather 15.0 100 10/16/16 07:03 Non-Rebreather 15.0 100 10/16/16 07:00 100 34 140/75 100 Non-Rebreather 15.0 10/16/16 06:00 100 34 152/67 100 Non-Rebreather 15.0 10/16/16 05:00 99 34 144/77 100 Non-Rebreather 15.0 10/16/16 04:00 99 10/16/16 04:00 98.2 103 31 144/66 99 Non-Rebreather 15.0 10/16/16 03:00 99 34 149/70 100 Non-Rebreather 15.0 10/16/16 02:00 99 34 157/78 100 Non-Rebreather 15.0 10/16/16 01:00 100 34 146/70 100 Non-Rebreather 15.0 10/16/16 00:00 98.0 93 26 139/68 99 Non-Rebreather 15.0 10/16/16 00:00 100 10/15/16 23:00 103 34 139/62 97 Non-Rebreather 15.0 10/15/16 22:00 100 34 134/63 98 Non-Rebreather 15.0 10/15/16 21:00 88 29 140/67 99 Non-Rebreather 15.0 10/15/16 20:31 127/59 10/15/16 20:09 95 10/15/16 20:00 88 29 127/59 99 Non-Rebreather 15.0 10/15/16 19:15 Non-Rebreather 15.0 100 10/15/16 19:00 98.6 93 30 135/61 99 Non-Rebreather 15.0 10/15/16 18:08 88 30 129/46 99 Non-Rebreather 15.0 10/15/16 17:34 93 131/58 10/15/16 17:00 88 28 131/58 100 Non-Rebreather 15.0 10/15/16 16:00 94 10/15/16 16:00 98.3 88 27 124/56 99 Non-Rebreather 15.0 10/15/16 15:00 95 30 134/54 96 Non-Rebreather 15.0 10/15/16 14:45 134/54 10/15/16 14:00 87 27 125/64 100 Non-Rebreather 15.0 General Appearance: WD/WN, other - on FM 02 Neck: non-tender, no JVD Rhythm: NSR Cardiovascular: normal rate, regular rhythm, no gallop/murmur Respiratory/Chest: other - occ rhonchi Abdomen: normal bowel sounds, non tender, soft Extremities: no swelling Intake and Output 10/16/16 10/17/16 19:00 07:00 Intake Total 230 ml Output Total 140 ml Balance 90 ml Free Water 50 ml Tube Feeding 180 ml Output Urine Total 140 ml Laboratory Tests Test 10/16/16 04:30 10/16/16 09:20 White Blood Count 21.7 K/UL (4.8-10.8) H Red Blood Count 3.06 M/UL (4.70-6.10) L Hemoglobin 10.4 G/DL (14.2-18.0) L Hematocrit 30.9 % (42.0-52.0) L Mean Corpuscular Volume 101 FL (80-99) H Mean Corpuscular Hemoglobin 33.8 PG (27.0-31.0) H Mean Corpuscular Hemoglobin Concent 33.5 G/DL (32.0-36.0) Red Cell Distribution Width 15.4 % (11.6-14.8) H Platelet Count 224 K/UL (150-450) Mean Platelet Volume 7.2 FL (6.5-10.1) Neutrophils (%) (Auto) % (45.0-75.0) Lymphocytes (%) (Auto) % (20.0-45.0) Monocytes (%) (Auto) % (1.0-10.0) Eosinophils (%) (Auto) % (0.0-3.0) Basophils (%) (Auto) % (0.0-2.0) Differential Total Cells Counted 100 Neutrophils % (Manual) 93 % (45-75) H Lymphocytes % (Manual) 4 % (20-45) L Monocytes % (Manual) 3 % (1-10) Eosinophils % (Manual) 0 % (0-3) Basophils % (Manual) 0 % (0-2) Band Neutrophils 0 % (0-8) Platelet Estimate Adequate Platelet Morphology Normal Anisocytosis 1+ Macrocytosis 1+ Sodium Level 142 mEQ/L (135-145) Potassium Level 3.6 mEQ/L (3.4-4.9) Chloride Level 100 mEQ/L (98-107) Carbon Dioxide Level 33 mEQ/L (20-30) H Anion Gap 9 (5-15) Blood Urea Nitrogen 12 mg/dL (7-23) Creatinine 0.8 mg/dL (0.7-1.2) Estimat Glomerular Filtration Rate mL/min (>60) Glucose Level 152 mg/dL (74-106) H Calcium Level 8.7 mg/dL (8.6-10.2) Arterial Blood pH 7.483 (7.350-7.450) Arterial Blood Partial Pressure CO2 45.9 mmHg (35.0-45.0) H Arterial Blood Partial Pressure O2 88.7 mmHg (75.0-100.0) Arterial Blood HCO3 33.7 mmol/L (22.0-26.0) H Arterial Blood Oxygen Saturation 96.1 % (92.0-98.0) Arterial Blood Base Excess 9.2 Nicholas Test Positive Microbiology Date/Time Source Procedure Growth Status 10/15/16 20:00 Stool Clostridium difficile Toxin Assay - Final Complete POWER GÓMEZ Oct 16, 2016 13:15
[2016-10-16] MEDS: Tamsulosin 0.4mg cap ORAL SCH (20:26)
[2016-10-16] MEDS ORDERED: DuoNeb 0.5-3(2.5)mg/3ml neb HHN PRN (23:00)
--- NOTE | 2016-10-16 23:25 | General Progress Note ---
Assessment/Plan Status: stable Assessment/Plan 1. Anemia secondary to chronic disease. Anemia workup has been reviewed. Folate within normal limits as his B12. TSH is within normal limits. Ferritin is 137, sufficient. No evidence of iron deficiency --> Transfuse if hemoglobin is less than 7. --> monitor HH --> has been stable > 7 2. Coagulopathy. PTT is 50. We will order a PTT and mixing study at this time. --> PTT corrects, likely factor deficiency due to malnutrition 3. Thrombocytopenia in a patient secondary to underlying sepsis. --> plt count improving 4. Respiratory failure, is intubated. 5. Paroxysmal atrial fibrillation. Being seen by Cardiology service. He is on amiodarone. 6. Pneumonia and sepsis. --> abx per id service Subjective Date patient seen: Oct 15, 2016 Constitutional: Reports: no symptoms HEENT: Reports: no symptoms Cardiovascular: Reports: no symptoms Respiratory: Reports: no symptoms Gastrointestinal/Abdominal: Reports: no symptoms Genitourinary: Reports: no symptoms Neurologic/Psychiatric: Reports: no symptoms Endocrine: Reports: no symptoms Allergies: Coded Allergies: No Known Allergies (Unverified , 07/19/12) Subjective No acute distress, afebrile, no active bleeding. Objective Last 24 Hour Vital Signs Date Time Temp Pulse Resp B/P (MAP) Pulse Ox O2 Delivery O2 Flow Rate FiO2 10/16/16 20:28 177/82 10/16/16 20:06 98 20 Non-Rebreather 15.0 100 10/16/16 20:06 95 Non-Rebreather 15.0 100 10/16/16 20:06 Non-Rebreather 15.0 100 10/16/16 20:00 98.5 92 30 134/64 100 Non-Rebreather 15.0 10/16/16 20:00 106 10/16/16 20:00 98.5 92 30 134/64 100 Non-Rebreather 10/16/16 19:33 105 10/16/16 18:00 104 28 102/55 97 Non-Rebreather 15.0 10/16/16 17:35 106 119/58 10/16/16 17:00 114 30 114/61 97 Non-Rebreather 15.0 10/16/16 16:00 98.2 117 31 119/58 95 Non-Rebreather 15.0 10/16/16 16:00 106 10/16/16 15:48 162/80 10/16/16 15:00 115 31 162/80 95 Non-Rebreather 15.0 10/16/16 14:45 148/64 10/16/16 14:00 95 28 148/64 99 Non-Rebreather 15.0 10/16/16 13:00 91 27 136/63 100 Non-Rebreather 15.0 10/16/16 12:00 99 10/16/16 12:00 98.6 92 27 134/64 100 Non-Rebreather 15.0 10/16/16 11:00 97.5 98 27 138/68 100 Non-Rebreather 15.0 10/16/16 10:00 95 28 138/76 99 Non-Rebreather 15.0 10/16/16 09:15 97 154/68 10/16/16 09:14 154/68 10/16/16 09:00 97 27 141/71 97 Non-Rebreather 15.0 10/16/16 08:00 98.6 97 24 154/68 99 Non-Rebreather 15.0 10/16/16 08:00 95 10/16/16 07:05 98 20 Non-Rebreather 15.0 100 10/16/16 07:03 100 Non-Rebreather 15.0 100 10/16/16 07:03 Non-Rebreather 15.0 100 10/16/16 07:00 100 34 140/75 100 Non-Rebreather 15.0 10/16/16 06:00 100 34 152/67 100 Non-Rebreather 15.0 10/16/16 05:00 99 34 144/77 100 Non-Rebreather 15.0 10/16/16 04:00 99 10/16/16 04:00 98.2 103 31 144/66 99 Non-Rebreather 15.0 10/16/16 03:00 99 34 149/70 100 Non-Rebreather 15.0 10/16/16 02:00 99 34 157/78 100 Non-Rebreather 15.0 10/16/16 01:00 100 34 146/70 100 Non-Rebreather 15.0 10/16/16 00:00 98.0 93 26 139/68 99 Non-Rebreather 15.0 10/16/16 00:00 100 10/15/16 23:00 103 34 139/62 97 Non-Rebreather 15.0 10/15/16 22:00 100 34 134/63 98 Non-Rebreather 15.0 10/15/16 21:00 88 29 140/67 99 Non-Rebreather 15.0 10/15/16 20:31 127/59 10/15/16 20:09 95 10/15/16 20:00 88 29 127/59 99 Non-Rebreather 15.0 10/15/16 19:15 Non-Rebreather 15.0 100 10/15/16 19:00 98.6 93 30 135/61 99 Non-Rebreather 15.0 10/15/16 18:08 88 30 129/46 99 Non-Rebreather 15.0 10/15/16 17:34 93 131/58 10/15/16 17:00 88 28 131/58 100 Non-Rebreather 15.0 10/15/16 16:00 94 10/15/16 16:00 98.3 88 27 124/56 99 Non-Rebreather 15.0 10/15/16 15:00 95 30 134/54 96 Non-Rebreather 15.0 10/15/16 14:45 134/54 10/15/16 14:00 87 27 125/64 100 Non-Rebreather 15.0 10/15/16 13:00 90 29 127/55 100 Non-Rebreather 15.0 10/15/16 12:00 98.3 93 28 131/58 100 Non-Rebreather 15.0 10/15/16 12:00 87 10/15/16 11:00 15.0 10/15/16 11:00 93 29 121/54 94 Non-Rebreather 15.0 10/15/16 10:00 10/15/16 10:00 93 31 127/61 100 Non-Rebreather 15.0 10/15/16 09:25 130/58 10/15/16 09:25 94 130/58 10/15/16 09:00 10/15/16 09:00 94 29 125/55 98 Non-Rebreather 15.0 10/15/16 08:00 10/15/16 08:00 96 10/15/16 08:00 98.2 107 34 131/53 98 Non-Rebreather 15.0 10/15/16 07:00 99 28 133/56 99 Non-Rebreather 15.0 10/15/16 07:00 10/15/16 07:00 99 Non-Rebreather 15.0 100 10/15/16 07:00 Non-Rebreather 15.0 100 10/15/16 06:00 102 26 131/56 99 Non-Rebreather 15.0 10/15/16 05:00 103 26 131/51 99 Non-Rebreather 15.0 10/15/16 04:00 106 10/15/16 04:00 98.9 10 27 138/50 97 Non-Rebreather 15.0 10/15/16 03:00 96 27 179/43 98 Non-Rebreather 15.0 10/15/16 02:24 191/54 10/15/16 02:00 88 25 183/53 100 Non-Rebreather 15.0 10/15/16 01:00 85 25 183/52 100 Non-Rebreather 15.0 10/15/16 00:00 89 10/15/16 00:00 98.8 86 27 164/45 100 Non-Rebreather 15.0 Last 24 Hour Vital Signs Date Time Temp Pulse Resp B/P (MAP) Pulse Ox O2 Delivery O2 Flow Rate FiO2 10/16/16 20:28 177/82 10/16/16 20:06 98 20 Non-Rebreather 15.0 100 10/16/16 20:06 95 Non-Rebreather 15.0 100 10/16/16 20:06 Non-Rebreather 15.0 100 10/16/16 20:00 98.5 92 30 134/64 100 Non-Rebreather 15.0 10/16/16 20:00 106 10/16/16 20:00 98.5 92 30 134/64 100 Non-Rebreather 10/16/16 19:33 105 10/16/16 18:00 104 28 102/55 97 Non-Rebreather 15.0 10/16/16 17:35 106 119/58 10/16/16 17:00 114 30 114/61 97 Non-Rebreather 15.0 10/16/16 16:00 98.2 117 31 119/58 95 Non-Rebreather 15.0 10/16/16 16:00 106 10/16/16 15:48 162/80 10/16/16 15:00 115 31 162/80 95 Non-Rebreather 15.0 10/16/16 14:45 148/64 10/16/16 14:00 95 28 148/64 99 Non-Rebreather 15.0 10/16/16 13:00 91 27 136/63 100 Non-Rebreather 15.0 10/16/16 12:00 99 10/16/16 12:00 98.6 92 27 134/64 100 Non-Rebreather 15.0 10/16/16 11:00 97.5 98 27 138/68 100 Non-Rebreather 15.0 10/16/16 10:00 95 28 138/76 99 Non-Rebreather 15.0 10/16/16 09:15 97 154/68 10/16/16 09:14 154/68 10/16/16 09:00 97 27 141/71 97 Non-Rebreather 15.0 10/16/16 08:00 98.6 97 24 154/68 99 Non-Rebreather 15.0 10/16/16 08:00 95 10/16/16 07:05 98 20 Non-Rebreather 15.0 100 10/16/16 07:03 100 Non-Rebreather 15.0 100 10/16/16 07:03 Non-Rebreather 15.0 100 10/16/16 07:00 100 34 140/75 100 Non-Rebreather 15.0 10/16/16 06:00 100 34 152/67 100 Non-Rebreather 15.0 10/16/16 05:00 99 34 144/77 100 Non-Rebreather 15.0 10/16/16 04:00 99 10/16/16 04:00 98.2 103 31 144/66 99 Non-Rebreather 15.0 10/16/16 03:00 99 34 149/70 100 Non-Rebreather 15.0 10/16/16 02:00 99 34 157/78 100 Non-Rebreather 15.0 10/16/16 01:00 100 34 146/70 100 Non-Rebreather 15.0 10/16/16 00:00 98.0 93 26 139/68 99 Non-Rebreather 15.0 10/16/16 00:00 100 Intake and Output 10/16/16 10/17/16 19:00 07:00 Intake Total 380 ml Output Total 230 ml Balance 150 ml Free Water 50 ml Tube Feeding 330 ml Output Urine Total 230 ml Labs Test 10/15/16 05:00 10/15/16 08:17 10/16/16 04:30 10/16/16 09:20 White Blood Count 16.3 K/UL (4.8-10.8) 21.7 K/UL (4.8-10.8) Red Blood Count 3.17 M/UL (4.70-6.10) 3.06 M/UL (4.70-6.10) Hemoglobin 10.9 G/DL (14.2-18.0) 10.4 G/DL (14.2-18.0) Hematocrit 31.9 % (42.0-52.0) 30.9 % (42.0-52.0) Mean Corpuscular Volume 101 FL (80-99) 101 FL (80-99) Mean Corpuscular Hemoglobin 34.3 PG (27.0-31.0) 33.8 PG (27.0-31.0) Mean Corpuscular Hemoglobin Concent 34.1 G/DL (32.0-36.0) 33.5 G/DL (32.0-36.0) Red Cell Distribution Width 15.8 % (11.6-14.8) 15.4 % (11.6-14.8) Platelet Count 203 K/UL (150-450) 224 K/UL (150-450) Mean Platelet Volume 7.1 FL (6.5-10.1) 7.2 FL (6.5-10.1) Neutrophils (%) (Auto) % (45.0-75.0) % (45.0-75.0) Lymphocytes (%) (Auto) % (20.0-45.0) % (20.0-45.0) Monocytes (%) (Auto) % (1.0-10.0) % (1.0-10.0) Eosinophils (%) (Auto) % (0.0-3.0) % (0.0-3.0) Basophils (%) (Auto) % (0.0-2.0) % (0.0-2.0) Differential Total Cells Counted 100 100 Neutrophils % (Manual) 93 % (45-75) 93 % (45-75) Lymphocytes % (Manual) 3 % (20-45) 4 % (20-45) Monocytes % (Manual) 4 % (1-10) 3 % (1-10) Eosinophils % (Manual) 0 % (0-3) 0 % (0-3) Basophils % (Manual) 0 % (0-2) 0 % (0-2) Band Neutrophils 0 % (0-8) 0 % (0-8) Platelet Estimate Adequate Adequate Platelet Morphology Normal Normal Hypochromasia 1+ Anisocytosis 1+ 1+ Macrocytosis 1+ 1+ Sodium Level 140 mEQ/L (135-145) 142 mEQ/L (135-145) Potassium Level 3.6 mEQ/L (3.4-4.9) 3.6 mEQ/L (3.4-4.9) Chloride Level 99 mEQ/L (98-107) 100 mEQ/L (98-107) Carbon Dioxide Level 31 mEQ/L (20-30) 33 mEQ/L (20-30) Anion Gap 10 (5-15) 9 (5-15) Blood Urea Nitrogen 9 mg/dL (7-23) 12 mg/dL (7-23) Creatinine 0.7 mg/dL (0.7-1.2) 0.8 mg/dL (0.7-1.2) Estimat Glomerular Filtration Rate mL/min (>60) mL/min (>60) Glucose Level 126 mg/dL (74-106) 152 mg/dL (74-106) Calcium Level 8.8 mg/dL (8.6-10.2) 8.7 mg/dL (8.6-10.2) Phosphorus Level 2.9 mg/dL (2.5-4.8) Magnesium Level 1.8 mg/dL (1.7-2.5) Total Bilirubin 0.7 mg/dL (0.0-1.2) Aspartate Amino Transf (AST/SGOT) 14 U/L (5-40) Alanine Aminotransferase (ALT/SGPT) 12 U/L (3-41) Alkaline Phosphatase 80 U/L (40-129) Total Protein 6.9 g/dL (6.6-8.7) Albumin 2.3 g/dL (3.5-5.2) Globulin 4.6 g/dL Albumin/Globulin Ratio 0.5 (1.0-2.7) Arterial Blood pH 7.517 (7.350-7.450) 7.483 (7.350-7.450) Arterial Blood Partial Pressure CO2 40.4 mmHg (35.0-45.0) 45.9 mmHg (35.0-45.0) Arterial Blood Partial Pressure O2 76.3 mmHg (75.0-100.0) 88.7 mmHg (75.0-100.0) Arterial Blood HCO3 32.0 mmol/L (22.0-26.0) 33.7 mmol/L (22.0-26.0) Arterial Blood Oxygen Saturation 94.6 % (92.0-98.0) 96.1 % (92.0-98.0) Arterial Blood Base Excess 8.4 9.2 Nicholas Test N/a Positive Laboratory Tests 10/16/16 04:30: White Blood Count 21.7H, Red Blood Count 3.06L, Hemoglobin 10.4L, Hematocrit 30.9L, Mean Corpuscular Volume 101H, Mean Corpuscular Hemoglobin 33.8H, Mean Corpuscular Hemoglobin Concent 33.5, Red Cell Distribution Width 15.4H, Platelet Count 224, Mean Platelet Volume 7.2, Neutrophils (%) (Auto) , Lymphocytes (%) (Auto) , Monocytes (%) (Auto) , Eosinophils (%) (Auto) , Basophils (%) (Auto) , Differential Total Cells Counted 100, Neutrophils % ( Manual) 93H, Lymphocytes % (Manual) 4L, Monocytes % (Manual) 3, Eosinophils % ( Manual) 0, Basophils % (Manual) 0, Band Neutrophils 0, Platelet Estimate Adequate, Platelet Morphology Normal, Anisocytosis 1+, Macrocytosis 1+, Sodium Level 142, Potassium Level 3.6, Chloride Level 100, Carbon Dioxide Level 33H, Anion Gap 9, Blood Urea Nitrogen 12, Creatinine 0.8, Estimat Glomerular Filtration Rate , Glucose Level 152H, Calcium Level 8.7 10/16/16 09:20: Arterial Blood pH 7.483H, Arterial Blood Partial Pressure CO2 45.9H, Arterial Blood Partial Pressure O2 88.7, Arterial Blood HCO3 33.7H, Arterial Blood Oxygen Saturation 96.1, Arterial Blood Base Excess 9.2, Nicholas Test Positive Height (Feet): 5 Height (Inches): 7.00 Weight (Pounds): 145 General Appearance: no apparent distress EENT: TMs normal Cardiovascular: tachycardia Respiratory/Chest: no accessory muscle use Skin: normal pigmentation, warm/dry GIRISH DENNY Oct 16, 2016 23:25
--- NOTE | 2016-10-16 23:26 | General Progress Note ---
Assessment/Plan Status: stable Assessment/Plan 1. Anemia secondary to chronic disease. Anemia workup has been reviewed. Folate within normal limits as his B12. TSH is within normal limits. Ferritin is 137, sufficient. No evidence of iron deficiency --> Transfuse if hemoglobin is less than 7. --> monitor HH --> has been stable > 7 2. Coagulopathy. PTT is 50. We will order a PTT and mixing study at this time. --> PTT corrects, likely factor deficiency due to malnutrition 3. Thrombocytopenia in a patient secondary to underlying sepsis. --> plt count improving 4. Respiratory failure, is intubated. 5. Paroxysmal atrial fibrillation. Being seen by Cardiology service. He is on amiodarone. 6. Pneumonia and sepsis. --> abx per id service Subjective Date patient seen: Oct 16, 2016 ROS Limited/Unobtainable: No Constitutional: Denies: no symptoms, chills, diaphoresis, fever, malaise, weakness, other HEENT: Denies: no symptoms, eye pain, blurred vision, tearing, double vision, ear pain, ear discharge, nose pain, nose congestion, throat pain, throat swelling, mouth pain, mouth swelling, other Cardiovascular: Denies: no symptoms, chest pain, edema, irregular heart rate, lightheadedness, palpitations, syncope, other Respiratory: Denies: no symptoms, cough, orthopnea, shortness of breath, SOB with excertion, SOB at rest, sputum, stridor, wheezing, other Gastrointestinal/Abdominal: Denies: no symptoms, abdomen distended, abdominal pain, black stools, tarry stools, blood in stool, constipated, diarrhea, difficulty swallowing, nausea, poor appetite, poor fluid intake, rectal bleeding , vomiting, other Genitourinary: Denies: no symptoms, burning, discharge, frequency, flank pain, hematuria, incontinence, pain, urgency, other Neurologic/Psychiatric: Denies: no symptoms, anxiety, depressed, emotional problems, headache, numbness, paresthesia, pre-existing deficit, seizure, tingling, tremors, weakness, other Endocrine: Denies: no symptoms, excessive sweating, flushing, intolerance to cold, intolerance to heat, increased hunger, increased thirst, increased urine, unexplained weight gain, unexplained weight loss, other Hematologic/Lymphatic: Denies: no symptoms, anemia, easy bleeding, easy bruising, other Allergies: Coded Allergies: No Known Allergies (Unverified , 07/19/12) Subjective No acute distress, afebrile, no active bleeding. Objective Last 24 Hour Vital Signs Date Time Temp Pulse Resp B/P (MAP) Pulse Ox O2 Delivery O2 Flow Rate FiO2 10/16/16 20:28 177/82 10/16/16 20:06 98 20 Non-Rebreather 15.0 100 10/16/16 20:06 95 Non-Rebreather 15.0 100 10/16/16 20:06 Non-Rebreather 15.0 100 10/16/16 20:00 98.5 92 30 134/64 100 Non-Rebreather 15.0 10/16/16 20:00 106 10/16/16 20:00 98.5 92 30 134/64 100 Non-Rebreather 10/16/16 19:33 105 10/16/16 18:00 104 28 102/55 97 Non-Rebreather 15.0 10/16/16 17:35 106 119/58 10/16/16 17:00 114 30 114/61 97 Non-Rebreather 15.0 10/16/16 16:00 98.2 117 31 119/58 95 Non-Rebreather 15.0 10/16/16 16:00 106 10/16/16 15:48 162/80 10/16/16 15:00 115 31 162/80 95 Non-Rebreather 15.0 10/16/16 14:45 148/64 10/16/16 14:00 95 28 148/64 99 Non-Rebreather 15.0 10/16/16 13:00 91 27 136/63 100 Non-Rebreather 15.0 10/16/16 12:00 99 10/16/16 12:00 98.6 92 27 134/64 100 Non-Rebreather 15.0 10/16/16 11:00 97.5 98 27 138/68 100 Non-Rebreather 15.0 10/16/16 10:00 95 28 138/76 99 Non-Rebreather 15.0 10/16/16 09:15 97 154/68 10/16/16 09:14 154/68 10/16/16 09:00 97 27 141/71 97 Non-Rebreather 15.0 10/16/16 08:00 98.6 97 24 154/68 99 Non-Rebreather 15.0 10/16/16 08:00 95 10/16/16 07:05 98 20 Non-Rebreather 15.0 100 10/16/16 07:03 100 Non-Rebreather 15.0 100 10/16/16 07:03 Non-Rebreather 15.0 100 10/16/16 07:00 100 34 140/75 100 Non-Rebreather 15.0 10/16/16 06:00 100 34 152/67 100 Non-Rebreather 15.0 10/16/16 05:00 99 34 144/77 100 Non-Rebreather 15.0 10/16/16 04:00 99 10/16/16 04:00 98.2 103 31 144/66 99 Non-Rebreather 15.0 10/16/16 03:00 99 34 149/70 100 Non-Rebreather 15.0 10/16/16 02:00 99 34 157/78 100 Non-Rebreather 15.0 10/16/16 01:00 100 34 146/70 100 Non-Rebreather 15.0 10/16/16 00:00 98.0 93 26 139/68 99 Non-Rebreather 15.0 10/16/16 00:00 100 Intake and Output 10/16/16 10/17/16 19:00 07:00 Intake Total 380 ml Output Total 230 ml Balance 150 ml Free Water 50 ml Tube Feeding 330 ml Output Urine Total 230 ml Laboratory Tests 10/16/16 04:30: White Blood Count 21.7H, Red Blood Count 3.06L, Hemoglobin 10.4L, Hematocrit 30.9L, Mean Corpuscular Volume 101H, Mean Corpuscular Hemoglobin 33.8H, Mean Corpuscular Hemoglobin Concent 33.5, Red Cell Distribution Width 15.4H, Platelet Count 224, Mean Platelet Volume 7.2, Neutrophils (%) (Auto) , Lymphocytes (%) (Auto) , Monocytes (%) (Auto) , Eosinophils (%) (Auto) , Basophils (%) (Auto) , Differential Total Cells Counted 100, Neutrophils % ( Manual) 93H, Lymphocytes % (Manual) 4L, Monocytes % (Manual) 3, Eosinophils % ( Manual) 0, Basophils % (Manual) 0, Band Neutrophils 0, Platelet Estimate Adequate, Platelet Morphology Normal, Anisocytosis 1+, Macrocytosis 1+, Sodium Level 142, Potassium Level 3.6, Chloride Level 100, Carbon Dioxide Level 33H, Anion Gap 9, Blood Urea Nitrogen 12, Creatinine 0.8, Estimat Glomerular Filtration Rate , Glucose Level 152H, Calcium Level 8.7 10/16/16 09:20: Arterial Blood pH 7.483H, Arterial Blood Partial Pressure CO2 45.9H, Arterial Blood Partial Pressure O2 88.7, Arterial Blood HCO3 33.7H, Arterial Blood Oxygen Saturation 96.1, Arterial Blood Base Excess 9.2, Nicholas Test Positive Height (Feet): 5 Height (Inches): 7.00 Weight (Pounds): 145 General Appearance: no apparent distress EENT: TMs normal Cardiovascular: normal rate Abdomen: non tender, soft 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
[2016-10-17] VITALS (7 sets, daily range): BP systolic 120–157; BP diastolic 57–78
[2016-10-17 05:05] LABS: MEAN CORPUSCULAR HEMOGLOBIN 34.1 PG (27.0-31.0); MEAN CORPUSCULAR HGB CONC 33.6 G/DL (32.0-36.0); MEAN CORPUSCULAR VOLUME 102 FL (80-99); MEAN PLATELET VOLUME 7.2 FL (6.5-10.1); PLATELET COUNT 224 K/UL (150-450); RED BLOOD COUNT 2.71 M/UL (4.70-6.10); RED CELL DISTRIBUTION WIDTH 15.4 % (11.6-14.8); WHITE BLOOD COUNT 19.7 K/UL (4.8-10.8)
[2016-10-17 05:28] LABS: ANION GAP 10 (5-15); CALCIUM 8.7 mg/dL (8.6-10.2); CARBON DIOXIDE 34 mEQ/L (20-30); CHLORIDE 100 mEQ/L (98-107); CREATININE 0.8 mg/dL (0.7-1.2); HEMOLYSIS 25; POTASSIUM 3.6 mEQ/L (3.4-4.9); SODIUM 144 mEQ/L (135-145)
[2016-10-17] MEDS: NovoLOG Insulin Flexpen SUBQ SCH ×4 (05:41→23:31)
[2016-10-17] MEDS ORDERED: Amiodarone 200mg tab ORAL SCH (09:00)
[2016-10-17 09:27] LABS: ANISOCYTOSIS 1+; BAND NEUTROPHILS % (MANUAL) 0 % (0-8); BASOPHILS % (MANUAL) 0 % (0-2); EOSINOPHILS % (MANUAL) 0 % (0-3); HYPOCHROMASIA 1+; LYMPHOCYTES % (MANUAL) 5 % (20-45); MACROCYTES 1+; NEUTROPHILS % (MANUAL) 93 % (45-75); PLATELET ESTIMATE ADEQUATE; PLATELET MORPHOLOGY NORMAL; TOTAL CELLS COUNTED 100
[2016-10-17] MEDS: Heparin 5000 units/ml inj SUBQ SCH ×2 (09:37→20:12)
[2016-10-17] MEDS: Lisinopril 10mg tab ORAL SCH ×2 (09:41→20:10)
--- NOTE | 2016-10-17 11:53 | Pulmonology Progress Note ---
Assessment/Plan Problems: (1) Acute respiratory failure with hypoxia (2) Pneumonia (3) Sepsis (4) Normal pressure hydrocephalus (5) Alzheimer's dementia Respiratory: CXR Cardiac: continue to monitor HR/BP Renal: F/U I&O, keep IV fluid Infectious Disease: continue antibiotics Gastrointestinal: continue feedings/current rate Endocrine: monitor blood sugar Hematologic: monitor H/H Neurologic: PRN Ativan Prophylaxis: Heparin Notes Reviewed: tobacco classer, renal Discussed with: nurses, consultants, family preservation caseworker, family member Subjective ROS Limited/Unobtainable: No Constitutional: Reports: no symptoms HEENT: Repors: no symptoms Respiratory: Reports: no symptoms Cardiovascular: Reports: no symptoms Allergies: Coded Allergies: No Known Allergies (Unverified , 07/19/12) Objective Last 24 Hour Vital Signs Date Time Temp Pulse Resp B/P (MAP) Pulse Ox O2 Delivery O2 Flow Rate FiO2 10/17/16 09:41 151/71 10/17/16 09:41 97 151/71 10/17/16 08:00 97 10/17/16 07:59 97.4 92 26 151/71 100 Non-Rebreather 15.0 10/17/16 07:44 97 20 Non-Rebreather 15.0 100 10/17/16 07:44 Non-Rebreather 15.0 100 10/17/16 07:44 98 Non-Rebreather 15.0 100 10/17/16 04:00 91 10/17/16 04:00 99.4 96 28 157/75 99 Non-Rebreather 15.0 10/17/16 00:00 98.9 95 22 148/78 100 Non-Rebreather 15.0 10/17/16 00:00 91 10/16/16 20:28 177/82 10/16/16 20:06 98 20 Non-Rebreather 15.0 100 10/16/16 20:06 95 Non-Rebreather 15.0 100 10/16/16 20:06 Non-Rebreather 15.0 100 10/16/16 20:00 98.5 92 30 134/64 100 Non-Rebreather 15.0 10/16/16 20:00 106 10/16/16 20:00 98.5 92 30 134/64 100 Non-Rebreather 10/16/16 19:33 105 10/16/16 18:00 104 28 102/55 97 Non-Rebreather 15.0 10/16/16 17:35 106 119/58 10/16/16 17:00 114 30 114/61 97 Non-Rebreather 15.0 10/16/16 16:00 98.2 117 31 119/58 95 Non-Rebreather 15.0 10/16/16 16:00 106 10/16/16 15:48 162/80 10/16/16 15:00 115 31 162/80 95 Non-Rebreather 15.0 10/16/16 14:45 148/64 10/16/16 14:00 95 28 148/64 99 Non-Rebreather 15.0 10/16/16 13:00 91 27 136/63 100 Non-Rebreather 15.0 10/16/16 12:00 99 10/16/16 12:00 98.6 92 27 134/64 100 Non-Rebreather 15.0 Intake and Output 10/17/16 10/18/16 19:00 07:00 Intake Total 220 ml Balance 220 ml Free Water 100 ml Tube Feeding 120 ml General Appearance: cachetic Respiratory/Chest: lungs clear Cardiovascular: normal peripheral pulses, normal rate, regular rhythm Abdomen: normal bowel sounds, soft, non tender Genitourinary: normal external genitalia Extremities: no cyanosis Skin: no rash Neurologic/Psychiatric: motor 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 II-XII grossly normal Lymphatic: no groin adenopathy Microbiology Date/Time Source Procedure Growth Status 10/15/16 20:00 Stool Clostridium difficile Toxin Assay - Final Complete Laboratory Tests 10/17/16 03:35: White Blood Count 19.7H, Red Blood Count 2.71L, Hemoglobin 9.3L, Hematocrit 27.5L, Mean Corpuscular Volume 102H, Mean Corpuscular Hemoglobin 34.1H, Mean Corpuscular Hemoglobin Concent 33.6, Red Cell Distribution Width 15.4H, Platelet Count 224, Mean Platelet Volume 7.2, Neutrophils (%) (Auto) , Lymphocytes (%) (Auto) , Monocytes (%) (Auto) , Eosinophils (%) (Auto) , Basophils (%) (Auto) , Differential Total Cells Counted 100, Neutrophils % ( Manual) 93H, Lymphocytes % (Manual) 5L, Monocytes % (Manual) 2, Eosinophils % ( Manual) 0, Basophils % (Manual) 0, Band Neutrophils 0, Platelet Estimate Adequate, Platelet Morphology Normal, Hypochromasia 1+, Anisocytosis 1+, Macrocytosis 1+, Sodium Level 144, Potassium Level 3.6, Chloride Level 100, Carbon Dioxide Level 34H, Anion Gap 10, Blood Urea Nitrogen 15, Creatinine 0.8, Estimat Glomerular Filtration Rate , Glucose Level 134H, Calcium Level 8.7 Current Medications Medications (Trade) Dose Ordered Sig/Bhavna Route PRN Reason Start Time Stop Time Status Last Admin Dose Admin Acetaminophen (Tylenol) 650 mg Q4H PRN ORAL fever 10/16/16 22:30 11/04/16 10:29 Albuterol/ Ipratropium (DuoNeb 0.5-3(2.5)mg/3ml) 3 ml Q4HRT PRN HHN sob 10/16/16 23:00 10/20/16 15:59 Amiodarone HCl (Cordarone) 200 mg DAILY ORAL 10/17/16 09:00 11/05/16 21:59 10/17/16 09:40 Amlodipine Besylate (Norvasc) 5 mg BID ORAL 10/17/16 09:00 11/09/16 20:59 10/17/16 09:41 Clotrimazole (Lotrimin) 1 applic THREE TIMES A DAY TOPIC 10/17/16 09:00 11/12/16 12:59 10/17/16 09:42 Dextrose (Dextrose 50%) STAT PRN IV Hypoglycemia 10/17/16 18:30 11/05/16 18:29 Furosemide (Lasix) 20 mg EVERY 12 HOURS IV 10/16/16 21:00 11/12/16 11:59 10/17/16 09:40 Heparin Sodium (Porcine) (Heparin 5000 units/ml) 5,000 units EVERY 12 HOURS SUBQ 10/16/16 21:00 11/04/16 20:59 10/17/16 09:37 Hydralazine HCl (Apresoline) 10 mg Q6H PRN IV sbp above 160 10/16/16 21:30 11/08/16 09:29 Insulin Aspart (NovoLOG) Q6HR SUBQ 10/17/16 00:00 11/06/16 00:00 10/17/16 11:47 Lisinopril (Zestril) 20 mg Q12HR ORAL 10/16/16 21:00 11/14/16 08:59 10/17/16 09:41 Ondansetron HCl (Zofran) 4 mg Q6H PRN IVP Nausea & Vomiting 10/16/16 22:30 11/04/16 10:29 Ranitidine HCl (Zantac) 150 mg Q12HR NG 10/16/16 21:00 11/09/16 20:59 10/17/16 09:41 Tamsulosin HCl (Flomax) 0.4 mg BEDTIME ORAL 10/16/16 21:00 11/04/16 20:59 10/16/16 20:26 VERITO MONTESINOS Oct 17, 2016 11:53
--- NOTE | 2016-10-17 12:31 | Diagnostic Imaging Report ---
Indication: Dyspnea Comparison: 10/16/16 A single view chest radiograph was obtained. Findings: Patchy extensive airspace disease noted bilaterally. Right hemidiaphragm is better seen. Tubes and lines are stable. Heart size is stable. Impression: Patchy and fairly extensive airspace disease with marginal improvement since the last study
--- NOTE | 2016-10-17 13:29 | Wound Care Consultation ---
Wound Assessment Wound Assessment : Wound Number: 1 Wound Present on Admission: Yes New Wound: No Status Change of Wound: Yes Wound Location Body Site Modif: mid Wound Location Body Site: sacral Wound Type: pressure ulcer Sonu Test: Does not Sonu Pressure Ulcer Stage: IV/unstageable - unstageable. Wound Thickness: Full Thickness Wound Length: 5.0 Wound Width: 5.0 Wound Depth: utd Percent of Wound Purple/Maroon: 100 Other Colors Identified: surrounding skin noted with redness. Wound Drainage Description: Serosanguineous Wound Drainage Amount: Moderate Wound Drainage Odor: None/Absent Tissue Surrounding Wound: Erythemic Wound General Appearance: Reddened - maroon. Wound Comment #1 mid sacral admitted deep tissue injury revealing self to unstageable pressure ulcer. upon reassessment noted change to mid sacral dti, noted site with maroon color present still to wound bed ,noted epidermis rupture. sacral is unstageable unable to see wound bed at this time. Recommendation - cleanse with normal saline, pat dry , apply TRIAD CREAM ,cover with biatain silicone dressing, change DAILY and PRN if soiled/dislodged. -Local wound care as ordered. -Apply low air loss mattress SPR. -Turn and reposition. -Keep clean and dry. -Optimize nutrition. -Avoid shear and friction. -Apply heel protectors. -Offload pressure sites, offload heels and feet. -Assess and notify MD for any changes of condition noted to skin. KEATON GUZMAN Oct 17, 2016 13:29
--- NOTE | 2016-10-17 19:00 | Cardiology Progress Note ---
Assessment/Plan Assessment/Plan 1. Severe tachycardia resolved 2. Atrial fibrillation, acute in onset with rapid ventricular response converted to sinus 3. Respiratory failure. 4. Pneumonia. 5. Dementia. 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 7. Hypotension earlier. 8. Leukocytosis. 9. Respiratory acidosis. on amiod bp is elevated add meds hr i s ok tele sinus no afib abx pulm rxn bp seem ok is on lasix on acei cxr reviweed Subjective ROS Limited/Unobtainable: Yes Objective Last 24 Hour Vital Signs Date Time Temp Pulse Resp B/P (MAP) Pulse Ox O2 Delivery O2 Flow Rate FiO2 10/17/16 17:46 101 120/66 10/17/16 16:00 101 10/17/16 16:00 98.1 104 26 120/66 64 Non-Rebreather 15.0 10/17/16 12:00 82 10/17/16 11:45 96.6 81 25 130/57 100 Non-Rebreather 15.0 10/17/16 09:41 151/71 10/17/16 09:41 97 151/71 10/17/16 08:00 97 10/17/16 07:59 97.4 92 26 151/71 100 Non-Rebreather 15.0 10/17/16 07:44 97 20 Non-Rebreather 15.0 100 10/17/16 07:44 Non-Rebreather 15.0 100 10/17/16 07:44 98 Non-Rebreather 15.0 100 10/17/16 04:00 91 10/17/16 04:00 99.4 96 28 157/75 99 Non-Rebreather 15.0 10/17/16 00:00 98.9 95 22 148/78 100 Non-Rebreather 15.0 10/17/16 00:00 91 10/16/16 20:28 177/82 10/16/16 20:06 98 20 Non-Rebreather 15.0 100 10/16/16 20:06 95 Non-Rebreather 15.0 100 10/16/16 20:06 Non-Rebreather 15.0 100 10/16/16 20:00 98.5 92 30 134/64 100 Non-Rebreather 15.0 10/16/16 20:00 106 10/16/16 20:00 98.5 92 30 134/64 100 Non-Rebreather 10/16/16 19:33 105 General Appearance: other - off vent Cardiovascular: normal rate Respiratory/Chest: rhonchi - bilaterally Abdomen: normal bowel sounds, non tender, soft Extremities: trace edema Intake and Output 10/17/16 10/18/16 19:00 07:00 Intake Total 530 ml Output Total 50 ml Balance 480 ml Free Water 200 ml Tube Feeding 330 ml Stool Total 50 ml Laboratory Tests Test 10/17/16 03:35 White Blood Count 19.7 K/UL (4.8-10.8) H Red Blood Count 2.71 M/UL (4.70-6.10) L Hemoglobin 9.3 G/DL (14.2-18.0) L Hematocrit 27.5 % (42.0-52.0) L Mean Corpuscular Volume 102 FL (80-99) H Mean Corpuscular Hemoglobin 34.1 PG (27.0-31.0) H Mean Corpuscular Hemoglobin Concent 33.6 G/DL (32.0-36.0) Red Cell Distribution Width 15.4 % (11.6-14.8) H Platelet Count 224 K/UL (150-450) Mean Platelet Volume 7.2 FL (6.5-10.1) Neutrophils (%) (Auto) % (45.0-75.0) Lymphocytes (%) (Auto) % (20.0-45.0) Monocytes (%) (Auto) % (1.0-10.0) Eosinophils (%) (Auto) % (0.0-3.0) Basophils (%) (Auto) % (0.0-2.0) Differential Total Cells Counted 100 Neutrophils % (Manual) 93 % (45-75) H Lymphocytes % (Manual) 5 % (20-45) L Monocytes % (Manual) 2 % (1-10) Eosinophils % (Manual) 0 % (0-3) Basophils % (Manual) 0 % (0-2) Band Neutrophils 0 % (0-8) Platelet Estimate Adequate Platelet Morphology Normal Hypochromasia 1+ Anisocytosis 1+ Macrocytosis 1+ Sodium Level 144 mEQ/L (135-145) Potassium Level 3.6 mEQ/L (3.4-4.9) Chloride Level 100 mEQ/L (98-107) Carbon Dioxide Level 34 mEQ/L (20-30) H Anion Gap 10 (5-15) Blood Urea Nitrogen 15 mg/dL (7-23) Creatinine 0.8 mg/dL (0.7-1.2) Estimat Glomerular Filtration Rate mL/min (>60) Glucose Level 134 mg/dL (74-106) H Calcium Level 8.7 mg/dL (8.6-10.2) Microbiology Date/Time Source Procedure Growth Status 10/15/16 20:00 Stool Clostridium difficile Toxin Assay - Final Complete ISACC GUEVARA Oct 17, 2016 19:00
--- NOTE | 2016-10-17 19:24 | General Progress Note ---
Assessment/Plan Status: stable Assessment/Plan 1. Anemia secondary to chronic disease. Anemia workup has been reviewed. Folate within normal limits as his B12. TSH is within normal limits. Ferritin is 137, sufficient. No evidence of iron deficiency --> Transfuse if hemoglobin is less than 7 or symptomatic --> monitor HH --> has been stable > 9 2. Coagulopathy. PTT is 50. We will order a PTT and mixing study at this time. --> PTT corrects, likely factor deficiency due to malnutrition 3. Thrombocytopenia in a patient secondary to underlying sepsis. --> plt count improving 4. Respiratory failure, is intubated. 5. Paroxysmal atrial fibrillation. Being seen by Cardiology service. He is on amiodarone. 6. Pneumonia and sepsis. --> abx per id service 7. Leukocytosis, secondary to infection --> On antibiotic IV Subjective Date patient seen: Oct 17, 2016 ROS Limited/Unobtainable: Yes Constitutional: Denies: no symptoms, chills, diaphoresis, fever, malaise, weakness, other HEENT: Denies: no symptoms, eye pain, blurred vision, tearing, double vision, ear pain, ear discharge, nose pain, nose congestion, throat pain, throat swelling, mouth pain, mouth swelling, other Cardiovascular: Denies: no symptoms, chest pain, edema, irregular heart rate, lightheadedness, palpitations, syncope, other Respiratory: Denies: no symptoms, cough, orthopnea, shortness of breath, SOB with excertion, SOB at rest, sputum, stridor, wheezing, other Gastrointestinal/Abdominal: Denies: no symptoms, abdomen distended, abdominal pain, black stools, tarry stools, blood in stool, constipated, diarrhea, difficulty swallowing, nausea, poor appetite, poor fluid intake, rectal bleeding , vomiting, other Genitourinary: Denies: no symptoms, burning, discharge, frequency, flank pain, hematuria, incontinence, pain, urgency, other Neurologic/Psychiatric: Denies: no symptoms, anxiety, depressed, emotional problems, headache, numbness, paresthesia, pre-existing deficit, seizure, tingling, tremors, weakness, other Hematologic/Lymphatic: Reports: anemia Allergies: Coded Allergies: No Known Allergies (Unverified , 07/19/12) Subjective No acute distress, afebrile, no active bleeding. Leukocytosis improving. Objective Last 24 Hour Vital Signs Date Time Temp Pulse Resp B/P (MAP) Pulse Ox O2 Delivery O2 Flow Rate FiO2 10/17/16 19:17 Non-Rebreather 15.0 100 10/17/16 19:17 92 Non-Rebreather 15.0 100 10/17/16 19:15 115 24 Non-Rebreather 15.0 100 10/17/16 17:46 101 120/66 10/17/16 16:00 101 10/17/16 16:00 98.1 104 26 120/66 64 Non-Rebreather 15.0 10/17/16 12:00 82 10/17/16 11:45 96.6 81 25 130/57 100 Non-Rebreather 15.0 10/17/16 09:41 151/71 10/17/16 09:41 97 151/71 10/17/16 08:00 97 10/17/16 07:59 97.4 92 26 151/71 100 Non-Rebreather 15.0 10/17/16 07:44 97 20 Non-Rebreather 15.0 100 10/17/16 07:44 Non-Rebreather 15.0 100 10/17/16 07:44 98 Non-Rebreather 15.0 100 10/17/16 04:00 91 10/17/16 04:00 99.4 96 28 157/75 99 Non-Rebreather 15.0 10/17/16 00:00 98.9 95 22 148/78 100 Non-Rebreather 15.0 10/17/16 00:00 91 10/16/16 20:28 177/82 10/16/16 20:06 98 20 Non-Rebreather 15.0 100 10/16/16 20:06 95 Non-Rebreather 15.0 100 10/16/16 20:06 Non-Rebreather 15.0 100 10/16/16 20:00 98.5 92 30 134/64 100 Non-Rebreather 15.0 10/16/16 20:00 106 10/16/16 20:00 98.5 92 30 134/64 100 Non-Rebreather 10/16/16 19:33 105 Intake and Output 10/17/16 10/18/16 19:00 07:00 Intake Total 530 ml Output Total 50 ml Balance 480 ml Free Water 200 ml Tube Feeding 330 ml Stool Total 50 ml Labs Test 10/16/16 04:30 10/16/16 09:20 10/17/16 03:35 White Blood Count 21.7 K/UL (4.8-10.8) 19.7 K/UL (4.8-10.8) Red Blood Count 3.06 M/UL (4.70-6.10) 2.71 M/UL (4.70-6.10) Hemoglobin 10.4 G/DL (14.2-18.0) 9.3 G/DL (14.2-18.0) Hematocrit 30.9 % (42.0-52.0) 27.5 % (42.0-52.0) Mean Corpuscular Volume 101 FL (80-99) 102 FL (80-99) Mean Corpuscular Hemoglobin 33.8 PG (27.0-31.0) 34.1 PG (27.0-31.0) Mean Corpuscular Hemoglobin Concent 33.5 G/DL (32.0-36.0) 33.6 G/DL (32.0-36.0) Red Cell Distribution Width 15.4 % (11.6-14.8) 15.4 % (11.6-14.8) Platelet Count 224 K/UL (150-450) 224 K/UL (150-450) Mean Platelet Volume 7.2 FL (6.5-10.1) 7.2 FL (6.5-10.1) Neutrophils (%) (Auto) % (45.0-75.0) % (45.0-75.0) Lymphocytes (%) (Auto) % (20.0-45.0) % (20.0-45.0) Monocytes (%) (Auto) % (1.0-10.0) % (1.0-10.0) Eosinophils (%) (Auto) % (0.0-3.0) % (0.0-3.0) Basophils (%) (Auto) % (0.0-2.0) % (0.0-2.0) Differential Total Cells Counted 100 100 Neutrophils % (Manual) 93 % (45-75) 93 % (45-75) Lymphocytes % (Manual) 4 % (20-45) 5 % (20-45) Monocytes % (Manual) 3 % (1-10) 2 % (1-10) Eosinophils % (Manual) 0 % (0-3) 0 % (0-3) Basophils % (Manual) 0 % (0-2) 0 % (0-2) Band Neutrophils 0 % (0-8) 0 % (0-8) Platelet Estimate Adequate Adequate Platelet Morphology Normal Normal Anisocytosis 1+ 1+ Macrocytosis 1+ 1+ Sodium Level 142 mEQ/L (135-145) 144 mEQ/L (135-145) Potassium Level 3.6 mEQ/L (3.4-4.9) 3.6 mEQ/L (3.4-4.9) Chloride Level 100 mEQ/L (98-107) 100 mEQ/L (98-107) Carbon Dioxide Level 33 mEQ/L (20-30) 34 mEQ/L (20-30) Anion Gap 9 (5-15) 10 (5-15) Blood Urea Nitrogen 12 mg/dL (7-23) 15 mg/dL (7-23) Creatinine 0.8 mg/dL (0.7-1.2) 0.8 mg/dL (0.7-1.2) Estimat Glomerular Filtration Rate mL/min (>60) mL/min (>60) Glucose Level 152 mg/dL (74-106) 134 mg/dL (74-106) Calcium Level 8.7 mg/dL (8.6-10.2) 8.7 mg/dL (8.6-10.2) Arterial Blood pH 7.483 (7.350-7.450) Arterial Blood Partial Pressure CO2 45.9 mmHg (35.0-45.0) Arterial Blood Partial Pressure O2 88.7 mmHg (75.0-100.0) Arterial Blood HCO3 33.7 mmol/L (22.0-26.0) Arterial Blood Oxygen Saturation 96.1 % (92.0-98.0) Arterial Blood Base Excess 9.2 Nicholas Test Positive Hypochromasia 1+ Laboratory Tests 10/17/16 03:35: White Blood Count 19.7H, Red Blood Count 2.71L, Hemoglobin 9.3L, Hematocrit 27.5L, Mean Corpuscular Volume 102H, Mean Corpuscular Hemoglobin 34.1H, Mean Corpuscular Hemoglobin Concent 33.6, Red Cell Distribution Width 15.4H, Platelet Count 224, Mean Platelet Volume 7.2, Neutrophils (%) (Auto) , Lymphocytes (%) (Auto) , Monocytes (%) (Auto) , Eosinophils (%) (Auto) , Basophils (%) (Auto) , Differential Total Cells Counted 100, Neutrophils % ( Manual) 93H, Lymphocytes % (Manual) 5L, Monocytes % (Manual) 2, Eosinophils % ( Manual) 0, Basophils % (Manual) 0, Band Neutrophils 0, Platelet Estimate Adequate, Platelet Morphology Normal, Hypochromasia 1+, Anisocytosis 1+, Macrocytosis 1+, Sodium Level 144, Potassium Level 3.6, Chloride Level 100, Carbon Dioxide Level 34H, Anion Gap 10, Blood Urea Nitrogen 15, Creatinine 0.8, Estimat Glomerular Filtration Rate , Glucose Level 134H, Calcium Level 8.7 Height (Feet): 5 Height (Inches): 7.00 Weight (Pounds): 139 General Appearance: cachetic Cardiovascular: normal peripheral pulses, normal rate, regular rhythm Respiratory/Chest: lungs clear Neurologic: superintendent service II-XII grossly normal Skin: warm/dry GIRISH DENNY Oct 17, 2016 19:24
[2016-10-17] MEDS: Tamsulosin 0.4mg cap ORAL SCH (20:10)
--- NOTE | 2016-10-17 23:37 | Infectious Diseases Prog Note ---
Assessment/Plan Assessment/Plan Assessment: Acute respiratory failure, multifocal pneumonia, c/b afib with RVR now on rate control, off pressors for >96hrs s/p course of IV vancomycin and zosyn with cultures of blood from 10/05 neg to date. Mildly elevated ferritin c/w acute phase reactant in acute illness. sputum cx obtained on 10/06 after 24 hrs of broad spectum abx growing only scant Charissa albicans which should be considered a commensal/colonizer here. on topical therapy for tinea cruris. has been off abx since 10/12, now with leukocytosis w/o localizing signs , is hemodynamically stable, has no indwelling CVC, PIV sites look healthy, and overall condition improved as he's been able to be extubated. source of leukocytosis w/o fevers could be C diff (10/08 negative) or sacral wound for which he's received wound care. 1) Multifocal Pneumonia, L effusion, s/p treatment completed 10/12/1610/05 blood cx ngtd 10/06 sputum cx: scant charissa (obtained on abx) 2) septic shock, currently off pressors since 10/06 3) Hypercarbic Respiratory failure requiring intubation; initial chem panel and ABG showed an acute respiratory acidosis with concomitant lactic acidosis metabolic acidosis. TTE with dilated IVC not suggestive of hypovolemic shock. 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 10) Afib with RVR, rate controlled s/p amio gtt now on oral 11) nl LFTs 12) hypoalbuminemia 13) MRSA and VRE screening negative 14) liquid stools, C diff pcr negative 10/08 15) pulmonary edema 16) Tinea cruris PLAN: --Monitor off abx (10/12 s/p IV vancomycin and zosyn D#7) (10/07 s/p amikacin IV D#3) --condom catheter care --monitor CBC --sacral wound care --monitor pleural effusion, stable with pos pressure ventilation --continue topical clotrimazole to b/l inguinal area --Stool C diff now --low threshold to repeat blood cx if he develops any low BP or fevers Subjective Allergies: Coded Allergies: No Known Allergies (Unverified , 07/19/12) Objective Vital Signs Last 24 Hour Vital Signs Date Time Temp Pulse Resp B/P (MAP) Pulse Ox O2 Delivery O2 Flow Rate FiO2 10/17/16 20:10 143/64 10/17/16 20:00 107 10/17/16 19:53 110 22 92 Non-Rebreather 15.0 100 10/17/16 19:44 97.9 107 25 143/64 93 Non-Rebreather 15.0 10/17/16 19:35 115 24 92 Non-Rebreather 15.0 100 10/17/16 19:35 100 10/17/16 19:17 Non-Rebreather 15.0 100 10/17/16 19:17 92 Non-Rebreather 15.0 100 10/17/16 19:15 115 24 Non-Rebreather 15.0 100 10/17/16 17:46 101 120/66 10/17/16 16:00 101 10/17/16 16:00 98.1 104 26 120/66 64 Non-Rebreather 15.0 10/17/16 12:00 82 10/17/16 11:45 96.6 81 25 130/57 100 Non-Rebreather 15.0 10/17/16 09:41 151/71 10/17/16 09:41 97 151/71 10/17/16 08:00 97 10/17/16 07:59 97.4 92 26 151/71 100 Non-Rebreather 15.0 10/17/16 07:44 97 20 Non-Rebreather 15.0 100 10/17/16 07:44 Non-Rebreather 15.0 100 10/17/16 07:44 98 Non-Rebreather 15.0 100 10/17/16 04:00 91 10/17/16 04:00 99.4 96 28 157/75 99 Non-Rebreather 15.0 10/17/16 00:00 98.9 95 22 148/78 100 Non-Rebreather 15.0 10/17/16 00:00 91 Height (Feet): 5 Height (Inches): 7.00 Weight (Pounds): 139 HEENT: atraumatic Respiratory/Chest: normal breath sounds Cardiovascular: regularly irregular Abdomen: no organomegaly Microbiology Date/Time Source Procedure Growth Status 10/15/16 20:00 Stool Clostridium difficile Toxin Assay - Final Complete Laboratory Tests Test 10/17/16 03:35 White Blood Count 19.7 K/UL (4.8-10.8) H Red Blood Count 2.71 M/UL (4.70-6.10) L Hemoglobin 9.3 G/DL (14.2-18.0) L Hematocrit 27.5 % (42.0-52.0) L Mean Corpuscular Volume 102 FL (80-99) H Mean Corpuscular Hemoglobin 34.1 PG (27.0-31.0) H Mean Corpuscular Hemoglobin Concent 33.6 G/DL (32.0-36.0) Red Cell Distribution Width 15.4 % (11.6-14.8) H Platelet Count 224 K/UL (150-450) Mean Platelet Volume 7.2 FL (6.5-10.1) Neutrophils (%) (Auto) % (45.0-75.0) Lymphocytes (%) (Auto) % (20.0-45.0) Monocytes (%) (Auto) % (1.0-10.0) Eosinophils (%) (Auto) % (0.0-3.0) Basophils (%) (Auto) % (0.0-2.0) Differential Total Cells Counted 100 Neutrophils % (Manual) 93 % (45-75) H Lymphocytes % (Manual) 5 % (20-45) L Monocytes % (Manual) 2 % (1-10) Eosinophils % (Manual) 0 % (0-3) Basophils % (Manual) 0 % (0-2) Band Neutrophils 0 % (0-8) Platelet Estimate Adequate Platelet Morphology Normal Hypochromasia 1+ Anisocytosis 1+ Macrocytosis 1+ Sodium Level 144 mEQ/L (135-145) Potassium Level 3.6 mEQ/L (3.4-4.9) Chloride Level 100 mEQ/L (98-107) Carbon Dioxide Level 34 mEQ/L (20-30) H Anion Gap 10 (5-15) Blood Urea Nitrogen 15 mg/dL (7-23) Creatinine 0.8 mg/dL (0.7-1.2) Estimat Glomerular Filtration Rate mL/min (>60) Glucose Level 134 mg/dL (74-106) H Calcium Level 8.7 mg/dL (8.6-10.2) Current Medications Medications (Trade) Dose Ordered Sig/Bhavna Route PRN Reason Start Time Stop Time Status Last Admin Dose Admin Acetaminophen (Tylenol) 650 mg Q4H PRN ORAL fever 10/16/16 22:30 11/04/16 10:29 Albuterol/ Ipratropium (DuoNeb 0.5-3(2.5)mg/3ml) 3 ml Q4HRT PRN HHN sob 10/16/16 23:00 10/20/16 15:59 10/17/16 19:34 Amiodarone HCl (Cordarone) 200 mg DAILY ORAL 10/17/16 09:00 11/05/16 21:59 10/17/16 09:40 Amlodipine Besylate (Norvasc) 5 mg BID ORAL 10/17/16 09:00 11/09/16 20:59 10/17/16 17:46 Clotrimazole (Lotrimin) 1 applic THREE TIMES A DAY TOPIC 10/17/16 09:00 11/12/16 12:59 10/17/16 17:38 Dextrose (Dextrose 50%) STAT PRN IV Hypoglycemia 10/17/16 18:30 11/05/16 18:29 Furosemide (Lasix) 20 mg EVERY 12 HOURS IV 10/16/16 21:00 11/12/16 11:59 10/17/16 20:10 Heparin Sodium (Porcine) (Heparin 5000 units/ml) 5,000 units EVERY 12 HOURS SUBQ 10/16/16 21:00 11/04/16 20:59 10/17/16 20:12 Hydralazine HCl (Apresoline) 10 mg Q6H PRN IV sbp above 160 10/16/16 21:30 11/08/16 09:29 Insulin Aspart (NovoLOG) Q6HR SUBQ 10/17/16 00:00 11/06/16 00:00 10/17/16 23:31 Lisinopril (Zestril) 20 mg Q12HR ORAL 10/16/16 21:00 11/14/16 08:59 10/17/16 20:10 Ondansetron HCl (Zofran) 4 mg Q6H PRN IVP Nausea & Vomiting 10/16/16 22:30 11/04/16 10:29 Ranitidine HCl (Zantac) 150 mg Q12HR NG 10/16/16 21:00 11/09/16 20:59 10/17/16 20:09 Tamsulosin HCl (Flomax) 0.4 mg BEDTIME ORAL 10/16/16 21:00 11/04/16 20:59 10/17/16 20:10 EVONNE CARBAJAL M.D. Oct 17, 2016 23:37
[2016-10-18] VITALS: BP 147/73
[2016-10-18 04:00] VITALS: BP 143/69
[2016-10-18] MEDS: NovoLOG Insulin Flexpen SUBQ SCH (06:01)
[2016-10-18 08:00] VITALS: BP 139/68
[2016-10-18] MEDS: Heparin 5000 units/ml inj SUBQ SCH (08:59)
[2016-10-18] MEDS ORDERED: Lisinopril 20mg tab NG SCH (09:00)
[2016-10-18] MEDS ORDERED: Amiodarone 200mg tab NG SCH (09:00)
--- NOTE | 2016-10-18 11:02 | Pulmonology Progress Note ---
Assessment/Plan Problems: (1) Acute respiratory failure with hypoxia (2) Pneumonia (3) Sepsis (4) Normal pressure hydrocephalus (5) Alzheimer's dementia Respiratory: adjust tidal volume, monitor respiratory rate, adjust FIO2, CXR Cardiac: continue to monitor HR/BP Renal: F/U I&O, keep IV fluid Infectious Disease: check cultures Gastrointestinal: continue feedings/current rate, hold feedings Endocrine: monitor blood sugar, check TSH, check HgA1C, continue sliding scale insulin Hematologic: monitor H/H, transfuse if hgb<8.5 Neurologic: PRN Ativan, keep patient comfortable Affect: PRN ativan Prophylaxis: Protonix 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, 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, 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 Discussed with: nurses, consultants, case operator Subjective ROS Limited/Unobtainable: No Constitutional: Reports: no symptoms HEENT: Repors: no symptoms Respiratory: Reports: no symptoms Allergies: Coded Allergies: No Known Allergies (Unverified , 07/19/12) Objective Last 24 Hour Vital Signs Date Time Temp Pulse Resp B/P (MAP) Pulse Ox O2 Delivery O2 Flow Rate FiO2 10/18/16 08:57 139/68 10/18/16 08:56 98 139/69 10/18/16 08:00 96.8 98 24 139/68 98 Non-Rebreather 15.0 10/18/16 08:00 98 10/18/16 06:47 Non-Rebreather 15.0 100 10/18/16 06:47 101 23 Non-Rebreather 15.0 100 10/18/16 06:47 98 Non-Rebreather 15.0 100 10/18/16 04:00 98.2 100 25 143/69 97 Non-Rebreather 15.0 10/18/16 04:00 93 10/18/16 00:00 97.8 99 24 147/73 99 Non-Rebreather 15.0 10/17/16 20:10 143/64 10/17/16 20:00 107 10/17/16 19:53 110 22 92 Non-Rebreather 15.0 100 10/17/16 19:44 97.9 107 25 143/64 93 Non-Rebreather 15.0 10/17/16 19:35 115 24 92 Non-Rebreather 15.0 100 10/17/16 19:35 100 10/17/16 19:17 Non-Rebreather 15.0 100 10/17/16 19:17 92 Non-Rebreather 15.0 100 10/17/16 19:15 115 24 Non-Rebreather 15.0 100 10/17/16 17:46 101 120/66 10/17/16 16:00 101 10/17/16 16:00 98.1 104 26 120/66 64 Non-Rebreather 15.0 10/17/16 12:00 82 10/17/16 11:45 96.6 81 25 130/57 100 Non-Rebreather 15.0 General Appearance: WD/WN HEENT: normocephalic, atraumatic Respiratory/Chest: chest wall non-tender, lungs clear Cardiovascular: normal peripheral pulses, normal rate Abdomen: normal bowel sounds, soft, non tender Genitourinary: normal external genitalia Extremities: no clubbing Skin: no rash Neurologic/Psychiatric: no motor/sensory deficits, normal mood/affect Lymphatic: no neck adenopathy, no groin adenopathy Musculoskeletal: normal muscle bulk Microbiology Date/Time Source Procedure Growth Status 10/15/16 20:00 Stool Clostridium difficile Toxin Assay - Final Complete Current Medications Medications (Trade) Dose Ordered Sig/Bhavna Route PRN Reason Start Time Stop Time Status Last Admin Dose Admin Acetaminophen (Tylenol) 650 mg Q4H PRN ORAL fever 10/16/16 22:30 11/04/16 10:29 Albuterol/ Ipratropium (DuoNeb 0.5-3(2.5)mg/3ml) 3 ml Q4HRT PRN HHN sob 10/16/16 23:00 10/20/16 15:59 10/17/16 19:34 Amiodarone HCl (Cordarone) 200 mg DAILY NG 10/18/16 09:00 11/17/16 08:59 10/18/16 08:56 Amlodipine Besylate (Norvasc) 5 mg BID@0900,2100 NG 10/18/16 09:00 11/17/16 08:59 10/18/16 08:56 Clotrimazole (Lotrimin) 1 applic THREE TIMES A DAY TOPIC 10/17/16 09:00 11/12/16 12:59 10/18/16 08:57 Dextrose (Dextrose 50%) STAT PRN IV Hypoglycemia 10/17/16 18:30 11/05/16 18:29 Furosemide (Lasix) 20 mg EVERY 12 HOURS IV 10/16/16 21:00 11/12/16 11:59 10/18/16 08:56 Heparin Sodium (Porcine) (Heparin 5000 units/ml) 5,000 units EVERY 12 HOURS SUBQ 10/16/16 21:00 11/04/16 20:59 10/18/16 08:59 Hydralazine HCl (Apresoline) 10 mg Q6H PRN IV sbp above 160 10/16/16 21:30 11/08/16 09:29 Insulin Aspart (NovoLOG) Q6HR SUBQ 10/17/16 00:00 11/06/16 00:00 10/18/16 06:01 Lisinopril (Prinivil) 20 mg Q12HR NG 10/18/16 09:00 11/17/16 08:59 10/18/16 08:57 Ondansetron HCl (Zofran) 4 mg Q6H PRN IVP Nausea & Vomiting 10/16/16 22:30 11/04/16 10:29 Ranitidine HCl (Zantac) 150 mg Q12HR NG 10/16/16 21:00 11/09/16 20:59 10/18/16 08:57 Tamsulosin HCl (Flomax) 0.4 mg BEDTIME ORAL 10/16/16 21:00 11/04/16 20:59 10/17/16 20:10 VERITO MONTESINOS Oct 18, 2016 11:02
[2016-10-18] MEDS ORDERED: Morphine Sulfate 10mg/5ml Oral Soln ud ORAL PRN (11:30)
--- NOTE | 2016-10-18 11:37 | Cardiology Progress Note ---
Assessment/Plan Assessment/Plan 1. Severe tachycardia resolved 2. Atrial fibrillation, acute in onset with rapid ventricular response converted to sinus 3. Respiratory failure. 4. Pneumonia. 5. Dementia. 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 7. Hypotension earlier. 8. Leukocytosis. 9. Respiratory acidosis. now will be on comofrt care only i will sign off Subjective ROS Limited/Unobtainable: Yes Objective Last 24 Hour Vital Signs Date Time Temp Pulse Resp B/P (MAP) Pulse Ox O2 Delivery O2 Flow Rate FiO2 10/18/16 08:57 139/68 10/18/16 08:56 98 139/69 10/18/16 08:00 96.8 98 24 139/68 98 Non-Rebreather 15.0 10/18/16 08:00 98 10/18/16 06:47 Non-Rebreather 15.0 100 10/18/16 06:47 101 23 Non-Rebreather 15.0 100 10/18/16 06:47 98 Non-Rebreather 15.0 100 10/18/16 04:00 98.2 100 25 143/69 97 Non-Rebreather 15.0 10/18/16 04:00 93 10/18/16 00:00 97.8 99 24 147/73 99 Non-Rebreather 15.0 10/17/16 20:10 143/64 10/17/16 20:00 107 10/17/16 19:53 110 22 92 Non-Rebreather 15.0 100 10/17/16 19:44 97.9 107 25 143/64 93 Non-Rebreather 15.0 10/17/16 19:35 115 24 92 Non-Rebreather 15.0 100 10/17/16 19:35 100 10/17/16 19:17 Non-Rebreather 15.0 100 10/17/16 19:17 92 Non-Rebreather 15.0 100 10/17/16 19:15 115 24 Non-Rebreather 15.0 100 10/17/16 17:46 101 120/66 10/17/16 16:00 101 10/17/16 16:00 98.1 104 26 120/66 64 Non-Rebreather 15.0 10/17/16 12:00 82 10/17/16 11:45 96.6 81 25 130/57 100 Non-Rebreather 15.0 General Appearance: no apparent distress, on vent Microbiology Date/Time Source Procedure Growth Status 10/15/16 20:00 Stool Clostridium difficile Toxin Assay - Final Complete ISACC GUEVARA Oct 18, 2016 11:37
[2016-10-18 12:00] VITALS: BP 92/48
[2016-10-18] MEDS ORDERED: Morphine 5mg/2.5ml Oral Soln ORAL PRN (12:45)
[2016-10-18] MEDS ORDERED: NS 275ml ONE (13:59)
[2016-10-18 16:00] VITALS: BP 96/49
[2016-10-18 19:49] VITALS: BP 88/46
--- NOTE | 2016-10-18 20:20 | Infectious Diseases Prog Note ---
Assessment/Plan Assessment/Plan Assessment: Acute respiratory failure, multifocal pneumonia, c/b afib with RVR now on rate control, off pressors for >96hrs s/p course of IV vancomycin and zosyn with cultures of blood from 10/05 neg to date. Mildly elevated ferritin c/w acute phase reactant in acute illness. sputum cx obtained on 10/06 after 24 hrs of broad spectum abx growing only scant Carroll albicans which should be considered a commensal/colonizer here. on topical therapy for tinea cruris. has been off abx since 10/12, now with leukocytosis w/o localizing signs , is hemodynamically stable, has no indwelling CVC, PIV sites look healthy, and overall condition improved as he's been able to be extubated. source of leukocytosis w/o fevers could be C diff (10/08 negative) or sacral wound for which he's received wound care. 1) Multifocal Pneumonia, L effusion, s/p treatment completed 10/12/1610/05 blood cx ngtd 10/06 sputum cx: scant carroll (obtained on abx) 2) septic shock, currently off pressors since 10/06 3) Hypercarbic Respiratory failure requiring intubation; initial chem panel and ABG showed an acute respiratory acidosis with concomitant lactic acidosis metabolic acidosis. TTE with dilated IVC not suggestive of hypovolemic shock. 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 10) Afib with RVR, rate controlled s/p amio gtt now on oral 11) nl LFTs 12) hypoalbuminemia 13) MRSA and VRE screening negative 14) liquid stools, C diff pcr negative 10/08 15) pulmonary edema 16) Tinea cruris PLAN: now will be on comofrt care only i will sign off Subjective Constitutional: Denies: no symptoms, fever, chills, fatigue, anorexia, drenching sweats, other Allergies: Coded Allergies: No Known Allergies (Unverified , 07/19/12) Objective Vital Signs Last 24 Hour Vital Signs Date Time Temp Pulse Resp B/P (MAP) Pulse Ox O2 Delivery O2 Flow Rate FiO2 10/18/16 19:49 97.6 96 29 88/46 75 Non-Rebreather 15.0 10/18/16 19:44 Non-Rebreather 14.0 100 10/18/16 19:44 Non-Rebreather 14.0 100 10/18/16 16:00 97.5 103 28 96/49 69 Non-Rebreather 15.0 10/18/16 16:00 103 10/18/16 12:12 102 10/18/16 12:00 97.0 101 26 92/48 75 Non-Rebreather 15.0 10/18/16 08:57 139/68 10/18/16 08:56 98 139/69 10/18/16 08:00 96.8 98 24 139/68 98 Non-Rebreather 15.0 10/18/16 08:00 98 10/18/16 06:47 Non-Rebreather 15.0 100 10/18/16 06:47 101 23 Non-Rebreather 15.0 100 10/18/16 06:47 98 Non-Rebreather 15.0 100 10/18/16 04:00 98.2 100 25 143/69 97 Non-Rebreather 15.0 10/18/16 04:00 93 10/18/16 00:00 97.8 99 24 147/73 99 Non-Rebreather 15.0 Height (Feet): 5 Height (Inches): 7.00 Weight (Pounds): 138 HEENT: mucous membranes moist Respiratory/Chest: normal breath sounds Cardiovascular: normal rate Abdomen: non distended Current Medications Medications (Trade) Dose Ordered Sig/Bhavna Route PRN Reason Start Time Stop Time Status Last Admin Dose Admin Albuterol/ Ipratropium (DuoNeb 0.5-3(2.5)mg/3ml) 3 ml Q4HRT PRN HHN sob 10/16/16 23:00 10/20/16 15:59 10/17/16 19:34 Atropine Sulfate (Atropine Opth Nolvia) 1 drop Q2H PRN SL excessive secretions 10/18/16 12:00 11/17/16 11:59 Dextrose (Dextrose 50%) STAT PRN IV Hypoglycemia 10/17/16 18:30 11/05/16 18:29 Morphine Sulfate (Morphine 5mg/ 2.5ml Oral Soln) 5 mg Q30M PRN ORAL dsypnea and RR> 20 10/18/16 12:45 10/25/16 11:29 Ondansetron HCl (Zofran) 4 mg Q6H PRN IVP Nausea & Vomiting 10/16/16 22:30 11/04/16 10:29 EVONNE CARBAJAL M.D. Oct 18, 2016 20:20
[2016-10-18] MEDS ORDERED: DuoNeb 0.5-3(2.5)mg/3ml neb HHN PRN (23:00)
[2016-10-18] MEDS: Morphine 5mg/2.5ml Oral Soln ORAL PRN ×2 (23:00→23:54)
--- NOTE | 2016-10-18 23:33 | General Progress Note ---
Assessment/Plan Status: stable Assessment/Plan 1. Anemia secondary to chronic disease. -->Anemia workup has been reviewed. Folate within normal limits as his B12. TSH is within normal limits. Ferritin is 137, sufficient. No evidence of iron deficiency --> Transfuse if hemoglobin is less than 7 or symptomatic --> monitor HH --> has been stable > 9 2. Coagulopathy. PTT is 50. --> PTT and mixing reviewed. --> PTT corrects, likely factor deficiency due to malnutrition 3. Thrombocytopenia in a patient secondary to underlying sepsis. --> plt count improving 4. Respiratory failure, is intubated. 5. Paroxysmal atrial fibrillation. -->Being seen by Cardiology service. He is on amiodarone. 6. Pneumonia and sepsis. --> abx per id service 7. Leukocytosis, secondary to infection --> On antibiotic IV Subjective Date patient seen: Oct 18, 2016 Time patient seen: 06:00 Constitutional: Denies: no symptoms, chills, diaphoresis, fever, malaise, weakness, other HEENT: Denies: no symptoms, eye pain, blurred vision, tearing, double vision, ear pain, ear discharge, nose pain, nose congestion, throat pain, throat swelling, mouth pain, mouth swelling, other Cardiovascular: Denies: no symptoms, chest pain, edema, irregular heart rate, lightheadedness, palpitations, syncope, other Respiratory: Denies: no symptoms, cough, orthopnea, shortness of breath, SOB with excertion, SOB at rest, sputum, stridor, wheezing, other Gastrointestinal/Abdominal: Denies: no symptoms, abdomen distended, abdominal pain, black stools, tarry stools, blood in stool, constipated, diarrhea, difficulty swallowing, nausea, poor appetite, poor fluid intake, rectal bleeding , vomiting, other Genitourinary: Denies: no symptoms, burning, discharge, frequency, flank pain, hematuria, incontinence, pain, urgency, other Hematologic/Lymphatic: Reports: anemia Allergies: Coded Allergies: No Known Allergies (Unverified , 07/19/12) Subjective No acute distress, afebrile, no active bleeding. Leukocytosis improving. No complaints of pain Objective Last 24 Hour Vital Signs Date Time Temp Pulse Resp B/P (MAP) Pulse Ox O2 Delivery O2 Flow Rate FiO2 10/18/16 20:23 105 22 Non-Rebreather 15.0 100 10/18/16 19:49 97.6 96 29 88/46 75 Non-Rebreather 15.0 10/18/16 19:44 Non-Rebreather 14.0 100 10/18/16 19:44 Non-Rebreather 14.0 100 10/18/16 16:00 97.5 103 28 96/49 69 Non-Rebreather 15.0 10/18/16 16:00 103 10/18/16 12:12 102 10/18/16 12:00 97.0 101 26 92/48 75 Non-Rebreather 15.0 10/18/16 08:57 139/68 10/18/16 08:56 98 139/69 10/18/16 08:00 96.8 98 24 139/68 98 Non-Rebreather 15.0 10/18/16 08:00 98 10/18/16 06:47 Non-Rebreather 15.0 100 10/18/16 06:47 101 23 Non-Rebreather 15.0 100 10/18/16 06:47 98 Non-Rebreather 15.0 100 10/18/16 04:00 98.2 100 25 143/69 97 Non-Rebreather 15.0 10/18/16 04:00 93 10/18/16 00:00 97.8 99 24 147/73 99 Non-Rebreather 15.0 Intake and Output 10/18/16 10/19/16 19:00 07:00 Intake Total 120 ml Output Total 210 ml Balance -90 ml Tube Feeding 120 ml Output Urine Total 200 ml Stool Total 10 ml Height (Feet): 5 Height (Inches): 7.00 Weight (Pounds): 138 General Appearance: no apparent distress Neck: normal alignment Cardiovascular: normal rate, regular rhythm Respiratory/Chest: chest wall non-tender, lungs clear Abdomen: normal bowel sounds, non tender 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
[2016-10-19 01:29] VITALS: BP 84/45
--- NOTE | 2016-10-21 18:35 | Discharge Summary ---
Discharge Summary Hospital Course Date of Admission Oct 05, 2016 at 08:50 Date of Discharge Oct 19, 2016 at 00:20 Admitting Diagnosis respiratory failure sepsis pna HPI Arpit Zacarias is a 85 year old male who was admitted on Oct 05, 2016 at 08:50 for Respiratory Failure,Sepsis,Pneumonia Hospital Course [id number] Discharge Discharge Disposition Patient was discharged to Discharge Diagnoses: Catherine Lara NP Oct 21, 2016 18:35
--- NOTE | 2016-10-22 04:45 | Discharge Summary 2 SIG ---
DATE OF ADMISSION: 10/05/2016 DATE OF DISCHARGE: 10/19/2016 CONSULTANTS: 1. Alfonso Mathur M.D. 2. Gama Salinas M.D. 3. Bret Dunham M.D. BRIEF SUMMARY: The patient is a unfortunate 85-year-old male with history of dementia, BPH, bed-bound, assisted resident, was brought in by ambulance for complaints of altered mental status. On evaluation at ED, the patient was in severe respiratory distress. On arrival by EMS, the patient was in respiratory distress. Saturation 80% on room air. He was emergently orally intubated on arrival to ED, and laboratory work showed leukocytosis, WBC was 13. Chest x-ray showed bilateral infiltrates. He was hypotensive and was started on IV pressors and was admitted to ICU. He was started on vancomycin and amikacin and Zosyn. Ertapenem was discontinued. He came in with deep tissue injury on the sacral area and was given wound care. He was tachycardic. Heart rate goes up to 170s to 180s. He was given metoprolol, however, remained tachycardic. EKG done from ED showed normal sinus rhythm. However, at time of admission, the patient went into atrial fibrillation with RVR. He was started on amiodarone since atrial fibrillation was acute. Echocardiogram done showed ejection fraction of 55%. He eventually converted to sinus rhythm and was extubated on 10/14/2016. Leukocytosis resolved and was monitored off antibiotic treatment. Blood cultures did not isolate any growth and sputum culture showed scant Charissa. Postextubation, respiratory status remained guarded. The patient was placed on 100% non-rebreather mask, unable to titrate down. WBC was increasing. However, per family wishes, son signed a POLST indicating code status changed to DNR and DNI. The patient was placed on comfort measures. The patient eventually . FINAL DIAGNOSES: 1. Sepsis. 2. Acute respiratory failure. 3. Multifocal pneumonia with effusion. 4. Atrial fibrillation with rapid ventricular response. 5. Alzheimer dementia. 6. Normal pressure hydrocephalus. 7. Anemia of acute secondary to chronic disease. 8. Acute anemia requiring transfusion. 9. Coagulopathy. 10. Acute atrial fibrillation, converted to sinus. 11. Sacral deep tissue injury, present on admission. 12. Comfort care/palliative care. Luis Nolen M.D. I have been assigned to dictate discharge summary on this account and I was not involved in the patient's management. Catherine Lara N.P. DR: Heron JOB#: [id number] CC:
== END 2016-10-19 00:20 | disposition expired | DRG 870 ==
LOC: EDBD 06:51 → EMR 07:25 → ICU 08:50 → EDBEDREQ 12:19 → 2W 10-16 19:19 → 4W 10-18 22:34
PROC: 0BH17EZ Insertion of Endotracheal Airway into Trachea, Via Natural or Artificial Opening (ICD-10-PCS; principal; 2016-10-05)
PROC: 5A1955Z Respiratory Ventilation, Greater than 96 Consecutive Hours (ICD-10-PCS; principal; 2016-10-05)
DX: A41.9 Sepsis, unspecified organism (principal); J18.9 Pneumonia, unspecified organism; R65.21 Severe sepsis with septic shock; L89.154 Pressure ulcer of sacral region, stage 4; J96.01 Acute respiratory failure with hypoxia; J96.02 Acute respiratory failure with hypercapnia; G91.2 (Idiopathic) normal pressure hydrocephalus; D68.9 Coagulation defect, unspecified; D69.6 Thrombocytopenia, unspecified; E88.09 Other disorders of plasma-protein metabolism, not elsewhere classified; N40.0 Benign prostatic hyperplasia without lower urinary tract symptoms; G30.9 Alzheimer's disease, unspecified; F02.80 Dementia in other diseases classified elsewhere, unspecified severity, without behavioral disturbance, psychotic disturbance, mood disturbance, and anxiety; D63.8 Anemia in other chronic diseases classified elsewhere; I48.0 Paroxysmal atrial fibrillation; I10 Essential (primary) hypertension; B35.6 Tinea cruris; R73.9 Hyperglycemia, unspecified; Z51.5 Encounter for palliative care; J45.909 Unspecified asthma, uncomplicated; Z74.01 Bed confinement status; K29.70 Gastritis, unspecified, without bleeding; E87.6 Hypokalemia; E83.42 Hypomagnesemia; E83.39 Other disorders of phosphorus metabolism; Z66 Do not resuscitate
CPT/HCPCS: 36415; 36600; 71010; 76604; 80048; 80053; 80150; 80202; 81003; 82248; 82378; 82550; 82553; 82607; 82728; 82746; 82803; 82962; 83010; 83540; 83550; 83605; 83615; 83735; 84100; 84484; 85007; 85025; 85044; 85060; 85384; 85610; 85651; 85730; 86703; 86705; 86709; 86803; 86850; 86900; 86901; 86920; 87040; 87070; 87081; 87205; 87324; 87340; 93005; 93306; 94002; 94003; 94640; 94664; 94760; J0282; J1815; J2405; J7620; J8499